=== PATIENT | female | born 1970 | race African-American/Black ===

== ENCOUNTER 2017-09-08 07:47 | Emergency (ER) | payer BC ==
[2017-09-08 08:02] VITALS: BP 156/77; PULSE 89; TEMP 98.9; BMI 25.0
--- NOTE | 2017-09-08 08:04 | PDOC ---
History of Present Illness - General Chief Complaint: Injury Stated Complaint: RIGH WRIST PAIN Time Seen by Provider: 09/08/17 07:55 - History of Present Illness Initial Comments: 09/08/17 08:28 The patient is a 47 year old right handed female with a history of DM, HTN, COPD , CAD who presents for evaluation following a mechanical fall. The patient reports that yesterday evening she tripped on a curb after smoking a cigarette and broke her fall with her right hand. She denies any head trauma and reports only right wrist pain. She states that she had continued pain prompting her presentation to the ED today. She denies fevers, chills, SOB, chest pain, abdominal pain or changes with urination or bowel movements. Past History - Past Medical History Allergies/Adverse Reactions: Allergies Allergy/AdvReac Type Severity Reaction Status Date / Time No Known Allergies Allergy Verified 09/08/17 07:52 Home Medications: Ambulatory Orders Albuterol Sulfate Inhaler - [Ventolin HFA Inhaler -] 2 inh IH Q4H PRN #1 inh Atorvastatin Calcium [Lipitor] 10 mg PO HS 04/12/13 Losartan Potassium [Cozaar] 25 mg PO DAILY 07/18/15 Salmeterol/Fluticasone [Advair 100Mcg/50Mcg -] 1 puff IH BID #1 inhaler Insulin Lispro [Humalog] 5 unit SQ AM 10/31/15 Clopidogrel Bisulfate [Plavix -] 75 mg PO DAILY 01/28/16 Guaifenesin AC [Robitussin-AC] 1 - 2 tsp PO TID PRN #100 ml MDD 6 10/25/16 Asthma: Yes (BRONCHITIS) COPD: No Diabetes: Yes HTN: Yes Hypercholesterolemia: Yes - Immunization History Immunization Up to Date: Yes - Suicide/Smoking/Psychosocial Hx Smoking Status: No Smoking History: Former smoker Have you smoked in the past 12 months: No Number of Cigarettes Smoked Daily: 5 If you are a former smoker, when did you quit?: 3 MO Information on smoking cessation initiated: No 'Breaking Loose' booklet given: 10/25/16 Hx Alcohol Use: Yes (SOCIAL) Drug/Substance Use Hx: No Substance Use Type: None Review of Systems - Review of Systems Comments:: 09/08/17 08:31 Constitutional: No fevers, chills, fatigue, malaise HEENT: No Rhinorrhea, nasal congestion, Cardiovascular: No chest pain, syncope, palpitations, lightheadedness Respiratory: No Cough, SOB, Hemoptysis, Gastrointestinal: No Abdominal pain, Nausea, Vomiting, Constipation, Diarrhea, Melena Genitourinary: No Dysuria, Frequency, Urgency, Hesitancy, Hematuria, Musculoskeletal: Right wrist pain. No Myalgia, arthralgia Skin: No rashes, bruising, pallor Neurologic: No Headache, Dizziness, Numbness, Weakness, or Tingling Psychiatric: No Hallucinations. No SI or HI *Physical Exam - Vital Signs Last Vital Signs Temp Pulse Resp BP Pulse Ox 98.9 F 89 20 156/77 99 09/08/17 07:48 09/08/17 07:48 09/08/17 07:48 09/08/17 07:48 09/08/17 07:48 - Physical Exam Comments: 09/08/17 08:32 General Appearance: Nourished. No Apparent Distress HEENT: EOMI, JERI. Neck: No Cervical Lymphadenopathy Respiratory/Chest: Lungs Clear, Normal Breath Sounds. No Crackles, Rales, Rhonchi, Wheezing Cardiovascular: Regular Rhythm, Regular Rate. No Murmur, Gallops, Rubs Gastrointestinal/Abdominal: Normal Bowel Sounds, Soft. No Guarding, Rebound, Tenderness Musculoskeletal: No CVA Tenderness Extremity: Normal range of motion of the right wrist with normal range of motion of the hand and digits. Full strength in the hand and digits. Sensation to light touch and temperature intact in the distal extremities. 2+ radial pulses bilaterally. Mild edema to the distal forearm. Pain with supination of the forearm. Normal Capillary Refill Integumentary: Normal Color, Dry, Warm Neurologic: Fully Oriented, Alert, Normal Mood/Affect, Normal Response, Motor Strength 5/5. Normal Finger to Nose and Heel to [place] Medical Decision Making - Medical Decision Making 09/08/17 08:36 The patient is a 47 year old right handed female with a history of DM, HTN, COPD , CAD who presents for evaluation following a mechanical fall. Differential includes but is not limited to: contusion, fracture, ligamentous injury. Given the patient's mechanism of injury, we will obtain plain films to evaluate for fracture. We will treat the patient with ibuprofen and continue to monitor and reassess. 09/08/17 09:54 Plain films were read as negative by our radiologist. However given the patient 's symptoms we are concerned for a possible small fracture in the distal radius. We have splinted the patient and given her instructions to follow up with orthopedics or return to the ER for repeat imaging in 1 week. The patient voiced understanding and is agreeable with the plan. *DC/Admit/Observation/Transfer Diagnosis at time of Disposition: Right wrist pain Wrist fracture Qualifiers: Encounter type: initial encounter Fracture type: closed Laterality: right Qualified Code(s): S62.101A - Fracture of unspecified carpal bone, right wrist, initial encounter for closed fracture - Discharge Dispostion Disposition: HOME Condition at time of disposition: Good Admit: No - Referrals Referrals: Jin Chavez MD [Staff Physician] - - Patient Instructions Printed Discharge Instructions: How to Use a Sling, DI for Wrist Fracture, How to Take Care of Your Splint Additional Instructions: Please return to the ER if you experience concerning or worsening symptoms including worsening pain. Your x-rays show a possible small fracture in your wrist. We have splinted your arm and you will need to call to schedule a follow up appointment with our orthopedic surgeon Dr. Chavez within 1 week. If you are unable to establish a follow up appointment please return to the ER to have repeat imaging done of your arm in 1 week. Please keep activity to a minimum given your splinted arm. - Post Discharge Activity
[2017-09-08] MEDS ORDERED: IBUPROFEN 600 MG TABLET (FP) PO ONE (08:25)
--- NOTE | 2017-09-08 09:53 | PDOC ---
Attending Attestation - Resident Resident Name: Surinder Kwong - ED Attending Attestation I have performed the following: I have examined & evaluated the patient, The case was reviewed & discussed with the resident, I agree w/resident's findings & plan, Exceptions are as noted - HPI HPI: 09/08/17 09:49 47 year old female with past medical history of DM, CAD, COPD, HTN presents with R wrist pain. 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 Yesterday, tripped and fell and landed on right wrist. Complaining about distal right radius pain. No numbness, weakness. Because of persistence of pain, came into the ED for further evaluation. - Physicial Exam PE: 09/08/17 09:51 GENERAL: NAD, AAOx3 RUE: 2+ radial pulse. Sensation intact throughout. radian/median/ulnar nerve intact TTP distal radius. No obvious deformity - Medical Decision Making 09/08/17 09:51 Vital Signs Temp Pulse Resp BP Pulse Ox 98.9 F 89 20 156/77 99 09/08/17 07:48 09/08/17 07:48 09/08/17 07:48 09/08/17 07:48 09/08/17 07:48 Right wrist xray reviewed. Radiology read is negative. However, on my read, apperas to be subtle findings on distal radius. Given the clinical findings of the wrist pain, will treat as if patient had a nondisplaced distal radius fracture. Dr. Kwong (resident) placed a sugar tong splint in right wrist. Modified activity Pain control Follow up with ortho in 1 week. If unable to obtain a follow up, return to ED for repeat wrist xray.
== END 2017-09-08 10:00 | disposition home or self-care (01) ==
LOC: JER 07:47
PROC: 2W3CX1Z Immobilization of Right Lower Arm using Splint (ICD-10-PCS; principal; 2017-09-08)
DX: S62.101A Fracture of unspecified carpal bone, right wrist, initial encounter for closed fracture (principal); W10.1XXA Fall (on)(from) sidewalk curb, initial encounter; Y93.89 Activity, other specified; Y92.480 Sidewalk as the place of occurrence of the external cause; Y99.8 Other external cause status; I10 Essential (primary) hypertension; E10.9 Type 1 diabetes mellitus without complications; Z79.4 Long term (current) use of insulin; E78.00 Pure hypercholesterolemia, unspecified; F17.210 Nicotine dependence, cigarettes, uncomplicated
CPT/HCPCS: 73070-TC-RT; 73090-TC-RT; 73110-TC-RT; 99281-25

== ENCOUNTER 2018-04-13 11:52 | Emergency (ER) | payer BC ==
[2018-04-13 12:11] VITALS: BP 121/74; PULSE 100; TEMP 99.4; BMI 25.0
--- NOTE | 2018-04-13 12:26 | PDOC ---
History of Present Illness - General Chief Complaint: Cold Symptoms Stated Complaint: Sore Throat Time Seen by Provider: 04/13/18 12:12 - History of Present Illness Initial Comments: 47 y/o F with PMH of DM, HTN, CAD presents for evalution of sore throat x 2 weeks without associated symptoms. 04/13/18 12:20 Past History - Past Medical History Allergies/Adverse Reactions: Allergies Allergy/AdvReac Type Severity Reaction Status Date / Time No Known Allergies Allergy Verified 04/13/18 12:11 Home Medications: Ambulatory Orders Atorvastatin Calcium [Lipitor] 10 mg PO HS 04/12/13 Losartan Potassium [Cozaar] 25 mg PO DAILY 07/18/15 Insulin Lispro [Humalog] 5 unit SQ AM 10/31/15 Clopidogrel Bisulfate [Plavix -] 75 mg PO DAILY 01/28/16 Cetirizine HCl [Zyrtec Rapidly Dissolving Tab -] 10 mg PO DAILY #30 tab Asthma: Yes (BRONCHITIS) COPD: No Diabetes: Yes HTN: Yes Hypercholesterolemia: Yes - Immunization History Immunization Up to Date: Yes - Suicide/Smoking/Psychosocial Hx Smoking Status: No Smoking History: Never smoked Have you smoked in the past 12 months: No Number of Cigarettes Smoked Daily: 5 If you are a former smoker, when did you quit?: 2014 Information on smoking cessation initiated: No 'Breaking Loose' booklet given: 10/25/16 Hx Alcohol Use: No Drug/Substance Use Hx: No Substance Use Type: None Review of Systems - Review of Systems Constitutional: No: Chills, Fever HEENTM: Yes: Throat Pain All Other Systems: Reviewed and Negative *Physical Exam - Vital Signs Last Vital Signs Temp Pulse Resp BP Pulse Ox 99.4 F 100 H 16 121/74 100 04/13/18 12:08 04/13/18 12:08 04/13/18 12:08 04/13/18 12:08 04/13/18 12:08 - Physical Exam Comments: GENERAL: The patient is awake, alert, and fully oriented, in no acute distress. HEAD: Normal with no signs of trauma. EYES: Pupils equal, round and reactive to light, extraocular movements intact, sclera anicteric, conjunctiva clear. ENT: Ears normal, nares patent, oropharynx clear without exudates. Moist mucous membranes. NECK: Normal range of motion, supple without lymphadenopathy, JVD, or masses. LUNGS: Breath sounds equal, clear to auscultation bilaterally. No wheezes, and no crackles. HEART: Regular rate and rhythm, normal S1 and S2 without murmur, rub or gallop. ABDOMEN: Soft, nontender, normoactive bowel sounds. No guarding, no rebound. No masses. EXTREMITIES: Normal range of motion, no edema. No clubbing or cyanosis. No cords, erythema, or tenderness. NEUROLOGICAL: Cranial nerves II through XII grossly intact. Normal speech, normal gait. PSYCH: Normal mood, normal affect. SKIN: Warm, Dry, normal turgor, no rashes or lesions noted. 04/13/18 12:23 Medical Decision Making - Medical Decision Making 47 y/o F with benign appearing examination of sore throat x 2 weeks 04/13/18 12:23 04/13/18 12:56 strep negative, cx sent, this is most likley allergies, I will prescribe and antihistamine for her and f/u with PCP *DC/Admit/Observation/Transfer Diagnosis at time of Disposition: Allergic pharyngitis - Discharge Dispostion Disposition: HOME Condition at time of disposition: Stable Decision to Admit order: No - Referrals Referrals: Carmen Chaudhari [Primary Care Provider] - - Patient Instructions Printed Discharge Instructions: Allergies (Alternative Therapy) Additional Instructions: Your sore throat is most likley due to allergies, especially due to the fact that is been going on for two weeks. Your rapid strep was negative. I have prescribed for you an antihistamine which should help your symptoms. Return to the ER should your symptoms worsen or go unresolved. Please follow up with your primary care physician in the next 1-2 days. - Post Discharge Activity
== END 2018-04-13 13:01 | disposition home or self-care (01) ==
LOC: JERFT 11:52
DX: J02.9 Acute pharyngitis, unspecified (principal); I25.10 Atherosclerotic heart disease of native coronary artery without angina pectoris; I10 Essential (primary) hypertension; E78.00 Pure hypercholesterolemia, unspecified; E11.9 Type 2 diabetes mellitus without complications; Z79.4 Long term (current) use of insulin
CPT/HCPCS: 87070; 87430; 99281-25

== ENCOUNTER 2018-04-15 23:00 | Inpatient (IN) | payer BC ==
[2018-04-15] MEDS ORDERED: KETOROLAC TROMETHAMINE 30 MG/1 ML VIAL IVPUSH ONE (23:27)
[2018-04-15] MEDS ORDERED: SODIUM CHLORIDE 1,000 ML IV ONE (23:27)
--- NOTE | 2018-04-15 23:29 | PDOC ---
History of Present Illness - General Chief Complaint: Pain, Acute Stated Complaint: FEVER/SORE THROAT Time Seen by Provider: 04/15/18 23:26 History Source: Patient Exam Limitations: No Limitations - History of Present Illness Initial Comments: 04/15/18 23:28 This is a 47-year-old female who comes in complaining of sore throat 2-1/2 weeks. Patient was at [facility] on Saturday and was told it was most likely secondary to ALLERGIES, however a rapid strep was also done and it was negative, patient was prescribed antihistamines which she has not been taking. Patient was at urgent care center yesterday and told it was likely secondary to possible viral etiology. Patient now comes to the ER for reevaluation. Patient has history significant for diabetes, and hypertension. PAST MEDICAL HISTORY: Hypertension and diabetes PAST SURGICAL HISTORY: no significant history FAMILY HISTORY: no pertinant history SOCIAL HISTORY: Pt lives with family and is employed. MEDICATIONS: reviewed ALLERGIES: As per nursing notes Review of Systems General: No fevers or chills, no weakness, no weight loss HEENT: No change in vision. No sore throat,. No ear pain CardioVascular: No chest pain or shortness of breath Respiratory:No cough, or wheezing. Gastrointestinal: no nausea, vomitting, diarrhea or constipation, No rectal bleeding Genitourinary: No dysuria, hematuria, or frequency Musculoskeletal: No joint or muscle pain or swelling Neurologic: No headache, vertigo, dizziness or loss of consciousness Psychiatric: nor depression Skin: No rashes or easy bruising Endocrine: no increased thirst or abnormal weight change Allergic: no skin or latex allergy All other systems reviewed and normal Exam: General: Well-nourished well-developed individual, no acute distress HEENT: Throat: Normal, tonsils normal, there is a moderate amount of erythema posterior oropharynx Neck: Supple, no meningeal signs, no lymphadenopathy Eyes::Pupils equal reactive and round, extraocular motion intact Chest: Nontender to palpation Cardiac: S1-S2 normal, regular rate and rhythm, no murmurs rubs or gallops Respiratory: Lungs clear to auscultation bilateral Extremities: Warm, dry, no cyanosis, clubbing, or edema Skin: No rashes Neuro: Alert and oriented x3, CN II - XII intact, nonfocal exam with normal strength, normal sensation, normal reflexes, normal gait, Psych: Normal mood and affect Assessment and plan: This is a 47-year-old female with history of asthma dependent diabetes who comes in complaining of sore throat 2-1/2 weeks. There is an associated dry cough with it. Patient denies any shortness of breath or fevers. As this is the patient's third visit will obtain a basic workup including CBC, comp and hydrate her with some IV fluids and give her some Toradol. 04/16/18 00:10 Patient glucose is markedly elevated at 729. Her sodium is 125 and her potassium is 4.7. Patient will be given 10 units of insulin IV push. Discussed admission with the thread cutter tender and patient was accepted to the ICU. Patient is hemodynamically stable. Patient will be transferred to [facility] ICU for admission. Past History - Past Medical History Allergies/Adverse Reactions: Allergies Allergy/AdvReac Type Severity Reaction Status Date / Time No Known Allergies Allergy Verified 04/15/18 23:02 Home Medications: Ambulatory Orders Atorvastatin Calcium [Lipitor] 10 mg PO HS 04/12/13 Losartan Potassium [Cozaar] 25 mg PO DAILY 07/18/15 Insulin Lispro [Humalog] 5 unit SQ AM 10/31/15 Clopidogrel Bisulfate [Plavix -] 75 mg PO DAILY 01/28/16 Cetirizine HCl [Zyrtec Rapidly Dissolving Tab -] 10 mg PO DAILY #30 tab Asthma: Yes (BRONCHITIS) COPD: No Diabetes: Yes HTN: Yes Hypercholesterolemia: Yes - Immunization History Immunization Up to Date: Yes - Suicide/Smoking/Psychosocial Hx Smoking Status: No Smoking History: Never smoked Have you smoked in the past 12 months: No Number of Cigarettes Smoked Daily: 5 If you are a former smoker, when did you quit?: 2014 Information on smoking cessation initiated: No 'Breaking Loose' booklet given: 10/25/16 Hx Alcohol Use: No Drug/Substance Use Hx: No Substance Use Type: None *Physical Exam - Vital Signs Last Vital Signs Temp Pulse Resp BP Pulse Ox 99.6 F 98 H 18 115/73 100 04/15/18 23:07 04/15/18 23:07 04/15/18 23:07 04/15/18 23:07 04/15/18 23:07 ED Treatment Course - LABORATORY CBC & Chemistry Diagram: 04/15/18 23:40 04/15/18 23:40 *DC/Admit/Observation/Transfer Diagnosis at time of Disposition: Uncontrolled type 2 DM with hyperosmolar nonketotic hyperglycemia, Hyperkalemia - Discharge Dispostion Condition at time of disposition: Stable Decision to Admit order: Yes - Referrals - Patient Instructions - Post Discharge Activity
[2018-04-15] MEDS ORDERED: KETOROLAC TROMETHAMINE 30 MG/1 ML VIAL ONE (23:45)
[2018-04-15 23:50] LABS: BASO % 2.6 % (0-2.0); EOS % 1.1 % (0-4.5); HEMATOCRIT 38.8 % (32.4-45.2); HEMOGLOBIN 12.6 GM/dl (10.7-15.3); LYMPH % 15.3 % (8-40); MCH 28.3 pg (25.7-33.7); MCHC 32.6 g/dl (32.0-36.0); MEAN PLT VOLUME 8.1 fl (7.5-11.1); MONO % 10.2 % (3.8-10.2); NEUT % 70.8 % (42.8-82.8); PLATELET COUNT 264 K/MM3 (134-434); RBC 4.45 M/mm3 (3.60-5.2); RDW 14.1 % (11.6-15.6); WHITE BLOOD COUNT 9.1 K/mm3 (4.0-10.8)
[2018-04-15 23:58] LABS: ALBUMIN 3.5 g/dl (3.5-5.0); ALK PHOS 189 U/L (32-92); ANION GAP 16 (8-16); BILIRUBIN,TOTAL 0.6 mg/dl (0.2-1.0); BLOOD UREA NITROGEN 21 mg/dl (7-18); CALCIUM 9.4 mg/dl (8.4-10.2); CHLORIDE 86 mmol/L (98-107); CO2 23 mmol/L (22-28); CREATININE 1.2 mg/dl (0.6-1.3); SGOT/AST 23 U/L (10-42); SGPT/ALT 11 U/L (10-40); SODIUM 125 mmol/L (136-145); TOT PROT 8.1 g/dl (6.4-8.3)
[2018-04-16 00:04] LABS: GLUCOSE,RANDOM 720 mg/dl (74-106); POTASSIUM 5.4 mmol/L (3.5-5.1)
[2018-04-16] MEDS ORDERED: INSULIN REGULAR HUMAN 100 UNITS/ML *VIAL IVPUSH ONE (00:48)
[2018-04-16] MEDS ORDERED: SODIUM CHLORIDE 1,000 ML IV ONE ×2 (01:14→02:37)
[2018-04-16] MEDS ORDERED: INSULIN REGULAR HUMAN 100 UNITS/ML *VIAL ONE ×2 (01:15→01:16)
[2018-04-16] MEDS ORDERED: HEMOQUE TEST 1 EACH EACH ONE (02:07)
[2018-04-16] MEDS ORDERED: HEMOQUE CONTROL SOLUTION ONE (02:25)
[2018-04-16 04:11] VITALS: BMI 23.8
[2018-04-16] MEDS ORDERED: PNEUMOC 13-VAL CONJ-DIP CRM/PF 0.5 ML DISP.SYRIN IM ONE (04:14)
[2018-04-16] MEDS ORDERED: SODIUM CHLORIDE 1,000 ML IV SCH (04:15)
[2018-04-16] MEDS: INSULIN REGULAR 100 UNITS in SODIUM CHLORIDE 99 ML IVPB SCH ×2 (04:22→05:58)
--- NOTE | 2018-04-16 04:23 | CONSULT ---
Consult Consult Specialty:: Pulm/CCM Reason for Consultation:: DKA - History of Present Illness Chief Complaint: Sore throat History of Present Illness: 47yow with PMHX IDDM, CAD s/p stent who presented to [facility] with c/o sore throat. Found to be in DKA with BG 720 and AGAP 16. Pt states that she has also had dysphagia and poor po intake and in that setting was not compliant with insulin doses. At [facility] labs notable for Na 125, K 5.4, WBC 10. CXR was clear. Blood cultures sent. She was given insulin 10U and started on IV fluid. She was transferred to [facility] ICU for further management. Of note pt visited [facility] 2 days [facility] with similar complaint and was treated for allergies. The next day she went to an urgent care center. Strep culture there was negative. In ICU pt rec'd A+O x3, HR 79, BP 129/93, o2 sat 100% on room air. Insulin drip started at 10U/h, IV fluids at 150cc/h and Azithromycin empirically - History Source History Provided By: Patient, Medical Record - Past Medical History Cardio/Vascular: Yes: CAD, Other (s/p stent) ...LMP: 04/19/15 ...: No Endocrine: Yes: Diabetes Mellitus - Alcohol/Substance Use Hx Alcohol Use: No - Smoking History Smoking history: Former smoker Have you smoked in the past 12 months: No Aproximately how many cigarettes per day: 5 If you are a former smoker, when did you quit?: 2014 Home Medications - Allergies Allergies/Adverse Reactions: Allergies Allergy/AdvReac Type Severity Reaction Status Date / Time No Known Allergies Allergy Verified 04/15/18 23:02 - Home Medications Home Medications: Ambulatory Orders Atorvastatin Calcium [Lipitor] 10 mg PO HS 04/12/13 Losartan Potassium [Cozaar] 25 mg PO DAILY 07/18/15 Insulin Lispro [Humalog] 5 unit SQ AM 10/31/15 Clopidogrel Bisulfate [Plavix -] 75 mg PO DAILY 01/28/16 Cetirizine HCl [Zyrtec Rapidly Dissolving Tab -] 10 mg PO DAILY #30 tab Family Disease History - Family Disease History Family Disease History: Diabetes: Mother, Heart Disease: Mother Review of Systems - Review of Systems Neck: reports: Swollen Glands Genitourinary: reports: Dysuria Physical Exam Vital Signs: Vital Signs Temperature 99.1 F 04/16/18 02:05 Pulse Rate 72 04/16/18 03:12 Respiratory Rate 16 04/16/18 03:12 Blood Pressure 134/84 04/16/18 03:12 O2 Sat by Pulse Oximetry (%) 100 04/15/18 23:07 Constitutional: Yes: Well Nourished, No Distress Eyes: Yes: Conjunctiva Clear, PERRL HENT: Yes: Atraumatic, Normocephalic Neck: Yes: Lymphadenopathy, Other (slight redness at back of throat) Cardiovascular: Yes: Regular Rate and Rhythm, S1, S2 Respiratory: Yes: Regular, CTA Bilaterally Gastrointestinal: Yes: Normal Bowel Sounds, Soft Renal/: Yes: Polyuria Extremities: Yes: WNL Edema: No Peripheral Pulses WNL: Yes Neurological: Yes: Alert, Oriented ...Motor Strength: WNL Psychiatric: Yes: Alert, Oriented Labs: CBC, BMP 04/15/18 02:58 04/15/18 02:58 CBC,CMP WBC 9.1 K/mm3 (4.0-10.8) 04/15/18 02:58 RBC 4.45 M/mm3 (3.60-5.2) 04/15/18 02:58 Hgb 12.6 GM/dl (10.7-15.3) 04/15/18 02:58 Hct 38.8 % (32.4-45.2) 04/15/18 02:58 MCV 87.0 fl (80-96) 04/15/18 02:58 MCH 28.3 pg (25.7-33.7) 04/15/18 02:58 MCHC 32.6 g/dl (32.0-36.0) 04/15/18 02:58 RDW 14.1 % (11.6-15.6) 04/15/18 02:58 Plt Count 264 K/MM3 (134-434) 04/15/18 02:58 MPV 8.1 fl (7.5-11.1) 04/15/18 02:58 Absolute Neuts (auto) 6.5 # 04/15/18 02:58 Neutrophils % 70.8 % (42.8-82.8) 04/15/18 02:58 Lymphocytes % 15.3 % (8-40) 04/15/18 02:58 Monocytes % 10.2 % (3.8-10.2) 04/15/18 02:58 Eosinophils % 1.1 % (0-4.5) 04/15/18 02:58 Basophils % 2.6 % (0-2.0) H 04/15/18 02:58 Sodium 125 mmol/L (136-145) L 04/15/18 02:58 Potassium 5.4 mmol/L (3.5-5.1) H 04/15/18 02:58 Chloride 86 mmol/L (98-107) L 04/15/18 02:58 Carbon Dioxide 23 mmol/L (22-28) 04/15/18 02:58 Anion Gap 16 (8-16) 04/15/18 02:58 BUN 21 mg/dl (7-18) H 04/15/18 02:58 Creatinine 1.2 mg/dl (0.6-1.3) 04/15/18 02:58 Creat Clearance w eGFR 47.75 (>60) 04/15/18 02:58 Random Glucose 720 mg/dl (74-106) H* 04/15/18 02:58 Lactic Acid 2.9 mmol/L (0.0-2.0) H* 04/16/18 02:00 Calcium 9.4 mg/dl (8.4-10.2) 04/15/18 02:58 Total Bilirubin 0.6 mg/dl (0.2-1.0) 04/15/18 02:58 AST 23 U/L (10-42) 04/15/18 02:58 ALT 11 U/L (10-40) 04/15/18 02:58 Alkaline Phosphatase 189 U/L (32-92) H 04/15/18 02:58 Total Protein 8.1 g/dl (6.4-8.3) 04/15/18 02:58 Albumin 3.5 g/dl (3.5-5.0) 04/15/18 02:58 Current Medications Insulin Human Regular 100 (units/ Sodium Chloride) 100 mls @ 10 mls/hr IVPB TITR SOPHIA; Protocol Last Admin: 04/16/18 04:22 Dose: 10 units/hr, 10 mls/hr Sodium Chloride (Normal Saline -) 1,000 mls @ 150 mls/hr IV ASDIR SOPHIA Last Admin: 04/16/18 04:21 Dose: 150 mls/hr Azithromycin 500 mg/ Dextrose 250 mls @ 250 mls/hr IVPB ONCE ONE Stop: 04/16/18 05:23 Pneumococcal 13-Valent Conj Vacc (Prevnar 13 Syringe -) 0.5 ml IM .ONCE ONE Stop: 04/16/18 04:15 Imaging - Results Chest X-ray: Image Reviewed (clear) Problem List - Problems (1) Lymphadenopathy Code(s): R59.1 - GENERALIZED ENLARGED LYMPH NODES (2) DKA (diabetic ketoacidoses) Code(s): E13.10 - OTH DIABETES MELLITUS WITH KETOACIDOSIS WITHOUT COMA (3) Hyperkalemia Code(s): E87.5 - HYPERKALEMIA (4) Uncontrolled type 2 DM with hyperosmolar nonketotic hyperglycemia Code(s): E11.00 - TYPE 2 DIAB W HYPROSM W/O NONKET HYPRGLY-HYPROS COMA ([facility]) (5) Hyperglycemia Code(s): R73.9 - HYPERGLYCEMIA, UNSPECIFIED (6) Diabetes Code(s): E11.9 - TYPE 2 DIABETES MELLITUS WITHOUT COMPLICATIONS (7) Hyperlipemia Code(s): E78.5 - HYPERLIPIDEMIA, UNSPECIFIED Assessment/Plan 47yow with PMHx of IDDM, CAD s/p stents on plavix presented with c/o sore throat , dysphagia and insulin non-compliance now in ICU with DKA. Plan: -ID consult -Insulin drip for goal BG<150 -NS at 150cc -Add dextrose to IV when BG<250 -BMP q4 to monitor AGAP and electrolytes -Add potassium to IVF to keep K~4 -NPO for now -F/u cultures -Azithromycin empirically x5days -Cont plavix -DVT and GI prophylaxis Nimco Schwarz, ACNP CC time 35mins
[2018-04-16] MEDS ORDERED: AZITHROMYCIN IVPB 500 MG in DEXTROSE 5%-WATER - 250 ML IVPB ONE (04:24)
--- NOTE | 2018-04-16 05:41 | PN ---
Teaching Attending Note Name of Resident: Ascencion Brown ATTENDING PHYSICIAN STATEMENT I saw and evaluated the patient. I reviewed the resident's note and discussed the case with the resident. I agree with the resident's findings and plan as documented. SUBJECTIVE: Patient is a 47 year old woman with insulin-treated DM since age 20 year, CAD ( one cardiac stent) and hypertension transferred to the ICU from [place] ER where she presented with complaint of sore throat 2-1/2 weeks. Patient was at [facility] on Saturday and was told it was most likely secondary to ALLERGIES, however a rapid strep was also done and it was negative , patient was prescribed antihistamines which she has not been taking. [facility] and told it was likely secondary to possible viral etiology. The sore throat was associated with odynophagia and she has not been able to eat for about 4 days and has also not taken any of her medications including insulin in that time. The ER at [place] found she had glucose of 720 gave her 10 units of insulin IV and IV NS and transferred her to [place] ICU. Urinalysis was not available at the time of transfer so ketonuria could not be confirmed. OBJECTIVE: Alert, weak but in no acute distress Vital Signs Period Temp Pulse Resp BP Sys/Hernandez Pulse Ox Last 24 Hr 99.1 F-99.6 F 72-98 16-18 115-147/73-93 100-100 HEENT: No Jaundice, eye redness or discharge, PERRLA, EOMI. No oropharyngeal exudates or injection. Normocephalic, atraumatic. External ears are normal and hearing is grossly intact. No nasal discharge. Neck: Supple, mild tenderness. No palpable adenopathy or thyromegaly. No JVD Chest: Good effort. Clear to auscultation and percussion. Heart: Regular. No S3, rub or murmur Abdomen: Not distended, soft, nontender and no HSM. No rebound or guarding. Normoactive bowel sounds. Ext: Peripheral pulses intact. No leg edema. Skin: Warm and dry. No petechiae, rash or ecchymosis. Neuro: Alert. Oriented x3. CN 2-12 grossly intact. Sensation grossly intact in all four extremities and DTR are symmetric. Current Medications Generic Name Dose Route Start Last Admin Trade Name Liz PRN Reason Stop Dose Admin Clopidogrel Bisulfate 75 mg 04/16/18 10:00 Plavix - PO DAILY SOPHIA Insulin Human Regular 100 100 mls @ 10 mls/hr 04/16/18 04:15 04/16/18 04:22 units/ Sodium Chloride IVPB 10 units/hr TITR SOPHIA 10 mls/hr Administration Protocol 10 UNITS/HR Sodium Chloride 1,000 mls @ 150 mls/hr 04/16/18 04:15 04/16/18 04:21 Normal Saline - IV 150 mls/hr ASDIR SOPHIA Administration Pneumococcal 13-Valent Conj Vacc 0.5 ml 04/16/18 04:14 Prevnar 13 Syringe - IM 04/16/18 04:15 .ONCE ONE Home Medications Medication Instructions Recorded Atorvastatin Calcium [Lipitor] 10 mg PO HS 04/12/13 Losartan Potassium [Cozaar] 25 mg PO DAILY 07/18/15 Insulin Lispro [Humalog] 5 unit SQ AM 10/31/15 Clopidogrel Bisulfate [Plavix -] 75 mg PO DAILY 01/28/16 Cetirizine HCl [Zyrtec Rapidly 10 mg PO DAILY #30 tab 04/13/18 Dissolving Tab -] Abnormal Lab Results 04/15/18 04/15/18 04/16/18 02:58 02:58 02:00 Basophils % 2.6 H Sodium 125 L Potassium 5.4 H Chloride 86 L BUN 21 H Random Glucose 720 H* Lactic Acid 2.9 H* Alkaline Phosphatase 189 H ASSESSMENT AND PLAN: 1. DKA - Findings are consistent with DKA. Urinalysis is pending. DKA likely precipitated by throat infection and failure to take insulin. She has been started on insulin drip, IV NS, IV KCL and we will monitor BMP q 2 hours. Etiology of throat infection is unclear, but we are doing sepsis workup, repeat throat swab, HIV test and starting her on Ancef 1 gm q 8 hours pending result of sepsis workup. Viscous lidocaine swish and swallow for throat pain. Lactic acidosis is partly due to starvation and DKA. Her EKG does not show any significant abnormality. No infiltrates on CXR but has what appears to be an artifact around her neck - will get neck xray. Consult ID and ENT. 2. Hyponatremia - Likely due to hyperglycemia. 3. 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 4. Cardiac stent - Continue plavix. 5. DVT prophylaxis - Heparin 5000u sq tid. 6. Advance directives - Full code
[2018-04-16 06:22] LABS: HEMATOCRIT 33.6 % (32.4-45.2); HEMOGLOBIN 11.1 GM/dL (10.7-15.3); MCH 28.2 pg (25.7-33.7); MCHC 32.9 g/dl (32.0-36.0); MEAN CELL VOLUME 85.5 fl (80-96); MEAN PLT VOLUME 7.8 fl (7.5-11.1); PLATELET COUNT 223 K/MM3 (134-434); RBC 3.93 M/mm3 (3.60-5.2); RDW 15.5 % (11.6-15.6); WHITE BLOOD COUNT 6.8 K/mm3 (4.0-10.0)
[2018-04-16] MEDS ORDERED: LIDOCAINE VISCOUS 2% ORAL/TOP 20 ML UNIT-DOSE CUP MM PRN (06:25)
--- NOTE | 2018-04-16 06:46 | HP ---
CHIEF COMPLAINT: sore throat PCP: HISTORY OF PRESENT ILLNESS: 47F w/ hx of IDDM, HTN, asthma, HLD, and CAD who presents with sore throat for past 2.5 weeks. Per pt, she developed a sore throat about 2.5 weeks ago. It was associated with a dry cough and mild headache. Pt denies nasal congestion, rhinorrhea, sick contacts, recent travel, fevers, chills, SOB, chest pain, nausea, emesis, diarrhea, constipation, and dysuria. She came to [facility] several days ago, was strep negative, and was told it was due to allergies. Her symptoms did not resolve, so she went to an urgent care center, and was told it was due to a viral illness. Since this past saturday, due to her sore throat, her po intake decreased, and she wasn't able to take any of her meds. In addition, because she wasn't eating much, she stopped taking her insulin. She endorses polydipsia and polyuria during this time. Her sore throat remained, so she presented to [facility] yesterday. At [facility], pt was found to be hyperglycemic to 720, so transferred to [facility] ICU. Of note, pt never was hospitalized for DKA. ER course was notable for: (1) anion gap of 16, glucose of 720 (2) lactic acidosis, high ALP (3) Recent Travel: PAST MEDICAL HISTORY: IDDM, HTN, asthma, HLD, and CAD PAST SURGICAL HISTORY: Left leg stent Social History: Smokin cig/day x 30 years Alcohol: social Drugs: denies Pt lives with jabier in [place], has 1 child, works as a teacher. Family History: mother- DM, HLD, HTN, [place] father- from lung cancer Allergies No Known Allergies Allergy (Verified 04/15/18 23:02) HOME MEDICATIONS: Home Medications Medication Instructions Recorded Atorvastatin Calcium [Lipitor] 10 mg PO HS 04/12/13 Losartan Potassium [Cozaar] 25 mg PO DAILY 07/18/15 Insulin Lispro [Humalog] 5 unit SQ AM 10/31/15 Clopidogrel Bisulfate [Plavix -] 75 mg PO DAILY 01/28/16 Cetirizine HCl [Zyrtec Rapidly 10 mg PO DAILY #30 tab 04/13/18 Dissolving Tab -] REVIEW OF SYSTEMS CONSTITUTIONAL: Absent: fever, chills, diaphoresis, generalized weakness, malaise, weight change present: decreased appetite HEENT: Absent: rhinorrhea, nasal congestion, throat swelling, mouth swelling, ear pain , eye pain, visual changes present: sore throat CARDIOVASCULAR: Absent: chest pain, syncope, palpitations, irregular heart rate, lightheadedness , peripheral edema RESPIRATORY: Absent: shortness of breath, dyspnea with exertion, orthopnea, wheezing, stridor , hemoptysis present: dry cough GASTROINTESTINAL: Absent: abdominal pain, abdominal distension, nausea, vomiting, diarrhea, constipation, melena, hematochezia GENITOURINARY: Absent: dysuria, frequency, urgency, hesitancy, hematuria, flank pain, genital pain MUSCULOSKELETAL: Absent: myalgia, arthralgia, joint swelling, back pain, neck pain SKIN: Absent: rash, itching, pallor HEMATOLOGIC/IMMUNOLOGIC: Absent: easy bleeding, easy bruising, lymphadenopathy, frequent infections ENDOCRINE: Absent: unexplained weight gain, unexplained weight loss, heat intolerance, cold intolerance NEUROLOGIC: Absent: headache, focal weakness or paresthesias, dizziness, unsteady gait, seizure, mental status changes, bladder or bowel incontinence PSYCHIATRIC: Absent: anxiety, depression, suicidal or homicidal ideation, hallucinations. PHYSICAL EXAMINATION Vital Signs - 24 hr 04/15/18 04/16/18 04/16/18 23:07 02:05 03:12 Temperature 99.6 F 99.1 F Pulse Rate 98 H 78 Pulse Rate [ 72 Left] Respiratory 18 16 16 Rate Blood Pressure 115/73 129/93 Blood Pressure 134/84 [Right] O2 Sat by Pulse 100 100 Oximetry (%) 04/16/18 04/16/18 04:33 05:12 Temperature Pulse Rate 80 80 Pulse Rate [ Left] Respiratory 16 16 Rate Blood Pressure 147/75 147/75 Blood Pressure [Right] O2 Sat by Pulse Oximetry (%) GENERAL: middle aged female, awake, alert, and fully oriented, in no acute distress. HEENT: no pharyngeal erythema, no visible exudates LUNGS: Breath sounds equal, clear to auscultation bilaterally. No wheezes, and no crackles. No accessory muscle use. HEART: Regular rate and rhythm, normal S1 and S2 without murmur, rub or gallop. ABDOMEN: Soft, nontender, not distended, normoactive bowel sounds, no guarding, no rebound, no masses. No hepatomegaly or splenomegaly. MUSCULOSKELETAL: No peripheral edema. NEUROLOGICAL: Cranial nerves II-XII intact. Normal speech. Laboratory Results - last 24 hr 04/15/18 04/15/18 04/16/18 02:58 02:58 02:00 WBC 9.1 RBC 4.45 Hgb 12.6 Hct 38.8 MCV 87.0 MCH 28.3 MCHC 32.6 RDW 14.1 Plt Count 264 MPV 8.1 Absolute Neuts (auto) 6.5 Neutrophils % 70.8 Lymphocytes % 15.3 Monocytes % 10.2 Eosinophils % 1.1 Basophils % 2.6 H Sodium 125 L Potassium 5.4 H Chloride 86 L Carbon Dioxide 23 Anion Gap 16 BUN 21 H Creatinine 1.2 Creat Clearance w eGFR 47.75 POC Glucometer Random Glucose 720 H* Lactic Acid 2.9 H* Calcium 9.4 Total Bilirubin 0.6 AST 23 ALT 11 Alkaline Phosphatase 189 H Total Protein 8.1 Albumin 3.5 04/16/18 05:57 WBC RBC Hgb Hct MCV MCH MCHC RDW Plt Count MPV Absolute Neuts (auto) Neutrophils % Lymphocytes % Monocytes % Eosinophils % Basophils % Sodium Potassium Chloride Carbon Dioxide Anion Gap BUN Creatinine Creat Clearance w eGFR POC Glucometer [phone] Random Glucose Lactic Acid Calcium Total Bilirubin AST ALT Alkaline Phosphatase Total Protein Albumin EKG: NSR ASSESSMENT/PLAN: 47F w/ hx of IDDM, HTN, asthma, HLD, and CAD who presents with sore throat for past 2.5 weeks, found to have hyperglycemia of 720 with AG of 16. #probable DKA -2/2 not taking insulin for several days -hyperglycemia of 720, AG of 16 -awaiting results of UA and ABG to make diagnosis. -NS @ 150 cc/hr -insulin gtt -replete K per DKA protocol -lactic acidosis of 2.9. continue to trend -f/u [id number] -serial BMPs #sore throat -possibly 2/2 viral vs. bacterial etiology -low grade temp of 99.6, tachycardia. no leukocytosis -f/u viral resp panel -f/u HIV test -lidocaine swish and swallow -ancef 1g BID -ID consulted, Dr. Finn, f/u recs -f/u Bcx #elevated ALP -f/u GGT to distinguish hepatic vs. bone etiology -trend #FEN/ppx -NS @ 150 -hyponatremia, hyperkalemia, low Cl -NPO -no GI ppx indicated -heparin SQ Case discussed with attending, Dr. Nath. -Ascencion Brown MD PGY1 Visit type - Emergency Visit Emergency Visit: Yes ED Registration Date: 04/16/18 Care time: The patient presented to the Emergency Department on the above date and was hospitalized for further evaluation of their emergent condition. - New Patient This patient is new to me today: Yes Date on this admission: 04/16/18 - Critical Care Critical Care patient: Yes Total Critical Care Time (in minutes): 40 Critical Care Statement: The care of this patient involved high complexity decision making to prevent further life threatening deterioration of the patient 's condition and/or to evaluate & treat vital organ system(s) failure or risk of failure. Hospitalist Screening - Colonoscopy Questionnaire Colonoscopy Questionnaire: Colonoscopy Questionnaire - Patient: 50 - 75 years old and never had a screening colonoscopy: Unknown History of colon or rectal polyps, or CA: Unknown History of IBD, Crohn's disease or UC: Unknown History of abdominal radiation therapy as a child: Unknown - Relative: 1 with colon or rectal CA, or polyps at age 60 or younger: Unknown Colon or rectal CA diagnosed at age 45 or younger: Unknown Multiple relatives with colon or rectal CA: Unknown - Outcome: Screening Result: Negative Screen
[2018-04-16 06:49] LABS: ALBUMIN 2.7 g/dl (3.4-5.0); ANION GAP 9 (8-16); BLOOD UREA NITROGEN 17 mg/dL (7-18); CALCIUM 8.7 mg/dL (8.5-10.1); CHLORIDE 100 mmol/L (98-107); CO2 28 mmol/L (21-32); GLUCOSE,RANDOM 324 mg/dL (74-106); SGOT/AST 14 U/L (15-37); SGPT/ALT 13 U/L (12-78); SODIUM 137 mmol/L (136-145)
[2018-04-16 06:53] LABS: ALK PHOS 180 U/L (45-117); BILIRUBIN,TOTAL 0.2 mg/dL (0.2-1.0); TOT PROT 6.5 g/dl (6.4-8.2)
[2018-04-16 06:58] LABS: ARTERIAL BLD GAS O2 SATURATION 96.4 % (90-98.9); ARTERIAL BLOOD GAS PCO2 37.7 mmHg (35-45); ARTERIAL BLOOD GAS PO2 77.9 mmHg (80-100); ARTERIAL BLOOD GAS pH 7.45 (7.35-7.45)
[2018-04-16 07:01] LABS: ALLENS TEST POSITIVE
[2018-04-16 08:03] LABS: ANION GAP 10 (8-16); BLOOD UREA NITROGEN 16 mg/dL (7-18); CALCIUM 8.5 mg/dL (8.5-10.1); CHLORIDE 102 mmol/L (98-107); CO2 26 mmol/L (21-32); CREATININE 1.1 mg/dL (0.55-1.02); GAMMA GLUTAMYL TRANSPEPTIDASE 41 U/L (5-85); MAGNESIUM 1.8 mg/dL (1.8-2.4); SODIUM 138 mmol/L (136-145)
--- NOTE | 2018-04-16 08:11 | PN ---
Progress Note (short form) - Note Progress Note: ID This poorly adherent diabetic female admitted with blood sugar over 700. She is on insulin but admits she sometimes skips doses. Asked to see her for her history of sorethroat going on for some time. Seen in ER few days ago and urg[facility]are the next days treated with Zyrtec as throat screen culture neg strep. 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 No travel rash abd pain diarrhea. Selected Entries 04/16/18 06:47 Temperature 99 F Pulse Rate 96 H Respiratory 14 Rate Blood Pressure 124/80 Alert Temp 100.3 Pharynx injected cannot see exudate but limited view Neck Tender ant cerv nodes bilaterally Lung Clear Cor S1 S2 Abd Soft no organomegaly Ext No edema Microbiology Laboratory Tests 04/15/18 04/16/18 04/16/18 02:58 02:00 05:30 WBC 6.8 Hgb 11.1 Hct 33.6 Plt Count 223 Neutrophils % 70.8 Lymphocytes % 15.3 Monocytes % 10.2 Basophils % 2.6 H Random Glucose Lactic Acid 2.9 H* AST ALT Alkaline Phosphatase HIV 1&2 Antibody Screen HIV P24 Antigen 04/16/18 04/16/18 05:30 05:30 WBC Hgb Hct Plt Count Neutrophils % Lymphocytes % Monocytes % Basophils % Random Glucose 324 H* Lactic Acid AST 14 L ALT 13 Alkaline Phosphatase 180 H HIV 1&2 Antibody Screen Pending HIV P24 Antigen Pending Assessment Severe pharyngitis in this 47 year old female with fever adenopathy in DKA Differential would include bacterial as well as viral disease including EBV 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 CMV also considered Plan Blood cultures x 2 Throat culture Unasyn 1.5 grs q 6 H ESR CRP HIV testing Hepatitis B and C screening Sonogram liver for Alk rupal Duran MD Problem List - Problems (1) Acute infective pharyngitis Code(s): J02.9 - ACUTE PHARYNGITIS, UNSPECIFIED (2) DKA (diabetic ketoacidoses) Code(s): E13.10 - OTH DIABETES MELLITUS WITH KETOACIDOSIS WITHOUT COMA (3) Lymphadenopathy Code(s): R59.1 - GENERALIZED ENLARGED LYMPH NODES
[2018-04-16] MEDS: HEPARIN NA (PORCINE) 5,000 UNITS/ML 1ML VIAL SQ SCH ×3 (08:42→21:52)
[2018-04-16 08:51] LABS: URINE APPEARANCE CLEAR; URINE BILIRUBIN NEGATIVE (<2.0 mg/dL); URINE COLOR STRAW; URINE GLUCOSE (UA) 3+ (NEGATIVE); URINE KETONE NEGATIVE (NEGATIVE); URINE LEUK ESTERASE NEGATIVE (NEGATIVE); URINE NITRITE NEGATIVE (NEGATIVE); URINE PROTEIN NEGATIVE (NEGATIVE); URINE UROBILINOGEN NEGATIVE mg/dL (0.2-1.0)
[2018-04-16 08:52] LABS: GLUCOSE,RANDOM 311 mg/dL (74-106)
[2018-04-16] MEDS ORDERED: ACETAMINOPHEN 1000 MG/100 ML VIAL (NON FORMULARY) IVPB ONE (09:05)
[2018-04-16] MEDS ORDERED: AMPICILLIN NA/SULBACTAM NA 1.5 GM VIAL ONE ×4 (09:15→21:53)
[2018-04-16] MEDS ORDERED: DEXTROSE 5%-0.45% SALINE 1,000 ML IV SCH (09:15)
[2018-04-16] MEDS ORDERED: SODIUM CHLORIDE 100 ML IVPB ONE ×4 (09:15→21:54)
--- NOTE | 2018-04-16 09:15 | HOSP ---
Subjective - Review of Symptoms Subjective: Pt seen and examined in ICU. She reports head ache and pain. She is hungry and will try some ensure. throat discomfort x2 weeks Physical Examination Vital Signs: Vital Signs Temperature 100.3 F H 04/16/18 07:56 Pulse Rate 84 04/16/18 07:56 Respiratory Rate 16 04/16/18 07:56 Blood Pressure 121/67 04/16/18 07:56 O2 Sat by Pulse Oximetry (%) 100 04/16/18 07:56 Findings/Remarks: PE Neuro: alert, awake, cn 2-12intact HEENT: dry mm, no exudate although difficult to gain full view, pt kept retracting cervical lymph node swelling Pulm: course base sounds CV: s1 s2 rrr Abd: S nt nd + bs Ext: warm no le edema Skin: R buttock lesion, fluctulant mild pus drainage Labs: CBC, BMP 04/16/18 05:30 04/16/18 07:40 Hospitalist Encounter Assessment: Assessment: 47 year old female with insulin-treated DM since age 20 year, CAD ( one cardiac stent) and hypertension transferred to the ICU from [facility] where she presented with complaint of sore throat 2-1/2 weeks9 year old admitted with dysphagia and DKA Plan: 1. DKA - AG closed - Change fluids to D5 1/2 NS @125 for bgm 125 - Trial full liquids and ensure, pt has difficulty swallowing and poor po intake - If tolerates diet, titrate insulin gtt off and start sq insulin - If tolerates PO start levemir 5 units 2. CAD s/p stent - Plavix 3. HTN - Hold Cozaar 25mg daily 4. Dysphagia, cervical swelling - Neck xray pending - EBV, HIV, viral panel pending - Cont Unasyn - Cultures pending - ID seeing 5. Metabolic acidoisis - Lacate level pending 6. Buttock lesion - Culture sent - Bacitracin 7. DVT ppx - Heparin sq
[2018-04-16] MEDS: AMPICILLIN NA/SULBACTAM NA 1.5 GM in SODIUM CHLORIDE 100 ML IVPB SCH ×3 (09:42→21:51)
[2018-04-16] MEDS: CLOPIDOGREL BISULFATE 75 MG TABLET (FP) PO SCH (09:42)
[2018-04-16] MEDS ORDERED: PNEUMOCOCCAL 23 VACCINE 0.5 ML VIAL IM ONE (10:00)
[2018-04-16] MEDS ORDERED: CEFAZOLIN 1 GM in DEXTROSE 5%-WATER - 50 ML IVPB SCH (10:00)
[2018-04-16] MEDS: BACITRACIN 15 GM TUBE TOPICAL OINTMENT TP SCH ×2 (10:20→21:51)
[2018-04-16] MEDS: MUPIROCIN 2% TOPICAL OINTMENT FOR DECOLONIZATION NS SCH ×2 (10:20→21:54)
[2018-04-16] MEDS ORDERED: SODIUM CHLORIDE 0.45% 1,000 ML IV SCH (11:45)
--- NOTE | 2018-04-16 14:11 | PN ---
Physical Exam: SUBJECTIVE: Patient seen and examined. patient says she is doing better today. Complains of mild headache and sore throat. Denies sob, chest pain, cough, dizziness, nausea, vomiting, fevers. maintaining sats on Room air On insulin gtt Anion gap 10 this am OBJECTIVE: Vital Signs Period Temp Pulse Resp BP Sys/Hernandez Pulse Ox Last 24 Hr 99 F-100.3 F 72-98 14-18 115-147/61-93 100-100 GENERAL: The patient is awake, alert, and fully oriented, in no acute distress. EYES: PERRL, extraocular movements intact, sclera anicteric ENT:oropharynx clear without exudates, moist mucous membranes. NECK: lymphadenopathy LUNGS: CTA b/l, no rales rhonchi or wheezing HEART: Regular rate and rhythm, S1, S2 without murmur, rub or gallop. ABDOMEN: Soft, nontender, nondistended, normoactive bowel sounds EXTREMITIES: 2+ pulses,no edema. NEUROLOGICAL: Cranial nerves II through XII grossly intact. Laboratory Results - last 24 hr 04/15/18 04/15/18 04/16/18 02:58 02:58 02:00 WBC 9.1 RBC 4.45 Hgb 12.6 Hct 38.8 MCV 87.0 MCH 28.3 MCHC 32.6 RDW 14.1 Plt Count 264 MPV 8.1 Absolute Neuts (auto) 6.5 Neutrophils % 70.8 Lymphocytes % 15.3 Monocytes % 10.2 Eosinophils % 1.1 Basophils % 2.6 H Anticoagulation Therapy Puncture Site ABG pH ABG pCO2 at Pt Temp ABG pO2 at Pt Temp ABG HCO3 ABG O2 Sat (Measured) ABG O2 Content ABG Base Excess Yann Test O2 Delivery Device Oxygen Flow Rate Sodium 125 L Potassium 5.4 H Chloride 86 L Carbon Dioxide 23 Anion Gap 16 BUN 21 H Creatinine 1.2 Creat Clearance w eGFR 47.75 POC Glucometer Random Glucose 720 H* Lactic Acid 2.9 H* Calcium 9.4 Magnesium Total Bilirubin 0.6 GGT AST 23 ALT 11 Alkaline Phosphatase 189 H Creatine Kinase Troponin I C-Reactive Protein Total Protein 8.1 Albumin 3.5 Urine Color Urine Appearance Urine pH Ur Specific [place] Urine Protein Urine Glucose (UA) Urine Ketones Urine Blood Urine Nitrite Urine Bilirubin Urine Urobilinogen Ur Leukocyte Esterase HIV 1&2 Antibody Screen HIV P24 Antigen 04/16/18 04/16/18 04/16/18 05:30 05:30 05:30 WBC 6.8 RBC 3.93 Hgb 11.1 Hct 33.6 MCV 85.5 MCH 28.2 MCHC 32.9 RDW 15.5 Plt Count 223 MPV 7.8 Absolute Neuts (auto) Neutrophils % Lymphocytes % Monocytes % Eosinophils % Basophils % Anticoagulation Therapy Puncture Site ABG pH ABG pCO2 at Pt Temp ABG pO2 at Pt Temp ABG HCO3 ABG O2 Sat (Measured) ABG O2 Content ABG Base Excess Yann Test O2 Delivery Device Oxygen Flow Rate Sodium 137 Potassium 4.0 Chloride 100 Carbon Dioxide 28 Anion Gap 9 BUN 17 Creatinine 1.0 Creat Clearance w eGFR 58.93 POC Glucometer Random Glucose 324 H* Lactic Acid Calcium 8.7 Magnesium Total Bilirubin 0.2 GGT AST 14 L ALT 13 Alkaline Phosphatase 180 H Creatine Kinase 104 Troponin I < 0.02 C-Reactive Protein Total Protein 6.5 Albumin 2.7 L Urine Color Urine Appearance Urine pH Ur Specific [place] Urine Protein Urine Glucose (UA) Urine Ketones Urine Blood Urine Nitrite Urine Bilirubin Urine Urobilinogen Ur Leukocyte Esterase HIV 1&2 Antibody Screen Negative HIV P24 Antigen Negative 04/16/18 04/16/18 04/16/18 05:57 06:30 06:42 WBC RBC Hgb Hct MCV MCH MCHC RDW Plt Count MPV Absolute Neuts (auto) Neutrophils % Lymphocytes % Monocytes % Eosinophils % Basophils % Anticoagulation Therapy No Puncture Site Right radial ABG pH 7.45 ABG pCO2 at Pt Temp 37.7 ABG pO2 at Pt Temp 77.9 L ABG HCO3 25.5 ABG O2 Sat (Measured) 96.4 ABG O2 Content 15.8 ABG Base Excess 2.0 Yann Test Positive O2 Delivery Device R/a Oxygen Flow Rate 21% Sodium Potassium Chloride Carbon Dioxide Anion Gap BUN Creatinine Creat Clearance w eGFR POC Glucometer 332.43189 Random Glucose Lactic Acid Calcium Magnesium Total Bilirubin GGT AST ALT Alkaline Phosphatase Creatine Kinase Troponin I C-Reactive Protein Total Protein Albumin Urine Color Straw Urine Appearance Clear Urine pH 5.0 Ur Specific [place] 1.023 Urine Protein Negative Urine Glucose (UA) 3+ H Urine Ketones Negative Urine Blood Negative Urine Nitrite Negative Urine Bilirubin Negative Urine Urobilinogen Negative Ur Leukocyte Esterase Negative HIV 1&2 Antibody Screen HIV P24 Antigen 06/04/16/18 04/16/18 07:35 07:40 08:14 WBC RBC Hgb Hct MCV MCH MCHC RDW Plt Count MPV Absolute Neuts (auto) Neutrophils % Lymphocytes % Monocytes % Eosinophils % Basophils % Anticoagulation Therapy Puncture Site ABG pH ABG pCO2 at Pt Temp ABG pO2 at Pt Temp ABG HCO3 ABG O2 Sat (Measured) ABG O2 Content ABG Base Excess Yann Test O2 Delivery Device Oxygen Flow Rate Sodium 138 Potassium 4.0 Chloride 102 Carbon Dioxide 26 Anion Gap 10 BUN 16 Creatinine 1.1 H Creat Clearance w eGFR 52.79 POC Glucometer 216.95198 176.98604 Random Glucose 311 H* Lactic Acid Calcium 8.5 Magnesium 1.8 Total Bilirubin GGT 41 AST ALT Alkaline Phosphatase Creatine Kinase Troponin I C-Reactive Protein Total Protein Albumin Urine Color Urine Appearance Urine pH Ur Specific [place] Urine Protein Urine Glucose (UA) Urine Ketones Urine Blood Urine Nitrite Urine Bilirubin Urine Urobilinogen Ur Leukocyte Esterase HIV 1&2 Antibody Screen HIV P24 Antigen 04/16/18 04/16/18 04/16/18 08:15 08:58 09:00 WBC RBC Hgb Hct MCV MCH MCHC RDW Plt Count MPV Absolute Neuts (auto) Neutrophils % Lymphocytes % Monocytes % Eosinophils % Basophils % Anticoagulation Therapy Puncture Site ABG pH ABG pCO2 at Pt Temp ABG pO2 at Pt Temp ABG HCO3 ABG O2 Sat (Measured) ABG O2 Content ABG Base Excess Yann Test O2 Delivery Device Oxygen Flow Rate Sodium Potassium Chloride Carbon Dioxide Anion Gap BUN Creatinine Creat Clearance w eGFR POC Glucometer 125.77869 Random Glucose Lactic Acid 1.4 Calcium Magnesium Total Bilirubin GGT AST ALT Alkaline Phosphatase Creatine Kinase Troponin I C-Reactive Protein 7.8 H Total Protein Albumin Urine Color Urine Appearance Urine pH Ur Specific [place] Urine Protein Urine Glucose (UA) Urine Ketones Urine Blood Urine Nitrite Urine Bilirubin Urine Urobilinogen Ur Leukocyte Esterase HIV 1&2 Antibody Screen HIV P24 Antigen 04/16/18 04/16/18 04/16/18 09:56 10:56 12:05 WBC RBC Hgb Hct MCV MCH MCHC RDW Plt Count MPV Absolute Neuts (auto) Neutrophils % Lymphocytes % Monocytes % Eosinophils % Basophils % Anticoagulation Therapy Puncture Site ABG pH ABG pCO2 at Pt Temp ABG pO2 at Pt Temp ABG HCO3 ABG O2 Sat (Measured) ABG O2 Content ABG Base Excess Yann Test O2 Delivery Device Oxygen Flow Rate Sodium Potassium Chloride Carbon Dioxide Anion Gap BUN Creatinine Creat Clearance w eGFR POC Glucometer 124.97867 245.14277 285.15708 Random Glucose Lactic Acid Calcium Magnesium Total Bilirubin GGT AST ALT Alkaline Phosphatase Creatine Kinase Troponin I C-Reactive Protein Total Protein Albumin Urine Color Urine Appearance Urine pH Ur Specific [place] Urine Protein Urine Glucose (UA) Urine Ketones Urine Blood Urine Nitrite Urine Bilirubin Urine Urobilinogen Ur Leukocyte Esterase HIV 1&2 Antibody Screen HIV P24 Antigen Active Medications Generic Name Dose Route Start Last Admin Trade Name Freq PRN Reason Stop Dose Admin Acetaminophen 650 mg 04/16/18 09:05 Tylenol Oral Solution - PO Q6H PRN PAIN LEVEL 1 - 3 Bacitracin 1 applic 04/16/18 10:00 04/16/18 10:20 Bacitracin - TP 1 applic BID [facility] Administration Benzocaine/Menthol 1 each 04/16/18 11:44 Cepacol Lozenge - MM PRN PRN SORE THROAT Clopidogrel Bisulfate 75 mg 04/16/18 10:00 04/16/18 09:42 Plavix - PO 75 mg DAILY [facility] Administration Heparin Sodium (Porcine) 5,000 unit 04/16/18 08:15 04/16/18 08:42 Heparin - SQ 5,000 unit TID [facility] Administration Ampicillin Sodium/Sulbactam 100 mls @ 200 mls/hr 04/16/18 09:00 04/16/18 09: 42 Sodium 1.5 gm/ Sodium Chloride IVPB 200 mls/hr Q6H-IV [facility] Administration Sodium Chloride 1,000 mls @ 100 mls/hr 04/16/18 11:45 04/16/18 12:26 1/2 Normal Saline IV 100 mls/hr ASDIR [facility] Administration Insulin Aspart 2 units 04/16/18 13:16 Novolog SQ 04/16/18 13:17 ONCE ONE Insulin Aspart 1 vial 04/16/18 16:30 Novolog Vial Sliding Scale - SQ ACHS [facility] Protocol Insulin Detemir 5 units 04/16/18 13:15 Levemir Vial SQ 04/16/18 13:16 ONCE ONE Insulin Detemir 5 units 04/16/18 22:00 Levemir Vial SQ 04/16/18 22:01 ONCE ONE Lidocaine HCl 20 ml 04/16/18 06:25 Xylocaine 2% Viscous Oral - MM Q6HPO PRN ORAL PAIN/MOUTH SORES Mupirocin 1 applic 04/16/18 10:00 04/16/18 10:20 Bactroban Ointment (For Decolonization) - NS 04/21/18 09:59 1 applic BID [facility] Administration ASSESSMENT/PLAN: Endocine #DKA -noncompliant with insulin -AG closed -Change fluids to 1/2 NS @100 -D/C insulin gtt -BGM -ISS -Levemir 5U now and tonight. NECK #Odynophagia -Neck x ray unremarkable -EBV, HIV, Viral panel -Bcx, Ucx -ID on board -Cont. IV abx: Unasyn #ID #Odynophagia #Sore throat #buttock lesion -wound cultures for buttock lesion -bacitracin -Id on board -Unasyn -throat culture, bcx, ucx CV #HTN #CAD -Cozaar held -cont. Plavix -cardiac monitoring FEN /2 NS @ 100 replete as needed diabetic diet Ppx Hep SQ Transfer to Med-surge Visit type - Emergency Visit Emergency Visit: Yes ED Registration Date: 04/16/18 Care time: The patient presented to the Emergency Department on the above date and was hospitalized for further evaluation of their emergent condition. - New Patient This patient is new to me today: Yes Date on this admission: 04/16/18 - Critical Care Critical Care patient: Yes Total Critical Care Time (in minutes): 40 Critical Care Statement: The care of this patient involved high complexity decision making to prevent further life threatening deterioration of the patient 's condition and/or to evaluate & treat vital organ system(s) failure or risk of failure.
[2018-04-16] MEDS: INSULIN (LEVEMIR) 100 UNITS/ML UNITS SQ ONE ×2 (14:28→14:38)
[2018-04-16] MEDS: Insulin (LOG) Aspart 100 UNITS/ML VIAL SQ ONE ×2 (14:33→14:38)
[2018-04-16] MEDS ORDERED: PT OWN MED DRAWER 7, Y5N ONE ×2 (14:45→21:48)
[2018-04-16] MEDS: BENZOCAINE/MENTH/CETYLPYRD CL 1 EACH LOZENGE MM PRN (14:49)
[2018-04-16] MEDS: ACETAMINOPHEN 650 MG/20.3 ML ORAL SOLUTION (CUPS) PO PRN ×2 (14:49→20:15)
[2018-04-16] MEDS ORDERED: INSULIN SLIDING SCALE (NOVOLOG) 1 VIAL SQ SCH (16:30)
[2018-04-16] MEDS ORDERED: Insulin (LOG) Aspart 100 UNITS/ML VIAL SQ SCH (16:30)
[2018-04-16] MEDS: INSULIN SLIDING SCALE (NOVOLOG) 1 VIAL SQ SCH ×2 (17:24→21:55)
[2018-04-16 18:54] LABS: URINE AMPHETAMINES NEGATIVE ng/ml (CUTOFF=500); URINE BARBITURATES NEGATIVE ng/ml (CUTOFF=200)
[2018-04-16 18:55] LABS: COCAINE, UR NEGATIVE ng/ml (CUTOFF=300); METHADONE, UR NEGATIVE ng/ml (CUTOFF=300); OPIATES, URI NEGATIVE ng/ml (CUTOFF=300); PHENCYCLIDINE,URINE NEGATIVE ng/ml (CUTOFF=25); URINE BENZODIAZEPINES NEGATIVE ng/ml (CUTOFF=200)
[2018-04-16] MEDS ORDERED: CHLORHEXIDINE GLUCONATE 4% CLEANSER FOR DECOLONIZATION TP SCH (22:00)
[2018-04-16] MEDS ORDERED: INSULIN (LEVEMIR) 100 UNITS/ML UNITS SQ ONE (22:00)
[2018-04-17] MEDS ORDERED: AMPICILLIN NA/SULBACTAM NA 1.5 GM VIAL ONE ×3 (00:59→15:56)
[2018-04-17] MEDS ORDERED: SODIUM CHLORIDE 100 ML IVPB ONE ×3 (00:59→15:56)
[2018-04-17] MEDS: ACETAMINOPHEN 650 MG/20.3 ML ORAL SOLUTION (CUPS) PO PRN (02:17)
[2018-04-17] MEDS: AMPICILLIN NA/SULBACTAM NA 1.5 GM in SODIUM CHLORIDE 100 ML IVPB SCH ×3 (02:17→15:59)
[2018-04-17] MEDS: HEPARIN NA (PORCINE) 5,000 UNITS/ML 1ML VIAL SQ SCH ×3 (06:11→21:50)
[2018-04-17 06:14] LABS: HEMATOCRIT 29.5 % (32.4-45.2); HEMOGLOBIN 9.7 GM/dL (10.7-15.3); MCH 28.1 pg (25.7-33.7); MEAN CELL VOLUME 85.2 fl (80-96); MEAN PLT VOLUME 7.7 fl (7.5-11.1); PLATELET COUNT 217 K/MM3 (134-434); RBC 3.46 M/mm3 (3.60-5.2); RDW 14.8 % (11.6-15.6); WHITE BLOOD COUNT 7.6 K/mm3 (4.0-10.0)
[2018-04-17] MEDS: INSULIN SLIDING SCALE (NOVOLOG) 1 VIAL SQ SCH ×4 (06:15→22:05)
[2018-04-17 06:46] LABS: CHLORIDE 105 mmol/L (98-107); POTASSIUM 3.7 mmol/L (3.5-5.1); SODIUM 138 mmol/L (136-145)
[2018-04-17 06:53] LABS: ALBUMIN 2.1 g/dl (3.4-5.0); ALK PHOS 128 U/L (45-117); ANION GAP 8 (8-16); BILIRUBIN,TOTAL 0.3 mg/dL (0.2-1.0); BLOOD UREA NITROGEN 7 mg/dL (7-18); CALCIUM 8.2 mg/dL (8.5-10.1); CO2 25 mmol/L (21-32); CREATININE 0.6 mg/dL (0.55-1.02); GLUCOSE,RANDOM 100 mg/dL (74-106); MAGNESIUM 1.6 mg/dL (1.8-2.4); PHOSPHOROUS 3.1 mg/dL (2.5-4.9); SGOT/AST 13 U/L (15-37); SGPT/ALT 12 U/L (12-78); TOT PROT 5.3 g/dl (6.4-8.2)
--- NOTE | 2018-04-17 07:30 | PN ---
Progress Note, Physician Chief Complaint: ID Patient complains of odonophagia and tender neck with headache 8/10 Febrile 102 on Unasyn - Current Medication List Current Medications: Active Medications Acetaminophen (Tylenol Oral Solution -) 650 mg PO Q6H PRN PRN Reason: PAIN LEVEL 1 - 3 Last Admin: 04/17/18 02:17 Dose: 650 mg Bacitracin (Bacitracin -) 1 applic TP BID [facility] Last Admin: 04/16/18 21:51 Dose: 1 applic Benzocaine/Menthol (Cepacol Lozenge -) 1 each MM PRN PRN PRN Reason: SORE THROAT Last Admin: 04/16/18 14:49 Dose: 1 each Clopidogrel Bisulfate (Plavix -) 75 mg PO DAILY [facility] Last Admin: 04/16/18 09:42 Dose: 75 mg Heparin Sodium (Porcine) (Heparin -) 5,000 unit SQ TID [facility] Last Admin: 04/17/18 06:11 Dose: 5,000 unit Ampicillin Sodium/Sulbactam (Sodium 1.5 gm/ Sodium Chloride) 100 mls @ 200 mls/ hr IVPB Q6H-IV [facility] Last Admin: 04/17/18 02:17 Dose: 200 mls/hr Sodium Chloride (1/2 Normal Saline) 1,000 mls @ 100 mls/hr IV ASDIR [facility] Last Admin: 04/16/18 12:26 Dose: 100 mls/hr Insulin Aspart (Novolog Vial Sliding Scale -) 1 vial SQ ACHS [facility]; Protocol Last Admin: 04/17/18 06:15 Dose: Not Given Lidocaine HCl (Xylocaine 2% Viscous Oral -) 20 ml MM Q6HPO PRN PRN Reason: ORAL PAIN/MOUTH SORES Magnesium Oxide (Mag-Ox -) 800 mg PO ONCE ONE Stop: 04/17/18 07:21 Mupirocin (Bactroban Ointment (For Decolonization) -) 1 applic NS BID [facility] Stop: 04/21/18 09:59 Last Admin: 04/16/18 21:54 Dose: 1 applic - Objective Vital Signs: Vital Signs Temperature 101.8 F H 04/17/18 02:00 Pulse Rate 78 04/17/18 06:00 Respiratory Rate 19 04/17/18 06:00 Blood Pressure 121/90 04/17/18 06:00 O2 Sat by Pulse Oximetry (%) 100 06/27/18 21:00 Constitutional: Yes: No Distress Eyes: Yes: Conjunctiva Clear HENT: Yes: Pharyngeal Erythema Neck: Yes: Lymphadenopathy, Tenderness, Other (Tender left adenopathy large nodes) Cardiovascular: Yes: Regular Rate and Rhythm, S1, S2 Respiratory: Yes: CTA Bilaterally Gastrointestinal: Yes: Soft. No: Hepatomegaly, Splenomegaly Edema: No Integumentary: Yes: Other (Blister like lesion) Wound/Incision: Yes: Other (Small non-draining lesion on buttocks) Neurological: Yes: Alert, Oriented Labs: CBC, BMP 04/17/18 05:30 04/17/18 05:30 Problem List - Problems (1) Acute infective pharyngitis Code(s): J02.9 - ACUTE PHARYNGITIS, UNSPECIFIED (2) DKA (diabetic ketoacidoses) Code(s): E13.10 - OTH DIABETES MELLITUS WITH KETOACIDOSIS WITHOUT COMA (3) Lymphadenopathy Code(s): R59.1 - GENERALIZED ENLARGED LYMPH NODES Assessment/Plan Microbiology 04/16/18 11:30 Nasopharyngeal Swab Respiratory Virus (PCR) - Preliminary 04/15/18 02:58 Blood - Peripheral Venous Blood Culture - Preliminary NO GROWTH OBTAINED AFTER 24 HOURS, INCUBATION TO CONTINUE FOR 4 DAYS. 04/15/18 02:58 Blood - Peripheral Venous Blood Culture - Preliminary NO GROWTH OBTAINED AFTER 24 HOURS, INCUBATION TO CONTINUE FOR 4 DAYS. Laboratory Tests 04/16/18 04/17/18 04/17/18 05:30 05:30 05:30 WBC 7.6 Hgb 9.7 L Hct 29.5 L Plt Count 217 BUN Creat Clearance w eGFR AST ALT Alkaline Phosphatase CMV IgG Ab Pending CMV IgM Ab Pending HIV 1&2 Antibody Screen Negative HIV P24 Antigen Negative 04/17/18 05:30 WBC Hgb Hct Plt Count BUN 7 Creat Clearance w eGFR > 60 AST 13 L ALT 12 Alkaline Phosphatase 128 H D CMV IgG Ab CMV IgM Ab HIV 1&2 Antibody Screen HIV P24 Antigen Assessment DKA with complicating fever, sore throat, and cervical adenopathy. Differential diagnosis includes viral syndrome, rule out mono, EBV; less likely retropharyngeal abscess though this should be considered. Normal white count, more consistent with viral disease. Plan Continue Unasyn Get ENT consult CT scan of the neck Monospot CMV serology Roger MAZARIEGOS
[2018-04-17] MEDS ORDERED: MAGNESIUM SULF 50% (8.12 MEQ/2 ML-1 GM VIAL) IVPB ONE (07:54)
[2018-04-17] MEDS: BENZOCAINE/MENTH/CETYLPYRD CL 1 EACH LOZENGE MM PRN (08:53)
[2018-04-17] MEDS: CLOPIDOGREL BISULFATE 75 MG TABLET (FP) PO SCH (09:12)
[2018-04-17] MEDS ORDERED: MAGNESIUM SULFATE IN WATER 2 GM/50 ML IVPB IVPB ONE (09:15)
[2018-04-17] MEDS: SODIUM CHLORIDE 0.45% 1,000 ML IV SCH (09:18)
[2018-04-17] MEDS: BACITRACIN 15 GM TUBE TOPICAL OINTMENT TP SCH ×2 (09:18→21:47)
[2018-04-17] MEDS: MUPIROCIN 2% TOPICAL OINTMENT FOR DECOLONIZATION NS SCH ×2 (09:19→21:48)
[2018-04-17] MEDS ORDERED: MAGNESIUM OXIDE 400 MG TABLET (FP) PO ONE (09:30)
[2018-04-17] MEDS: valACYclovir HCL 500 MG TABLET (FP) PO SCH ×2 (10:48→22:12)
--- NOTE | 2018-04-17 10:53 | PN ---
Physical Exam: SUBJECTIVE: Patient seen and examined in ICU. She feels about the same, continues to have throat pain. Febrile t max 101.8 OBJECTIVE: Vital Signs Period Temp Pulse Resp BP Sys/Hernandez Pulse Ox Last 24 Hr 99.0 F-101.8 F 76-92 14-23 101-159/61-90 100-100 PE Neuro: alert, awake, cn 2-12intact HEENT: tender to palpation, cervical lymph node swelling Pulm: diminished bases CV: s1 s2 rrr Abd: s nt nd + bs Ext: warm no le edema Skin: R buttock lesion Laboratory Results - last 24 hr 04/16/18 04/16/18 04/16/18 03:58 09:00 10:56 WBC RBC Hgb Hct MCV MCH MCHC RDW Plt Count MPV ESR Sodium Potassium Chloride Carbon Dioxide Anion Gap BUN Creatinine Creat Clearance w eGFR POC Glucometer > [phone] Random Glucose Calcium Phosphorus Magnesium Total Bilirubin AST ALT Alkaline Phosphatase Total Protein Albumin Opiates Screen Methadone Screen Barbiturate Screen Phencyclidine Screen Ur Amphetamines Screen MDMA (Ecstasy) Screen Benzodiazepines Screen Cocaine Screen U Marijuana (THC) Screen Hep C Ab Diagnostic 0.5 Liver Fibrosis Interp 04/16/18 04/16/18 04/17/18 17:20 21:48 05:30 WBC RBC Hgb Hct MCV MCH MCHC RDW Plt Count MPV ESR 28 H Sodium Potassium Chloride Carbon Dioxide Anion Gap BUN Creatinine Creat Clearance w eGFR POC Glucometer 246.88082 239.04984 Random Glucose Calcium Phosphorus Magnesium Total Bilirubin AST ALT Alkaline Phosphatase Total Protein Albumin Opiates Screen Methadone Screen Barbiturate Screen Phencyclidine Screen Ur Amphetamines Screen MDMA (Ecstasy) Screen Benzodiazepines Screen Cocaine Screen U Marijuana (THC) Screen Hep C Ab Diagnostic Liver Fibrosis Interp 04/17/18 04/17/18 04/17/18 05:30 05:30 06:14 WBC 7.6 RBC 3.46 L Hgb 9.7 L Hct 29.5 L MCV 85.2 MCH 28.1 MCHC 33.0 RDW 14.8 Plt Count 217 MPV 7.7 ESR Sodium 138 Potassium 3.7 Chloride 105 Carbon Dioxide 25 Anion Gap 8 BUN 7 Creatinine 0.6 Creat Clearance w eGFR > 60 POC Glucometer 101.73898 Random Glucose 100 Calcium 8.2 L Phosphorus 3.1 Magnesium 1.6 L Total Bilirubin 0.3 AST 13 L ALT 12 Alkaline Phosphatase 128 H D Total Protein 5.3 L Albumin 2.1 L Opiates Screen Methadone Screen Barbiturate Screen Phencyclidine Screen Ur Amphetamines Screen MDMA (Ecstasy) Screen Benzodiazepines Screen Cocaine Screen U Marijuana (THC) Screen Hep C Ab Diagnostic Liver Fibrosis Interp Active Medications Generic Name Dose Route Start Last Admin Trade Name Freq PRN Reason Stop Dose Admin Acetaminophen 650 mg 04/16/18 09:05 04/17/18 02:17 Tylenol Oral Solution - PO 650 mg Q6H PRN Administration PAIN LEVEL 1 - 3 Bacitracin 1 applic 04/16/18 10:00 04/17/18 09:18 Bacitracin - TP 1 applic BID [facility] Administration Benzocaine/Menthol 1 each 04/16/18 11:44 04/17/18 08:53 Cepacol Lozenge - MM 1 each PRN PRN Administration SORE THROAT Clopidogrel Bisulfate 75 mg 04/16/18 10:00 04/17/18 09:12 Plavix - PO 75 mg DAILY [facility] Administration Heparin Sodium (Porcine) 5,000 unit 04/16/18 08:15 04/17/18 06:11 Heparin - SQ 5,000 unit TID [facility] Administration Ampicillin Sodium/Sulbactam 100 mls @ 200 mls/hr 04/16/18 09:00 04/17/18 08: 43 Sodium 1.5 gm/ Sodium Chloride IVPB 200 mls/hr Q6H-IV [facility] Administration Sodium Chloride 1,000 mls @ 75 mls/hr 04/17/18 09:00 04/17/18 09:18 1/2 Normal Saline IV 75 mls/hr ASDIR [facility] Administration Insulin Aspart 1 vial 04/16/18 16:30 04/17/18 06:15 Novolog Vial Sliding Scale - SQ Not Given ACHS [facility] Protocol Lidocaine HCl 20 ml 04/16/18 06:25 Xylocaine 2% Viscous Oral - MM Q6HPO PRN ORAL PAIN/MOUTH SORES Mupirocin 1 applic 04/16/18 10:00 04/17/18 09:19 Bactroban Ointment (For Decolonization) - NS 04/21/18 09:59 1 applic BID [facility] Administration Valacyclovir HCl 500 mg 04/17/18 10:00 Valtrex - PO BID [facility] Microbiology 04/16/18 11:30 Wound Gram Stain - Final 04/16/18 11:30 Wound Wound Culture - Preliminary NO GROWTH OBTAINED AFTER 24 HOURS INCUBATION, REINCUBATED. 04/16/18 06:30 Urine - Urine Clean Catch Urine Culture - Final NO GROWTH OBTAINED 04/16/18 08:15 Blood - Peripheral Venous Blood Culture - Preliminary NO GROWTH OBTAINED AFTER 24 HOURS, INCUBATION TO CONTINUE FOR 4 DAYS. 04/16/18 08:00 Blood - Peripheral Venous Blood Culture - Preliminary NO GROWTH OBTAINED AFTER 24 HOURS, INCUBATION TO CONTINUE FOR 4 DAYS. 04/15/18 02:58 Blood - Peripheral Venous Blood Culture - Preliminary NO GROWTH OBTAINED AFTER 24 HOURS, INCUBATION TO CONTINUE FOR 4 DAYS. 04/15/18 02:58 Blood - Peripheral Venous Blood Culture - Preliminary NO GROWTH OBTAINED AFTER 24 HOURS, INCUBATION TO CONTINUE FOR 4 DAYS. 04/16/18 11:30 Nasopharyngeal Swab Respiratory Virus (PCR) - Preliminary Assessment: 47 year old female with insulin-treated DM since age 20 year, CAD ( one cardiac stent) and hypertension transferred to the ICU from [facility] where she presented with complaint of sore throat 2-1/2 weeks9 year old admitted with dysphagia and DKA Plan: 1. HHNK - Resolved 2. DM II - Continue novolog sliding scale, bgm ACHS - Levemir 5units HS, can increase to regular dose as appetite increases - Continue 1/2 ns 75cc/hr 3. CAD s/p stent - Plavix 4. HTN - Resume Cozaar 25mg daily 5. Dysphagia, cervical swelling - Likley Viral etiology - Cultures NGTD - Neck xray noted - Will obtain CT neck eval - EBV, HIV, viral panel pending - Cont Unasyn - ID seeing 6. Herpes simplex lesions, buttock - Started valtrex 500mg BID - Culture sent 7. DVT ppx - Heparin sq 8. Hypomagnesemia - Replete mg Visit type - Emergency Visit Emergency Visit: Yes ED Registration Date: 04/16/18 Care time: The patient presented to the Emergency Department on the above date and was hospitalized for further evaluation of their emergent condition. - New Patient This patient is new to me today: No - Critical Care Critical Care patient: No
[2018-04-17] MEDS ORDERED: ACETAMINOPHEN 1000 MG/100 ML VIAL (NON FORMULARY) IVPB ONE ×2 (10:56→18:46)
--- NOTE | 2018-04-17 11:03 | PN ---
Teaching Attending Note Name of Resident: Nancie Khan ATTENDING PHYSICIAN STATEMENT I saw and evaluated the patient. I reviewed the resident's note and discussed the case with the resident. I agree with the resident's findings and plan as documented. SUBJECTIVE: Pt seen and examined in the ICU. Blood glucose better. Still with throat discomfort, poor appetite. OBJECTIVE: Vital Signs Period Temp Pulse Resp BP Sys/Hernandez Pulse Ox Last 24 Hr 99.0 F-101.8 F 76-92 14-23 101-159/61-90 100-100 Intake & Output 04/14/18 04/15/18 04/16/18 04/17/18 23:59 23:59 23:59 23:59 Intake Total 3930 1000 Output Total 300 Balance 3630 1000 Weight 68.039 kg 65.062 kg 65.062 kg Gen: NAD at rest Neck: supple, no stridor Heart: RRR Lung: decreased breath sounds at the bases Abd: soft, nontender Ext: no edema CBC, BMP 04/17/18 05:30 04/17/18 05:30 Active Medications Acetaminophen (Tylenol Oral Solution -) 650 mg PO Q6H PRN PRN Reason: PAIN LEVEL 1 - 3 Last Admin: 04/17/18 02:17 Dose: 650 mg Acetaminophen (Ofirmev Injection -) 1,000 mg IVPB ONCE ONE Stop: 04/17/18 10:57 Bacitracin (Bacitracin -) 1 applic TP BID [facility] Last Admin: 04/17/18 09:18 Dose: 1 applic Benzocaine/Menthol (Cepacol Lozenge -) 1 each MM PRN PRN PRN Reason: SORE THROAT Last Admin: 04/17/18 08:53 Dose: 1 each Clopidogrel Bisulfate (Plavix -) 75 mg PO DAILY [facility] Last Admin: 04/17/18 09:12 Dose: 75 mg Heparin Sodium (Porcine) (Heparin -) 5,000 unit SQ TID [facility] Last Admin: 04/17/18 06:11 Dose: 5,000 unit Ampicillin Sodium/Sulbactam (Sodium 1.5 gm/ Sodium Chloride) 100 mls @ 200 mls/ hr IVPB Q6H-IV [facility] Last Admin: 04/17/18 08:43 Dose: 200 mls/hr Sodium Chloride (1/2 Normal Saline) 1,000 mls @ 75 mls/hr IV ASDIR [facility] Last Admin: 04/17/18 09:18 Dose: 75 mls/hr Insulin Aspart (Novolog Vial Sliding Scale -) 1 vial SQ ACHS [facility]; Protocol Last Admin: 04/17/18 10:48 Dose: Not Given Insulin Detemir (Levemir Vial) 5 units SQ HS [facility] Lidocaine HCl (Xylocaine 2% Viscous Oral -) 20 ml MM Q6HPO PRN PRN Reason: ORAL PAIN/MOUTH SORES Losartan Potassium (Cozaar -) 25 mg PO DAILY [facility] Mupirocin (Bactroban Ointment (For Decolonization) -) 1 applic NS BID [facility] Stop: 04/21/18 09:59 Last Admin: 04/17/18 09:19 Dose: 1 applic Valacyclovir HCl (Valtrex -) 500 mg PO BID [facility] Last Admin: 04/17/18 10:48 Dose: 500 mg ASSESSMENT AND PLAN: Hyperosmolar Hyperglycemic Non Ketotic State resolved Odynophagia Viral Illness CAD HTN Anemia - glucose control - on empiric antibiotics - f/u cultures - CT neck - PO as tolerated - can monitor on floor
--- NOTE | 2018-04-17 11:13 | PN ---
Physical Exam: SUBJECTIVE: Patient seen and examined. Tmax 101.8. Still complaining of sore throat. She says she feels warm, had chills last night. Says she is unable to eat due to the pain. Denies sob, chest pain, nausea, vomiting. OBJECTIVE: Vital Signs Period Temp Pulse Resp BP Sys/Hernandez Pulse Ox Last 24 Hr 99.0 F-101.8 F 76-92 15-23 101-159/61-90 100-100 GENERAL: The patient is awake, alert, and fully oriented, in no acute distress. EYES: PERRL, extraocular movements intact, sclera anicteric ENT:oropharynx clear without exudates, moist mucous membranes. NECK: lymphadenopathy LUNGS: CTA b/l, no rales rhonchi or wheezing, no stridor HEART: Regular rate and rhythm, S1, S2 without murmur, rub or gallop. ABDOMEN: Soft, nontender, nondistended, normoactive bowel sounds EXTREMITIES: 2+ pulses,no edema. NEUROLOGICAL: Cranial nerves II through XII grossly intact. Laboratory Results - last 24 hr 04/16/18 04/16/18 04/16/18 03:58 09:00 10:56 WBC RBC Hgb Hct MCV MCH MCHC RDW Plt Count MPV ESR Sodium Potassium Chloride Carbon Dioxide Anion Gap BUN Creatinine Creat Clearance w eGFR POC Glucometer > [phone] Random Glucose Calcium Phosphorus Magnesium Total Bilirubin AST ALT Alkaline Phosphatase Total Protein Albumin Opiates Screen Methadone Screen Barbiturate Screen Phencyclidine Screen Ur Amphetamines Screen MDMA (Ecstasy) Screen Benzodiazepines Screen Cocaine Screen U Marijuana (THC) Screen Hep C Ab Diagnostic 0.5 Liver Fibrosis Interp 04/16/18 04/16/18 04/16/18 12:05 14:26 15:00 WBC RBC Hgb Hct MCV MCH MCHC RDW Plt Count MPV ESR Sodium Potassium Chloride Carbon Dioxide Anion Gap BUN Creatinine Creat Clearance w eGFR POC Glucometer [phone] Random Glucose Calcium Phosphorus Magnesium Total Bilirubin AST ALT Alkaline Phosphatase Total Protein Albumin Opiates Screen Negative Methadone Screen Negative Barbiturate Screen Negative Phencyclidine Screen Negative Ur Amphetamines Screen Negative MDMA (Ecstasy) Screen Negative Benzodiazepines Screen Negative Cocaine Screen Negative U Marijuana (THC) Screen Negative Hep C Ab Diagnostic Liver Fibrosis Interp 04/16/18 04/16/18 04/17/18 17:20 21:48 05:30 WBC RBC Hgb Hct MCV MCH MCHC RDW Plt Count MPV ESR 28 H Sodium Potassium Chloride Carbon Dioxide Anion Gap BUN Creatinine Creat Clearance w eGFR POC Glucometer [phone] Random Glucose Calcium Phosphorus Magnesium Total Bilirubin AST ALT Alkaline Phosphatase Total Protein Albumin Opiates Screen Methadone Screen Barbiturate Screen Phencyclidine Screen Ur Amphetamines Screen MDMA (Ecstasy) Screen Benzodiazepines Screen Cocaine Screen U Marijuana (THC) Screen Hep C Ab Diagnostic Liver Fibrosis Interp 04/17/18 04/17/18 04/17/18 05:30 05:30 06:14 WBC 7.6 RBC 3.46 L Hgb 9.7 L Hct 29.5 L MCV 85.2 MCH 28.1 MCHC 33.0 RDW 14.8 Plt Count 217 MPV 7.7 ESR Sodium 138 Potassium 3.7 Chloride 105 Carbon Dioxide 25 Anion Gap 8 BUN 7 Creatinine 0.6 Creat Clearance w eGFR > 60 POC Glucometer [phone] Random Glucose 100 Calcium 8.2 L Phosphorus 3.1 Magnesium 1.6 L Total Bilirubin 0.3 AST 13 L ALT 12 Alkaline Phosphatase 128 H D Total Protein 5.3 L Albumin 2.1 L Opiates Screen Methadone Screen Barbiturate Screen Phencyclidine Screen Ur Amphetamines Screen MDMA (Ecstasy) Screen Benzodiazepines Screen Cocaine Screen U Marijuana (THC) Screen Hep C Ab Diagnostic Liver Fibrosis Interp Active Medications Generic Name Dose Route Start Last Admin Trade Name Freq PRN Reason Stop Dose Admin Acetaminophen 650 mg 04/16/18 09:05 04/17/18 02:17 Tylenol Oral Solution - PO 650 mg Q6H PRN Administration PAIN LEVEL 1 - 3 Acetaminophen 1,000 mg 04/17/18 10:56 Ofirmev Injection - IVPB 04/17/18 10:57 ONCE ONE Bacitracin 1 applic 04/16/18 10:00 04/17/18 09:18 Bacitracin - TP 1 applic BID [facility] Administration Benzocaine/Menthol 1 each 04/16/18 11:44 04/17/18 08:53 Cepacol Lozenge - MM 1 each PRN PRN Administration SORE THROAT Clopidogrel Bisulfate 75 mg 04/16/18 10:00 04/17/18 09:12 Plavix - PO 75 mg DAILY [facility] Administration Heparin Sodium (Porcine) 5,000 unit 04/16/18 08:15 04/17/18 06:11 Heparin - SQ 5,000 unit TID [facility] Administration Ampicillin Sodium/Sulbactam 100 mls @ 200 mls/hr 04/16/18 09:00 04/17/18 08: 43 Sodium 1.5 gm/ Sodium Chloride IVPB 200 mls/hr Q6H-IV [facility] Administration Sodium Chloride 1,000 mls @ 75 mls/hr 04/17/18 09:00 04/17/18 09:18 1/2 Normal Saline IV 75 mls/hr ASDIR [facility] Administration Insulin Aspart 1 vial 04/16/18 16:30 04/17/18 10:48 Novolog Vial Sliding Scale - SQ Not Given ACHS [facility] Protocol Insulin Detemir 5 units 04/17/18 22:00 Levemir Vial SQ HS [facility] Lidocaine HCl 20 ml 04/16/18 06:25 Xylocaine 2% Viscous Oral - MM Q6HPO PRN ORAL PAIN/MOUTH SORES Losartan Potassium 25 mg 04/17/18 11:00 Cozaar - PO DAILY [facility] Mupirocin 1 applic 04/16/18 10:00 04/17/18 09:19 Bactroban Ointment (For Decolonization) - NS 04/21/18 09:59 1 applic BID [facility] Administration Valacyclovir HCl 500 mg 04/17/18 10:00 04/17/18 10:48 Valtrex - PO 500 mg BID [facility] Administration ASSESSMENT/PLAN: Endocine #DKA -noncompliant with insulin -AG closed -Decrease fluids to 1/2 NS @75 -BGM -ISS ACHS -poor appetite, not eating -Levemir 5U tonight. NECK #Odynophagia #sore throat -Neck x ray unremarkable -CT neck w/ contrast -EBV, HIV, Viral panel -Bcx, Ucx -ID on board -Cont. IV abx: Unasyn Day 2 -ENT consulted: Dr. Flores #ID #Odynophagia #Sore throat #buttock lesion -febrile 101.8 -bacitracin -Id on board -Unasyn -throat culture, bcx, ucx so far negative -CT neck CV #HTN #CAD -Cozaar held -cont. Plavix -cardiac monitoring FEN 1/2 NS @ 75 replete as needed diabetic diet Ppx Hep SQ [facility] - Emergency Visit Emergency Visit: Yes ED Registration Date: 04/16/18 Care time: The patient presented to the Emergency Department on the above date and was hospitalized for further evaluation of their emergent condition. - New Patient This patient is new to me today: No - Critical Care Critical Care patient: Yes Total Critical Care Time (in minutes): 40 Critical Care Statement: The care of this patient involved high complexity decision making to prevent further life threatening deterioration of the patient 's condition and/or to evaluate & treat vital organ system(s) failure or risk of failure.
[2018-04-17] MEDS: LOSARTAN POTASSIUM 25 MG TABLET PO SCH (13:01)
--- NOTE | 2018-04-17 16:21 | EKG ---
Test Reason : Blood Pressure : / mmHG Vent. Rate : 084 BPM Atrial Rate : 084 BPM P-R Int : 156 ms QRS Dur : 066 ms QT Int : 374 ms P-R-T Axes : 041 026 035 degrees QTc Int : 441 ms POOR DATA QUALITY, INTERPRETATION MAY BE ADVERSELY AFFECTED NORMAL SINUS RHYTHM NORMAL ECG WHEN COMPARED WITH ECG OF 04-AUG-2015 21:10, NO SIGNIFICANT CHANGE WAS FOUND Confirmed by SUDHA MAZARIEGOS, ZA ([id number]) on 04/17/2018 4:20:42 PM Referred By: Confirmed By:ZA HALEY MD
[2018-04-17] MEDS ORDERED: VANCOMYCIN 1 GM PREMIX - 1 GM/200 ML BAG IVPB ONE (18:15)
[2018-04-17] MEDS ORDERED: DEXTROSE 5%-WATER 100 ML IVPB ONE (18:57)
[2018-04-17] MEDS: CEFTRIAXONE 2 GM in DEXTROSE 5%-WATER 100 ML IVPB SCH (20:26)
[2018-04-17] MEDS ORDERED: INSULIN (LEVEMIR) 100 UNITS/ML UNITS SQ SCH (22:00)
[2018-04-17] MEDS ORDERED: PT OWN MED DRAWER 7, Y5N ONE (22:11)
[2018-04-17] MEDS ORDERED: ACETAMINOPHEN 325 MG TABLET (FP) PO ONE (23:30)
[2018-04-17] MEDS ORDERED: oxyCODONE HCL 5 MG TABLET PO ONE (23:30)
[2018-04-18 06:04] LABS: HEMATOCRIT 32.8 % (32.4-45.2); HEMOGLOBIN 10.8 GM/dL (10.7-15.3); MCH 28.1 pg (25.7-33.7); MCHC 32.8 g/dl (32.0-36.0); MEAN CELL VOLUME 85.6 fl (80-96); PLATELET COUNT 257 K/MM3 (134-434); RBC 3.83 M/mm3 (3.60-5.2); RDW 14.9 % (11.6-15.6); WHITE BLOOD COUNT 6.2 K/mm3 (4.0-10.0)
[2018-04-18 06:06] LABS: CMV IgM < 30.0 AU/mL (0.0-29.9)
[2018-04-18] MEDS: HEPARIN NA (PORCINE) 5,000 UNITS/ML 1ML VIAL SQ SCH (06:09)
[2018-04-18] MEDS: INSULIN SLIDING SCALE (NOVOLOG) 1 VIAL SQ SCH ×2 (06:32→11:17)
[2018-04-18 06:35] LABS: CHLORIDE 100 mmol/L (98-107); POTASSIUM 4.1 mmol/L (3.5-5.1); SODIUM 136 mmol/L (136-145)
[2018-04-18 06:43] LABS: ALBUMIN 2.4 g/dl (3.4-5.0); ALK PHOS 149 U/L (45-117); ANION GAP 9 (8-16); BILIRUBIN,TOTAL 0.4 mg/dL (0.2-1.0); BLOOD UREA NITROGEN 6 mg/dL (7-18); CALCIUM 8.2 mg/dL (8.5-10.1); CO2 27 mmol/L (21-32); CREATININE 0.7 mg/dL (0.55-1.02); GLUCOSE,RANDOM 160 mg/dL (74-106); MAGNESIUM 1.7 mg/dL (1.8-2.4); SGOT/AST 15 U/L (15-37); SGPT/ALT 13 U/L (12-78); TOT PROT 6.1 g/dl (6.4-8.2)
[2018-04-18] MEDS ORDERED: ACETAMINOPHEN 650 MG/20.3 ML ORAL SOLUTION (CUPS) PO PRN (08:09)
[2018-04-18] MEDS ORDERED: LIDOCAINE VISCOUS 2% ORAL/TOP 20 ML UNIT-DOSE CUP MM PRN (08:09)
--- NOTE | 2018-04-18 08:35 | PN ---
Progress Note, Physician Chief Complaint: ID Images reviewed in radiology gas in soft tissues with retropharangeal abscess tracking into chest Antibiotics changed Vancomycin Ceftriaxone and metronidazole Patient complains of neck pain fever chills - Current Medication List Current Medications: Active Medications Acetaminophen (Tylenol Oral Solution -) 650 mg PO Q6H PRN PRN Reason: PAIN LEVEL 1 - 3 Bacitracin (Bacitracin -) 1 applic TP BID [facility] Benzocaine/Menthol (Cepacol Lozenge -) 1 each MM PRN PRN PRN Reason: SORE THROAT Last Admin: 04/17/18 08:53 Dose: 1 each Clopidogrel Bisulfate (Plavix -) 75 mg PO DAILY [facility] Heparin Sodium (Porcine) (Heparin -) 5,000 unit SQ TID [facility] Sodium Chloride (1/2 Normal Saline) 1,000 mls @ 75 mls/hr IV ASDIR [facility] Last Admin: 04/17/18 09:18 Dose: 75 mls/hr Ceftriaxone Sodium 2 gm/ (Dextrose) 100 mls @ 200 mls/hr IVPB DAILY [facility] Last Admin: 04/17/18 20:26 Dose: 200 mls/hr Metronidazole (Flagyl 500mg Premixed Ivpb -) 500 mg in 100 mls @ 100 mls/hr IVPB Q6H-IV [facility] Last Admin: 04/18/18 03:37 Dose: 100 mls/hr Insulin Aspart (Novolog Vial Sliding Scale -) 1 vial SQ ACHS [facility]; Protocol Last Admin: 04/18/18 06:32 Dose: Not Given Insulin Detemir (Levemir Vial) 5 units SQ HS [facility] Last Admin: 04/17/18 22:06 Dose: 5 units Lidocaine HCl (Xylocaine 2% Viscous Oral -) 20 ml MM Q6HPO PRN PRN Reason: ORAL PAIN/MOUTH SORES Losartan Potassium (Cozaar -) 25 mg PO DAILY [facility] Last Admin: 04/17/18 13:01 Dose: 25 mg Magnesium Sulfate (Magnesium Sulfate) 2 gm IVPB ONCE ONE Stop: 04/18/18 07:18 Mupirocin (Bactroban Ointment (For Decolonization) -) 1 applic NS BID [facility] Stop: 04/21/18 09:59 Valacyclovir HCl (Valtrex -) 500 mg PO BID [facility] Last Admin: 04/17/18 22:12 Dose: 500 mg - Objective Vital Signs: Vital Signs Temperature 99.7 F H 04/18/18 05:53 Pulse Rate 84 04/18/18 05:53 Respiratory Rate 23 04/18/18 05:53 Blood Pressure 135/96 04/18/18 05:53 O2 Sat by Pulse Oximetry (%) 100 04/17/18 21:00 Constitutional: Yes: No Distress Eyes: Yes: WNL, Conjunctiva Clear HENT: Yes: WNL, Atraumatic Neck: Yes: WNL, Other (Tenderness above manubrium to palpation) Cardiovascular: Yes: Regular Rate and Rhythm, S1, S2. No: Murmur Respiratory: Yes: WNL, Regular, CTA Bilaterally Gastrointestinal: Yes: WNL, Normal Bowel Sounds, Soft. No: Tenderness, Tenderness, Rebound Edema: No Labs: CBC, BMP 04/18/18 05:30 04/18/18 05:30 Problem List - Problems (1) Acute infective pharyngitis Code(s): J02.9 - ACUTE PHARYNGITIS, UNSPECIFIED (2) DKA (diabetic ketoacidoses) Code(s): E13.10 - OTH DIABETES MELLITUS WITH KETOACIDOSIS WITHOUT COMA (3) Lymphadenopathy Code(s): R59.1 - GENERALIZED ENLARGED LYMPH NODES Assessment/Plan Microbiology 04/16/18 11:30 Wound Gram Stain - Final 04/16/18 11:30 Wound Wound Culture - Preliminary NO GROWTH OBTAINED AFTER 24 HOURS INCUBATION, REINCUBATED. 04/16/18 11:30 Nasopharyngeal Swab Respiratory Virus (PCR) - Preliminary 04/16/18 08:15 Blood - Peripheral Venous Blood Culture - Preliminary NO GROWTH OBTAINED AFTER 24 HOURS, INCUBATION TO CONTINUE FOR 4 DAYS. 04/16/18 08:00 Blood - Peripheral Venous Blood Culture - Preliminary NO GROWTH OBTAINED AFTER 24 HOURS, INCUBATION TO CONTINUE FOR 4 DAYS. 04/15/18 02:58 Blood - Peripheral Venous Blood Culture - Preliminary NO GROWTH OBTAINED AFTER 48 HOURS, INCUBATION TO CONTINUE FOR 3 DAYS. 04/15/18 02:58 Blood - Peripheral Venous Blood Culture - Preliminary NO GROWTH OBTAINED AFTER 48 HOURS, INCUBATION TO CONTINUE FOR 3 DAYS. Laboratory Tests 04/16/18 04/18/18 04/18/18 05:30 05:30 05:30 WBC 6.2 Hgb 10.8 Plt Count 257 BUN 6 L Creatinine 0.7 HIV 1&2 Antibody Screen Negative HIV P24 Antigen Negative Assessment Lower neck mass with gas in soft tissues retropharyngeal abscess ? extension into mediastinum Febrile chill Poorly adherent diabetic present with throat pain and DKA Plan Vancomycin Clindamycin Ceftriaxone Discussed with housestaff regarding need for urgent neck consultation as may need surgical drainage Critical care time spent 40 minutes Roger MAZARIEGOS
[2018-04-18] MEDS ORDERED: MAGNESIUM SULF 50% (8.12 MEQ/2 ML-1 GM VIAL) IVPB ONE (09:45)
[2018-04-18] MEDS ORDERED: CLINDAMYCIN 900 MG PREMIX IVPB 900 MG/50 ML BAG IVPB SCH (10:00)
[2018-04-18] MEDS ORDERED: MUPIROCIN 2% TOPICAL OINTMENT FOR DECOLONIZATION NS SCH (10:00)
[2018-04-18] MEDS ORDERED: CLOPIDOGREL BISULFATE 75 MG TABLET (FP) PO SCH (10:00)
[2018-04-18] MEDS ORDERED: BACITRACIN 15 GM TUBE TOPICAL OINTMENT TP SCH (10:00)
[2018-04-18] MEDS ORDERED: VANCOMYCIN 1 GM PREMIX - 1 GM/200 ML BAG IVPB SCH (10:00)
[2018-04-18] MEDS ORDERED: morphine CARPU-JECT 2 MG/1 ML DISP.SYRIN IVPUSH PRN (10:08)
[2018-04-18] MEDS ORDERED: PT OWN MED DRAWER 7, Y5N ONE ×2 (10:23→10:32)
[2018-04-18] MEDS ORDERED: DEXTROSE 5%-WATER 100 ML IVPB ONE (10:24)
[2018-04-18] MEDS: LOSARTAN POTASSIUM 25 MG TABLET PO SCH (10:33)
[2018-04-18] MEDS: CEFTRIAXONE 2 GM in DEXTROSE 5%-WATER 100 ML IVPB SCH (10:35)
--- NOTE | 2018-04-18 10:40 | CON.ENT ---
Consult Consult Specialty:: ENT Referred by:: ID Reason for Consultation:: Sore throat - History of Present Illness Chief Complaint: throat pain History of Present Illness: Pt with almost 3 weeks of upper sore throat, without fever for 2 weeks. She was evaluated by MDs and determined to have neg strept and allergies. She was admitted with inc sore throat and high glucose 04/15/18. Over the past few days she has noted less upper neck discomfort and lower neck discomfort. She has no voice change, no respiratory complaints. She has no trismus, nor restrictions in neck movement. No swelling of the neck is seen externally. She denies trauma , or recent neck injuries. - History Source History Provided By: Patient, Medical Record Limitations to Obtaining History: No Limitations - Past Medical History Cardio/Vascular: Yes: CAD, Other (s/p stent) ...LMP: 04/19/15 ...: No Endocrine: Yes: Diabetes Mellitus - Alcohol/Substance Use Hx Alcohol Use: No - Smoking History Smoking history: Former smoker Have you smoked in the past 12 months: No Aproximately how many cigarettes per day: 5 If you are a former smoker, when did you quit?: 2015 Home Medications - Allergies Allergies/Adverse Reactions: Allergies Allergy/AdvReac Type Severity Reaction Status Date / Time No Known Allergies Allergy Verified 04/15/18 23:02 - Home Medications Home Medications: Ambulatory Orders Atorvastatin Calcium [Lipitor] 10 mg PO HS 04/12/13 Losartan Potassium [Cozaar] 25 mg PO DAILY 07/18/15 Insulin Lispro [Humalog] 5 unit SQ AM 10/31/15 Clopidogrel Bisulfate [Plavix -] 75 mg PO DAILY 01/28/16 Cetirizine HCl [Zyrtec Rapidly Dissolving Tab -] 10 mg PO DAILY #30 tab Family Disease History - Family Disease History Family Disease History: Diabetes: Mother, Heart Disease: Mother Physical Exam-ENT Vital Signs: Vital Signs Temperature 99.7 F H 04/18/18 05:53 Pulse Rate 86 04/18/18 08:00 Respiratory Rate 22 04/18/18 08:00 Blood Pressure 135/66 04/18/18 08:00 O2 Sat by Pulse Oximetry (%) 100 04/17/18 21:00 Constitutional: Yes: Well Nourished, No Distress Head: Yes: WNL, Atraumatic Face: Yes: WNL, Symmetrical Eyes: Yes: WNL, Conjunctiva Clear Nose: Yes: WNL Nasal Passage: Yes: WNL Oral/Pharynx: Yes: WNL Outer Ear: Yes: WNL Ear Canal: Yes: WNL Neck: Yes: Other (No palpable masses, some lower right neck tenderness) Imaging - Results Cat Scan: Image Reviewed (collection lateral and inferior to the right thyroid gland at the level of clavicle and lower. No other masses or lesions of note in the neck.) Problem List - Problems (1) Mediastinal mass Assessment/Plan: Throat pain may have been an infection that caused a reactive lymph node and that became an abscess. Also possible is underlying neoplasm in ex smoker that became infected. Or underlying cyst (congenital) becoming infected. Suggest transfer to tertiary care and Thoracic surgery consult perhaps with interventional radiologic drainage and biopsy. Code(s): J98.59 - OTHER DISEASES OF MEDIASTINUM, NOT ELSEWHERE CLASSIFIED Procedure - Procedure and Findings -: Fiberoptic laryngoscopy: No lesions, redness, masses, paralysis, nor pooling of piriforms. Base of tongue wnl. essentially normal laryngeal/hypopharyngeal exam.
[2018-04-18] MEDS ORDERED: morphine SULFATE 4 MG/ML VIAL ONE (10:44)
--- NOTE | 2018-04-18 11:16 | PN ---
Teaching Attending Note Name of Resident: Nancie Khan ATTENDING PHYSICIAN STATEMENT I saw and evaluated the patient. I reviewed the resident's note and discussed the case with the resident. I agree with the resident's findings and plan as documented. SUBJECTIVE: Pt seen and examined in the ICU. CT neck showing left paratracheal fluid collection. Evaluated by ENT. OBJECTIVE: Vital Signs Period Temp Pulse Resp BP Sys/Hernandez Pulse Ox Last 24 Hr 98.7 F-101.6 F 72-100 16-24 109-147/65-96 98-100 Intake & Output 04/15/18 04/16/18 04/17/18 04/18/18 23:59 23:59 23:59 23:59 Intake Total 3930 2725 1400 Output Total 300 Balance 3630 2725 1400 Weight 68.039 kg 65.062 kg 65.062 kg 65.062 kg Gen: NAD, dysphonia Neck: supple Heart: RRR Lung: decreased breath sounds at the bases Abd: soft, nontender Ext: no edema CBC, BMP 04/18/18 05:30 04/18/18 05:30 Active Medications Acetaminophen (Tylenol Oral Solution -) 650 mg PO Q6H PRN PRN Reason: PAIN LEVEL 1 - 3 Bacitracin (Bacitracin -) 1 applic TP BID [facility] Last Admin: 04/18/18 10:39 Dose: 1 applic Benzocaine/Menthol (Cepacol Lozenge -) 1 each MM PRN PRN PRN Reason: SORE THROAT Last Admin: 04/17/18 08:53 Dose: 1 each Clopidogrel Bisulfate (Plavix -) 75 mg PO DAILY [facility] Last Admin: 04/18/18 10:40 Dose: Not Given Heparin Sodium (Porcine) (Heparin -) 5,000 unit SQ TID [facility] Sodium Chloride (1/2 Normal Saline) 1,000 mls @ 75 mls/hr IV ASDIR [facility] Last Admin: 04/17/18 09:18 Dose: 75 mls/hr Ceftriaxone Sodium 2 gm/ (Dextrose) 100 mls @ 200 mls/hr IVPB DAILY [facility] Last Admin: 04/18/18 10:35 Dose: 200 mls/hr Clindamycin Phosphate (Cleocin 900 Mg Premix Ivpb -) 900 mg in 50 mls @ 100 mls /hr IVPB Q8H-IV [facility]; Protocol Last Admin: 04/18/18 10:27 Dose: 100 mls/hr Vancomycin HCl (Vancomycin 1 Gm Premix -) 1 gm in 200 mls @ 166.667 mls/hr IVPB BID [facility]; Protocol Last Admin: 04/18/18 10:29 Dose: 166.667 mls/hr Insulin Aspart (Novolog Vial Sliding Scale -) 1 vial SQ ACHS [facility]; Protocol Last Admin: 04/18/18 06:32 Dose: Not Given Insulin Detemir (Levemir Vial) 5 units SQ HS [facility] Last Admin: 04/17/18 22:06 Dose: 5 units Lidocaine HCl (Xylocaine 2% Viscous Oral -) 20 ml MM Q6H PRN PRN Reason: ORAL PAIN/MOUTH SORES Losartan Potassium (Cozaar -) 25 mg PO DAILY [facility] Last Admin: 04/18/18 10:33 Dose: 25 mg Morphine Sulfate (Morphine Injection -) 2 mg IVPUSH Q6H PRN PRN Reason: PAIN LEVEL 7 - 10 Last Admin: 04/18/18 10:44 Dose: 2 mg Mupirocin (Bactroban Ointment (For Decolonization) -) 1 applic NS BID [facility] Stop: 04/21/18 09:59 Last Admin: 04/18/18 10:39 Dose: 1 applic Valacyclovir HCl (Valtrex -) 500 mg PO BID [facility] Last Admin: 04/17/18 22:12 Dose: 500 mg ASSESSMENT AND PLAN: Hyperosmolar Hyperglycemic Non Ketotic State resolved Paratracheal Abscess vs Mass r/o Mediastinitis CAD HTN Anemia - will need tissue biopsy - hold plavix - glucose control - continue antibiotics - f/u cultures - head and neck surgery eval - PO as tolerated - transfer to [facility]
[2018-04-18] MEDS ORDERED: MORPHINE SULFATE 2 MG/ML VIAL IVPUSH PRN (11:23)
[2018-04-18] MEDS: SODIUM CHLORIDE 0.45% 1,000 ML IV SCH (11:58)
[2018-04-18] MEDS: valACYclovir HCL 500 MG TABLET (FP) PO SCH (12:43)
--- NOTE | 2018-04-18 13:47 | PN ---
Physical Exam: SUBJECTIVE: Patient seen and examined. Says she still has a sore throat. Also complains of headache. She says the IV tylenolol given for her headache helped. Patient not eating because of throat pain. T max 100.5 CT neck with left paratracheal fluid collection. Evaluated by ENT. Laryngoscopy with no findings/unremarkable. OBJECTIVE: Vital Signs Period Temp Pulse Resp BP Sys/Hernandez Pulse Ox Last 24 Hr 98.7 F-101.6 F 72-100 16-24 95-146/54-96 98-100 GENERAL: The patient is awake, alert, and fully oriented, in no acute distress. EYES: PERRL, extraocular movements intact, sclera anicteric ENT:oropharynx clear without exudates, moist mucous membranes. NECK: some lower right neck tenderness, no palpable masses LUNGS: CTA b/l, no rales rhonchi or wheezing, no stridor HEART: Regular rate and rhythm, S1, S2 without murmur, rub or gallop. ABDOMEN: Soft, nontender, nondistended, normoactive bowel sounds EXTREMITIES: 2+ pulses,no edema. NEUROLOGICAL: Cranial nerves II through XII grossly intact. No focal defects. Laboratory Results - last 24 hr 04/17/18 04/17/18 04/17/18 05:30 05:30 09:24 WBC RBC Hgb Hct MCV MCH MCHC RDW Plt Count MPV Sodium Potassium Chloride Carbon Dioxide Anion Gap BUN Creatinine Creat Clearance w eGFR POC Glucometer 123.02635 Random Glucose Calcium Phosphorus Magnesium Total Bilirubin AST ALT Alkaline Phosphatase Total Protein Albumin CMV IgG Ab 2.80 H CMV IgM Ab < 30.0 Hep Bs Antibody, Quant <3.1 L 04/17/1818 04/18/18 16:18 22:02 05:30 WBC RBC Hgb Hct MCV MCH MCHC RDW Plt Count MPV Sodium 136 Potassium 4.1 Chloride 100 Carbon Dioxide 27 Anion Gap 9 BUN 6 L Creatinine 0.7 Creat Clearance w eGFR > 60 POC Glucometer 276.99245 270.49848 Random Glucose 160 H Calcium 8.2 L Phosphorus 3.0 Magnesium 1.7 L Total Bilirubin 0.4 AST 15 ALT 13 Alkaline Phosphatase 149 H D Total Protein 6.1 L Albumin 2.4 L CMV IgG Ab CMV IgM Ab Hep Bs Antibody, Quant 04/18/18 04/18/18 04/18/18 05:30 06:14 11:14 WBC 6.2 RBC 3.83 Hgb 10.8 Hct 32.8 MCV 85.6 MCH 28.1 MCHC 32.8 RDW 14.9 Plt Count 257 MPV 8.0 Sodium Potassium Chloride Carbon Dioxide Anion Gap BUN Creatinine Creat Clearance w eGFR POC Glucometer 184.92752 315.92764 Random Glucose Calcium Phosphorus Magnesium Total Bilirubin AST ALT Alkaline Phosphatase Total Protein Albumin CMV IgG Ab CMV IgM Ab Hep Bs Antibody, Quant Active Medications Generic Name Dose Route Start Last Admin Trade Name Freq PRN Reason Stop Dose Admin Acetaminophen 650 mg 04/18/18 08:09 Tylenol Oral Solution - PO Q6H PRN PAIN LEVEL 1 - 3 Benzocaine/Menthol 1 each 04/16/18 11:44 04/17/18 08:53 Cepacol Lozenge - MM 1 each PRN PRN Administration SORE THROAT Sodium Chloride 1,000 mls @ 75 mls/hr 04/17/18 09:00 04/18/18 11:58 1/2 Normal Saline IV 75 mls/hr ASDIR [facility] Administration Ceftriaxone Sodium 2 gm/ 100 mls @ 200 mls/hr 04/17/18 18:15 04/18/18 10:35 Dextrose IVPB 200 mls/hr DAILY [facility] Administration Clindamycin Phosphate 900 mg in 50 mls @ 100 mls/hr 04/18/18 10:00 04/18/18 10:27 Cleocin 900 Mg Premix Ivpb - IVPB 100 mls/hr Q8H-IV [facility] Administration Protocol Vancomycin HCl 1 gm in 200 mls @ 166.667 mls/hr 04/18/18 10:00 04/18/18 10:29 Vancomycin 1 Gm Premix - IVPB 166.667 mls/hr BID [facility] Administration Protocol Insulin Aspart 1 vial 04/16/18 16:30 04/18/18 11:17 Novolog Vial Sliding Scale - SQ 6 units ACHS [facility] Administration Protocol Insulin Detemir 5 units 04/17/18 22:00 04/17/18 22:06 Levemir Vial SQ 5 units HS [facility] Administration Lidocaine HCl 20 ml 04/18/18 08:09 Xylocaine 2% Viscous Oral - MM Q6H PRN ORAL PAIN/MOUTH SORES Losartan Potassium 25 mg 04/17/18 12:15 04/18/18 10:33 Cozaar - PO 25 mg DAILY [facility] Administration Morphine Sulfate 2 mg 04/18/18 11:23 Morphine Sulfate IVPUSH Q6H PRN PAIN LEVEL 7 - 10 Mupirocin 1 applic 04/18/18 10:00 04/18/18 10:39 Bactroban Ointment (For Decolonization) - NS 04/21/18 09:59 1 applic BID [facility] Administration Valacyclovir HCl 500 mg 04/17/18 10:00 04/18/18 12:43 Valtrex - PO 500 mg BID [facility] Administration ASSESSMENT/PLAN: Endocine #Hyperosmolar Hyperglycemic Non Ketotic State -resolved -noncompliant with insulin -IV fluids, 1/2 NS @75 -BGM -ISS ACHS -poor appetite, not eating -Levemir 5U HS NECK #Neck abscess vs. Mass, r/o mediastinitis #Odynophagia/Dyshpagia #sore throat -CT neck with left paratracheal fluid collection. -s/p laryngoscopy: no abnormal findings. -ENT on board: recommend transfer to tertiary center -discussed biopsy with IR, unable to perform at this time due to patient being on Plavix. -ID on board. IV abx. #ID #Neck abscess vs. Mass -febrile -bacitracin -EBV, HIV, Viral panel -Follow ID reccs -throat culture, bcx, ucx negative -IV abx changed: Ceftriaxone, Clindamycin, Vancomycin, Valacyrovir CV #HTN #CAD -Cozaar held -hold plavix for possible biopsy -cardiac monitoring FEN / NS @ 75 monitor lytes diabetic diet Ppx AG held due to possible biopsy. cont. ICU monitoring, Transfer to [facility] Visit type - Emergency Visit Emergency Visit: Yes ED Registration Date: 04/16/18 Care time: The patient presented to the Emergency Department on the above date and was hospitalized for further evaluation of their emergent condition. - New Patient This patient is new to me today: No - Critical Care Critical Care patient: Yes Total Critical Care Time (in minutes): 40 Critical Care Statement: The care of this patient involved high complexity decision making to prevent further life threatening deterioration of the patient 's condition and/or to evaluate & treat vital organ system(s) failure or risk of failure.
[2018-04-18] MEDS ORDERED: HEPARIN NA (PORCINE) 5,000 UNITS/ML 1ML VIAL SQ SCH (14:00)
--- NOTE | 2018-04-18 14:52 | DS ---
Physical Exam: SUBJECTIVE: Patient seen and examined. She has a headache and continues to c/o throat pain. low grade temps this am OBJECTIVE: Vital Signs Period Temp Pulse Resp BP Sys/Hernandez Pulse Ox Last 24 Hr 98.7 F-101.6 F 72-100 16-24 95-146/54-96 98-100 PE Neuro: alert, awake, cn 2-12intact HEENT: cervical lymph tender, swelling Pulm: diminished bases CV: s1s s2 rrr Abd: s nt nd + bs Ext: warm, no le edema Laboratory Results - last 24 hr 04/17/18 04/17/18 04/17/18 05:30 05:30 09:24 WBC RBC Hgb Hct MCV MCH MCHC RDW Plt Count MPV Sodium Potassium Chloride Carbon Dioxide Anion Gap BUN Creatinine Creat Clearance w eGFR POC Glucometer [phone] Random Glucose Calcium Phosphorus Magnesium Total Bilirubin AST ALT Alkaline Phosphatase Total Protein Albumin CMV IgG Ab 2.80 H CMV IgM Ab < 30.0 Hep Bs Antibody, Quant <3.1 L 04/17/18 04/17/18 04/18/18 16:18 22:02 05:30 WBC RBC Hgb Hct MCV MCH MCHC RDW Plt Count MPV Sodium 136 Potassium 4.1 Chloride 100 Carbon Dioxide 27 Anion Gap 9 BUN 6 L Creatinine 0.7 Creat Clearance w eGFR > 60 POC Glucometer [phone] Random Glucose 160 H Calcium 8.2 L Phosphorus 3.0 Magnesium 1.7 L Total Bilirubin 0.4 AST 15 ALT 13 Alkaline Phosphatase 149 H D Total Protein 6.1 L Albumin 2.4 L CMV IgG Ab CMV IgM Ab Hep Bs Antibody, Quant 04/18/18 04/18/18 04/18/18 05:30 06:14 11:14 WBC 6.2 RBC 3.83 Hgb 10.8 Hct 32.8 MCV 85.6 MCH 28.1 MCHC 32.8 RDW 14.9 Plt Count 257 MPV 8.0 Sodium Potassium Chloride Carbon Dioxide Anion Gap BUN Creatinine Creat Clearance w eGFR POC Glucometer [phone] Random Glucose Calcium Phosphorus Magnesium Total Bilirubin AST ALT Alkaline Phosphatase Total Protein Albumin CMV IgG Ab CMV IgM Ab Hep Bs Antibody, Quant HOSPITAL COURSE: Date of Admission:04/16/18 Date of Discharge: 04/18/18 Minutes to complete discharge: 37 Discharge Summary Reason For Visit: FEVER/SORE THROAT Current Active Problems Acute infective pharyngitis (Acute) DKA (diabetic ketoacidoses) (Acute) Hyperkalemia (Acute) Lymphadenopathy (Acute) Mediastinal mass (Acute) Uncontrolled type 2 DM with hyperosmolar nonketotic hyperglycemia (Acute) Hospital Course: Transfer Summary: Briefly, this 47 year old female with pmhx of IDDM, HTN, asthma, HLD, and CAD presented with sore throat for past 2.5 weeks. It was associated with a dry cough and mild headache. She came to [facility] several days ago, was strep negative, and was told it was due to allergies. Her symptoms did not resolve, she went to an urgent care center, and was told it was due to a viral illness. Since 04/12, due to her sore throat, her po intake decreased, and she wasn't able to take any of her meds. In addition, because she wasn't eating much, she stopped taking her insulin. She endorses polydipsia and polyuria during this time. Subsequent Hospital Course/Progress Note/DC summary: Assessment: 47 year old female with insulin-treated DM since age 20 year, CAD ( one cardiac stent 2 years ago) and hypertension transferred to the ICU from [facility] where she presented with complaint of sore throat 2-1/2 weeks9 year old admitted with dysphagia and DKA Plan: 1. Retropharangeal abscess tracking into chest - CT chest/soft tissue neck shows left paratracheal fluid collection - Clindamycin, vanco, ceftriaxone - Transfer to [facility] Dr. Odonnell thoracic surgery - EBV, HIV, viral panel pending 2. HHNK - Resolved 3. DM II - Continue novolog sliding scale, bgm ACHS - Levemir 5units HS, can increase to regular dose as appetite increases - Continue / ns 75cc/hr 4. CAD s/p stent - 2 years ago - Last took ASA Saturday 04/14 - Hold Plavix, did not take today 5. HTN - Cozaar 25mg daily 6. Herpes simplex lesions, buttock - Started valtrex 500mg BID - Culture sent Dispo: - Transfer [facility] Condition: Stable - Instructions Disposition: TRANSFER ACUTE CARE/OTHER HOSP - Home Medications Comprehensive Discharge Medication List: Ambulatory Orders Atorvastatin Calcium [Lipitor] 10 mg PO HS 04/12/13 Losartan Potassium [Cozaar] 25 mg PO DAILY 07/18/15 Insulin Lispro [Humalog] 5 unit SQ AM 10/31/15 Clopidogrel Bisulfate [Plavix -] 75 mg PO DAILY 01/28/16 Cetirizine HCl [Zyrtec Rapidly Dissolving Tab -] 10 mg PO DAILY #30 tab This patient is new to me today: No Emergency Visit: Yes ED Registration Date: 04/16/18 Care time: The patient presented to the Emergency Department on the above date and was hospitalized for further evaluation of their emergent condition. Critical Care patient: Yes Total Critical Care Time (in minutes): 35 Critical Care Statement: The care of this patient involved high complexity decision making to prevent further life threatening deterioration of the patient 's condition and/or to evaluate & treat vital organ system(s) failure or risk of failure. - Discharge Referral Referred to [facility] No
[2018-04-18 15:16] VITALS: BP 100/56; PULSE 84; TEMP 98.8
[2018-04-19 16:13] LABS: EPSTEIN BARR ANTIBODY IgM <36.0 U/mL (0.0-35.9)
[2018-05-23 10:23] LABS: HEP B CORE AB, TOT <3.1
== END 2018-04-18 16:20 | disposition short-term general hospital (02) | DRG 152 ==
LOC: FER 23:00 → JICU 04-16 01:57 → UNDOADMIN 04-16 02:05
PROVIDERS: ADMIT Internal Medicine; ATTEND Nurse Practitioner Acute Care
PROC: 0CJS8ZZ Inspection of Larynx, Via Natural or Artificial Opening Endoscopic (ICD-10-PCS; principal; 2018-04-18)
DX: J02.9 Acute pharyngitis, unspecified (principal); E11.10 Type 2 diabetes mellitus with ketoacidosis without coma; J98.59 Other diseases of mediastinum, not elsewhere classified; E87.2 Acidosis; E87.1 Hypo-osmolality and hyponatremia; I25.10 Atherosclerotic heart disease of native coronary artery without angina pectoris; Z98.61 Coronary angioplasty status; I10 Essential (primary) hypertension; B00.9 Herpesviral infection, unspecified; R13.10 Dysphagia, unspecified; D64.9 Anemia, unspecified; Z87.891 Personal history of nicotine dependence; R59.1 Generalized enlarged lymph nodes; E87.5 Hyperkalemia
CPT/HCPCS: 36415; 36600; 70360-TC-FY; 70491-TC; 71046-TC-FY; 71250-TC; 76705-TC; 80048; 80053; 80307; 81003; 82010; 82550; 82803; 82962; 82977; 83036; 83605; 83735; 84100; 84484; 85025; 85027; 85651; 86140; 86308; 86644; 86645; 86664; 86665; 87040; 87070; 87086; 87205; 87389; 87633; 90732; 93005; 99282-25; G0009; J0131; J1644; J7030

== ENCOUNTER 2018-07-10 00:49 | Emergency (ER) | payer BC ==
[2018-07-10 01:39] VITALS: BMI 25.0
[2018-07-10] MEDS ORDERED: IBUPROFEN 600 MG TABLET (FP) PO ONE ×2 (05:28→05:34)
--- NOTE | 2018-07-10 07:01 | PDOC ---
Attending Attestation - Resident Resident Name: Pino Pack - ED Attending Attestation I have performed the following: I have examined & evaluated the patient, The case was reviewed & discussed with the resident, I agree w/resident's findings & plan, Exceptions are as noted - HPI HPI: 07/10/18 07:00 The patient is a 48 year old female, with a significant past medical history HL , HTN , DM, and LLE stent who presents to the emergency department s/p syncope with right shoulder pain. As per patient, she was drank 2 beers with family last night, went outside and began to feel lightheaded. She notes that she syncopized for an unknown period of time, fell and is unaware if she hit her head. Denies confusion after the event. She does not recall the entire event but the fall was witnessed by her niece who is not present. Denies preceding CP , SOB, palpitations, N/V, diaphoresis, headache. She states she had the 2 beers over a few hours and was not intoxicated at the time of the syncope. At this time, she complains only of R shoulder pain. She denies any urinary or bowel incontinence. She denies any drug usage. She denies recent fevers, chills, headache or dizziness. She denies recent nausea, vomit, diarrhea or constipation. She denies recent dysuria, frequency, urgency or hematuria. Allergies: NKA Past surgical history: Left lower extremity stent. Social history: Social alcohol usage. Nonsmoker. Denies recreational drug use. Primary Care Physician: Dr. Chaudhari Gamemaster: Dr. Quintero - Physicial Exam PE: 07/10/18 07:08 GENERAL: Awake, alert, and fully oriented, in no acute distress HEAD: No signs of trauma EYES: PERRLA, EOMI, sclera anicteric, conjunctiva clear ENT: Moist mucosa NECK: Normal ROM, supple, no lymphadenopathy, JVD, or masses LUNGS: Breath sounds equal, clear to auscultation bilaterally. No wheezes, and no crackles HEART: Regular rate and rhythm, normal S1 and S2, no murmurs, rubs or gallops ABDOMEN: Soft, nontender, normoactive bowel sounds. No guarding, no rebound. No masses EXTREMITIES: R shoulder with anterior ttp. FROM passively. Able to reach hand to contralateral shoulder. No deformities. Normal sensation. No scaphoid ttp. 2 + radial pulse. Remaining extremities: normal range of motion, no edema. No clubbing or cyanosis. No cords, erythema, or tenderness NEUROLOGICAL: Normal speech, cranial nerves intact, 5/5 strength in all 4 extremities, normal sensation to light touch in all 4 extremities, normal cerebellar exam, normal gait, normal reflexes and tone BACK: No midline cervical, thoracic, lumbar ttp. SKIN: +superfical abrasion to R lateral shoulder. Otherwise, warm, Dry, normal turgor, no rashes or lesions noted. - Medical Decision Making 07/10/18 07:48 48yo F hx HTN, HL, DM, LLE stent presents to the ED with syncope and R shoulder pain. Vitals wnl. EKG wnl. Will check labs, XR, and consider tele obs admission. PT signed out to day attending for further mgmt/dispo. Heart Score/ECG Review #1 07/10/18 07:19 Twelve-lead EKG was performed and reviewed by me. Normal sinus rhythm, rate 64. Normal axis and intervals. No ST elevations or T-wave inversions.
--- NOTE | 2018-07-10 07:04 | PDOC ---
*Physical Exam - Vital Signs Last Vital Signs Temp Pulse Resp BP Pulse Ox 98.7 F 66 18 147/82 97 07/10/18 00:55 07/10/18 06:31 07/10/18 06:31 07/10/18 06:31 07/10/18 06:31 - Physical Exam Comments: 07/10/18 07:42 GENERAL: Awake, alert, and fully oriented, in no acute distress HEAD: No signs of trauma, normocephalic, atraumatic EYES: EOMI, sclera anicteric, conjunctiva clear ENT: oropharynx clear without exudates. Moist mucosa NECK: Normal ROM, supple, no lymphadenopathy, JVD, or masses LUNGS: No distress, speaks full sentences, clear to auscultation bilaterally HEART: Regular rate and rhythm, normal S1 and S2, no murmurs, rubs or gallops, peripheral pulses normal and equal bilaterally. ABDOMEN: Soft, nontender, normoactive bowel sounds. No guarding, no rebound. No masses EXTREMITIES : Normal inspection, Normal range of motion, no edema. No clubbing or cyanosis. No clavicular tenderness to palpation, + mild tenderness to R acromion palpation, palpable pulses, NV intact NEUROLOGICAL: Normal speech, normal gait, no focal sensorimotor deficits SKIN: Warm, Dry, normal turgor, no rashes or lesions noted 07/10/18 12:45 ED Treatment Course - LABORATORY CBC & Chemistry Diagram: 07/10/18 06:45 07/10/18 07:26 - Medications Given in the ED: ED Medications Discontinued Medications Generic Name Dose Route Start Last Admin Trade Name Freq PRN Reason Stop Dose Admin Ibuprofen 600 mg 07/10/18 05:28 07/10/18 05:35 Motrin - PO 07/10/18 05:29 600 mg ONCE ONE Administration Medical Decision Making - Medical Decision Making 07/10/18 07:03 Pt signed out by Dr. Pack 07/10/18 07:43 Pt assessed. stable. resting comfortably. 07/10/18 09:50 XR: R shoulder distal displaced clavicular fracture with AC joint separation. Spoke with orthopedics Dr. Chavez who will see patient in clinic. 07/10/18 10:55 Pt updated on plan and agrees. Will observe patient for MTF. 07/10/18 11:23 UA: negative Patient stable for discharge. Given follow up instructions and strict return precautions. Patient expressed understanding and agreed to plan. *DC/Admit/Observation/Transfer Diagnosis at time of Disposition: Fracture - Discharge Dispostion Disposition: HOME Condition at time of disposition: Stable Decision to Admit order: No Decision to Admit order Date/Time: 07/10/18 12:07 You were seen in the ED for complaints of L shoulder pain. In the ED you were evaluated with labwork and imaging. Your results were significant for L clavicular fracture. It is important to immobilize your L arm by wearing a sling. Rest and ice your shoulder, do not weight bare. Please follow up with orthopedics in 2-3 days and take over the counter pain medications as needed. You are advised to follow up with your primary care physician within 1 week. You were given a referral to orthopedic surgery and are advised to follow within 2-3 days. Return to the ED immediately if you experience worsening L shoulder pain, numbness or tingling in your hands, inability to use the L arm, persistent shoulder pain, chest pain, shortness of breath. - Referrals Referrals: Carmen Chaudhari [Primary Care Provider] - Jin Chavez MD [Staff Physician] - - Patient Instructions Additional Instructions: You were seen in the ED for complaints of R clavicular fracture In the ED you were evaluated with labwork and imaging. Your results were significant for R clavicular fracture. It is important that you rest, ice and not weight bare with the R arm and shoulder. Follow up with orthopedic surgery in 2-3 days. Take over the counter pain medications as needed. You are advised to follow up with your primary care physician within 1 week. You were given a referral to orthopedics and advised to follow up in the next 2- 3 days. Return to the ED immediately if you experience worsening R shoulder pain, numbness or tingling in the R arm, loss of arm movements, neck pain, chest pain or shortness of breath. - Post Discharge Activity Forms/Work/School Notes: Back to Work
--- NOTE | 2018-07-10 07:23 | PDOC ---
History of Present Illness - General Chief Complaint: Injury Stated Complaint: FALL/RIGHT SHOULDER PAIN Time Seen by Provider: 07/10/18 04:52 History Source: Patient, Spouse ( present for interview.) - History of Present Illness Initial Comments: 48 y/o female presenting to [facility] ER via private auto complaining of right shoulder pain s/p fall last evening. Pt reports she was drinking with family members but only 1-2 drinks. She suddenly felt lightheaded and fell on her right side onto a concrete sidewalk. Unable to recall events after the fall, which occurred several hours prior to arrival. Currently complaining only of shoulder pain. Denies headache, change in vision, nausea/vomiting, neck pain, chest pain, or SOB. Pt does not take blood thinning medication. Medical Hx: - DM - HTN - HCL - Anemia - GERD Surgical Hx: - Stent placed in Left Leg Past History - Past Medical History Allergies/Adverse Reactions: Allergies Allergy/AdvReac Type Severity Reaction Status Date / Time No Known Allergies Allergy Verified 07/10/18 01:27 Home Medications: Ambulatory Orders Atorvastatin Calcium [Lipitor] 10 mg PO HS 04/12/13 Losartan Potassium [Cozaar] 25 mg PO DAILY 07/18/15 Insulin Lispro [Humalog] 5 unit SQ AM 10/31/15 Clopidogrel Bisulfate [Plavix -] 75 mg PO DAILY 01/28/16 Asthma: Yes (BRONCHITIS) COPD: No Diabetes: Yes HTN: Yes Hypercholesterolemia: Yes - Immunization History Immunization Up to Date: Yes - Suicide/Smoking/Psychosocial Hx Smoking Status: No Smoking History: Never smoked Have you smoked in the past 12 months: No Number of Cigarettes Smoked Daily: 5 If you are a former smoker, when did you quit?: 2014 Information on smoking cessation initiated: No 'Breaking Loose' booklet given: 10/25/16 Hx Alcohol Use: No Drug/Substance Use Hx: No Substance Use Type: None Hx Substance Use Treatment: No Review of Systems - Review of Systems Able to Perform ROS?: Yes Comments:: In addition to that documented in the HPI above, the additional ROS was obtained : Constitutional: Denies fevers or chills Eyes: Denies vision changes ENMT: Denies sore throat CV: Denies chest pain Resp: Denies SOB GI: Denies vomiting or diarrhea : Denies painful urination MSK: Endorses recent trauma Skin: Denies new rashes Neuro: Denies new numbness or tingling or weakness Endocrine: Denies polyuria Heme: Denies bleeding disorders Is the patient limited Spanish proficient: No *Physical Exam - Vital Signs Last Vital Signs Temp Pulse Resp BP Pulse Ox 98.7 F 66 18 147/82 97 07/10/18 00:55 07/10/18 06:31 07/10/18 06:31 07/10/18 06:31 07/10/18 06:31 - Physical Exam Comments: Constitutional: Well-developed, well-nourished female in no acute distress. Found sleeping in left lateral recumbent position on hospital bed. Once awake, pt was alert and oriented x4. Answered all questions appropriately and completely. Speech was non-labored, non-pressured. Head: Normocephalic. No obvious external signs of trauma. No periorbital ecchymosis or Battles sign. Eyes: PERRL. EOMI. Sclerae white. Conjunctiva moist and not injected. Ears: External auditory canals and tympanic membranes clear. Hearing grossly intact. No hemotympanum. Nose: No nasal discharge. Throat: Oral cavity and pharynx normal. No inflammation, swelling, exudate, or lesions. Teeth and gingiva in good general condition. Neck: Supple, trachea is midline. Pt able to laterally rotate neck to left and right >45 degrees. No subjective C-spine tenderness or bony deformities. No step off. Cardiovascular: Regular rate and regular rhythm. No murmur, rubs, clicks, or gallops. Peripheral pulses: Radial pulses full. Respiratory: Breathing unlabored. Equal chest rise and fall. Clear to auscultation bilaterally. No stridor, no wheezing, no rhonchi. Gastrointestinal: abdomen is soft, non-tender, non-distended. Neuro: Alert and oriented. Moving all four extremities spontaneously. No focal deficits, Cranial nerves intact, intact sensation to all four extremities. Proximal and distal strength 5/5, lace finisher strength 5/5 - equal and symmetric. Plantar flexion and dorsiflexion 5/5. MSK / Skin: Decreased active and passive ROM of right shoulder secondary to pain , pt unable to tolerate rotator cuff testing, no obvious deformities of joint or clavicle. Warm, dry, and intact. No bruising, rashes, or other lesions. Psych: Affect: appropriate. Mood: normal. ED Treatment Course - LABORATORY CBC & Chemistry Diagram: 07/10/18 06:45 07/10/18 07:26 - ADDITIONAL ORDERS Additional order review: Laboratory Results 07/10/18 07/10/18 06:45 06:45 Sodium Cancelled Potassium Cancelled Chloride Cancelled Carbon Dioxide Cancelled Anion Gap Cancelled BUN Cancelled Creatinine Cancelled Creat Clearance w eGFR Cancelled Random Glucose Cancelled Calcium Cancelled Total Bilirubin Cancelled AST Cancelled ALT Cancelled Alkaline Phosphatase Cancelled Troponin I Cancelled Total Protein Cancelled Albumin Cancelled Alcohol, Quantitative Cancelled - RADIOLOGY Radiology Studies Ordered: Category Date Time Status SHOULDER W/TRANS-RIGHT [RAD] Stat Radiology 07/10/18 05:27 Ordered - Medications Given in the ED: ED Medications Discontinued Medications Generic Name Dose Route Start Last Admin Trade Name Freq PRN Reason Stop Dose Admin Ibuprofen 600 mg 07/10/18 05:28 07/10/18 05:35 Motrin - PO 07/10/18 05:29 600 mg ONCE ONE Administration Medical Decision Making - Medical Decision Making *Reviewed vital signs, nursing notes, and prior visit documentation (if available). 48 y/o female complaining of right shoulder pain in setting of syncopal episode. Afebrile. Vitals unremarkable on arrival. Ordered ibuprofen for pain relief. Ordered Plain films of right shoulder. D/D: dislocation, humerus fracture, clavicle fracture, rotator cuff injury Ordered EKG, troponin, CBC, CMP, alcohol, UA, urine culture, UDS, and UPreg. Pt signed out to resident Dr. Pappas after she was verbally appraised of the pt s HPI and current condition. All imaging and laboratory ordered pending. *DC/Admit/Observation/Transfer Diagnosis at time of Disposition: Fracture - Discharge Dispostion Disposition: HOME Condition at time of disposition: Stable Decision to Admit order: No - Referrals Referrals: Jin Chavez MD [Staff Physician] - Carmen Chaudhari [Primary Care Provider] - - Patient Instructions Additional Instructions: You were seen in the ED for complaints of R clavicular fracture In the ED you were evaluated with labwork and imaging. Your results were significant for R clavicular fracture. It is important that you rest, ice and not weight bare with the R arm and shoulder. Follow up with orthopedic surgery in 2-3 days. Take over the counter pain medications as needed. You are advised to follow up with your primary care physician within 1 week. You were given a referral to orthopedics and advised to follow up in the next 2- 3 days. Return to the ED immediately if you experience worsening R shoulder pain, numbness or tingling in the R arm, loss of arm movements, neck pain, chest pain or shortness of breath. - Post Discharge Activity Forms/Work/School Notes: Back to Work
[2018-07-10] MEDS ORDERED: ACETAMINOPHEN 325 MG TABLET (FP) PO ONE (07:32)
[2018-07-10 07:38] LABS: EOS % 1.8 % (0-4.5); HEMATOCRIT 30.1 % (32.4-45.2); HEMOGLOBIN 9.8 GM/dL (10.7-15.3); LYMPH % 43.6 % (8-40); MCH 27.6 pg (25.7-33.7); MCHC 32.6 g/dl (32.0-36.0); MEAN CELL VOLUME 84.6 fl (80-96); MEAN PLT VOLUME 7.8 fl (7.5-11.1); MONO % 4.7 % (3.8-10.2); NEUT % 48.9 % (42.8-82.8); PLATELET COUNT 175 K/MM3 (134-434); RBC 3.56 M/mm3 (3.60-5.2); RDW 15.4 % (11.6-15.6); WHITE BLOOD COUNT 4.9 K/mm3 (4.0-10.0)
[2018-07-10] MEDS ORDERED: ACETAMINOPHEN 325 MG TABLET (FP) ONE (07:40)
[2018-07-10 08:05] LABS: ALBUMIN 3.3 g/dl (3.4-5.0); ANION GAP 10 MMOL/L (8-16); BILIRUBIN,TOTAL 0.2 mg/dL (0.2-1); BLOOD UREA NITROGEN 22 mg/dL (7-18); CALCIUM 9.1 mg/dL (8.5-10.1); CHLORIDE 107 mmol/L (98-107); CO2 24 mmol/L (21-32); CREATININE 0.8 mg/dL (0.55-1.3); GLUCOSE,RANDOM 99 mg/dL (74-106); POTASSIUM 4.4 mmol/L (3.5-5.1); SGOT/AST 25 U/L (15-37); SGPT/ALT 23 U/L (13-61); SODIUM 141 mmol/L (136-145); TOT PROT 6.5 g/dl (6.4-8.2)
[2018-07-10 08:08] LABS: ALK PHOS 128 U/L (45-117)
--- NOTE | 2018-07-10 09:56 | EKG ---
Test Reason : Blood Pressure : / mmHG Vent. Rate : 064 BPM Atrial Rate : 064 BPM P-R Int : 156 ms QRS Dur : 070 ms QT Int : 432 ms P-R-T Axes : 049 039 028 degrees QTc Int : 445 ms NORMAL SINUS RHYTHM ANTERIOR INFARCT , AGE UNDETERMINED ABNORMAL ECG WHEN COMPARED WITH ECG OF 16-APR-2018 02:22, ANTERIOR INFARCT IS NOW PRESENT Confirmed by ZA HALEY MD ([id number]) on 07/10/2018 9:55:51 AM Referred By: Confirmed By:ZA HALEY MD
[2018-07-10 11:15] VITALS: BP 150/87; PULSE 65; TEMP 97.9
[2018-07-10 11:20] LABS: URINE APPEARANCE CLEAR; URINE BILIRUBIN NEGATIVE (<2.0 mg/dL); URINE COLOR STRAW; URINE GLUCOSE (UA) NEGATIVE (NEGATIVE); URINE KETONE NEGATIVE (NEGATIVE); URINE LEUK ESTERASE NEGATIVE (NEGATIVE); URINE NITRITE NEGATIVE (NEGATIVE); URINE PROTEIN NEGATIVE (NEGATIVE); URINE UROBILINOGEN NEGATIVE mg/dL (0.2-1.0)
[2018-07-10] MEDS ORDERED: INSULIN REGULAR HUMAN 100 UNITS/ML *VIAL SQ ONE (11:52)
[2018-07-10 12:20] LABS: COCAINE, UR NEGATIVE ng/ml (CUTOFF=300); METHADONE, UR NEGATIVE ng/ml (CUTOFF=300); OPIATES, URI NEGATIVE ng/ml (CUTOFF=300); PHENCYCLIDINE,URINE NEGATIVE ng/ml (CUTOFF=25); URINE AMPHETAMINES NEGATIVE ng/ml (CUTOFF=500); URINE BARBITURATES NEGATIVE ng/ml (CUTOFF=200); URINE BENZODIAZEPINES NEGATIVE ng/ml (CUTOFF=200)
== END 2018-07-10 12:39 | disposition home or self-care (01) ==
LOC: JER 00:49
DX: S42.031A Displaced fracture of lateral end of right clavicle, initial encounter for closed fracture (principal); W18.39XA Other fall on same level, initial encounter; Y93.89 Activity, other specified; Y92.89 Other specified places as the place of occurrence of the external cause; Y99.8 Other external cause status; I10 Essential (primary) hypertension; E11.9 Type 2 diabetes mellitus without complications; E78.00 Pure hypercholesterolemia, unspecified; J45.909 Unspecified asthma, uncomplicated; Z95.828 Presence of other vascular implants and grafts; Z79.4 Long term (current) use of insulin
CPT/HCPCS: 36415; 70450-TC; 72125-TC; 73030-TC-RT-FY; 80053; 80307; 81003; 82550; 82553; 82962; 84484; 84702; 84703; 85025; 87086; 93005; 93010; 99283-25

== ENCOUNTER 2018-10-29 22:12 | Inpatient (IN) | payer BC ==
[2018-10-30] MEDS ORDERED: VANCOMYCIN 1 GRAM (PRE-DOCKED) 1,000 MG/250 ML BAG IVPB ONE ×2 (00:12→00:41)
[2018-10-30] MEDS ORDERED: PIPERACILLIN/TAZOB 3.375 GM 3.375 GM in DEXTROSE 5%-WATER - 50 ML IVPB ONE (00:12)
[2018-10-30] MEDS ORDERED: ACETAMINOPHEN 1000 MG/100 ML VIAL (NON FORMULARY) IVPB ONE (00:13)
[2018-10-30] MEDS ORDERED: SODIUM CHLORIDE 1,000 ML IV STA (00:13)
[2018-10-30] MEDS ORDERED: PIPERACILLIN/TAZOB 3.375 GM 3.375 GM/50 ML BAG IVPB ONE (00:41)
[2018-10-30] MEDS ORDERED: ACETAMINOPHEN INJECTION 100 ML IVPB ONE (00:41)
--- NOTE | 2018-10-30 00:51 | PDOC ---
Attending Attestation - Resident Resident Name: Joaquin Farias - ED Attending Attestation I have performed the following: I have examined & evaluated the patient, The case was reviewed & discussed with the resident, I agree w/resident's findings & plan, Exceptions are as noted - HPI HPI: 10/30/18 05:31 48F PMH DM, HTN, CAD with 2 days of progressive px to L great toe a/w fever to 100.5F at home starting today. - Physicial Exam PE: 10/30/18 05:31 Agree with exam as documented by resident - Medical Decision Making 10/30/18 05:31 Cellulitis vs abscess with concern for systemic infection f/u labs, cx, imaging abx admit
[2018-10-30 01:23] LABS: BASO % 0.5 % (0-2.0); EOS % 1.2 % (0-4.5); HEMATOCRIT 30.8 % (32.4-45.2); HEMOGLOBIN 10.5 GM/dL (10.7-15.3); MCH 28.4 pg (25.7-33.7); MEAN CELL VOLUME 83.7 fl (80-96); MEAN PLT VOLUME 7.6 fl (7.5-11.1); MONO % 7.5 % (3.8-10.2); NEUT % 67.8 % (42.8-82.8); PLATELET COUNT 179 K/MM3 (134-434); RBC 3.68 M/mm3 (3.60-5.2); RDW 14.1 % (11.6-15.6); WHITE BLOOD COUNT 6.7 K/mm3 (4.0-10.0)
--- NOTE | 2018-10-30 01:34 | PDOC ---
History of Present Illness - General Chief Complaint: SIRS, Suspected/Possible Stated Complaint: FEVER/FOOT PAIN Time Seen by Provider: 10/29/18 23:57 History Source: Patient Exam Limitations: No Limitations - History of Present Illness Initial Comments: 10/30/18 01:28 Patient is a 48F with history of IDDM, HTN, CAD here today complaining of two days of pain to her left great toe. Patient endorses associated fever. Patient denies trauma to the toe. Denies chest pain, shortness of breath, nausea, vomiting. Endorses pain in her leg radiating to mid oneil. Endorses compliance with insulin. Patient states that she was being worked up for vascular issues in this leg. Past History - Past Medical History Allergies/Adverse Reactions: Allergies Allergy/AdvReac Type Severity Reaction Status Date / Time No Known Allergies Allergy Verified 10/29/18 22:24 Home Medications: Ambulatory Orders Atorvastatin Calcium [Lipitor] 10 mg PO HS 04/12/13 Losartan Potassium [Cozaar] 25 mg PO DAILY 07/18/15 Insulin Lispro [Humalog] 5 unit SQ AM 10/31/15 Clopidogrel Bisulfate [Plavix -] 75 mg PO DAILY 01/28/16 Asthma: Yes (BRONCHITIS) COPD: No Diabetes: Yes HTN: Yes Hypercholesterolemia: Yes - Immunization History Immunization Up to Date: Yes - Suicide/Smoking/Psychosocial Hx Smoking Status: No Smoking History: Never smoked Have you smoked in the past 12 months: No Number of Cigarettes Smoked Daily: 5 If you are a former smoker, when did you quit?: 2014 Information on smoking cessation initiated: No 'Breaking Loose' booklet given: 10/25/16 Hx Alcohol Use: No Drug/Substance Use Hx: No Substance Use Type: None Hx Substance Use Treatment: No Review of Systems - Review of Systems Comments:: 10/30/18 01:30 GENERAL/CONSTITUTIONAL: No fever or chills. No weakness. HEAD, EYES, EARS, NOSE AND THROAT: No change in vision. No ear pain or discharge. No sore throat. CARDIOVASCULAR: No chest pain or shortness of breath RESPIRATORY: No cough, wheezing, or hemoptysis. GASTROINTESTINAL: No nausea, vomiting, diarrhea or constipation. GENITOURINARY: No dysuria, frequency, or change in urination. MUSCULOSKELETAL: +l great toe pain. No neck or back pain. SKIN: No rash NEUROLOGIC: No headache, vertigo, loss of consciousness, or change in strength/ sensation. ENDOCRINE: No increased thirst. No abnormal weight change *Physical Exam - Vital Signs Last Vital Signs Temp Pulse Resp BP Pulse Ox 101.0 F H 96 H 16 164/92 100 10/29/18 22:22 10/29/18 22:22 10/29/18 22:22 10/29/18 22:22 10/29/18 22:22 - Physical Exam Comments: 10/30/18 01:34 GENERAL: Awake, alert, and fully oriented, in no acute distress L LEG: Swollen erythematous L great toe with streaking redness proximally. No crepitus. HEAD: No signs of trauma, normocephalic, atraumatic EYES: PERRLA, EOMI, sclera anicteric, conjunctiva clear ENT: Auricles normal inspection, hearing grossly normal, nares patent, oropharynx clear without exudates. Moist mucosa NECK: Normal ROM, supple, no lymphadenopathy, JVD, or masses LUNGS: No distress, speaks full sentences, clear to auscultation bilaterally HEART: Regular rate and rhythm, normal S1 and S2, no murmurs, rubs or gallops, peripheral pulses normal and equal bilaterally. ABDOMEN: Soft, nontender, normoactive bowel sounds. No guarding, no rebound. No masses NEUROLOGICAL: Cranial nerves II through XII grossly intact. Normal speech, no focal sensorimotor deficits SKIN: Warm, Dry, normal turgor, no rashes or lesions noted. Moderate Sedation - Procedure Monitoring Vital Signs: Procedure Monitoring Vital Signs Temperature 101.0 F H 10/29/18 22:22 Pulse Rate 96 H 10/29/18 22:22 Respiratory Rate 16 10/29/18 22:22 Blood Pressure 164/92 10/29/18 22:22 O2 Sat by Pulse Oximetry (%) 100 10/29/18 22:22 ED Treatment Course - LABORATORY CBC & Chemistry Diagram: 10/30/18 01:11 10/30/18 01:11 - ADDITIONAL ORDERS Additional order review: 10/30/18 01:11 RBC 3.68 MCV 83.7 MCHC 34.0 RDW 14.1 MPV 7.6 Neutrophils % 67.8 D Lymphocytes % 23.0 D Monocytes % 7.5 Eosinophils % 1.2 Basophils % 0.5 - RADIOLOGY Radiology Studies Ordered: Category Date Time Status CHEST X-RAY PORTABLE* [RAD] Stat Radiology 10/30/18 00:11 Ordered FOOT-LEFT [RAD] Stat Radiology 10/30/18 00:14 Ordered - Medications Given in the ED: ED Medications Discontinued Medications Generic Name Dose Route Start Last Admin Trade Name Liz PRN Reason Stop Dose Admin Acetaminophen 1,000 mg 10/30/18 00:13 10/30/18 01:10 Ofirmev Injection - IVPB 10/30/18 00:14 1,000 mg ONCE ONE Administration Sodium Chloride 1,000 mls @ 1,000 mls/hr 10/30/18 00:13 10/30/18 01:05 Normal Saline - IV 10/30/18 01:12 1,000 mls/hr ASDIR STA Administration Medical Decision Making - Medical Decision Making 10/30/18 01:35 Patient is 48F with history of IDDM, HTN, CAD here today with diabetic foot wound. Febrile, tachycardic. Septic workup initiated, will treat with fluids, vanc, zosyn, tylenol. Will do foot x-ray. Will admit. 10/30/18 01:57 CBC normal. CMP reassuring, no gap. Lactic acid negative. EKG shows normal sinus rhythm with rate of 89. No st elevations/depressions. Normal axis. Normal intervals. Nonspecific t wave abnormality. *DC/Admit/Observation/Transfer Diagnosis at time of Disposition: Cellulitis in diabetic foot - Discharge Dispostion Condition at time of disposition: Stable Decision to Admit order: Yes - Referrals Referrals: Carmen Chaudhari [Primary Care Provider] - - Patient Instructions - Post Discharge Activity
[2018-10-30 01:36] LABS: INR 0.97 (0.83-1.09); PROTHROMBIN TIME (PATIENT) 11.5 SEC (9.7-13.0)
[2018-10-30 01:45] LABS: ALBUMIN 3.2 g/dl (3.4-5.0); ALK PHOS 172 U/L (45-117); ANION GAP 6 MMOL/L (8-16); BILIRUBIN,TOTAL 0.4 mg/dL (0.2-1); BLOOD UREA NITROGEN 22 mg/dL (7-18); CALCIUM 8.7 mg/dL (8.5-10.1); CHLORIDE 107 mmol/L (98-107); CO2 25 mmol/L (21-32); GLUCOSE,RANDOM 142 mg/dL (74-106); POTASSIUM 4.1 mmol/L (3.5-5.1); SGOT/AST 22 U/L (15-37); SGPT/ALT 29 U/L (13-61); SODIUM 138 mmol/L (136-145); TOT PROT 6.7 g/dl (6.4-8.2)
--- NOTE | 2018-10-30 03:37 | HP ---
<Tyree Marr - Last Filed: 10/30/18 06:06> CHIEF COMPLAINT: PCP: HISTORY OF PRESENT ILLNESS: 48 yo F PMH IDDM, HTN, CAD, LLE stent 2016, HSV buttock s/p valtrex, here today complaining of two days of pain to her left great toe. Patient endorses associated fever. Patient denies trauma to the toe but is unsure. Denies chest pain, shortness of breath, nausea, vomiting. Endorses pain in her leg radiating to mid oneil. Endorses compliance with insulin. Patient states that she was being worked up for vascular issues in this leg. per pt, she is scheduled for angioplasty in the coming month due to narrowing of vasculature in LE b/l as noted by her hard rock drill operator this past saturday when she had angiogram ER course was notable for: (1)CBC normal. CMP reassuring, no gap. Lactic acid negative. EKG shows normal sinus rhythm with rate of 89. No st elevations/depressions. Normal axis. Normal intervals. Nonspecific t wave abnormality. (2) vanc, zosyn, 1L NS (3) Recent Travel: denies PAST MEDICAL HISTORY: Retropharangeal abscess tracking into chest w/ left paratracheal fluid collection, was transfered from [facility] to [facility] and tx there 03/2018 [employer] [employer] - Rolo mckeon PAST SURGICAL HISTORY: Left leg stent Social History: Smokin cig/day x 30 years, recently quit Alcohol: social Drugs: denies Pt lives with jabier in [place], has 1 child, works as a teacher. Family History: mother- DM, HLD, HTN, [place] father- from lung cancer No Known Allergies Allergy (Verified 10/29/18 22:24) HOME MEDICATIONS: ASA, Lantus 20 HS, iron pills Home Medications Medication Instructions Recorded Atorvastatin Calcium [Lipitor] 10 mg PO HS 04/12/13 Losartan Potassium [Cozaar] 25 mg PO DAILY 07/18/15 Clopidogrel Bisulfate [Plavix -] 75 mg PO DAILY 01/28/16 Insulin (Novolog) [Novolog] 0 units SQ AC 10/30/18 Insulin Glargine,Hum.rec.anlog 100 unit SQ AC PRN 10/30/18 [Lantus] REVIEW OF SYSTEMS as per hpi PHYSICAL EXAMINATION Vital Signs - 24 hr 10/29/18 22:22 Temperature 101.0 F H Pulse Rate 96 H Respiratory 16 Rate Blood Pressure 164/92 O2 Sat by Pulse 100 Oximetry (%) GENERAL: AOX3 NAD HEAD: NCAT EYES: extraocular movements intact, sclera anicteric, conjunctiva clear. No lid lag. EARS, NOSE, THROAT: nares patent, oropharynx clear without exudates. MMM NECK: Normal range of motion, supple without lymphadenopathy, JVD, or masses. LUNGS: CTAB HEART: RRR, normal S1 and S2 without murmur, rub or gallop. ABDOMEN: Soft, NTND, normoactive bowel sounds, no guarding, no rebound, no masses. MUSCULOSKELETAL: Normal range of motion at all joints. No bony deformities or tenderness. UPPER EXTREMITIES: 2+ pulses, warm, well-perfused. No cyanosis. No clubbing. No peripheral edema. LOWER EXTREMITIES: soft pulses, difficult to appreciate, warm. No calf tenderness. mild L foot swelling. L big toe ulcer;dry non erythematous, ttp. L foot ttp. NEUROLOGICAL: Cranial nerves II-XII intact. Normal speech. sensation decreased b/l LE (chronic) PSYCHIATRIC: Cooperative. Good eye contact. Appropriate mood and affect. SKIN: Warm, dry, normal turgor, no rashes or lesions noted, normal capillary refill. Laboratory Results - last 24 hr 10/30/18 10/30/18 10/30/18 01:11 01:11 01:11 WBC 6.7 RBC 3.68 Hgb 10.5 L Hct 30.8 L MCV 83.7 MCH 28.4 MCHC 34.0 RDW 14.1 Plt Count 179 MPV 7.6 Absolute Neuts (auto) 4.5 Neutrophils % 67.8 D Lymphocytes % 23.0 D Monocytes % 7.5 Eosinophils % 1.2 Basophils % 0.5 Nucleated RBC % 0 PT with INR 11.50 INR 0.97 Sodium 138 Potassium 4.1 Chloride 107 Carbon Dioxide 25 Anion Gap 6 L BUN 22 H Creatinine 1.0 Creat Clearance w eGFR 58.69 Random Glucose 142 H Lactic Acid Calcium 8.7 Total Bilirubin 0.4 AST 22 ALT 29 Alkaline Phosphatase 172 H Total Protein 6.7 Albumin 3.2 L 10/30/18 01:11 WBC RBC Hgb Hct MCV MCH MCHC RDW Plt Count MPV Absolute Neuts (auto) Neutrophils % Lymphocytes % Monocytes % Eosinophils % Basophils % Nucleated RBC % PT with INR INR Sodium Potassium Chloride Carbon Dioxide Anion Gap BUN Creatinine Creat Clearance w eGFR Random Glucose Lactic Acid 0.6 Calcium Total Bilirubin AST ALT Alkaline Phosphatase Total Protein Albumin ASSESSMENT/PLAN: 48 yo F PMH IDDM, HTN, CAD, LLE stent 2016, HSV buttock s/p valtrex, here today complaining of two days of pain to her left great toe w/ fevers. sepsis 2/2 DM foot wound on L toe - dry nonerythematous. febrile 101, tachycardia 96 but no leukocytosis s/p vanc, zosyn, 1L NS in ED ID consult podiatry consult c/w vanc/cefepime fall precautions BGM AC HS ISS Lantus 20 HS pain ctl - tylenol A1c lipid panel ESR/CRP LE XR and MRI to r/o osteo should consult vasc surgery, need to find out who she f/w outpt, if they do not come here will have Dr. Garcia see the patient. per pt, she is scheduled for angioplasty in the coming month due to narrowing of vasculature in LE b/l as noted by her hard rock drill operator this past saturday when she had angiogram HTN c/w home cozaar chronic anemia - on iron at home c/w iron checkiron studies CAD, HLD, LE stent lipid panel c/w home lipitor c/w home ASA/plavix apparently not on BB, should med rec w/ pharmacy or cardio to find out why SELWYN - likely prerenal. BUN/Cr 22/1 (baseline ~.7) PO fluids monitor Cr FEN PO fluids replete prn Diabetic low Na ow cholesterol diet ppx SQH Full Code Dispo Med surg Visit type - Emergency Visit Emergency Visit: Yes ED Registration Date: 10/30/18 Care time: The patient presented to the Emergency Department on the above date and was hospitalized for further evaluation of their emergent condition. - New Patient This patient is new to me today: Yes Date on this admission: 10/30/18 - Critical Care Critical Care patient: No <Odin Chavez - Last Filed: 11/10/18 19:53> Seen and examined;agree with all the above aside form as edited by me in my own note. Thank you. Was present for all vital parts of encounter; plan discussed with me. Agree with above as documented by the resident.
--- NOTE | 2018-10-30 03:38 | PN ---
Teaching Attending Note Name of Resident: Melvin Yee ATTENDING PHYSICIAN STATEMENT I saw and evaluated the patient. I reviewed the resident's note and discussed the case with the resident. I agree with the resident's findings and plan as documented. SUBJECTIVE: Seen and examined; please refer to resident note for further documentation. She has 2 days of worsening L-great toe pain. She notes ulcerated toe with subjective fevers and minimal swelling in the affected foot. She hasn't had any prior instrumentation. She sees podiatry but hasn't followed up in over 6 months. No new shoes for >1 year. Recent angiogram of legs with noted arterial disease; they restarted her plavix and are planning to place a stent next month, she tells us. She has had prior stenting for her PAD. She informs us that she sees Dr. Quintero's partner for her vascular issues. We do not have the data for the angiogram, etc. She was here in 03/2018 for RP abscess; resolved 10 sys ROS done and negative aside from HPI PMH (IDDM with neuropathy, HTN, CAD s/p PCI unknown date, PVD s/p peripheral stenting, HLD, iron deficiency anemia) and PSH reviewed FH asked and noncontributory Socially denies tobacco or EtOH abuse Lantus 20, Humalog 10 BID, Plavix 75, ASA 81, Lipitor 10, Losartan 25 QD Iron Supplement OBJECTIVE: VS, labs, imaging reviewed NAD, AAO, resting comfortably in bed. RRR s1/2 no mgr Toe with unstagable ulcer at distal end that appears to be ~dry gangrene that is painful to palpation. No fluctuance or surrounding erythema. CN2-12 wnl, no fnd L-great toe with ulcer and minimal edema in surrounding tissues, no active drainage. Diminished sensorium b/l in stocking-glove distribution. DP noted b/ l marking with marker. Labs reviewed; no white count, normal coags, chemistry unremarkable. Alk phos slightly elevated. Old angiograms pending; we are working to obtain the recent studies. ASSESSMENT AND PLAN: Patient presents with LE ulcer and fever with history of PAD; potential for dry gangrene. Will start abx and consult vascular 1) Ulcer of Great toe -Fever brings rise to concern for infection; XR and MRI pending. ESR/CRP pending. No white count. -Placing on vanc/zosyn given risk of resistent organisms -Consulting vascular sgy (will discern who the patient's surgeon is and have them called out by overnight team and if they do not come here will have Dr. Garcia see the patient). Holding off on further studies as she tells us she had a recent angiogram with plans to stent. Will need to obtain those and review; given the presence of construction safety consultant will defer planning to their services for further imaging, etc. -Consulting ID given the risk of resistence. 2) Diabetes -Continue home insulin; additional coverage with SSI. Very important to facilitate healing 3) Peripheral vascular disease -Continuing home ASA, Plavix, Statin. Checking lipid pannel and will check ASCVD to adjust dose statin -Per issue 1 4) CAD s/p remote PCI -Continue her on ASA, Statin, Plavix. No documented BB, etc. Would be helpful to obtain home records if available. 5) HTN -Continuing her on losartan; monitor and keep <160 SBP 6) Chronic Anemia -Continue to trend CBC; continue home iron supplement and followup with PCP FENA -PO fluids -PRN replace -Diabetic -As tolerated Full Code
[2018-10-30] MEDS ORDERED: CEFEPIME 2 GM in DEXTROSE 5%-WATER 100 ML IVPB SCH ×2 (06:15→18:00)
[2018-10-30] MEDS ORDERED: HEPARIN NA (PORCINE) 5,000 UNITS/ML 1ML VIAL ONE (06:23)
[2018-10-30] MEDS ORDERED: CEFEPIME 2 GM/100 ML BAG IVPB ONE (06:24)
[2018-10-30] MEDS: HEPARIN NA (PORCINE) 5,000 UNITS/ML 1ML VIAL SQ SCH ×3 (06:30→22:08)
[2018-10-30] MEDS ORDERED: INSULIN (NOVOLOG) ASPART 100 UNITS/ML 10ML VIAL ONE (07:13)
[2018-10-30] MEDS: INSULIN SLIDING SCALE (NOVOLOG) 1 VIAL SQ SCH ×4 (07:15→22:06)
[2018-10-30 07:20] LABS: ALK PHOS 160 U/L (45-117); ANION GAP 8 MMOL/L (8-16); BILIRUBIN,TOTAL 0.4 mg/dL (0.2-1); BLOOD UREA NITROGEN 19 mg/dL (7-18); CALCIUM 8.5 mg/dL (8.5-10.1); CHLORIDE 110 mmol/L (98-107); CHOLESTEROL 147 mg/dL (50-200); CO2 24 mmol/L (21-32); GLUCOSE,RANDOM 145 mg/dL (74-106); HDL CHOLESTEROL 82 mg/dL (40-60); PHOSPHOROUS 3.6 mg/dL (2.5-4.9); SGOT/AST 17 U/L (15-37); SGPT/ALT 26 U/L (13-61); SODIUM 143 mmol/L (136-145); TOT PROT 6.2 g/dl (6.4-8.2); TRIGLYCERIDES 83 mg/dL (0-150)
[2018-10-30 08:18] LABS: BASO % 0.5 % (0-2.0); EOS % 1.9 % (0-4.5); HEMATOCRIT 34.8 % (32.4-45.2); HEMOGLOBIN 10.8 GM/dL (10.7-15.3); LYMPH % 27.6 % (8-40); MCH 26.8 pg (25.7-33.7); MCHC 31.1 g/dl (32.0-36.0); MEAN CELL VOLUME 86.3 fl (80-96); MEAN PLT VOLUME 7.3 fl (7.5-11.1); PLATELET COUNT 156 K/MM3 (134-434); RBC 4.03 M/mm3 (3.60-5.2); RDW 14.6 % (11.6-15.6); WHITE BLOOD COUNT 5.3 K/mm3 (4.0-10.0)
--- NOTE | 2018-10-30 09:24 | PN ---
Physical Exam: SUBJECTIVE: States that she had severe pain in the left great toe, had a temp of 100.2 F and came to the ED for evaluation. Sees podiatry every 6 weeks, last seen by podiatry 10/08/2018, was scheduled for an appointment next week. Hx of hardware placement in the left great toe > 10 yrs ago. Patient seen and examined at bed side this morning. Feels better but still has pain in the great toe. OBJECTIVE: Vital Signs Period Temp Pulse Resp BP Sys/Hernandez Pulse Ox Last 24 Hr 97.7 F-101.0 F 67-96 16 150-164/78-92 100-100 GENERAL: Middle aged female, eating breakfast, is awake, alert, and fully oriented, in no acute distress EYES: EOM intact, no pallor or icterus. ENT: Ears normal, moist mucous membranes. NECK: Supple. LUNGS: B/L breath sounds, no crackles or wheeze. HEART: Regular rate and rhythm, S1, S2 without murmur. ABDOMEN: Soft, nontender, no organomegaly. UPPER EXTREMITIES: 2+ pulses, warm, well-perfused, no edema. LOWER EXTREMITIES: RIGHT 2+ pulses, warm, well-perfused, no edema. LEFT: Swollen great toe +, erythema +, swelling of great toe extends till the mid foot. DP, PT pulses intact. NEUROLOGICAL: No facial droop, power 5/5 in all extremities. Normal speech, gait not observed. PSYCH: Normal mood, normal affect. SKIN: Warm, dry, normal turgor, no rashes or lesions noted Laboratory Results - last 24 hr 10/30/18 10/30/18 10/30/18 01:11 01:11 01:11 WBC 6.7 RBC 3.68 Hgb 10.5 L Hct 30.8 L MCV 83.7 MCH 28.4 MCHC 34.0 RDW 14.1 Plt Count 179 MPV 7.6 Absolute Neuts (auto) 4.5 Neutrophils % 67.8 D Lymphocytes % 23.0 D Monocytes % 7.5 Eosinophils % 1.2 Basophils % 0.5 Nucleated RBC % 0 ESR PT with INR 11.50 INR 0.97 Sodium 138 Potassium 4.1 Chloride 107 Carbon Dioxide 25 Anion Gap 6 L BUN 22 H Creatinine 1.0 Creat Clearance w eGFR 58.69 POC Glucometer Random Glucose 142 H Hemoglobin A1c % Lactic Acid Calcium 8.7 Phosphorus Magnesium Total Bilirubin 0.4 AST 22 ALT 29 Alkaline Phosphatase 172 H C-Reactive Protein Total Protein 6.7 Albumin 3.2 L Triglycerides Cholesterol Total LDL Cholesterol HDL Cholesterol 10/30/18 10/30/18 10/30/18 01:11 05:30 05:30 WBC RBC Hgb Hct MCV MCH MCHC RDW Plt Count MPV Absolute Neuts (auto) Neutrophils % Lymphocytes % Monocytes % Eosinophils % Basophils % Nucleated RBC % ESR 44 H PT with INR INR Sodium 143 Potassium 4.0 Chloride 110 H Carbon Dioxide 24 Anion Gap 8 BUN 19 H Creatinine 1.0 Creat Clearance w eGFR 58.69 POC Glucometer Random Glucose 145 H Hemoglobin A1c % Lactic Acid 0.6 Calcium 8.5 Phosphorus 3.6 Magnesium 2.0 Total Bilirubin 0.4 AST 17 ALT 26 Alkaline Phosphatase 160 H C-Reactive Protein 3.8 H Total Protein 6.2 L Albumin 3.0 L Triglycerides 83 Cholesterol 147 Total LDL Cholesterol 55 HDL Cholesterol 82 H 10/30/18 10/30/18 10/30/18 06:57 07:29 08:08 WBC 5.3 RBC 4.03 Hgb 10.8 Hct 34.8 MCV 86.3 MCH 26.8 MCHC 31.1 L RDW 14.6 Plt Count 156 MPV 7.3 L Absolute Neuts (auto) 3.3 Neutrophils % 63.0 Lymphocytes % 27.6 Monocytes % 7.0 Eosinophils % 1.9 Basophils % 0.5 Nucleated RBC % 0 ESR PT with INR INR Sodium Potassium Chloride Carbon Dioxide Anion Gap BUN Creatinine Creat Clearance w eGFR POC Glucometer [id number] Random Glucose Hemoglobin A1c % Lactic Acid 1.2 Calcium Phosphorus Magnesium Total Bilirubin AST ALT Alkaline Phosphatase C-Reactive Protein Total Protein Albumin Triglycerides Cholesterol Total LDL Cholesterol HDL Cholesterol 10/30/18 08:08 WBC RBC Hgb Hct MCV MCH MCHC RDW Plt Count MPV Absolute Neuts (auto) Neutrophils % Lymphocytes % Monocytes % Eosinophils % Basophils % Nucleated RBC % ESR PT with INR INR Sodium Potassium Chloride Carbon Dioxide Anion Gap BUN Creatinine Creat Clearance w eGFR POC Glucometer Random Glucose Hemoglobin A1c % 10.1 H Lactic Acid Calcium Phosphorus Magnesium Total Bilirubin AST ALT Alkaline Phosphatase C-Reactive Protein Total Protein Albumin Triglycerides Cholesterol Total LDL Cholesterol HDL Cholesterol Active Medications Generic Name Dose Route Start Last Admin Trade Name Freq PRN Reason Stop Dose Admin Acetaminophen 650 mg 10/30/18 05:41 Tylenol - PO Q4H PRN PAIN OR FEVER Aspirin 81 mg 10/30/18 10:00 Asa - PO DAILY [facility] Atorvastatin Calcium 10 mg 10/30/18 22:00 Lipitor - PO HS [facility] Clopidogrel Bisulfate 75 mg 10/30/18 10:00 Plavix - PO DAILY [facility] Ferrous Sulfate 325 mg 10/30/18 10:00 Feosol - PO DAILY [facility] Heparin Sodium (Porcine) 5,000 unit 10/30/18 06:15 10/30/18 06:30 Heparin - SQ 5,000 unit TID [facility] Administration Vancomycin HCl 1,500 mg/ 500 mls @ 250 mls/hr 10/31/18 02:30 Dextrose IVPB Q24H [facility] Protocol Cefepime HCl 2 gm/ Dextrose 100 mls @ 200 mls/hr 10/30/18 06:15 10/30/18 06: 25 IVPB 10/31/18 06:14 200 mls/hr Q8H [facility] Administration Protocol Cefepime HCl 2 gm/ Dextrose 100 mls @ 200 mls/hr 10/30/18 18:00 IVPB Q8H-IV [facility] Insulin Aspart 1 vial 10/30/18 07:00 10/30/18 07:15 Novolog Vial Sliding Scale - SQ 2 unit ACHS [facility] Administration Protocol Insulin Detemir 20 units 10/30/18 22:00 Levemir Vial SQ HS [facility] Losartan Potassium 25 mg 10/30/18 10:00 Cozaar - PO DAILY [facility] ASSESSMENT/PLAN: Patient is a 48 year old female past medical history of DM, HTN, CAD, LLE stent 2015, HSV buttock s/p valtrex, retroperitoneal abscess s/p drainage in April, presented with the complaints of the left great toe # Sepsis secondary to cellulitis of the left toe Rule out infection of the hard das/ R/o Osteomyelitis. Pending MRI of left foot. Hx of uncontrolled DM Presented with fever, tachycardia and infection in the left great toe Admitted in Med-Surg ID consulted, switched Cefepime to IV Vancomycin and IV Zosyn for broader coverage Blood culture pending Foot xray noted Podiatry consult requested # Peripheral vascular disease LLE pt to go for angioplasty next month as per the patient Consult vascular surgeon # Uncontrolled DM A1c 10.1 Continue Levemir 20 U daily ISS, Finger stick BGMs, watch for hypoglycemic episodes # HTN controlled Continue home cozaar # Normocytic anemia Continue home Iron # HLD Continue home Lipitor # LLE stent 2016 Continue home ASA/plavix # Medications: Confirmed # FEN Not on IV fluids Electrolytes wnl Diabetic diet # Prophylaxis FOr DVT: On Heparin 5000 IU sq TID For GI: Not indicated # Code Status: Full Code # Dispo: Admitted in Med-Surg. Duration of stay unknown. Illness, Investigation and Plan of care explained to the patient. She verbalized understanding. Case discussed with Dr. Carey. Problem List - Problems (1) Anemia Code(s): D64.9 - ANEMIA, UNSPECIFIED (2) CAD (coronary artery disease) Code(s): I25.10 - ATHSCL HEART DISEASE OF [place] CORONARY ARTERY W/O ANG PCTRS (3) Cellulitis in diabetic foot Code(s): E11.628 - TYPE 2 DIABETES MELLITUS WITH OTHER SKIN COMPLICATIONS; L03.119 - CELLULITIS OF UNSPECIFIED PART OF LIMB (4) Abscess of buttock, right Code(s): L02.31 - CUTANEOUS ABSCESS OF BUTTOCK (5) Bronchitis Code(s): J40 - BRONCHITIS, NOT SPECIFIED ACUTE OR CHRONIC Visit type - Emergency Visit Emergency Visit: Yes ED Registration Date: 10/30/18 Care time: The patient presented to the Emergency Department on the above date and was hospitalized for further evaluation of their emergent condition. - New Patient This patient is new to me today: Yes Date on this admission: 10/30/18 - Critical Care Critical Care patient: No - Discharge Referral Referred to [facility] Med P.C.: No
--- NOTE | 2018-10-30 11:18 | PN ---
Teaching Attending Note Name of Resident: Anni Resendez ATTENDING PHYSICIAN STATEMENT I saw and evaluated the patient. I reviewed the resident's note and discussed the case with the resident. I agree with the resident's findings and plan as documented. SUBJECTIVE: Ms Duvall complains of L sided foot pain. Denies cp, sob, n/v OBJECTIVE: Last Vital Signs Temp Pulse Resp BP Pulse Ox 36.7 C 70 18 131/66 100 10/30/18 08:00 10/30/18 08:00 10/30/18 08:00 10/30/18 08:00 10/30/18 06:37 Gen: nad Pulm: ctab w/o w/r/r CV: rrr w/o m/r/g Abd: +bs, s/nt/nd Ext: no c/c/e, blister on L big toe CBC, BMP 10/30/18 08:08 10/30/18 05:30 ASSESSMENT AND PLAN: Problem List - Problems (1) Cellulitis in diabetic foot Assessment/Plan: -appreciate ID assistance -MRI foot pending -continue vancomycin and zosyn -podiatry consulted Code(s): E11.628 - TYPE 2 DIABETES MELLITUS WITH OTHER SKIN COMPLICATIONS; L03.119 - CELLULITIS OF UNSPECIFIED PART OF LIMB (2) Diabetes Assessment/Plan: -very poorly controlled -Hgb A1c 10.1 -diabetic diet -levemir 20 units qhs -monitor SSI, increase as needed -patient may benefit from basal/bolus regimen Code(s): E11.9 - TYPE 2 DIABETES MELLITUS WITHOUT COMPLICATIONS (3) Hyperlipemia Assessment/Plan: -continue lipitor Code(s): E78.5 - HYPERLIPIDEMIA, UNSPECIFIED (4) Hypertension Assessment/Plan: -continue cozaar -adjust as needed Code(s): I10 - ESSENTIAL (PRIMARY) HYPERTENSION (5) CAD (coronary artery disease) Assessment/Plan: -quiescent -continue home regimen Code(s): I25.10 - ATHSCL HEART DISEASE OF [place] CORONARY ARTERY W/O ANG PCTRS (6) Anemia Assessment/Plan: -continue iron supplementation Code(s): D64.9 - ANEMIA, UNSPECIFIED
[2018-10-30] MEDS: ACETAMINOPHEN 325 MG TABLET (FP) PO PRN (11:44)
[2018-10-30] MEDS: ASPIRIN 81 MG CHEWABLE TABLETS PO SCH (11:50)
[2018-10-30] MEDS: LOSARTAN POTASSIUM 25 MG TABLET PO SCH (11:50)
[2018-10-30] MEDS: FERROUS SO4 325 MG TABLET (FP) PO SCH (11:51)
[2018-10-30] MEDS: CLOPIDOGREL BISULFATE 75 MG TABLET (FP) PO SCH (11:52)
--- NOTE | 2018-10-30 12:46 | EKG ---
Test Reason : Blood Pressure : / mmHG Vent. Rate : 089 BPM Atrial Rate : 089 BPM P-R Int : 142 ms QRS Dur : 066 ms QT Int : 338 ms P-R-T Axes : 055 015 017 degrees QTc Int : 411 ms POOR DATA QUALITY, INTERPRETATION MAY BE ADVERSELY AFFECTED NORMAL SINUS RHYTHM NONSPECIFIC T WAVE ABNORMALITY ABNORMAL ECG WHEN COMPARED WITH ECG OF 10-JUL-2018 06:21, CRITERIA FOR ANTERIOR INFARCT ARE NO LONGER PRESENT Confirmed by ZA HALEY MD ([id number]) on 10/30/2018 12:46:13 PM Referred By: Confirmed By:ZA HALEY MD
--- NOTE | 2018-10-30 13:38 | PN ---
Progress Note (short form) - Note Progress Note: ID CONSULT DICTATED CELLULITIS L FOOT R/O OSTEOMYELITIS L GREAT TOE ? INFECTED HARDWARE R/O SOFT TISSUE ABSCESS L GREAT TOE IDDM AWAIT C/S MRI L GREAT TOE PODIATRY EVALUATION EMPIRIC ZOSYN/VANCOMYCIN
--- NOTE | 2018-10-30 14:04 | CONS ---
DATE OF CONSULTATION: DATE OF DICTATION: 10/30/2018 HISTORY: The patient is a 48-year-old diabetic female who is evaluated for cellulitis of the left foot. She reports a 2-day history of worsening pain, erythema, warmth, and swelling of the left great toe. She developed fever 1 day prior to admission prompting her emergency room visit. In the emergency room, the patient was noted to have a temperature of 101. She was also noted to have swelling of the right great toe extending to the foot. There was some erythema and warmth as well as a necrotic-appearing ulcer at the distal tip of the great toe. Cultures were obtained. She was empirically treated with vancomycin and Zosyn. She does not give a reliable history. She has a screw present in the proximal phalanx of the 1st toe, which she reports was placed years ago to correct a deformity. X-ray of the foot now shows the screw in place with deformity of the distal 1st metatarsal. She denies any purulent drainage from the foot. No documented prior of diabetic foot infection. Of note, the patient was hospitalized at [facility] in March of last year at which time she was found to have a large left lower paratracheal region abscess. She was transferred to [facility] where that was subsequently drained, and she reports being in the hospital for 2 weeks. She is unaware of any culture results from [place]. PAST MEDICAL HISTORY: Positive for diabetes mellitus, hypertension, coronary artery disease, history of herpes simplex, history of paratracheal abscess. PAST SURGICAL HISTORY: Status post left lower extremity vascular stent and placement of orthopaedic screw in the right great toe. ALLERGIES: No known allergies. MEDICATIONS: Lipitor, Cozaar, Humalog, Plavix. SOCIAL HISTORY: Positive history of tobacco use. No history of alcohol or illicit drug use. SYSTEMS REVIEW: Neurologic: No loss of consciousness, seizure activity, focal weakness. Positive history of diabetic peripheral neuropathy. Cardiac: Negative chest pain or palpitations. Respiratory: Negative cough or sputum production. Gastrointestinal: Negative vomiting or diarrhea. Genitourinary: Negative for urinary tract infection. LABORATORY DATA: White count 5.3, hematocrit 34.8, platelet count 156, ESR 44, C-reactive protein 3.8, BUN 19, creatinine 1. Blood cultures are pending. PHYSICAL EXAMINATION: General: On exam, the patient is awake and alert in no acute distress. Vital Signs: Temperature 98.1, T-max 101, blood pressure 131/66, pulse 70 and regular, respirations 18 per minute. HEENT: Sclerae anicteric. Heart: Sounds S1, S2. Lungs: Clear. Abdomen: Obese, soft, nontender. Extremities: Left foot, there is diffuse swelling of the left foot extending from the great toe to the dorsum of the foot. It is warm to touch and slightly erythematous. There is swelling of the left great toe with a necrotic ulcer at the distal aspect. There is a slightly fluctuant area dorsally over the distal phalanx. IMPRESSION: 1. Cellulitis, left foot. 2. Rule out osteomyelitis of the left great toe. 3. Rule out soft tissue abscess of the left great toe. 4. Diabetes mellitus. PLAN: Await cultures. Podiatry evaluation. Empiric antibiotic coverage with vancomycin and Zosyn. Concerned about the possibility of infected orthopaedic hardware, specifically the screw in the proximal phalanx. Imaging studies as per Podiatry. We will follow. Thank you for the kind referral. BLANCA ABREU M.D. [id number]
[2018-10-30 14:20] VITALS: BMI 30.1
[2018-10-30] MEDS ORDERED: PIPERACILLIN/TAZOBACTAM 3.375 GM VIAL IVPB ONE ×2 (14:50→19:49)
[2018-10-30] MEDS ORDERED: DEXTROSE 5%-WATER - 50 ML IVPB ONE ×2 (14:50→19:49)
[2018-10-30] MEDS: PIPERACILLIN/TAZOB 3.375 GM 3.375 GM in DEXTROSE 5%-WATER - 50 ML IVPB SCH ×2 (14:58→19:51)
[2018-10-30] MEDS: VANCOMYCIN 1,250 MG in DEXTROSE 5%-WATER - 250 ML IVPB SCH (15:46)
[2018-10-30] MEDS: INSULIN (LEVEMIR) 100 UNITS/ML UNITS SQ SCH (22:04)
[2018-10-30] MEDS: ATORVASTATIN CA 10 MG TABLET (FP) PO SCH (22:08)
[2018-10-30 22:42] LABS: URINE APPEARANCE CLOUDY; URINE BILIRUBIN NEGATIVE (<2.0 mg/dL); URINE COLOR LTYELLOW; URINE GLUCOSE (UA) NEGATIVE (NEGATIVE); URINE KETONE NEGATIVE (NEGATIVE); URINE LEUK ESTERASE 1+ (NEGATIVE); URINE NITRITE NEGATIVE (NEGATIVE); URINE PROTEIN 1+ (NEGATIVE); URINE UROBILINOGEN NEGATIVE mg/dL (0.2-1.0)
[2018-10-30 22:47] LABS: EPI CELLS MANY /HPF (FEW); URINE HYALINE CAST 3 /lpf; URINE MUCUS RARE
[2018-10-31] MEDS ORDERED: DEXTROSE 5%-WATER - 50 ML IVPB ONE ×3 (01:43→17:29)
[2018-10-31] MEDS ORDERED: PIPERACILLIN/TAZOBACTAM 3.375 GM VIAL IVPB ONE ×3 (01:43→17:29)
[2018-10-31] MEDS: PIPERACILLIN/TAZOB 3.375 GM 3.375 GM in DEXTROSE 5%-WATER - 50 ML IVPB SCH ×3 (01:51→18:04)
[2018-10-31] MEDS: VANCOMYCIN 1,250 MG in DEXTROSE 5%-WATER - 250 ML IVPB SCH ×2 (02:27→15:10)
[2018-10-31] MEDS ORDERED: VANCOMYCIN 1,500 MG in DEXTROSE 5%-WATER - 500 ML IVPB SCH (02:30)
[2018-10-31] MEDS: INSULIN SLIDING SCALE (NOVOLOG) 1 VIAL SQ SCH ×4 (06:34→21:55)
[2018-10-31] MEDS: HEPARIN NA (PORCINE) 5,000 UNITS/ML 1ML VIAL SQ SCH ×3 (06:35→21:55)
[2018-10-31] MEDS: ACETAMINOPHEN 325 MG TABLET (FP) PO PRN (07:13)
[2018-10-31 07:48] LABS: HEMATOCRIT 33.6 % (32.4-45.2); HEMOGLOBIN 10.6 GM/dL (10.7-15.3); MCHC 31.6 g/dl (32.0-36.0); MEAN CELL VOLUME 85.6 fl (80-96); MEAN PLT VOLUME 7.8 fl (7.5-11.1); PLATELET COUNT 176 K/MM3 (134-434); RBC 3.92 M/mm3 (3.60-5.2); RDW 14.1 % (11.6-15.6); WHITE BLOOD COUNT 4.5 K/mm3 (4.0-10.0)
[2018-10-31 08:02] LABS: ANION GAP 6 MMOL/L (8-16); BLOOD UREA NITROGEN 16 mg/dL (7-18); CHLORIDE 106 mmol/L (98-107); CO2 28 mmol/L (21-32); GLUCOSE,RANDOM 68 mg/dL (74-106); SODIUM 140 mmol/L (136-145)
[2018-10-31 08:06] LABS: SERUM IRON SATURATION 6 % (15-55); TOTAL IRON BINDING CAPACITY 298 ug/dL (250-450); UIBC 281 ug/dL (131-425)
[2018-10-31] MEDS: ASPIRIN 81 MG CHEWABLE TABLETS PO SCH (10:39)
[2018-10-31] MEDS: CLOPIDOGREL BISULFATE 75 MG TABLET (FP) PO SCH (10:39)
[2018-10-31] MEDS: FERROUS SO4 325 MG TABLET (FP) PO SCH (10:39)
[2018-10-31] MEDS: LOSARTAN POTASSIUM 25 MG TABLET PO SCH (10:39)
--- NOTE | 2018-10-31 13:38 | PN ---
Physical Exam: SUBJECTIVE: Patient seen and examined at bed side this morning. Feels better but still has pain in the great toe. Denies fever, chills, rigors, sweating, chest pain, sob, cough, palpitation, abdominal pain, nausea or vomiting. Bowel/ Bladder habit normal. Sleep/appetite normal. No acute overnight events. OBJECTIVE: Vital Signs Period Temp Pulse Resp BP Sys/Hernandez Pulse Ox Last 24 Hr 98.3 F-99 F 67-85 19-20 121-152/-84 100-100 GENERAL: Middle aged female, eating breakfast, is awake, alert, and fully oriented, in no acute distress EYES: EOM intact, no pallor or icterus. ENT: Ears normal, moist mucous membranes. NECK: Supple. LUNGS: B/L breath sounds, no crackles or wheeze. HEART: Regular rate and rhythm, S1, S2 without murmur. ABDOMEN: Soft, nontender, no organomegaly. UPPER EXTREMITIES: 2+ pulses, warm, well-perfused, no edema. LOWER EXTREMITIES: RIGHT 2+ pulses, warm, well-perfused, no edema. LEFT: Swollen great toe +, erythema +, swelling of great toe extends till the mid foot. DP, PT pulses intact. NEUROLOGICAL: No facial droop, power 5/5 in all extremities. Normal speech, gait not observed. PSYCH: Normal mood, normal affect. SKIN: Warm, dry, normal turgor, no rashes or lesions noted Laboratory Results - last 24 hr 10/30/18 10/30/18 10/30/18 06:00 16:04 21:04 WBC RBC Hgb Hct MCV MCH MCHC RDW Plt Count MPV Sodium Potassium Chloride Carbon Dioxide Anion Gap BUN Creatinine Creat Clearance w eGFR POC Glucometer 188 170 Random Glucose Calcium Iron 17 L TIBC 298 Iron Saturation 6 L Urine Color Urine Appearance Urine pH Ur Specific [place] Urine Protein Urine Glucose (UA) Urine Ketones Urine Blood Urine Nitrite Urine Bilirubin Urine Urobilinogen Ur Leukocyte Esterase Urine WBC (Auto) Urine RBC (Auto) Ur Epithelial Cells Hyaline Casts Urine Mucus 10/30/18 10/31/18 10/31/18 22:13 06:08 06:40 WBC 4.5 RBC 3.92 Hgb 10.6 L Hct 33.6 MCV 85.6 MCH 27.0 MCHC 31.6 L RDW 14.1 Plt Count 176 MPV 7.8 Sodium Potassium Chloride Carbon Dioxide Anion Gap BUN Creatinine Creat Clearance w eGFR POC Glucometer 82 Random Glucose Calcium Iron TIBC Iron Saturation Urine Color Ltyellow Urine Appearance Cloudy Urine pH 5.0 Ur Specific [place] 1.018 Urine Protein 1+ H Urine Glucose (UA) Negative Urine Ketones Negative Urine Blood Negative Urine Nitrite Negative Urine Bilirubin Negative Urine Urobilinogen Negative Ur Leukocyte Esterase 1+ H Urine WBC (Auto) 27 Urine RBC (Auto) 2 Ur Epithelial Cells Many Hyaline Casts 3 Urine Mucus Rare 10/31/18 10/31/18 06:40 12:09 WBC RBC Hgb Hct MCV MCH MCHC RDW Plt Count MPV Sodium 140 Potassium 4.0 Chloride 106 Carbon Dioxide 28 Anion Gap 6 L BUN 16 Creatinine 1.0 Creat Clearance w eGFR 58.69 POC Glucometer 147 Random Glucose 68 L Calcium 9.0 Iron TIBC Iron Saturation Urine Color Urine Appearance Urine pH Ur Specific [place] Urine Protein Urine Glucose (UA) Urine Ketones Urine Blood Urine Nitrite Urine Bilirubin Urine Urobilinogen Ur Leukocyte Esterase Urine WBC (Auto) Urine RBC (Auto) Ur Epithelial Cells Hyaline Casts Urine Mucus Active Medications Generic Name Dose Route Start Last Admin Trade Name Freq PRN Reason Stop Dose Admin Acetaminophen 650 mg 10/30/18 05:41 10/31/18 07:13 Tylenol - PO 650 mg Q4H PRN Administration PAIN OR FEVER Aspirin 81 mg 10/30/18 10:00 10/31/18 10:39 Asa - PO 81 mg DAILY [facility] Administration Atorvastatin Calcium 10 mg 10/30/18 22:00 10/30/18 22:08 Lipitor - PO 10 mg HS [facility] Administration Clopidogrel Bisulfate 75 mg 10/30/18 10:00 10/31/18 10:39 Plavix - PO 75 mg DAILY [facility] Administration Ferrous Sulfate 325 mg 10/30/18 10:00 10/31/18 10:39 Feosol - PO 325 mg DAILY [facility] Administration Heparin Sodium (Porcine) 5,000 unit 10/30/18 06:15 10/31/18 06:35 Heparin - SQ 5,000 unit TID [facility] Administration Piperacillin Sod/Tazobactam 50 mls @ 100 mls/hr 10/30/18 14:45 10/31/18 10:39 Sod 3.375 gm/ Dextrose IVPB 100 mls/hr Q8H-IV [facility] Administration Protocol Vancomycin HCl 1,250 mg/ 250 mls @ 166.667 mls/hr 10/30/18 15:00 10/31/18 02: 27 Dextrose IVPB 166.667 mls/hr BID@0300,1500 [facility] Administration Protocol Insulin Aspart 1 vial 10/30/18 07:00 10/31/18 12:32 Novolog Vial Sliding Scale - SQ Not Given ACHS [facility] Protocol Insulin Detemir 20 units 10/30/18 22:00 10/30/18 22:04 Levemir Vial SQ 20 units HS [facility] Administration Losartan Potassium 25 mg 10/30/18 10:00 10/31/18 10:39 Cozaar - PO 25 mg DAILY [facility] Administration MRI of left lower extremity: 1. Soft tissue edema of the foot. 2. Soft tissue edema and fluid of the distal phalanx of the first toe with focal fluid deep to the toenail and extending distally along the distal tuft and along the plantar aspect of the distal tuft. 3. Bone marrow edema of the distal phalanx of the first toe with question of some erosion of the distal tuft consistent with osteomyelitis ASSESSMENT/PLAN Patient is a 48 year old female past medical history of DM, HTN, CAD, LLE stent 2015, HSV buttock s/p valtrex, retroperitoneal abscess s/p drainage in April, presented with the complaints of the left great toe # Sepsis secondary to cellulitis and osteomyelitis of the left great toe MRI done 10/30/18 shows distal phalynx of the first toe-osteomyelitis Pending podiatry consult-confirmed he will evaluate the patient this evening. ID consulted, switched Cefepime to IV Vancomycin and IV Zosyn for broader coverage Blood culture pending Foot xray noted # Peripheral vascular disease LLE pt to go for angioplasty next month as per the patient. Consult vascular surgeon # Uncontrolled DM A1c 10.1 Continue Levemir 20 U daily ISS, Finger stick BGMs, watch for hypoglycemic episodes # HTN controlled Continue home cozaar # Normocytic anemia Continue home Iron # HLD Continue home Lipitor # LLE stent 2015 Continue home ASA/plavix # Medications: Confirmed # FEN Not on IV fluids Electrolytes wnl Diabetic diet # Prophylaxis FOr DVT: On Heparin 5000 IU sq TID For GI: Not indicated # Code Status: Full Code # Dispo: Admitted in Med-Surg. Duration of stay unknown. Illness, Investigation and Plan of care explained to the patient. She verbalized understanding. Case discussed with Dr. Carey. Problem List - Problems (1) Anemia Code(s): D64.9 - ANEMIA, UNSPECIFIED (2) CAD (coronary artery disease) Code(s): I25.10 - ATHSCL HEART DISEASE OF [place] CORONARY ARTERY W/O ANG PCTRS (3) Cellulitis in diabetic foot Code(s): E11.628 - TYPE 2 DIABETES MELLITUS WITH OTHER SKIN COMPLICATIONS; L03.119 - CELLULITIS OF UNSPECIFIED PART OF LIMB (4) Abscess of buttock, right Code(s): L02.31 - CUTANEOUS ABSCESS OF BUTTOCK (5) Bronchitis Code(s): J40 - BRONCHITIS, NOT SPECIFIED ACUTE OR CHRONIC Visit type - Emergency Visit Emergency Visit: Yes ED Registration Date: 10/30/18 Care time: The patient presented to the Emergency Department on the above date and was hospitalized for further evaluation of their emergent condition. - New Patient This patient is new to me today: No - Critical Care Critical Care patient: No - Discharge Referral Referred to [facility] Med P.C.: No
--- NOTE | 2018-10-31 16:32 | PN ---
Teaching Attending Note Name of Resident: Anni Resendez ATTENDING PHYSICIAN STATEMENT I saw and evaluated the patient. I reviewed the resident's note and discussed the case with the resident. I agree with the resident's findings and plan as documented. SUBJECTIVE: Ms Duvall says she is still having foot pain but it is improved. No cp, sob, n/v OBJECTIVE: Last Vital Signs Temp Pulse Resp BP Pulse Ox 36.8 C 79 20 113/71 100 10/31/18 14:31 10/31/18 14:31 10/31/18 14:31 10/31/18 14:10/31/18 09:00 Gen: nad Pulm: ctab w/o w/r/r CV: rrr w/o m/r/g Abd:+bs, s/nt/nd Ext: L foot blister with erythema ASSESSMENT AND PLAN: (1) Cellulitis in diabetic foot with osteomyelitis Assessment/Plan: -appreciate ID assistance -MRI foot showing osteo -continue vancomycin and zosyn -podiatry consulted and awaiting recommendations Code(s): E11.628 - TYPE 2 DIABETES MELLITUS WITH OTHER SKIN COMPLICATIONS; L03.119 - CELLULITIS OF UNSPECIFIED PART OF LIMB (2) Diabetes Assessment/Plan: -very poorly controlled -Hgb A1c 10.1 -diabetic diet -levemir 20 units qhs -currently well controlled Code(s): E11.9 - TYPE 2 DIABETES MELLITUS WITHOUT COMPLICATIONS (3) Hyperlipemia Assessment/Plan: -continue lipitor Code(s): E78.5 - HYPERLIPIDEMIA, UNSPECIFIED (4) Hypertension Assessment/Plan: -continue cozaar -adjust as needed Code(s): I10 - ESSENTIAL (PRIMARY) HYPERTENSION (5) CAD (coronary artery disease) Assessment/Plan: -quiescent -continue home regimen Code(s): I25.10 - ATHSCL HEART DISEASE OF [place] CORONARY ARTERY W/O ANG PCTRS (6) Anemia Assessment/Plan: -continue iron supplementation Code(s): D64.9 - ANEMIA, UNSPECIFIED Problem List - Problems (1) Cellulitis in diabetic foot Code(s): E11.628 - TYPE 2 DIABETES MELLITUS WITH OTHER SKIN COMPLICATIONS; L03.119 - CELLULITIS OF UNSPECIFIED PART OF LIMB (2) Diabetes Code(s): E11.9 - TYPE 2 DIABETES MELLITUS WITHOUT COMPLICATIONS (3) Hyperlipemia Code(s): E78.5 - HYPERLIPIDEMIA, UNSPECIFIED (4) Hypertension Code(s): I10 - ESSENTIAL (PRIMARY) HYPERTENSION (5) CAD (coronary artery disease) Code(s): I25.10 - ATHSCL HEART DISEASE OF [place] CORONARY ARTERY W/O ANG PCTRS (6) Anemia Code(s): D64.9 - ANEMIA, UNSPECIFIED
--- NOTE | 2018-10-31 18:00 | CONSULT ---
Consult Consult Specialty:: Podiatry Pino Don DPM Reason for Consultation:: Infection, left hallux - History of Present Illness Chief Complaint: Pain and swelling in the left hallux History of Present Illness: Lesion of the left hallux is a chronic hyperkeratosis at the tip caused by hammering of the toe. On 10/29/2018 patient reported to the emergency room with a red hot swollen foot that was painful. Patiient admitted with cellulitis of the left foot and placed on antibiotics. She reports significant reduction of symptoms today. - Past Medical History Cardio/Vascular: Yes: CAD, Other (s/p stent) ...LMP: 04/19/15 Endocrine: Yes: Diabetes Mellitus - Alcohol/Substance Use Hx Alcohol Use: No - Smoking History Smoking history: Former smoker Have you smoked in the past 12 months: Yes Aproximately how many cigarettes per day: 5 If you are a former smoker, when did you quit?: 2018 Home Medications - Allergies Allergies/Adverse Reactions: Allergies Allergy/AdvReac Type Severity Reaction Status Date / Time No Known Allergies Allergy Verified 10/29/18 22:24 - Home Medications Home Medications: Ambulatory Orders Atorvastatin Calcium [Lipitor] 10 mg PO HS 04/12/13 Losartan Potassium [Cozaar] 25 mg PO DAILY 07/18/15 Clopidogrel Bisulfate [Plavix -] 75 mg PO DAILY 01/28/16 Aspirin [ASA -] 81 mg PO DAILY 10/30/18 Ferrous Sulfate [Iron] 325 mg PO DAILY 10/30/18 Insulin (Novolog) [Novolog] 0 units SQ AC 10/30/18 Insulin Glargine,Hum.rec.anlog [Lantus] 20 unit SQ HS 10/30/18 Insulin Glargine,Hum.rec.anlog [Lantus] 100 unit SQ AC PRN 10/30/18 Family Disease History - Family Disease History Family Disease History: Diabetes: Mother, Heart Disease: Mother Physical Exam Vital Signs: Vital Signs Temperature 98.3 F 10/31/18 14:31 Pulse Rate 79 10/31/18 14:31 Respiratory Rate 20 10/31/18 14:31 Blood Pressure 113/71 10/31/18 14:31 O2 Sat by Pulse Oximetry (%) 100 10/31/18 09:00 Extremities: Yes: Other (Left hallux is hammered with distal hyperkeratosis and bruising of surrounding tissue. Skin temp is elevated.) Labs: CBC, BMP 10/31/18 06:40 10/31/18 06:40 Imaging - Results MRI: Other (Image reviewed by me shoscotty edema on sagital image of the entire distal phalanx suggesting osteomyelitis.) Assessment/Plan Assessment Hammertoe left hallux causes distal repetative stress to the soft tissue and blistering of the distal aspect of the toe with cellulitis and possible osteomyelitis of the distal phalanx. Treatment Using #15 surgical blade distal hyperkeratosis was debrided yielding yellow purulence coming from the distal aspect and from below the nail plate. Pus was cultured with swab. Nail was left in place at this time. Sterile dressing was applied. Plan Continue antibiosis. I will debride the nail tomorrow. Bone biopsy is not indicated at this time until we evaluate the soft tissue culture. Thank you for the consultation request. Pino Don DPM [phone]
--- NOTE | 2018-10-31 18:08 | PN ---
Progress Note, Physician History of Present Illness: Debridment being done at bedside by Dr Don + pan pus encountered, c/s sent No c/o foot pain Tolerating antibiotics - Current Medication List Current Medications: Active Medications Acetaminophen (Tylenol -) 650 mg PO Q4H PRN PRN Reason: PAIN OR FEVER Last Admin: 10/31/18 07:13 Dose: 650 mg Aspirin (Asa -) 81 mg PO DAILY [facility] Last Admin: 10/31/18 10:39 Dose: 81 mg Atorvastatin Calcium (Lipitor -) 10 mg PO HS [facility] Last Admin: 10/30/18 22:08 Dose: 10 mg Clopidogrel Bisulfate (Plavix -) 75 mg PO DAILY [facility] Last Admin: 10/31/18 10:39 Dose: 75 mg Ferrous Sulfate (Feosol -) 325 mg PO DAILY [facility] Last Admin: 10/31/18 10:39 Dose: 325 mg Heparin Sodium (Porcine) (Heparin -) 5,000 unit SQ TID [facility] Last Admin: 10/31/18 14:55 Dose: 5,000 unit Piperacillin Sod/Tazobactam (Sod 3.375 gm/ Dextrose) 50 mls @ 100 mls/hr IVPB Q8H-IV [facility]; Protocol Last Admin: 10/31/18 18:04 Dose: 100 mls/hr Vancomycin HCl 1,250 mg/ (Dextrose) 250 mls @ 166.667 mls/hr IVPB BID@0300, 1500 [facility]; Protocol Last Admin: 10/31/18 15:10 Dose: 166.667 mls/hr Insulin Aspart (Novolog Vial Sliding Scale -) 1 vial SQ [facility]; Protocol Last Admin: 10/31/18 18:03 Dose: 2 unit Insulin Detemir (Levemir Vial) 20 units SQ [facility] Last Admin: 10/30/18 22:04 Dose: 20 units Losartan Potassium (Cozaar -) 25 mg PO DAILY [facility] Last Admin: 10/31/18 10:39 Dose: 25 mg - Objective Vital Signs: Vital Signs Temperature 98.3 F 10/31/18 14:31 Pulse Rate 79 10/31/18 14:31 Respiratory Rate 20 10/31/18 14:31 Blood Pressure 113/71 10/31/18 14:31 O2 Sat by Pulse Oximetry (%) 100 10/31/18 09:00 Constitutional: Yes: No Distress Cardiovascular: Yes: Regular Rate and Rhythm, S1, S2 Respiratory: Yes: CTA Bilaterally Extremities: Yes: Other (decreased foot/ great toe erythema/ swelling) Labs: CBC, BMP 10/31/18 06:40 10/31/18 06:40 INR, PTT INR 0.97 (0.83-1.09) 10/30/18 01:11 Assessment/Plan Cellulitis/ osteomyelitis great toe Soft tissue abscess ? infected orthopedic screw Await c/s Continue vancomycin / zosyn
[2018-10-31] MEDS ORDERED: INSULIN (NOVOLOG) ASPART 100 UNITS/ML 10ML VIAL ONE (21:22)
[2018-10-31] MEDS: INSULIN (LEVEMIR) 100 UNITS/ML UNITS SQ SCH (21:55)
[2018-10-31] MEDS: ATORVASTATIN CA 10 MG TABLET (FP) PO SCH (21:55)
[2018-11-01] MEDS ORDERED: PIPERACILLIN/TAZOBACTAM 3.375 GM VIAL IVPB ONE ×3 (01:05→18:03)
[2018-11-01] MEDS ORDERED: DEXTROSE 5%-WATER - 50 ML IVPB ONE ×3 (01:05→18:03)
[2018-11-01] MEDS: PIPERACILLIN/TAZOB 3.375 GM 3.375 GM in DEXTROSE 5%-WATER - 50 ML IVPB SCH ×3 (02:00→19:12)
[2018-11-01] MEDS: VANCOMYCIN 1,250 MG in DEXTROSE 5%-WATER - 250 ML IVPB SCH ×3 (02:40→16:20)
[2018-11-01] MEDS: HEPARIN NA (PORCINE) 5,000 UNITS/ML 1ML VIAL SQ SCH ×3 (07:13→21:54)
[2018-11-01] MEDS: INSULIN SLIDING SCALE (NOVOLOG) 1 VIAL SQ SCH ×4 (07:13→21:53)
[2018-11-01 08:13] LABS: BASO % 0.7 % (0-2.0); HEMATOCRIT 32.9 % (32.4-45.2); HEMOGLOBIN 10.3 GM/dL (10.7-15.3); LYMPH % 24.4 % (8-40); MCH 26.7 pg (25.7-33.7); MCHC 31.2 g/dl (32.0-36.0); MEAN CELL VOLUME 85.6 fl (80-96); MEAN PLT VOLUME 7.7 fl (7.5-11.1); MONO % 9.3 % (3.8-10.2); NEUT % 62.6 % (42.8-82.8); PLATELET COUNT 170 K/MM3 (134-434); RBC 3.84 M/mm3 (3.60-5.2); RDW 14.2 % (11.6-15.6)
[2018-11-01 09:18] LABS: ANION GAP 10 MMOL/L (8-16); BLOOD UREA NITROGEN 18 mg/dL (7-18); CALCIUM 9.1 mg/dL (8.5-10.1); CHLORIDE 106 mmol/L (98-107); CO2 24 mmol/L (21-32); GLUCOSE,RANDOM 71 mg/dL (74-106); PHOSPHOROUS 4.3 mg/dL (2.5-4.9); POTASSIUM 3.8 mmol/L (3.5-5.1); SODIUM 140 mmol/L (136-145)
[2018-11-01] MEDS: CLOPIDOGREL BISULFATE 75 MG TABLET (FP) PO SCH (09:32)
[2018-11-01] MEDS: FERROUS SO4 325 MG TABLET (FP) PO SCH (09:32)
[2018-11-01] MEDS: LOSARTAN POTASSIUM 25 MG TABLET PO SCH (09:32)
[2018-11-01] MEDS: ASPIRIN 81 MG CHEWABLE TABLETS PO SCH (09:32)
--- NOTE | 2018-11-01 14:22 | PN ---
Progress Note (short form) - Note Progress Note: complains of foot pain Vital Signs Period Temp Pulse Resp BP Sys/Hernandez Pulse Ox Last 24 Hr 98 F-98.3 F 65-103 20-20 111-141/65-76 98-100 dressing removed and foot examined still with purulent drainage from the big toe toe is swollen and red painful to touch CBC, BMP 11/01/18 07:00 11/01/18 07:00 Microbiology 10/30/18 01:11 Blood - Peripheral Venous Blood Culture - Preliminary NO GROWTH OBTAINED AFTER 48 HOURS, INCUBATION TO CONTINUE FOR 3 DAYS. 10/30/18 01:11 Blood - Peripheral Venous Blood Culture - Preliminary NO GROWTH OBTAINED AFTER 48 HOURS, INCUBATION TO CONTINUE FOR 3 DAYS. Current Medications Acetaminophen (Tylenol -) 650 mg PO Q4H PRN PRN Reason: PAIN OR FEVER Last Admin: 10/31/18 07:13 Dose: 650 mg Aspirin (Asa -) 81 mg PO DAILY [facility] Last Admin: 11/01/18 09:32 Dose: 81 mg Atorvastatin Calcium (Lipitor -) 10 mg PO HS [facility] Last Admin: 10/31/18 21:55 Dose: 10 mg Clopidogrel Bisulfate (Plavix -) 75 mg PO DAILY [facility] Last Admin: 11/01/18 09:32 Dose: 75 mg Ferrous Sulfate (Feosol -) 325 mg PO DAILY [facility] Last Admin: 11/01/18 09:32 Dose: 325 mg Heparin Sodium (Porcine) (Heparin -) 5,000 unit SQ TID [facility] Last Admin: 11/01/18 07:13 Dose: 5,000 unit Piperacillin Sod/Tazobactam (Sod 3.375 gm/ Dextrose) 50 mls @ 100 mls/hr IVPB Q8H-IV [facility]; Protocol Last Admin: 11/01/18 09:32 Dose: 100 mls/hr Vancomycin HCl 1,250 mg/ (Dextrose) 250 mls @ 166.667 mls/hr IVPB BID@0300, 1500 [facility]; Protocol Last Admin: 11/01/18 02:40 Dose: 166.667 mls/hr Insulin Aspart (Novolog Vial Sliding Scale -) 1 vial SQ [facility]; Protocol Last Admin: 11/01/18 11:03 Dose: 6 unit Insulin Detemir (Levemir Vial) 20 units SQ [facility] Last Admin: 10/31/18 21:55 Dose: 20 units Losartan Potassium (Cozaar -) 25 mg PO DAILY [facility] Last Admin: 11/01/18 09:32 Dose: 25 mg a/p osteomyelitis of the big toe with abscess podiatry f/u for further drainage continue vanco/zosyn f/u cultures diabetes
--- NOTE | 2018-11-01 15:21 | PN ---
Progress Note, Physician Chief Complaint: Ms Duvall says she is doing well today. Some discomfort in her foot but overall she says she is fine. No cp, sob, n/v. - Current Medication List Current Medications: Active Medications Acetaminophen (Tylenol -) 650 mg PO Q4H PRN PRN Reason: PAIN OR FEVER Last Admin: 10/31/18 07:13 Dose: 650 mg Aspirin (Asa -) 81 mg PO DAILY [facility] Last Admin: 11/01/18 09:32 Dose: 81 mg Atorvastatin Calcium (Lipitor -) 10 mg PO HS [facility] Last Admin: 10/31/18 21:55 Dose: 10 mg Clopidogrel Bisulfate (Plavix -) 75 mg PO DAILY [facility] Last Admin: 11/01/18 09:32 Dose: 75 mg Ferrous Sulfate (Feosol -) 325 mg PO DAILY [facility] Last Admin: 11/01/18 09:32 Dose: 325 mg Heparin Sodium (Porcine) (Heparin -) 5,000 unit SQ TID [facility] Last Admin: 11/01/18 14:45 Dose: 5,000 unit Piperacillin Sod/Tazobactam (Sod 3.375 gm/ Dextrose) 50 mls @ 100 mls/hr IVPB Q8H-IV [facility]; Protocol Last Admin: 11/01/18 09:32 Dose: 100 mls/hr Vancomycin HCl 1,250 mg/ (Dextrose) 250 mls @ 166.667 mls/hr IVPB BID@0300, 1500 [facility]; Protocol Last Admin: 11/01/18 02:40 Dose: 166.667 mls/hr Insulin Aspart (Novolog Vial Sliding Scale -) 1 vial SQ ACHS [facility]; Protocol Last Admin: 11/01/18 11:03 Dose: 6 unit Insulin Detemir (Levemir Vial) 10 units SQ HS [facility] Insulin Detemir (Levemir Vial) 20 units SQ AM [facility] Losartan Potassium (Cozaar -) 25 mg PO DAILY [facility] Last Admin: 11/01/18 09:32 Dose: 25 mg - Objective Vital Signs: Vital Signs Temperature 36.8 C 11/01/18 15:14 Pulse Rate 87 11/01/18 15:14 Respiratory Rate 20 11/01/18 15:14 Blood Pressure 119/65 11/01/18 15:14 O2 Sat by Pulse Oximetry (%) 98 11/01/18 09:20 Constitutional: Yes: Well Nourished, No Distress, Calm Cardiovascular: Yes: Regular Rate and Rhythm. No: Gallop, Murmur, Rub Respiratory: Yes: Regular, CTA Bilaterally. No: Rales, Rhonchi, Wheezes Gastrointestinal: Yes: Normal Bowel Sounds, Soft. No: Distention, Tenderness Extremities: Yes: Other (L foot wrapped) Edema: No Labs: CBC, BMP 11/01/18 07:00 11/01/18 07:00 INR, PTT INR 0.97 (0.83-1.09) 10/30/18 01:11 Problem List - Problems (1) Cellulitis in diabetic foot Code(s): E11.628 - TYPE 2 DIABETES MELLITUS WITH OTHER SKIN COMPLICATIONS; L03.119 - CELLULITIS OF UNSPECIFIED PART OF LIMB (2) Diabetes Code(s): E11.9 - TYPE 2 DIABETES MELLITUS WITHOUT COMPLICATIONS (3) Hyperlipemia Code(s): E78.5 - HYPERLIPIDEMIA, UNSPECIFIED (4) Hypertension Code(s): I10 - ESSENTIAL (PRIMARY) HYPERTENSION (5) CAD (coronary artery disease) Code(s): I25.10 - ATHSCL HEART DISEASE OF [place] CORONARY ARTERY W/O ANG PCTRS (6) Anemia Code(s): D64.9 - ANEMIA, UNSPECIFIED Assessment/Plan (1) Cellulitis in diabetic foot with osteomyelitis Assessment/Plan: -case d/w ID -still with purulent drainage -appreciate podiatry assistance -debrided yesterday, planning for further debridement today -will need oysterman antibiotics on discharge Code(s): E11.628 - TYPE 2 DIABETES MELLITUS WITH OTHER SKIN COMPLICATIONS; L03.119 - CELLULITIS OF UNSPECIFIED PART OF LIMB (2) Diabetes Assessment/Plan: -very poorly controlled -Hgb A1c 10.1 -diabetic diet -noted that patient has elevated glucose in pm and low glucose in am -also requires around 10 units extra SSI -will change levemir dose -will place on levemir 20 units qam to help control daytime glucose -levemir 10 units qpm to minimize am hypoglycemia Code(s): E11.9 - TYPE 2 DIABETES MELLITUS WITHOUT COMPLICATIONS (3) Hyperlipemia Assessment/Plan: -continue lipitor Code(s): E78.5 - HYPERLIPIDEMIA, UNSPECIFIED (4) Hypertension Assessment/Plan: -continue cozaar -adjust as needed Code(s): I10 - ESSENTIAL (PRIMARY) HYPERTENSION (5) CAD (coronary artery disease) Assessment/Plan: -quiescent -continue home regimen Code(s): I25.10 - ATHSCL HEART DISEASE OF [place] CORONARY ARTERY W/O ANG PCTRS (6) Anemia Assessment/Plan: -continue iron supplementation Code(s): D64.9 - ANEMIA, UNSPECIFIED
[2018-11-01] MEDS: ACETAMINOPHEN 325 MG TABLET (FP) PO PRN (16:29)
--- NOTE | 2018-11-01 16:58 | PROC ---
Procedure Note Procedure: I returned today to complete the I&D of the left hallux distal abscess. The nail needed to be removed. Patient reports a reduction of pain since last night and no additional adverse symptoms Exam Left hallux shows no additional purulence. the thick nail is lytic. surrounding edema has resolved. Periwound hyperkeratosis is present. the main wound is located on the distal aspect of the left hallux and shows yellow dry fibrosis. the depth of the fibrosis is unknown but the distal aspect of the distal phalanx of the hallux lies directly below the escar. skin temp is normal. Assessment The combination of antibiosis and last night's I&D has allowed significant improvement in the appearance of the left hallux. The bone marrow edema of the distal phalanx found on the MRI is an item of concern, but this may or may not represent osteomyelitis. Bone is not exposed in the wound so I hesitate to recommend bone resection at this time. Treatment using sterile nail clipper all surrounding hyperkeratosis and the nail plate was atraumaticly removed for the distal aspect of the left hallux. No bleeding occurred. No purulence was found. Bone was not exposed. A betadine dressing was applied to the left hallux. Recommendations 1. Treat with antibiosis for 4-6 weeks based on the purulence culture from last night. 2. Topical wound dressing with neosporin ointment daily. 3. On discharge from the hospital I will care for the problem at my office. Will provide appropriate off loading when patient returns to my office. Thanks, Pino Don [facility] [phone]
[2018-11-01] MEDS: INSULIN (LEVEMIR) 100 UNITS/ML UNITS SQ SCH (21:53)
[2018-11-01] MEDS: ATORVASTATIN CA 10 MG TABLET (FP) PO SCH (21:54)
[2018-11-02] MEDS ORDERED: DEXTROSE 5%-WATER - 50 ML IVPB ONE ×3 (00:50→18:49)
[2018-11-02] MEDS ORDERED: PIPERACILLIN/TAZOBACTAM 3.375 GM VIAL IVPB ONE ×3 (00:50→18:49)
[2018-11-02] MEDS: PIPERACILLIN/TAZOB 3.375 GM 3.375 GM in DEXTROSE 5%-WATER - 50 ML IVPB SCH ×3 (02:06→18:55)
[2018-11-02] MEDS: VANCOMYCIN 1,250 MG in DEXTROSE 5%-WATER - 250 ML IVPB SCH (02:44)
[2018-11-02] MEDS: INSULIN SLIDING SCALE (NOVOLOG) 1 VIAL SQ SCH ×4 (06:41→22:29)
[2018-11-02] MEDS: INSULIN (LEVEMIR) 100 UNITS/ML UNITS SQ SCH ×2 (06:41→22:28)
[2018-11-02] MEDS: HEPARIN NA (PORCINE) 5,000 UNITS/ML 1ML VIAL SQ SCH ×3 (06:41→22:26)
[2018-11-02] MEDS ORDERED: INSULIN (NOVOLOG) ASPART 100 UNITS/ML 10ML VIAL ONE (06:47)
[2018-11-02] MEDS ORDERED: PT OWN MED DRAWER 7, Y5N ONE (06:47)
[2018-11-02 08:27] LABS: BASO % 1.3 % (0-2.0); EOS % 4.9 % (0-4.5); HEMATOCRIT 32.6 % (32.4-45.2); HEMOGLOBIN 10.1 GM/dL (10.7-15.3); LYMPH % 41.2 % (8-40); MCH 26.9 pg (25.7-33.7); MEAN CELL VOLUME 86.6 fl (80-96); MEAN PLT VOLUME 7.4 fl (7.5-11.1); MONO % 10.9 % (3.8-10.2); NEUT % 41.7 % (42.8-82.8); PLATELET COUNT 176 K/MM3 (134-434); RBC 3.76 M/mm3 (3.60-5.2); RDW 14.5 % (11.6-15.6); WHITE BLOOD COUNT 3.2 K/mm3 (4.0-10.0)
[2018-11-02 09:11] LABS: ANION GAP 7 MMOL/L (8-16); BLOOD UREA NITROGEN 26 mg/dL (7-18); CALCIUM 8.7 mg/dL (8.5-10.1); CHLORIDE 109 mmol/L (98-107); CO2 24 mmol/L (21-32); CREATININE 1.3 mg/dL (0.55-1.3); GLUCOSE,RANDOM 133 mg/dL (74-106); PHOSPHOROUS 3.6 mg/dL (2.5-4.9); POTASSIUM 4.4 mmol/L (3.5-5.1); SODIUM 140 mmol/L (136-145)
--- NOTE | 2018-11-02 09:26 | EKG ---
Test Reason : Blood Pressure : / mmHG Vent. Rate : 062 BPM Atrial Rate : 062 BPM P-R Int : 150 ms QRS Dur : 080 ms QT Int : 428 ms P-R-T Axes : 027 020 012 degrees QTc Int : 434 ms NORMAL SINUS RHYTHM NORMAL ECG WHEN COMPARED WITH ECG OF 30-OCT-2018 00:42, NO SIGNIFICANT CHANGE WAS FOUND Confirmed by MARIXA ELY MD ([id number]) on 11/02/2018 9:25:27 AM Referred By: Confirmed By:MARIXA ELY MD
[2018-11-02] MEDS: LOSARTAN POTASSIUM 25 MG TABLET PO SCH (10:12)
[2018-11-02] MEDS: ASPIRIN 81 MG CHEWABLE TABLETS PO SCH (10:12)
[2018-11-02] MEDS: FERROUS SO4 325 MG TABLET (FP) PO SCH (10:12)
[2018-11-02] MEDS: CLOPIDOGREL BISULFATE 75 MG TABLET (FP) PO SCH (10:12)
--- NOTE | 2018-11-02 12:29 | PN ---
Progress Note, Physician Chief Complaint: Ms Duvall complains of chest burning this morning, lasting for a few seconds. Says she often has this in the morning. Resolved when I saw her. No sob or n/v. - Current Medication List Current Medications: Active Medications Acetaminophen (Tylenol -) 650 mg PO Q4H PRN PRN Reason: PAIN OR FEVER Last Admin: 11/01/18 16:29 Dose: 650 mg Aspirin (Asa -) 81 mg PO DAILY [facility] Last Admin: 11/02/18 10:12 Dose: 81 mg Atorvastatin Calcium (Lipitor -) 10 mg PO HS [facility] Last Admin: 11/01/18 21:54 Dose: 10 mg Clopidogrel Bisulfate (Plavix -) 75 mg PO DAILY [facility] Last Admin: 11/02/18 10:12 Dose: 75 mg Ferrous Sulfate (Feosol -) 325 mg PO DAILY [facility] Last Admin: 11/02/18 10:12 Dose: 325 mg Heparin Sodium (Porcine) (Heparin -) 5,000 unit SQ TID [facility] Last Admin: 11/02/18 06:41 Dose: 5,000 unit Piperacillin Sod/Tazobactam (Sod 3.375 gm/ Dextrose) 50 mls @ 100 mls/hr IVPB Q8H-IV [facility]; Protocol Last Admin: 11/02/18 10:12 Dose: 100 mls/hr Vancomycin HCl 1,250 mg/ (Dextrose) 250 mls @ 166.667 mls/hr IVPB BID@0300, 1500 [facility]; Protocol Last Admin: 11/02/18 02:44 Dose: 166.667 mls/hr Insulin Aspart (Novolog Vial Sliding Scale -) 1 vial SQ ACHS [facility]; Protocol Last Admin: 11/02/18 11:42 Dose: 6 unit Insulin Detemir (Levemir Vial) 10 units SQ HS [facility] Last Admin: 11/01/18 21:53 Dose: 10 unit Insulin Detemir (Levemir Vial) 20 units SQ AM [facility] Last Admin: 11/02/18 06:41 Dose: 20 unit Losartan Potassium (Cozaar -) 25 mg PO DAILY [facility] Last Admin: 11/02/18 10:12 Dose: 25 mg - Objective Vital Signs: Vital Signs Temperature 36.6 C 11/02/18 10:02 Pulse Rate 64 11/02/18 10:02 Respiratory Rate 20 11/02/18 10:02 Blood Pressure 128/66 11/02/18 10:02 O2 Sat by Pulse Oximetry (%) 98 11/02/18 10:15 Constitutional: Yes: Well Nourished, No Distress, Calm Cardiovascular: Yes: Regular Rate and Rhythm. No: Gallop, Murmur, Rub Respiratory: Yes: Regular, CTA Bilaterally. No: Rales, Rhonchi, Wheezes Gastrointestinal: Yes: Normal Bowel Sounds, Soft. No: Distention, Tenderness Extremities: Yes: Other (LLE wrapped) Edema: No Labs: CBC, BMP 11/02/18 07:30 11/02/18 07:30 INR, PTT INR 0.97 (0.83-1.09) 10/30/18 01:11 Problem List - Problems (1) Cellulitis in diabetic foot Code(s): E11.628 - TYPE 2 DIABETES MELLITUS WITH OTHER SKIN COMPLICATIONS; L03.119 - CELLULITIS OF UNSPECIFIED PART OF LIMB (2) Diabetes Code(s): E11.9 - TYPE 2 DIABETES MELLITUS WITHOUT COMPLICATIONS (3) Hyperlipemia Code(s): E78.5 - HYPERLIPIDEMIA, UNSPECIFIED (4) Hypertension Code(s): I10 - ESSENTIAL (PRIMARY) HYPERTENSION (5) CAD (coronary artery disease) Code(s): I25.10 - ATHSCL HEART DISEASE OF [place] CORONARY ARTERY W/O ANG PCTRS (6) Anemia Code(s): D64.9 - ANEMIA, UNSPECIFIED Assessment/Plan (1) Cellulitis in diabetic foot with osteomyelitis Assessment/Plan: -s/p drainage -will need PICC line and 4-6 weeks antibiotics -d/w ID, holding vancomycin today secondary to elevated level -recheck in am Code(s): E11.628 - TYPE 2 DIABETES MELLITUS WITH OTHER SKIN COMPLICATIONS; L03.119 - CELLULITIS OF UNSPECIFIED PART OF LIMB (2) Diabetes Assessment/Plan: -very poorly controlled -Hgb A1c 10.1 -diabetic diet -levemir 20 units qam and 10 units qpm -monitor today, adjust as necessary for glucose control Code(s): E11.9 - TYPE 2 DIABETES MELLITUS WITHOUT COMPLICATIONS (3) Hyperlipemia Assessment/Plan: -continue lipitor Code(s): E78.5 - HYPERLIPIDEMIA, UNSPECIFIED (4) Hypertension Assessment/Plan: -continue cozaar -adjust as needed Code(s): I10 - ESSENTIAL (PRIMARY) HYPERTENSION (5) CAD (coronary artery disease) Assessment/Plan: -quiescent -continue home regimen Code(s): I25.10 - ATHSCL HEART DISEASE OF [place] CORONARY ARTERY W/O ANG PCTRS (6) Anemia Assessment/Plan: -continue iron supplementation Code(s): D64.9 - ANEMIA, UNSPECIFIED (7) Chest pain -atypical -EKG NSR -troponins negative Dispo -discharge planning when antibiotic dose set, will need PICC line
--- NOTE | 2018-11-02 12:58 | PN ---
Progress Note (short form) - Note Progress Note: complains of foot pain seen by podiatry, toenail removed Vital Signs Period Temp Pulse Resp BP Sys/Hernandez Pulse Ox Last 24 Hr 97.4 F-98.5 F 59-87 17-20 117-135/64-76 97-98 cor-rrr lungs clear foot is wrapped CBC, BMP 11/02/18 07:30 11/02/18 07:30 Laboratory Tests 11/01/18 15:30 Vancomycin Pre-Dose 22.5 Microbiology 10/31/18 17:40 Abscess Gram Stain - Final 10/31/18 17:40 Abscess Wound Culture - Preliminary Staphylococcus Coagulase Neg 10/30/18 01:11 Blood - Peripheral Venous Blood Culture - Preliminary NO GROWTH OBTAINED AFTER 72 HOURS, INCUBATION TO CONTINUE FOR 2 DAYS. 10/30/18 01:11 Blood - Peripheral Venous Blood Culture - Preliminary NO GROWTH OBTAINED AFTER 72 HOURS, INCUBATION TO CONTINUE FOR 2 DAYS. a/p osteomyelitis of the big toe with abscess podiatry f/u for further drainage hold vancomycin, check level in am before resuming repeat esr/crp will need picc line for snf iv antiibiotics diabetes
[2018-11-02] MEDS: ATORVASTATIN CA 10 MG TABLET (FP) PO SCH (22:27)
[2018-11-03] MEDS ORDERED: PIPERACILLIN/TAZOBACTAM 3.375 GM VIAL IVPB ONE ×4 (01:51→18:51)
[2018-11-03] MEDS ORDERED: DEXTROSE 5%-WATER - 50 ML IVPB ONE ×3 (01:51→18:51)
[2018-11-03] MEDS: PIPERACILLIN/TAZOB 3.375 GM 3.375 GM in DEXTROSE 5%-WATER - 50 ML IVPB SCH ×3 (02:16→18:59)
[2018-11-03] MEDS: HEPARIN NA (PORCINE) 5,000 UNITS/ML 1ML VIAL SQ SCH ×3 (05:37→22:23)
[2018-11-03] MEDS: INSULIN SLIDING SCALE (NOVOLOG) 1 VIAL SQ SCH ×4 (07:04→22:24)
[2018-11-03] MEDS: INSULIN (LEVEMIR) 100 UNITS/ML UNITS SQ SCH ×2 (07:06→22:24)
[2018-11-03 07:37] LABS: BASO % 0.7 % (0-2.0); EOS % 2.9 % (0-4.5); HEMATOCRIT 33.3 % (32.4-45.2); HEMOGLOBIN 10.3 GM/dL (10.7-15.3); LYMPH % 21.5 % (8-40); MCH 26.6 pg (25.7-33.7); MCHC 30.8 g/dl (32.0-36.0); MEAN CELL VOLUME 86.4 fl (80-96); MEAN PLT VOLUME 7.8 fl (7.5-11.1); MONO % 8.2 % (3.8-10.2); NEUT % 66.7 % (42.8-82.8); PLATELET COUNT 184 K/MM3 (134-434); RBC 3.86 M/mm3 (3.60-5.2); RDW 14.1 % (11.6-15.6); WHITE BLOOD COUNT 5.2 K/mm3 (4.0-10.0)
[2018-11-03 08:04] LABS: ANION GAP 6 MMOL/L (8-16); BLOOD UREA NITROGEN 26 mg/dL (7-18); CALCIUM 9.3 mg/dL (8.5-10.1); CHLORIDE 107 mmol/L (98-107); CO2 28 mmol/L (21-32); CREATININE 1.4 mg/dL (0.55-1.3); GLUCOSE,RANDOM 157 mg/dL (74-106); MAGNESIUM 2.1 mg/dL (1.8-2.4); POTASSIUM 4.7 mmol/L (3.5-5.1); SODIUM 140 mmol/L (136-145)
[2018-11-03] MEDS ORDERED: PT OWN MED DRAWER 7, Y5N ONE ×2 (09:48→15:17)
[2018-11-03] MEDS: ASPIRIN 81 MG CHEWABLE TABLETS PO SCH (10:00)
[2018-11-03] MEDS: FERROUS SO4 325 MG TABLET (FP) PO SCH (10:00)
[2018-11-03] MEDS: LOSARTAN POTASSIUM 25 MG TABLET PO SCH (10:00)
[2018-11-03] MEDS: CLOPIDOGREL BISULFATE 75 MG TABLET (FP) PO SCH (10:00)
--- NOTE | 2018-11-03 12:56 | PN ---
Progress Note, Physician Chief Complaint: Ms Duvall is without complaint. No cp, sob, n/v. Says her glucose is elevated secondary to not being on her insulin regimen - Current Medication List Current Medications: Active Medications Acetaminophen (Tylenol -) 650 mg PO Q4H PRN PRN Reason: PAIN OR FEVER Last Admin: 11/01/18 16:29 Dose: 650 mg Aspirin (Asa -) 81 mg PO DAILY [facility] Last Admin: 11/03/18 10:00 Dose: 81 mg Atorvastatin Calcium (Lipitor -) 10 mg PO HS [facility] Last Admin: 11/02/18 22:27 Dose: 10 mg Clopidogrel Bisulfate (Plavix -) 75 mg PO DAILY [facility] Last Admin: 11/03/18 10:00 Dose: 75 mg Ferrous Sulfate (Feosol -) 325 mg PO DAILY [facility] Last Admin: 11/03/18 10:00 Dose: 325 mg Heparin Sodium (Porcine) (Heparin -) 5,000 unit SQ TID [facility] Last Admin: 11/03/18 05:37 Dose: Not Given Piperacillin Sod/Tazobactam (Sod 3.375 gm/ Dextrose) 50 mls @ 100 mls/hr IVPB Q8H-IV [facility]; Protocol Last Admin: 11/03/18 10:00 Dose: 100 mls/hr Insulin Aspart (Novolog Vial Sliding Scale -) 1 vial SQ ACHS [facility]; Protocol Last Admin: 11/03/18 12:16 Dose: 4 unit Insulin Aspart (Novolog) 10 units SQ BID@0700,1630 [facility] Insulin Detemir (Levemir Vial) 20 units SQ HS [facility] Losartan Potassium (Cozaar -) 25 mg PO DAILY [facility] Last Admin: 11/03/18 10:00 Dose: 25 mg - Objective Vital Signs: Vital Signs Temperature 36.6 C 11/03/18 09:59 Pulse Rate 100 H 11/03/18 09:59 Respiratory Rate 19 11/03/18 09:59 Blood Pressure 132/75 11/03/18 09:59 O2 Sat by Pulse Oximetry (%) 98 11/02/18 21:00 Constitutional: Yes: Well Nourished, No Distress, Calm Cardiovascular: Yes: Regular Rate and Rhythm. No: Gallop, Murmur, Rub Respiratory: Yes: Regular, CTA Bilaterally. No: Rales, Rhonchi, Wheezes Gastrointestinal: Yes: Normal Bowel Sounds, Soft. No: Distention, Tenderness Extremities: Yes: WNL Edema: No Labs: CBC, BMP 11/03/18 06:30 11/03/18 06:30 INR, PTT INR 0.97 (0.83-1.09) 10/30/18 01:11 Problem List - Problems (1) Cellulitis in diabetic foot Code(s): E11.628 - TYPE 2 DIABETES MELLITUS WITH OTHER SKIN COMPLICATIONS; L03.119 - CELLULITIS OF UNSPECIFIED PART OF LIMB (2) Diabetes Code(s): E11.9 - TYPE 2 DIABETES MELLITUS WITHOUT COMPLICATIONS (3) Hyperlipemia Code(s): E78.5 - HYPERLIPIDEMIA, UNSPECIFIED (4) Hypertension Code(s): I10 - ESSENTIAL (PRIMARY) HYPERTENSION (5) CAD (coronary artery disease) Code(s): I25.10 - ATHSCL HEART DISEASE OF [place] CORONARY ARTERY W/O ANG PCTRS (6) Anemia Code(s): D64.9 - ANEMIA, UNSPECIFIED Assessment/Plan (1) Cellulitis in diabetic foot with osteomyelitis Assessment/Plan: -s/p drainage -will need PICC line and 4-6 weeks antibiotics -ID following, begin discharge planning when ID specifies antibiotic regimen Code(s): E11.628 - TYPE 2 DIABETES MELLITUS WITH OTHER SKIN COMPLICATIONS; L03.119 - CELLULITIS OF UNSPECIFIED PART OF LIMB (2) Diabetes Assessment/Plan: -will trial home regimen -patient says takes novolog 10 units bid and lantus 20 units at night -will see if this help controls Code(s): E11.9 - TYPE 2 DIABETES MELLITUS WITHOUT COMPLICATIONS (3) Hyperlipemia Assessment/Plan: -continue lipitor Code(s): E78.5 - HYPERLIPIDEMIA, UNSPECIFIED (4) Hypertension Assessment/Plan: -continue cozaar -adjust as needed Code(s): I10 - ESSENTIAL (PRIMARY) HYPERTENSION (5) CAD (coronary artery disease) Assessment/Plan: -quiescent -continue home regimen Code(s): I25.10 - ATHSCL HEART DISEASE OF [place] CORONARY ARTERY W/O ANG PCTRS (6) Anemia Assessment/Plan: -continue iron supplementation Code(s): D64.9 - ANEMIA, UNSPECIFIED (7) Chest pain -atypical -EKG NSR -troponins negative Dispo -discharge planning when antibiotic dose set, will need PICC line
--- NOTE | 2018-11-03 13:34 | PN ---
Progress Note (short form) - Note Progress Note: no complaints Vital Signs Period Temp Pulse Resp BP Sys/Hernandez Pulse Ox Last 24 Hr 97.8 F-99.5 F 65-100 18-20 118-150/69-85 98 toe examined pus can be expressed from the nail bed and the callus at the back of the toe CBC, BMP 11/03/18 06:30 11/03/18 06:30 Microbiology 10/31/18 17:40 Abscess Gram Stain - Final 10/31/18 17:40 Abscess Wound Culture - Final Staphylococcus [place]ensis 10/30/18 01:11 Blood - Peripheral Venous Blood Culture - Preliminary NO GROWTH OBTAINED AFTER 96 HOURS, INCUBATION TO CONTINUE FOR 1 DAYS. 10/30/18 01:11 Blood - Peripheral Venous Blood Culture - Preliminary NO GROWTH OBTAINED AFTER 96 HOURS, INCUBATION TO CONTINUE FOR 1 DAYS. vannco trough 13.8 a/p osteomyelitis of the big toe with abscess podiatry f/u for further drainage repeat culture sent resume vancomycin at qday dosing continue zosyn for now ?infected screw diabetes rising creatinine-repeat in am
[2018-11-03] MEDS: VANCOMYCIN 1,250 MG in DEXTROSE 5%-WATER - 250 ML IVPB SCH (16:03)
[2018-11-03] MEDS: INSULIN (NOVOLOG) ASPART 100 UNITS/ML 10ML VIAL SQ SCH (17:45)
[2018-11-03] MEDS: ATORVASTATIN CA 10 MG TABLET (FP) PO SCH (22:24)
--- NOTE | 2018-11-03 22:24 | CON.CARD ---
Consult Consult Specialty:: Cardiology - History of Present Illness History of Present Illness: Patient is a 48F with history of IDDM, HTN, CAD here today complaining of two days of pain to her left great toe. Patient endorses associated fever. Patient denies trauma to the toe. Denies chest pain, shortness of breath, nausea, vomiting. Endorses pain in her leg radiating to mid oneil. Endorses compliance with insulin. Patient states that she was being worked up for vascular issues in this leg. [facility] Cardiac cath 02/02/2016 Left Main 30% LAD proximal 40&, mid 40%, distal 30% LCx mid 40% RCA mid 50% CUSTOM BOOKBINDER right SHYLA 02/02/16 CUSTOM BOOKBINDER Zilver stents left SFA 04/01/16 LE angiography 05/01/17 Chronic bronchitis Diabetes mellitus, type II 1995 Hyperlipidemia 1995 Hypertension 1995 PAD CUSTOM BOOKBINDER of right SHYLA February 02, 2016 Dr. Schmidt Balloon angioplasty of right SHYLA and stent of left SFA. March 22, 2016 Dr. Schmidt. - Past Medical History Cardio/Vascular: Yes: CAD, Other (s/p stent) ...LMP: 04/19/15 Endocrine: Yes: Diabetes Mellitus - Alcohol/Substance Use Hx Alcohol Use: No - Smoking History Smoking history: Former smoker Have you smoked in the past 12 months: Yes Aproximately how many cigarettes per day: 5 If you are a former smoker, when did you quit?: 2018 Home Medications - Allergies Allergies/Adverse Reactions: Allergies Allergy/AdvReac Type Severity Reaction Status Date / Time No Known Allergies Allergy Verified 10/29/18 22:24 - Home Medications Home Medications: Ambulatory Orders Atorvastatin Calcium [Lipitor] 10 mg PO HS 04/12/13 Losartan Potassium [Cozaar] 25 mg PO DAILY 07/18/15 Clopidogrel Bisulfate [Plavix -] 75 mg PO DAILY 01/28/16 Aspirin [ASA -] 81 mg PO DAILY 10/30/18 Ferrous Sulfate [Iron] 325 mg PO DAILY 10/30/18 Insulin (Novolog) [Novolog -] 10 units SQ BID@0700,1630 #2 units 11/05/18 Insulin Glargine,Hum.rec.anlog [Lantus] 20 unit SQ HS #3 vial 11/05/18 Neomy Sulf/Bacitrac Zn/Poly [Neosporin Top Ointment -] 1 applic TP DAILY #1 applic 11/05/18 Family Disease History - Family Disease History Family Disease History: Diabetes: Mother, Heart Disease: Mother Review of Systems - Review of Systems Constitutional: reports: No Symptoms Eyes: reports: No Symptoms HENT: reports: No Symptoms Neck: reports: No Symptoms Cardiovascular: reports: No Symptoms Gastrointestinal: reports: No Symptoms Genitourinary: reports: No Symptoms Breasts: reports: No Symptoms Reported Musculoskeletal: reports: No Symptoms Integumentary: reports: No Symptoms Neurological: reports: No Symptoms Endocrine: reports: No Symptoms Hematology/Lymphatic: reports: No Symptoms Psychiatric: reports: No Symptoms Vital Signs: Vital Signs Temperature 98.1 F 11/03/18 22:00 Pulse Rate 74 11/03/18 22:00 Respiratory Rate 18 11/03/18 22:00 Blood Pressure 134/61 11/03/18 22:00 O2 Sat by Pulse Oximetry (%) 98 11/03/18 09:00 - Other Data Labs, Other Data: CBC, BMP 11/03/18 06:30 11/03/18 06:30 INR, PTT INR 0.97 (0.83-1.09) 10/30/18 01:11 Imaging - Results Chest X-ray: Image Reviewed (clavicular fx) EKG: Image Reviewed (sr wnl) Problem List - Problems (1) Anemia Code(s): D64.9 - ANEMIA, UNSPECIFIED (2) CAD (coronary artery disease) Code(s): I25.10 - ATHSCL HEART DISEASE OF [place] CORONARY ARTERY W/O ANG PCTRS (3) Cellulitis in diabetic foot Code(s): E11.628 - TYPE 2 DIABETES MELLITUS WITH OTHER SKIN COMPLICATIONS; L03.119 - CELLULITIS OF UNSPECIFIED PART OF LIMB (4) Abscess of buttock, right Code(s): L02.31 - CUTANEOUS ABSCESS OF BUTTOCK (5) Acute infective pharyngitis Code(s): J02.9 - ACUTE PHARYNGITIS, UNSPECIFIED (6) Allergic pharyngitis Code(s): J02.9 - ACUTE PHARYNGITIS, UNSPECIFIED (7) Bronchitis Code(s): J40 - BRONCHITIS, NOT SPECIFIED ACUTE OR CHRONIC (8) COPD exacerbation Code(s): J44.1 - CHRONIC OBSTRUCTIVE PULMONARY DISEASE W (ACUTE) EXACERBATION (9) DKA (diabetic ketoacidoses) Code(s): E13.10 - OTH DIABETES MELLITUS WITH KETOACIDOSIS WITHOUT COMA (10) Fracture Code(s): T14.8XXA - OTHER INJURY OF UNSPECIFIED BODY REGION, INITIAL ENCOUNTER (11) Hip pain, left Code(s): M25.552 - PAIN IN LEFT HIP (12) Hyperglycemia Code(s): R73.9 - HYPERGLYCEMIA, UNSPECIFIED (13) Hyperkalemia Code(s): E87.5 - HYPERKALEMIA (14) Leiomyoma of uterus Code(s): D25.9 - LEIOMYOMA OF UTERUS, UNSPECIFIED Qualifiers: Uterine leiomyoma location: unspecified location Qualified Code(s): D25.9 - Leiomyoma of uterus, unspecified (15) Lymphadenopathy Code(s): R59.1 - GENERALIZED ENLARGED LYMPH NODES (16) Mediastinal mass Code(s): J98.59 - OTHER DISEASES OF MEDIASTINUM, NOT ELSEWHERE CLASSIFIED (17) Ovarian cyst, left Code(s): N83.20 - UNSPECIFIED OVARIAN CYSTS * DO NOT USE * (18) Right wrist pain Code(s): M25.531 - PAIN IN RIGHT WRIST (19) Uncontrolled type 2 DM with hyperosmolar nonketotic hyperglycemia Code(s): E11.00 - TYPE 2 DIAB W HYPROSM W/O NONKET HYPRGLY-HYPROS COMA ([facility]) (20) Viral upper respiratory tract infection with cough Code(s): J06.9 - ACUTE UPPER RESPIRATORY INFECTION, UNSPECIFIED; B97.89 - OTH VIRAL AGENTS THE CAUSE OF DISEASES CLASSD ELSWHR (21) Wound check, abscess Code(s): Z51.89 - ENCOUNTER FOR OTHER SPECIFIED AFTERCARE (22) Wrist fracture Code(s): S62.109A - FRACTURE OF UNSP CARPAL BONE, UNSP WRIST, INIT FOR CLOS FX Qualifiers: Encounter type: initial encounter Fracture type: closed Laterality: right Qualified Code(s): S62.101A - Fracture of unspecified carpal bone, right wrist, initial encounter for closed fracture (23) Diabetes Code(s): E11.9 - TYPE 2 DIABETES MELLITUS WITHOUT COMPLICATIONS (24) Hyperlipemia Code(s): E78.5 - HYPERLIPIDEMIA, UNSPECIFIED (25) Hypertension Code(s): I10 - ESSENTIAL (PRIMARY) HYPERTENSION Assessment/Plan Cardiac cath 02/02/2016 Left Main 30% LAD proximal 40&, mid 40%, distal 30% LCx mid 40% RCA mid 50% CUSTOM BOOKBINDER right SHYLA 02/02/16 CUSTOM BOOKBINDER Zilver stents left SFA 04/01/16 LE angiography 05/01/17 Chronic bronchitis Diabetes mellitus, type II 1995 Hyperlipidemia 1995 Hypertension 1995 PAD CUSTOM BOOKBINDER of right SHYLA February 02, 2016 Dr. Schmidt Balloon angioplasty of right SHYLA and stent of left SFA. March 22, 2016 Dr. Schmidt. osteomyelitis of the big toe with abscess podiatry f/u for further drainage repeat culture sent resume vancomycin at qday dosing continue zosyn for now - Problems (1) CAD (coronary artery disease) Assessment/Plan: On ASA and clopidogrel. Continue atorvastatin; lipid panel noted. Code(s): I25.10 - ATHSCL HEART DISEASE OF [place] CORONARY ARTERY W/O ANG PCTRS (2) Cellulitis in diabetic foot Assessment/Plan: Continue antibiotic. Wound care. Pt for f/u, as outpatient, with vascular interventionalist (Dr. Orr) for planned LLE angioplasty. Discussed plan with Dr. Morales and pt. She will see him as outpatient next week. Code(s): E11.628 - TYPE 2 DIABETES MELLITUS WITH OTHER SKIN COMPLICATIONS; L03.119 - CELLULITIS OF UNSPECIFIED PART OF LIMB (3) Hip pain, left Code(s): M25.552 - PAIN IN LEFT HIP (4) Diabetes Assessment/Plan: Given LE vascular issues, pt is likely not a good candidate for SGLPT2 inhibitor. On losartan (HTN; DM--renal protection). Discussion was had on the importance of medications, diet modification/weight loss, and increase in exercise in controlling DM/HTN/CAD and lowering risk of future cardiac events. Code(s): E11.9 - TYPE 2 DIABETES MELLITUS WITHOUT COMPLICATIONS
[2018-11-04] MEDS ORDERED: PT OWN MED DRAWER 7, Y5N ONE (00:51)
[2018-11-04] MEDS ORDERED: PIPERACILLIN/TAZOBACTAM 3.375 GM VIAL IVPB ONE ×3 (00:52→17:29)
[2018-11-04] MEDS ORDERED: DEXTROSE 5%-WATER - 50 ML IVPB ONE ×3 (00:52→17:29)
[2018-11-04] MEDS: PIPERACILLIN/TAZOB 3.375 GM 3.375 GM in DEXTROSE 5%-WATER - 50 ML IVPB SCH ×3 (02:45→17:42)
[2018-11-04] MEDS: INSULIN SLIDING SCALE (NOVOLOG) 1 VIAL SQ SCH ×4 (06:40→22:12)
[2018-11-04] MEDS: HEPARIN NA (PORCINE) 5,000 UNITS/ML 1ML VIAL SQ SCH ×3 (06:41→22:12)
[2018-11-04] MEDS ORDERED: INSULIN (NOVOLOG) ASPART 100 UNITS/ML 10ML VIAL ONE ×2 (06:45→07:45)
[2018-11-04 08:02] LABS: BASO % 1.2 % (0-2.0); EOS % 4.2 % (0-4.5); HEMATOCRIT 31.8 % (32.4-45.2); HEMOGLOBIN 10.7 GM/dL (10.7-15.3); LYMPH % 34.9 % (8-40); MCH 28.6 pg (25.7-33.7); MCHC 33.7 g/dl (32.0-36.0); MEAN CELL VOLUME 84.9 fl (80-96); MEAN PLT VOLUME 7.5 fl (7.5-11.1); NEUT % 48.7 % (42.8-82.8); PLATELET COUNT 210 K/MM3 (134-434); RBC 3.75 M/mm3 (3.60-5.2); RDW 14.5 % (11.6-15.6); WHITE BLOOD COUNT 3.7 K/mm3 (4.0-10.0)
[2018-11-04 08:20] LABS: ANION GAP 8 MMOL/L (8-16); BLOOD UREA NITROGEN 27 mg/dL (7-18); CALCIUM 9.1 mg/dL (8.5-10.1); CHLORIDE 108 mmol/L (98-107); CO2 25 mmol/L (21-32); GLUCOSE,RANDOM 95 mg/dL (74-106); MAGNESIUM 2.4 mg/dL (1.8-2.4); PHOSPHOROUS 4.5 mg/dL (2.5-4.9); POTASSIUM 4.5 mmol/L (3.5-5.1); SODIUM 141 mmol/L (136-145)
[2018-11-04] MEDS: INSULIN (NOVOLOG) ASPART 100 UNITS/ML 10ML VIAL SQ SCH ×2 (08:26→17:44)
[2018-11-04] MEDS: ACETAMINOPHEN 325 MG TABLET (FP) PO PRN ×2 (09:13→22:24)
[2018-11-04] MEDS: LOSARTAN POTASSIUM 25 MG TABLET PO SCH (09:13)
[2018-11-04] MEDS: ASPIRIN 81 MG CHEWABLE TABLETS PO SCH (09:13)
[2018-11-04] MEDS: CLOPIDOGREL BISULFATE 75 MG TABLET (FP) PO SCH (09:13)
[2018-11-04] MEDS: FERROUS SO4 325 MG TABLET (FP) PO SCH (09:13)
[2018-11-04] MEDS: VANCOMYCIN 1,250 MG in DEXTROSE 5%-WATER - 250 ML IVPB SCH (14:16)
--- NOTE | 2018-11-04 15:25 | PN ---
Physical Exam: SUBJECTIVE: Patient seen and examined by me at bedside. No acute overnight events noted Patient offers no complaints Patient denies any fever, chills, nausea, vomiting, abdominal pain, chest pain, shortness of breath, dysuria, hematuria. OBJECTIVE: Vital Signs Period Temp Pulse Resp BP Sys/Hernandez Pulse Ox Last 24 Hr 97.9 F-98.1 F 66-74 18-18 118-143/56-77 98-98 GENERAL: The patient is awake, alert, and fully oriented, in no acute distress. EYES: Sclera anicteric, conjunctiva clear. No ptosis. ENT: Moist mucous membranes. LUNGS: Breath sounds equal, clear to auscultation bilaterally, no wheezes, no crackles, no accessory muscle use. HEART: Regular rate and rhythm, S1, S2 without murmur, rub or gallop. ABDOMEN: Soft, nontender, nondistended, normoactive bowel sounds. EXTREMITIES: Left Toe: (+) Erythema and swelling with no drainage today extending to the mid foot. DP and PT pulses intact Laboratory Results - last 24 hr 11/03/18 11/03/18 11/04/18 17:44 22:23 06:35 WBC 3.7 L RBC 3.75 Hgb 10.7 Hct 31.8 L MCV 84.9 MCH 28.6 MCHC 33.7 RDW 14.5 Plt Count 210 MPV 7.5 Absolute Neuts (auto) 1.8 Neutrophils % 48.7 D Lymphocytes % 34.9 D Monocytes % 11.0 H Eosinophils % 4.2 Basophils % 1.2 Nucleated RBC % 0 Sodium Potassium Chloride Carbon Dioxide Anion Gap BUN Creatinine Creat Clearance w eGFR POC Glucometer 395 206 Random Glucose Calcium Phosphorus Magnesium 11/04/18 11/04/18 11/04/18 06:35 06:39 11:07 WBC RBC Hgb Hct MCV MCH MCHC RDW Plt Count MPV Absolute Neuts (auto) Neutrophils % Lymphocytes % Monocytes % Eosinophils % Basophils % Nucleated RBC % Sodium 141 Potassium 4.5 Chloride 108 H Carbon Dioxide 25 Anion Gap 8 BUN 27 H Creatinine 1.0 Creat Clearance w eGFR 58.69 POC Glucometer 106 130 Random Glucose 95 Calcium 9.1 Phosphorus 4.5 Magnesium 2.4 Active Medications Generic Name Dose Route Start Last Admin Trade Name Freq PRN Reason Stop Dose Admin Acetaminophen 650 mg 10/30/18 05:41 11/04/18 09:13 Tylenol - PO 650 mg Q4H PRN Administration PAIN OR FEVER Aspirin 81 mg 10/30/18 10:00 11/04/18 09:13 Asa - PO 81 mg DAILY [facility] Administration Atorvastatin Calcium 10 mg 10/30/18 22:00 11/03/18 22:24 Lipitor - PO 10 mg HS [facility] Administration Clopidogrel Bisulfate 75 mg 10/30/18 10:00 11/04/18 09:13 Plavix - PO 75 mg DAILY [facility] Administration Ferrous Sulfate 325 mg 10/30/18 10:00 11/04/18 09:13 Feosol - PO 325 mg DAILY [facility] Administration Heparin Sodium (Porcine) 5,000 unit 10/30/18 06:15 11/04/18 14:16 Heparin - SQ 5,000 unit TID [facility] Administration Piperacillin Sod/Tazobactam 50 mls @ 100 mls/hr 10/30/18 14:45 11/04/18 09:13 Sod 3.375 gm/ Dextrose IVPB 100 mls/hr Q8H-IV [facility] Administration Protocol Vancomycin HCl 1,250 mg/ 250 mls @ 250 mls/2 hr 11/03/18 13:45 11/04/18 14:16 Dextrose IVPB 250 mls/2 hr Q24H [facility] Administration Protocol Insulin Aspart 1 vial 10/30/18 07:00 11/04/18 12:00 Novolog Vial Sliding Scale - SQ Not Given ACHS [facility] Protocol Insulin Aspart 10 units 11/03/18 16:30 11/04/18 08:26 Novolog Vial SQ 10 units BID@0700,1630 [facility] Administration Insulin Detemir 20 units 11/03/18 12:51 11/03/18 22:24 Levemir Vial SQ 20 units HS [facility] Administration Losartan Potassium 25 mg 10/30/18 10:00 11/04/18 09:13 Cozaar - PO 25 mg DAILY [facility] Administration ASSESSMENT/PLAN: Patient is a 48 year old female who presented for left toe pain and was found to have sepsis secondary to diabetic foot ulcer. Patient admitted for further monitoring and management. #Sepsis Secondary to Cellulitis/Ulcer in Diabetic Foot with Osteomyelitis -Patient is s/p drainage. -Continue IV antibiotics with Vancomycin and Zosyn (Day #5) for total of 4-6 weeks. -Will need PICC line once discharged to continue IV abx -Repeat wound cultures pending -Awaiting ID recommendations #Uncontrolled IDDMII -Patient noncompliant with home medications -Continue Levemir 20 units at night -Continue Novolog -BGM/ISS -Will need outpatient follow up with [employer] #HLD -Continue Lipitor 10mg HS #HTN -Controlled -Continue Cozaar 25mg daily -Continue to monitor BP #CAD -Continue Plavix and ASA #Iron Def. Anemia -Continue Ferrous Sulfate 325mg daily #F/E/N -No IV fluids -Electrolytes wnl -Sodium/Diabetic controlled diet #Prophylaxis -Heparin SQ TID for DVT -No GI required #Disposition -Full code -Will need PICC line once final recommendations by ID given for duration of IV Abx Betty Khan [id number] Visit type - Emergency Visit Emergency Visit: Yes ED Registration Date: 10/30/18 Care time: The patient presented to the Emergency Department on the above date and was hospitalized for further evaluation of their emergent condition. - New Patient This patient is new to me today: Yes Date on this admission: 11/04/18 - Critical Care Critical Care patient: No
--- NOTE | 2018-11-04 16:20 | PN ---
Teaching Attending Note Name of Resident: Betty Khan ATTENDING PHYSICIAN STATEMENT I saw and evaluated the patient. I reviewed the resident's note and discussed the case with the resident. I agree with the resident's findings and plan as documented. SUBJECTIVE: Ms Duvall says her foot hurts a little today but otherwise is without complaint. No cp, sob, n/v. OBJECTIVE: Last Vital Signs Temp Pulse Resp BP Pulse Ox 36.7 C 68 18 118/56 L 98 11/04/18 14:59 11/04/18 14:59 11/04/18 14:59 11/04/18 14:59 11/04/18 09:00 Gen: nad Pulm: ctab w/o w/r/r CV: rrr w/o m/r/g Abd: +bs, s/nt/nd Ext: LLE wrapped CBC, BMP 11/04/18 06:35 11/04/18 06:35 ASSESSMENT AND PLAN: (1) Cellulitis in diabetic foot with osteomyelitis Assessment/Plan: -s/p drainage -case d/w ID -final cultures resulted -recheck bmp tomorrow, if creatinine stable place PICC line for home antibiotics -will need 4-6 weeks Code(s): E11.628 - TYPE 2 DIABETES MELLITUS WITH OTHER SKIN COMPLICATIONS; L03.119 - CELLULITIS OF UNSPECIFIED PART OF LIMB (2) Diabetes Assessment/Plan: -improved on home regimen -novolog 10 units bid and lantus 20 units at night Code(s): E11.9 - TYPE 2 DIABETES MELLITUS WITHOUT COMPLICATIONS (3) Hyperlipemia Assessment/Plan: -continue lipitor Code(s): E78.5 - HYPERLIPIDEMIA, UNSPECIFIED (4) Hypertension Assessment/Plan: -continue cozaar -adjust as needed Code(s): I10 - ESSENTIAL (PRIMARY) HYPERTENSION (5) CAD (coronary artery disease) Assessment/Plan: -quiescent -continue home regimen Code(s): I25.10 - ATHSCL HEART DISEASE OF [place] CORONARY ARTERY W/O ANG PCTRS (6) Anemia Assessment/Plan: -continue iron supplementation Code(s): D64.9 - ANEMIA, UNSPECIFIED (7) Chest pain -atypical -EKG NSR -troponins negative Dispo -plan for d/c tomorrow Problem List - Problems (1) Cellulitis in diabetic foot Code(s): E11.628 - TYPE 2 DIABETES MELLITUS WITH OTHER SKIN COMPLICATIONS; L03.119 - CELLULITIS OF UNSPECIFIED PART OF LIMB (2) Diabetes Code(s): E11.9 - TYPE 2 DIABETES MELLITUS WITHOUT COMPLICATIONS (3) Hyperlipemia Code(s): E78.5 - HYPERLIPIDEMIA, UNSPECIFIED (4) Hypertension Code(s): I10 - ESSENTIAL (PRIMARY) HYPERTENSION (5) CAD (coronary artery disease) Code(s): I25.10 - ATHSCL HEART DISEASE OF [place] CORONARY ARTERY W/O ANG PCTRS (6) Anemia Code(s): D64.9 - ANEMIA, UNSPECIFIED
--- NOTE | 2018-11-04 18:42 | PN ---
Progress Note, Physician Chief Complaint: cardiology History of Present Illness: Patient is a 48 black woman with history of IDDM, HTN, CAD, here today complaining of two days of pain to her left great toe. Patient endorses associated fever. Patient denies trauma to the toe. Denies chest pain, shortness of breath, nausea, vomiting. Endorses pain in her leg radiating to mid oneil. Endorses compliance with insulin. Patient states that she was being worked up for vascular issues in this leg. - Current Medication List Current Medications: Active Medications Acetaminophen (Tylenol -) 650 mg PO Q4H PRN PRN Reason: PAIN OR FEVER Last Admin: 11/04/18 09:13 Dose: 650 mg Aspirin (Asa -) 81 mg PO DAILY [facility] Last Admin: 11/04/18 09:13 Dose: 81 mg Atorvastatin Calcium (Lipitor -) 10 mg PO HS [facility] Last Admin: 11/03/18 22:24 Dose: 10 mg Clopidogrel Bisulfate (Plavix -) 75 mg PO DAILY [facility] Last Admin: 11/04/18 09:13 Dose: 75 mg Ferrous Sulfate (Feosol -) 325 mg PO DAILY [facility] Last Admin: 11/04/18 09:13 Dose: 325 mg Heparin Sodium (Porcine) (Heparin -) 5,000 unit SQ TID [facility] Last Admin: 11/04/18 14:16 Dose: 5,000 unit Vancomycin HCl 1,250 mg/ (Dextrose) 250 mls @ 250 mls/2 hr IVPB Q24H [facility]; Protocol Last Admin: 11/04/18 14:16 Dose: 250 mls/2 hr Insulin Aspart (Novolog Vial Sliding Scale -) 1 vial SQ ACHS [facility]; Protocol Last Admin: 11/04/18 17:43 Dose: 10 unit Insulin Aspart (Novolog Vial) 10 units SQ BID@0700,1630 [facility] Last Admin: 11/04/18 17:44 Dose: 10 units Insulin Detemir (Levemir Vial) 20 units SQ HS [facility] Last Admin: 11/03/18 22:24 Dose: 20 units Losartan Potassium (Cozaar -) 25 mg PO DAILY [facility] Last Admin: 11/04/18 09:13 Dose: 25 mg - Objective Vital Signs: Vital Signs Temperature 98.0 F 11/04/18 14:59 Pulse Rate 68 11/04/18 14:59 Respiratory Rate 18 11/04/18 14:59 Blood Pressure 118/56 L 11/04/18 14:59 O2 Sat by Pulse Oximetry (%) 98 11/04/18 09:00 Constitutional: Yes: Calm, Obese Eyes: Yes: WNL HENT: Yes: WNL Neck: Yes: WNL Cardiovascular: Yes: WNL, S1, S2 Respiratory: Yes: WNL Gastrointestinal: Yes: Soft ...Rectal Exam: Yes: Deferred Genitourinary: No: Anuria Breast(s): Yes: WNL Musculoskeletal: Yes: Joint Stiffness Extremities: Yes: Other (left LE toe pain) Edema: No Peripheral Pulses WNL: No Peripheral Pulses: Left Doralis Pedis: 1+, Right Dorsalis Pedis: 1+ Integumentary: Yes: Erythema Neurological: Yes: WNL Psychiatric: Yes: WNL Labs: CBC, BMP 11/04/18 06:35 11/04/18 06:35 INR, PTT INR 0.97 (0.83-1.09) 10/30/18 01:11 Abnormal Lab Results 11/04/18 11/04/18 06:35 06:35 WBC 3.7 L Hct 31.8 L Monocytes % 11.0 H Chloride 108 H BUN 27 H - ....Imaging EKG: Image Reviewed Problem List - Problems (1) CAD (coronary artery disease) Assessment/Plan: On ASA and clopidogrel. Continue atorvastatin; lipid panel noted. Code(s): I25.10 - ATHSCL HEART DISEASE OF [place] CORONARY ARTERY W/O ANG PCTRS (2) Cellulitis in diabetic foot Assessment/Plan: Continue antibiotic. Wound care. Pt for f/u, as outpatient, with vascular interventionalist (Dr. Orr) for planned LLE angioplasty. Discussed plan with Dr. Morales and pt. She will see him as outpatient next week. Code(s): E11.628 - TYPE 2 DIABETES MELLITUS WITH OTHER SKIN COMPLICATIONS; L03.119 - CELLULITIS OF UNSPECIFIED PART OF LIMB (3) Hip pain, left Code(s): M25.552 - PAIN IN LEFT HIP (4) Diabetes Assessment/Plan: Given LE vascular issues, pt is likely not a good candidate for SGLPT2 inhibitor. On losartan (HTN; DM--renal protection). Discussion was had on the importance of medications, diet modification/weight loss, and increase in exercise in controlling DM/HTN/CAD and lowering risk of future cardiac events. Code(s): E11.9 - TYPE 2 DIABETES MELLITUS WITHOUT COMPLICATIONS
--- NOTE | 2018-11-04 21:07 | PN ---
Progress Note, Physician History of Present Illness: No c/o foot pain Tolerating antibiotics - Current Medication List Current Medications: Active Medications Acetaminophen (Tylenol -) 650 mg PO Q4H PRN PRN Reason: PAIN OR FEVER Last Admin: 11/04/18 09:13 Dose: 650 mg Aspirin (Asa -) 81 mg PO DAILY [facility] Last Admin: 11/04/18 09:13 Dose: 81 mg Atorvastatin Calcium (Lipitor -) 10 mg PO HS [facility] Last Admin: 11/03/18 22:24 Dose: 10 mg Clopidogrel Bisulfate (Plavix -) 75 mg PO DAILY [facility] Last Admin: 11/04/18 09:13 Dose: 75 mg Ferrous Sulfate (Feosol -) 325 mg PO DAILY [facility] Last Admin: 11/04/18 09:13 Dose: 325 mg Heparin Sodium (Porcine) (Heparin -) 5,000 unit SQ TID [facility] Last Admin: 11/04/18 14:16 Dose: 5,000 unit Vancomycin HCl 1,250 mg/ (Dextrose) 250 mls @ 250 mls/2 hr IVPB Q24H [facility]; Protocol Last Admin: 11/04/18 14:16 Dose: 250 mls/2 hr Insulin Aspart (Novolog Vial Sliding Scale -) 1 vial SQ ACHS [facility]; Protocol Last Admin: 11/04/18 17:43 Dose: 10 unit Insulin Aspart (Novolog Vial) 10 units SQ BID@0700,1630 [facility] Last Admin: 11/04/18 17:44 Dose: 10 units Insulin Detemir (Levemir Vial) 20 units SQ HS [facility] Last Admin: 11/03/18 22:24 Dose: 20 units Losartan Potassium (Cozaar -) 25 mg PO DAILY [facility] Last Admin: 11/04/18 09:13 Dose: 25 mg - Objective Vital Signs: Vital Signs Temperature 98.0 F 11/04/18 14:59 Pulse Rate 68 11/04/18 14:59 Respiratory Rate 18 11/04/18 14:59 Blood Pressure 118/56 L 11/04/18 14:59 O2 Sat by Pulse Oximetry (%) 98 11/04/18 09:00 Constitutional: Yes: No Distress Eyes: Yes: Conjunctiva Clear Cardiovascular: Yes: Regular Rate and Rhythm, S1, S2 Respiratory: Yes: CTA Bilaterally Gastrointestinal: Yes: Normal Bowel Sounds Extremities: Yes: Other (decreased great toe swelling. Erythema resolved) Labs: CBC, BMP 11/04/18 06:35 11/04/18 06:35 INR, PTT INR 0.97 (0.83-1.09) 10/30/18 01:11 Assessment/Plan Cellulitis/ osteomyelitis great toe Soft tissue abscess s/p drainage ? infected orthopedic scre Continue vancomycin. D/C zosyn
[2018-11-04] MEDS: ATORVASTATIN CA 10 MG TABLET (FP) PO SCH (22:11)
[2018-11-04] MEDS: INSULIN (LEVEMIR) 100 UNITS/ML UNITS SQ SCH (22:11)
[2018-11-05] MEDS: INSULIN (NOVOLOG) ASPART 100 UNITS/ML 10ML VIAL SQ SCH ×2 (07:08→16:18)
[2018-11-05] MEDS: INSULIN SLIDING SCALE (NOVOLOG) 1 VIAL SQ SCH ×3 (07:09→16:02)
[2018-11-05] MEDS: HEPARIN NA (PORCINE) 5,000 UNITS/ML 1ML VIAL SQ SCH ×2 (07:09→14:47)
[2018-11-05] MEDS ORDERED: INSULIN (NOVOLOG) ASPART 100 UNITS/ML 10ML VIAL ONE (07:15)
[2018-11-05 07:28] LABS: BASO % 1.4 % (0-2.0); EOS % 3.9 % (0-4.5); HEMATOCRIT 31.8 % (32.4-45.2); HEMOGLOBIN 10.4 GM/dL (10.7-15.3); LYMPH % 37.6 % (8-40); MCH 28.3 pg (25.7-33.7); MCHC 32.7 g/dl (32.0-36.0); MEAN CELL VOLUME 86.5 fl (80-96); MEAN PLT VOLUME 7.4 fl (7.5-11.1); MONO % 9.9 % (3.8-10.2); NEUT % 47.2 % (42.8-82.8); PLATELET COUNT 195 K/MM3 (134-434); RBC 3.68 M/mm3 (3.60-5.2); RDW 14.3 % (11.6-15.6); WHITE BLOOD COUNT 4.2 K/mm3 (4.0-10.0)
[2018-11-05 08:01] LABS: ANION GAP 6 MMOL/L (8-16); BLOOD UREA NITROGEN 27 mg/dL (7-18); CALCIUM 9.4 mg/dL (8.5-10.1); CHLORIDE 108 mmol/L (98-107); CO2 26 mmol/L (21-32); CREATININE 1.1 mg/dL (0.55-1.3); GLUCOSE,RANDOM 178 mg/dL (74-106); MAGNESIUM 2.4 mg/dL (1.8-2.4); PHOSPHOROUS 4.1 mg/dL (2.5-4.9); POTASSIUM 4.6 mmol/L (3.5-5.1); SODIUM 140 mmol/L (136-145)
[2018-11-05] MEDS: FERROUS SO4 325 MG TABLET (FP) PO SCH (09:13)
[2018-11-05] MEDS: LOSARTAN POTASSIUM 25 MG TABLET PO SCH (09:13)
[2018-11-05] MEDS: ACETAMINOPHEN 325 MG TABLET (FP) PO PRN (09:13)
[2018-11-05] MEDS ORDERED: NEOMYCIN/POLYMYXIN/BACITRACIN (TRIPLE ANTIBIOTIC) 28 GM OINTMENT TP SCH (10:45)
--- NOTE | 2018-11-05 11:31 | PN ---
Progress Note, Physician History of Present Illness: Patient is a 48F with history of IDDM, HTN, CAD here today complaining of two days of pain to her left great toe. Patient endorses associated fever. Patient denies trauma to the toe. Denies chest pain, shortness of breath, nausea, vomiting. Endorses pain in her leg radiating to mid oneil. Endorses compliance with insulin. Patient states that she was being worked up for vascular issues in this leg. [facility] [place] Cardiac cath 02/02/2016 Left Main 30% LAD proximal 40&, mid 40%, distal 30% LCx mid 40% RCA mid 50% JIG INSPECTOR right SHYLA 02/02/16 JIG INSPECTOR Zilver stents left SFA 04/01/16 LE angiography 05/01/17 Chronic bronchitis Diabetes mellitus, type II 1995 Hyperlipidemia 1995 Hypertension 1995 PAD JIG INSPECTOR of right SHYLA February 02, 2016 Dr. Schmidt Balloon angioplasty of right SHYLA and stent of left SFA. March 22, 2016 Dr. Schmidt. - Current Medication List Current Medications: Active Medications Acetaminophen (Tylenol -) 650 mg PO Q4H PRN PRN Reason: PAIN OR FEVER Last Admin: 11/05/18 09:13 Dose: 650 mg Aspirin (Asa -) 81 mg PO DAILY [facility] Last Admin: 11/04/18 09:13 Dose: 81 mg Atorvastatin Calcium (Lipitor -) 10 mg PO HS [facility] Last Admin: 11/04/18 22:11 Dose: 10 mg Clopidogrel Bisulfate (Plavix -) 75 mg PO DAILY [facility] Last Admin: 11/04/18 09:13 Dose: 75 mg Ferrous Sulfate (Feosol -) 325 mg PO DAILY [facility] Last Admin: 11/05/18 09:13 Dose: 325 mg Heparin Sodium (Porcine) (Heparin -) 5,000 unit SQ TID [facility] Last Admin: 11/05/18 07:09 Dose: 5,000 unit Vancomycin HCl 1,250 mg/ (Dextrose) 250 mls @ 250 mls/2 hr IVPB Q24H [facility]; Protocol Last Admin: 11/04/18 14:16 Dose: 250 mls/2 hr Insulin Aspart (Novolog Vial Sliding Scale -) 1 vial SQ ACHS [facility]; Protocol Last Admin: 11/05/18 07:09 Dose: 2 unit Insulin Aspart (Novolog Vial) 10 units SQ BID@0700,1630 [facility] Last Admin: 11/05/18 07:08 Dose: 10 units Insulin Detemir (Levemir Vial) 20 units SQ HS [facility] Last Admin: 11/04/18 22:11 Dose: 20 units Losartan Potassium (Cozaar -) 25 mg PO DAILY [facility] Last Admin: 11/05/18 09:13 Dose: 25 mg Neomycin/Polymyxin/Bacitracin (Neosporin Topical Ointment -) 1 applic TP DAILY [facility] - Objective Vital Signs: Vital Signs Temperature 98.2 F 11/05/18 09:19 Pulse Rate 84 11/05/18 09:19 Respiratory Rate 18 11/05/18 09:19 Blood Pressure 134/73 11/05/18 09:19 O2 Sat by Pulse Oximetry (%) 100 11/05/18 09:24 Eyes: Yes: WNL, Conjunctiva Clear, EOM Intact HENT: Yes: WNL, Atraumatic, Normocephalic Neck: Yes: WNL, Supple, Trachea Midline Cardiovascular: Yes: WNL, Regular Rate and Rhythm Respiratory: Yes: WNL, Regular, CTA Bilaterally Gastrointestinal: Yes: WNL, Normal Bowel Sounds Genitourinary: Yes: WNL Musculoskeletal: Yes: WNL Extremities: Yes: Other (surgical dressin llext) Edema: No Integumentary: Yes: WNL Neurological: Yes: WNL, Alert, Oriented ...Motor Strength: WNL Psychiatric: Yes: WNL Labs: CBC, BMP 11/05/18 06:00 11/05/18 06:00 INR, PTT INR 0.97 (0.83-1.09) 10/30/18 01:11 Problem List - Problems (1) Anemia Code(s): D64.9 - ANEMIA, UNSPECIFIED (2) CAD (coronary artery disease) Code(s): I25.10 - ATHSCL HEART DISEASE OF [place] CORONARY ARTERY W/O ANG PCTRS (3) Cellulitis in diabetic foot Code(s): E11.628 - TYPE 2 DIABETES MELLITUS WITH OTHER SKIN COMPLICATIONS; L03.119 - CELLULITIS OF UNSPECIFIED PART OF LIMB (4) Abscess of buttock, right Code(s): L02.31 - CUTANEOUS ABSCESS OF BUTTOCK (5) Acute infective pharyngitis Code(s): J02.9 - ACUTE PHARYNGITIS, UNSPECIFIED (6) Allergic pharyngitis Code(s): J02.9 - ACUTE PHARYNGITIS, UNSPECIFIED (7) Bronchitis Code(s): J40 - BRONCHITIS, NOT SPECIFIED ACUTE OR CHRONIC (8) COPD exacerbation Code(s): J44.1 - CHRONIC OBSTRUCTIVE PULMONARY DISEASE W (ACUTE) EXACERBATION (9) DKA (diabetic ketoacidoses) Code(s): E13.10 - OTH DIABETES MELLITUS WITH KETOACIDOSIS WITHOUT COMA (10) Fracture Code(s): T14.8XXA - OTHER INJURY OF UNSPECIFIED BODY REGION, INITIAL ENCOUNTER (11) Hip pain, left Code(s): M25.552 - PAIN IN LEFT HIP (12) Hyperglycemia Code(s): R73.9 - HYPERGLYCEMIA, UNSPECIFIED (13) Hyperkalemia Code(s): E87.5 - HYPERKALEMIA (14) Leiomyoma of uterus Code(s): D25.9 - LEIOMYOMA OF UTERUS, UNSPECIFIED Qualifiers: Uterine leiomyoma location: unspecified location Qualified Code(s): D25.9 - Leiomyoma of uterus, unspecified (15) Lymphadenopathy Code(s): R59.1 - GENERALIZED ENLARGED LYMPH NODES (16) Mediastinal mass Code(s): J98.59 - OTHER DISEASES OF [place]ST[place]UM, NOT ELSEWHERE CLASSIFIED (17) Ovarian cyst, left Code(s): N83.20 - UNSPECIFIED OVARIAN CYSTS * DO NOT USE * (18) Right wrist pain Code(s): M25.531 - PAIN IN RIGHT WRIST (19) Uncontrolled type 2 DM with hyperosmolar nonketotic hyperglycemia Code(s): E11.00 - TYPE 2 DIAB W HYPROSM W/O NONKET HYPRGLY-HYPROS COMA ([facility]) (20) Viral upper respiratory tract infection with cough Code(s): J06.9 - ACUTE UPPER RESPIRATORY INFECTION, UNSPECIFIED; B97.89 - OTH VIRAL AGENTS THE CAUSE OF DISEASES CLASSD ELSWHR (21) Wound check, abscess Code(s): Z51.89 - ENCOUNTER FOR OTHER SPECIFIED AFTERCARE (22) Wrist fracture Code(s): S62.109A - FRACTURE OF UNSP CARPAL BONE, UNSP WRIST, INIT FOR CLOS FX Qualifiers: Encounter type: initial encounter Fracture type: closed Laterality: right Qualified Code(s): S62.101A - Fracture of unspecified carpal bone, right wrist, initial encounter for closed fracture (23) Diabetes Code(s): E11.9 - TYPE 2 DIABETES MELLITUS WITHOUT COMPLICATIONS (24) Hyperlipemia Code(s): E78.5 - HYPERLIPIDEMIA, UNSPECIFIED (25) Hypertension Code(s): I10 - ESSENTIAL (PRIMARY) HYPERTENSION Assessment/Plan Cardiac cath 02/02/2016 Left Main 30% LAD proximal 40&, mid 40%, distal 30% LCx mid 40% RCA mid 50% JIG INSPECTOR right SHYLA 02/02/16 JIG INSPECTOR Zilver stents left SFA 04/01/16 LE angiography 05/01/17 Chronic bronchitis Diabetes mellitus, type II 1995 Hyperlipidemia 1995 Hypertension 1995 PAD JIG INSPECTOR of right SHYLA February 02, 2016 Dr. Schmidt Balloon angioplasty of right SHYLA and stent of left SFA. March 22, 2016 Dr. Schmidt. osteomyelitis of the big toe with abscess podiatry f/u for further drainage repeat culture sent resume vancomycin at qday dosing continue zosyn for now - Problems (1) CAD (coronary artery disease) Assessment/Plan: On ASA and clopidogrel. Continue atorvastatin; lipid panel noted. Code(s): I25.10 - ATHSCL HEART DISEASE OF [place] CORONARY ARTERY W/O ANG PCTRS (2) Cellulitis in diabetic foot Assessment/Plan: Continue antibiotic. Wound care. Pt for f/u, as outpatient, with vascular interventionalist (Dr. Orr) for planned LLE angioplasty. Discussed plan with Dr. Morales and pt. She will see him as outpatient next week. Code(s): E11.628 - TYPE 2 DIABETES MELLITUS WITH OTHER SKIN COMPLICATIONS; L03.119 - CELLULITIS OF UNSPECIFIED PART OF LIMB (3) Hip pain, left Code(s): M25.552 - PAIN IN LEFT HIP (4) Diabetes Assessment/Plan: Given LE vascular issues, pt is likely not a good candidate for SGLPT2 inhibitor. On losartan (HTN; DM--renal protection). Discussion was had on the importance of medications, diet modification/weight loss, and increase in exercise in controlling DM/HTN/CAD and lowering risk of future cardiac events. Code(s): E11.9 - TYPE 2 DIABETES MELLITUS WITHOUT COMPLICATIONS
--- NOTE | 2018-11-05 11:59 | PN ---
Progress Note, Physician History of Present Illness: No c/o foot pain Tolerating antibiotics WBC WNL - Current Medication List Current Medications: Active Medications Acetaminophen (Tylenol -) 650 mg PO Q4H PRN PRN Reason: PAIN OR FEVER Last Admin: 11/05/18 09:13 Dose: 650 mg Aspirin (Asa -) 81 mg PO DAILY [facility] Last Admin: 11/04/18 09:13 Dose: 81 mg Atorvastatin Calcium (Lipitor -) 10 mg PO HS [facility] Last Admin: 11/04/18 22:11 Dose: 10 mg Clopidogrel Bisulfate (Plavix -) 75 mg PO DAILY [facility] Last Admin: 11/04/18 09:13 Dose: 75 mg Ferrous Sulfate (Feosol -) 325 mg PO DAILY [facility] Last Admin: 11/05/18 09:13 Dose: 325 mg Heparin Sodium (Porcine) (Heparin -) 5,000 unit SQ TID [facility] Last Admin: 11/05/18 07:09 Dose: 5,000 unit Vancomycin HCl 1,250 mg/ (Dextrose) 250 mls @ 250 mls/2 hr IVPB Q24H [facility]; Protocol Last Admin: 11/04/18 14:16 Dose: 250 mls/2 hr Insulin Aspart (Novolog Vial Sliding Scale -) 1 vial SQ ACHS [facility]; Protocol Last Admin: 11/05/18 07:09 Dose: 2 unit Insulin Aspart (Novolog Vial) 10 units SQ BID@0700,1630 [facility] Last Admin: 11/05/18 07:08 Dose: 10 units Insulin Detemir (Levemir Vial) 20 units SQ HS [facility] Last Admin: 11/04/18 22:11 Dose: 20 units Losartan Potassium (Cozaar -) 25 mg PO DAILY [facility] Last Admin: 11/05/18 09:13 Dose: 25 mg Neomycin/Polymyxin/Bacitracin (Neosporin Topical Ointment -) 1 applic TP DAILY [facility] - Objective Vital Signs: Vital Signs Temperature 98.2 F 11/05/18 09:19 Pulse Rate 84 11/05/18 09:19 Respiratory Rate 18 11/05/18 09:19 Blood Pressure 134/73 11/05/18 09:19 O2 Sat by Pulse Oximetry (%) 100 11/05/18 09:24 Constitutional: Yes: No Distress Eyes: Yes: Conjunctiva Clear Cardiovascular: Yes: Regular Rate and Rhythm Respiratory: Yes: CTA Bilaterally Gastrointestinal: Yes: Normal Bowel Sounds. No: Tenderness Extremities: Yes: Other (dressing in place R foot) Labs: CBC, BMP 11/05/18 06:00 11/05/18 06:00 INR, PTT INR 0.97 (0.83-1.09) 10/30/18 01:11 Assessment/Plan Cellulitis/ osteomyelitis great toe Soft tissue abscess s/p drainage ? infected orthopedic scre Continue vancomycin 1250mg q24h PICC for outpatient antibiotics vancomycin 1250mg IVPB q24h x 5 w Will follow up in office
[2018-11-05] MEDS: ASPIRIN 81 MG CHEWABLE TABLETS PO SCH (12:10)
[2018-11-05] MEDS: CLOPIDOGREL BISULFATE 75 MG TABLET (FP) PO SCH (12:10)
--- NOTE | 2018-11-05 13:23 | PN ---
Teaching Attending Note Name of Resident: Betty Khan ATTENDING PHYSICIAN STATEMENT I saw and evaluated the patient. I reviewed the resident's note and discussed the case with the resident. I agree with the resident's findings and plan as documented with exceptions below. SUBJECTIVE: Patient seen and examined. Denies any toe pain, fevers or chills. OBJECTIVE: Vital Signs Period Temp Pulse Resp BP Sys/Hernandez Pulse Ox Last 24 Hr 97.5 F-98.2 F 63-84 18-18 118-160/56-87 100 Intake & Output 11/02/18 11/03/18 11/04/18 11/05/18 23:59 23:59 23:59 23:59 Intake Total 1510 2190 1650 Balance 1510 2190 1650 General: sitting in bed in no acute distress Chest: CTAB, no rales or wheezing Abdomen:Soft, NT, nD Extremities: left toe swelling/soft, non tender, no erythema or discharge noted Home Medications Medication Instructions Recorded Atorvastatin Calcium [Lipitor] 10 mg PO HS 04/12/13 Losartan Potassium [Cozaar] 25 mg PO DAILY 07/18/15 Clopidogrel Bisulfate [Plavix -] 75 mg PO DAILY 01/28/16 Aspirin [ASA -] 81 mg PO DAILY 10/30/18 Ferrous Sulfate [Iron] 325 mg PO DAILY 10/30/18 Insulin (Novolog) [Novolog -] 10 units SQ BID@0700,1630 #2 units 11/05/18 Insulin Glargine,Hum.rec.anlog 20 unit SQ HS #3 vial 11/05/18 [Lantus] Neomy Sulf/Bacitrac Zn/Poly 1 applic TP DAILY #1 applic 11/05/18 [Neosporin Top Ointment -] Vancomycin HCl in Dextrose 5 % 1.25 gm IV Q24H 35 Days #35 11/05/18 [Vancomycin 1.25 Gram/250Ml-D5w] plast..bag Active Medications Acetaminophen (Tylenol -) 650 mg PO Q4H PRN PRN Reason: PAIN OR FEVER Last Admin: 11/05/18 09:13 Dose: 650 mg Aspirin (Asa -) 81 mg PO DAILY [facility] Last Admin: 11/05/18 12:10 Dose: 81 mg Atorvastatin Calcium (Lipitor -) 10 mg PO HS [facility] Last Admin: 11/04/18 22:11 Dose: 10 mg Clopidogrel Bisulfate (Plavix -) 75 mg PO DAILY [facility] Last Admin: 11/05/18 12:10 Dose: 75 mg Ferrous Sulfate (Feosol -) 325 mg PO DAILY [facility] Last Admin: 11/05/18 09:13 Dose: 325 mg Heparin Sodium (Porcine) (Heparin -) 5,000 unit SQ TID [facility] Last Admin: 11/05/18 07:09 Dose: 5,000 unit Vancomycin HCl 1,250 mg/ (Dextrose) 250 mls @ 250 mls/2 hr IVPB Q24H [facility]; Protocol Last Admin: 11/04/18 14:16 Dose: 250 mls/2 hr Insulin Aspart (Novolog Vial Sliding Scale -) 1 vial SQ ACHS [facility]; Protocol Last Admin: 11/05/18 12:09 Dose: 8 unit Insulin Aspart (Novolog Vial) 10 units SQ BID@0700,1630 [facility] Last Admin: 11/05/18 07:08 Dose: 10 units Insulin Detemir (Levemir Vial) 20 units SQ HS [facility] Last Admin: 11/04/18 22:11 Dose: 20 units Losartan Potassium (Cozaar -) 25 mg PO DAILY [facility] Last Admin: 11/05/18 09:13 Dose: 25 mg Neomycin/Polymyxin/Bacitracin (Neosporin Topical Ointment -) 1 applic TP DAILY [facility] Laboratory Results - last 24 hr 11/04/18 11/05/18 11/05/18 06:35 06:00 06:00 WBC 4.2 RBC 3.68 Hgb 10.4 L Hct 31.8 L MCV 86.5 MCH 28.3 MCHC 32.7 RDW 14.3 Plt Count 195 MPV 7.4 L Absolute Neuts (auto) 2.0 Neutrophils % 47.2 Lymphocytes % 37.6 Monocytes % 9.9 Eosinophils % 3.9 Basophils % 1.4 Nucleated RBC % 0 Sodium 141 140 Potassium 4.5 4.6 Chloride 108 H 108 H Carbon Dioxide 25 26 Anion Gap 8 6 L BUN 27 H 27 H Creatinine 1.0 1.1 Creat Clearance w eGFR 58.69 52.58 Random Glucose 95 178 H Calcium 9.1 9.4 Phosphorus 4.5 4.1 Magnesium 2.4 2.4 TSH 1.70 Microbiology 11/03/18 13:36 Toe - Right Hallux Gram Stain - Final 11/03/18 13:36 Toe - Right Hallux Wound Culture - Preliminary NO GROWTH OBTAINED AFTER 24 HOURS INCUBATION, REINCUBATED. 10/30/18 01:11 Blood - Peripheral Venous Blood Culture - Final NO GROWTH AFTER 5 DAYS INCUBATION 10/30/18 01:11 Blood - Peripheral Venous Blood Culture - Final NO GROWTH AFTER 5 DAYS INCUBATION 10/31/18 17:40 Abscess Gram Stain - Final 10/31/18 17:40 Abscess Wound Culture - Final Staphylococcus Lugdunensis ASSESSMENT AND PLAN: 48 yo F PMH IDDM, HTN, CAD, LLE stent 2016, HSV buttock s/p valtrex admitted with left toe abscess/cellulitis/Osteomyelitis and poorly controlled DM -Left great toe cellulitis/Osteomyelitis/Abscess s/p I&D -Poorly controlled DM, A1c 10.1 -HTN -CAD -LLE stent 2015 Plan: Discussed with Dr. Don, no further plans for surgical intervention. Discussed with Dr. Gonzales, plan for 5 weeks IV vancomycin with weekly labs per ID , communicated to the patient. Diabetic education and counseling for strict compliance and close follow up provided to patient. Patient relays understanding and agrees to follow up with her hardware manager. Cardiology input noted, outpatient follow up with Dr. Mar for LLE vascular studies +/- stenting For PICC today. Discussed with Social work, home IV abx arranged. D/c home with IV abx today after PICC. Plan discussed with patient in detail, all questions answered.
[2018-11-05] MEDS: VANCOMYCIN 1,250 MG in DEXTROSE 5%-WATER - 250 ML IVPB SCH (14:47)
[2018-11-05 15:40] VITALS: BP 137/74; PULSE 70; TEMP 98.3
--- NOTE | 2018-11-05 16:38 | DS ---
Physical Exam: SUBJECTIVE: Patient seen and examined by me at bedside No acute events overnight Patient offers no complaints Patient denies any fever, chills, nausea, vomiting, abdominal pain, chest pain, shortness of breath, dysuria, hematuria. OBJECTIVE: Vital Signs Period Temp Pulse Resp BP Sys/Hernandez Pulse Ox Last 24 Hr 97.5 F-98.3 F 63-84 18-18 126-160/71-87 100 PHYSICAL EXAM GENERAL: The patient is awake, alert, and fully oriented, in no acute distress. EYES: Sclera anicteric, conjunctiva clear. No ptosis. ENT: Moist mucous membranes. LUNGS: Breath sounds equal, clear to auscultation bilaterally, no wheezes, no crackles, no accessory muscle use. HEART: Regular rate and rhythm, S1, S2 without murmur, rub or gallop. ABDOMEN: Soft, nontender, nondistended, normoactive bowel sounds. EXTREMITIES: Left Toe: (+) Erythema and swelling with no drainage today extending to the mid foot. DP and PT pulses intact LABS Laboratory Results - last 24 hr 11/04/18 11/05/18 11/05/18 06:35 06:00 06:00 WBC 4.2 RBC 3.68 Hgb 10.4 L Hct 31.8 L MCV 86.5 MCH 28.3 MCHC 32.7 RDW 14.3 Plt Count 195 MPV 7.4 L Absolute Neuts (auto) 2.0 Neutrophils % 47.2 Lymphocytes % 37.6 Monocytes % 9.9 Eosinophils % 3.9 Basophils % 1.4 Nucleated RBC % 0 Sodium 141 140 Potassium 4.5 4.6 Chloride 108 H 108 H Carbon Dioxide 25 26 Anion Gap 8 6 L BUN 27 H 27 H Creatinine 1.0 1.1 Creat Clearance w eGFR 58.69 52.58 Random Glucose 95 178 H Calcium 9.1 9.4 Phosphorus 4.5 4.1 Magnesium 2.4 2.4 TSH 1.70 PRE-HOSPITAL COURSE: Patient is a 48 year old female with a PMHx of IDDMII (Non-compliant), HTN, CAD who presented to the ED complaining of extreme pain of her left great toe for two days associated with fevers. Patient reported having vascular issues in the left leg with an angioplasty and angiogram done. In the ED patient was found to have Sepsis secondary to left toe cellulitis and admitted for IV abx and further management. HOSPITAL COURSE: Throughout hospital course patient had I&D by podiatry and started on IV abx. MRI of the left toe was done and revealed osteomyelitis. Wound cultures were sent, which was positive for staph Lugdenesis. Patient admitted to not being compliant with Insulin and was found to have A1C of 10.1. Discussed case with music professor, Dr. Don and recommended no further plans for surgical intervention. Discussed case with ID and prescribed patient 5 weeks of IV Vancomycn with weekly labs at their office. Patient had PICC placement done in house in preparation for home IV antibiotics infusions. Recommended she follows up with her forge shop machine repairer within a week so patient can remain compliant with medications and frequent A1C checks. Plan discussed with patient in detail and all questions answered. Date of Admission:10/30/18 Date of Discharge: 11/05/18 Minutes to complete discharge: 45 Discharge Summary Reason For Visit: CELLULITIS IN DIABETIC FOOT Current Active Problems Anemia (Acute) CAD (coronary artery disease) (Acute) Cellulitis in diabetic foot (Acute) Condition: Stable - Instructions Diet, Activity, Other Instructions: RECOMMENDATIONS: -You were seen here for a two infection that reached to the bone, requiring IV antibiotics. You will be taking the antibiotics for several weeks through a PICC line. -You were also found to have very high sugar levels, requiring you to be on Insulin. You will need to continue taking your Insulin. FOLLOW UP: -Soon after you are discharged, please go straight to Dr. Guillen's office for further instructions. -Please follow up with your Infectious Disease Physician, Dr. Gonzales, as he will be dealing with your IV antibiotics and you will need blood work to be done every week while on vancomycin. -Please follow up with your primary care physician Dr. Chaudhari within a week -Please follow up with your Grid Operator within a week to help better control your glucose levels. -Please follow up with Dr. Mar in 1-2 weeks to discuss left leg testing and stenting as indicated. MEDICATIONS: -Please continue your Levemir as directed at home. I will send a refill to your pharmacy -Please continue your Novolog as directed. I will send a refill to your pharmacy -You will be taking IV antibiotic called Vancomycin for at least 5 weeks. This will be ordered by Dr. Gonzales. Please follow up in his office for weekly lab work. Please note that you will need weekly labs with Dr. Gonzales while on antibiotic vancomycin. -A walker has also been sent to your pharmacy for olive picker. LEFT FIRST TOE DRESSING INSTRUCTIONS: -We will give you a surgical shoe boot that you will need to walk. Before applying the Boot you will need to apply Neosporin around the toe and wrap it up with the gauze we will provide for you. Keep wound area clean, change dressing daily. -You will need to follow up with Dr. Don immediately after you are discharged for further dressing instructions. It is very important that you monitor your blood glucose levels while on insulin. Advise to check blood glucose before all meals and at bedtime and maintain a diary. Notify your doctor if < 75 or persistently > 200 or any reading > 400 noted. If you notice any new fevers, chills, foot swelling, redness, pain, or any new concerns, please call 911 or come to ED. Referrals: Gomez Gonzales MD [Staff Physician] - Jesus Day MD [Staff Physician] - Pino Don MD [Staff Physician] - Lloyd Schmidt MD [Staff Physician] - Carmen Chaudhari [Primary Care Provider] - Disposition: HOME - Home Medications Comprehensive Discharge Medication List: Ambulatory Orders Atorvastatin Calcium [Lipitor] 10 mg PO HS 04/12/13 Losartan Potassium [Cozaar] 25 mg PO DAILY 07/18/15 Clopidogrel Bisulfate [Plavix -] 75 mg PO DAILY 01/28/16 Aspirin [ASA -] 81 mg PO DAILY 10/30/18 Ferrous Sulfate [Iron] 325 mg PO DAILY 10/30/18 Insulin (Novolog) [Novolog -] 10 units SQ BID@0700,1630 #2 units 11/05/18 Insulin Glargine,Hum.rec.anlog [Lantus] 20 unit SQ HS #3 vial 11/05/18 Neomy Sulf/Bacitrac Zn/Poly [Neosporin Top Ointment -] 1 applic TP DAILY #1 applic 11/05/18 Vancomycin HCl in Dextrose 5 % [Vancomycin 1.25 Gram/250Ml-D5w] 1.25 gm IV Q24H 35 Days #35 plast..bag 11/05/18 This patient is new to me today: Yes Date on this admission: 11/05/18 Emergency Visit: No Critical Care patient: No - Discharge Referral Referred to [facility] No
== END 2018-11-05 17:27 | disposition home or self-care (01) | DRG 872 ==
LOC: JER 22:12 → JERBED 10-30 01:59 → J5S 10-30 08:09
PROVIDERS: ADMIT Internal Medicine; ATTEND Hospitalist
PROC: 0J9R0ZX Drainage of Left Foot Subcutaneous Tissue and Fascia, Open Approach, Diagnostic (ICD-10-PCS; principal; 2018-11-01)
PROC: 02HV33Z Insertion of Infusion Device into Superior Vena Cava, Percutaneous Approach (ICD-10-PCS; 2018-11-05)
DX: A41.9 Sepsis, unspecified organism (principal); N17.9 Acute kidney failure, unspecified; M86.172 Other acute osteomyelitis, left ankle and foot; L03.116 Cellulitis of left lower limb; I10 Essential (primary) hypertension; I25.10 Atherosclerotic heart disease of native coronary artery without angina pectoris; L03.032 Cellulitis of left toe; E11.69 Type 2 diabetes mellitus with other specified complication; Z79.4 Long term (current) use of insulin; E11.628 Type 2 diabetes mellitus with other skin complications; E78.5 Hyperlipidemia, unspecified; E11.65 Type 2 diabetes mellitus with hyperglycemia; D50.9 Iron deficiency anemia, unspecified; E66.9 Obesity, unspecified; Z68.30 Body mass index [BMI] 30.0-30.9, adult; R07.89 Other chest pain; E11.621 Type 2 diabetes mellitus with foot ulcer; L97.529 Non-pressure chronic ulcer of other part of left foot with unspecified severity; Z98.61 Coronary angioplasty status
CPT/HCPCS: 36415; 36569; 71045-TC-FY; 73630-TC-LT; 73720-LT; 77001-TC-FY; 80048; 80053; 80061; 81003; 81015; 82550; 82553; 82962; 83036; 83540; 83550; 83605; 83721; 83735; 84100; 84443; 84484; 85025; 85027; 85610; 85651; 86140; 87040; 87070; 87077; 87186; 87205; 93005; 93010; 97116-GP; 97161-GP; 99283-25; C1751; G0480; J0131; J1644; J7030

== ENCOUNTER 2018-11-07 18:30 | Observation (INO) | payer BC ==
--- NOTE | 2018-11-07 18:44 | PDOC ---
Rapid Medical Evaluation Time Seen by Provider: 11/07/18 18:43 Medical Evaluation: Allergies Allergy/AdvReac Type Severity Reaction Status Date / Time No Known Allergies Allergy Verified 10/29/18 22:24 11/07/18 18:44 I have performed a brief in-person evaluation of this patient. The patient presents with a chief complaint of: EPSTEIN in setting of elevated BP at home today, highest was 198/103. H/o HTN, DM, CAD, s/p recent admission for LE cellulitis currently receiving IV vanc at home Pertinent physical exam findings:BP 175/75, in NAD, non-focal I have ordered the following:labs The patient will proceed to the ED for further evaluation. Discharge Disposition - Diagnosis Elevated blood pressure reading - Referrals - Patient Instructions - Post Discharge Activity
--- NOTE | 2018-11-07 19:25 | PDOC ---
History of Present Illness - General History Source: Patient Exam Limitations: No Limitations - History of Present Illness Initial Comments: 11/07/18 20:25 The patient is a 48 year old female, with a significant PMH of IDDM, hypertension, peripheral artery disease, coronary artery disease, and hyperlipidemia, who presents to the emergency department with 2 days of frontal headache. The patient states the headache is rated 8/10 in intensity, non radiating, described as a pressure like sensation, with no exacerbating or remitting factors. The patient also reports she has noted her blood pressure has been elevated at home with a systolic reading of 198. The patient states she was recently seen at [facility] for cellulitis of the left great toe and discharged on Saturday (11/05/17) with IV antibiotics via PICC line. The patient states she has weekly follow ups with ID Dr Gonzales for her left great toe cellulitis. The patient also states she saw a mechanic and welder 3 weeks ago and had a echocardiogram and stress test which were normal. The patient states she also follows with her stretch box tender and PMD regularly. The patient denies any recent surgeries. The patient denies chest pain, shortness of breath and dizziness. Denies fever, chills, nausea, vomit, diarrhea and constipation. Denies dysuria, frequency, urgency and hematuria. Allergies: NKA Social History: PPD smoker for 20 years, quit this past summer 2017. Social EtOH use. Denies recreational drug use. <Raymundo Toro - Last Filed: 11/07/18 21:12> <Claire Soriano - Last Filed: 11/08/18 00:42> - General Chief Complaint: Blood Pressure Problem Stated Complaint: BLOOD PRESSURE PROBLEM Time Seen by Provider: 11/07/18 18:43 Past History <Raymundo Toro - Last Filed: 11/07/18 21:12> - Past Medical History Asthma: Yes (BRONCHITIS) COPD: No Diabetes: Yes HTN: Yes Hypercholesterolemia: Yes - Immunization History Immunization Up to Date: Yes - Suicide/Smoking/Psychosocial Hx Smoking Status: No Smoking History: Unknown if ever smoked Have you smoked in the past 12 months: Yes Number of Cigarettes Smoked Daily: 5 If you are a former smoker, when did you quit?: 2018 'Breaking Loose' booklet given: 10/25/16 Hx Alcohol Use: No Drug/Substance Use Hx: No Substance Use Type: None Hx Substance Use Treatment: No <Claire Soriano - Last Filed: 11/08/18 00:42> - Past Medical History Allergies/Adverse Reactions: Allergies Allergy/AdvReac Type Severity Reaction Status Date / Time No Known Allergies Allergy Verified 10/29/18 22:24 Home Medications: Ambulatory Orders Atorvastatin Calcium [Lipitor] 10 mg PO HS 04/12/13 Losartan Potassium [Cozaar] 25 mg PO DAILY 07/18/15 Clopidogrel Bisulfate [Plavix -] 75 mg PO DAILY 01/28/16 Aspirin [ASA -] 81 mg PO DAILY 10/30/18 Ferrous Sulfate [Iron] 325 mg PO DAILY 10/30/18 Insulin (Novolog) [Novolog -] 10 units SQ BID@0700,1630 #2 units 11/05/18 Insulin Glargine,Hum.rec.anlog [Lantus] 20 unit SQ HS #3 vial 11/05/18 Neomy Sulf/Bacitrac Zn/Poly [Neosporin Top Ointment -] 1 applic TP DAILY #1 applic 11/05/18 Vancomycin HCl in Dextrose 5 % [Vancomycin 1.25 Gram/250Ml-D5w] 1.25 gm IV Q24H 35 Days #35 plast..bag 11/05/18 Metoprolol Tartrate [Lopressor -] 50 mg PO DAILY 11/07/18 Review of Systems - Review of Systems Comments:: 11/07/18 20:39 GENERAL/CONSTITUTIONAL: No fever or chills. No weakness. HEAD, EYES, EARS, NOSE AND THROAT: No change in vision. No ear pain or discharge. No sore throat. CARDIOVASCULAR: No chest pain or shortness of breath. RESPIRATORY: No cough, wheezing, or hemoptysis. GASTROINTESTINAL: No nausea, vomiting, diarrhea or constipation. GENITOURINARY: No dysuria, frequency, or change in urination. MUSCULOSKELETAL: No joint or muscle swelling or pain. No neck or back pain. SKIN: No rash NEUROLOGIC: (+) Headache. No vertigo, loss of consciousness, or change in strength/sensation. ENDOCRINE: No increased thirst. No abnormal weight change. HEMATOLOGIC/LYMPHATIC: No anemia, easy bleeding, or history of blood clots. ALLERGIC/IMMUNOLOGIC: No hives or skin allergy. <Raymundo Toro - Last Filed: 11/07/18 21:12> *Physical Exam - Vital Signs Last Vital Signs Temp Pulse Resp BP Pulse Ox 98.3 F 93 H 18 175/75 H 99 11/07/18 18:49 11/07/18 18:49 11/07/18 18:49 11/07/18 18:49 11/07/18 18:49 - Physical Exam Comments: 11/07/18 21:12 GENERAL: Awake, alert, and fully oriented, in no acute distress HEAD: No signs of trauma EYES: PERRLA, EOMI, sclera anicteric, conjunctiva clear ENT: Auricles normal inspection, hearing grossly normal, nares patent, oropharynx clear without exudates. Moist mucosa NECK: Normal ROM, supple, no lymphadenopathy, JVD, or masses LUNGS: Breath sounds equal, clear to auscultation bilaterally. No wheezes, and no crackles HEART: Regular rate and rhythm, normal S1 and S2, no murmurs, rubs or gallops ABDOMEN: Soft, nontender, normoactive bowel sounds. No guarding, no rebound. No masses EXTREMITIES: Normal range of motion, no edema. No clubbing or cyanosis. No cords, erythema, or tenderness NEUROLOGICAL: Cranial nerves II through XII grossly intact. Normal speech. SKIN: Warm, Dry, normal turgor, no rashes or lesions noted. <Raymundo Toro - Last Filed: 11/07/18 21:12> - Vital Signs Last Vital Signs Temp Pulse Resp BP Pulse Ox 98.3 F 93 H 18 175/75 H 99 11/07/18 18:49 11/07/18 18:49 11/07/18 18:49 11/07/18 18:49 11/07/18 18:49 <Claire Soriano - Last Filed: 11/08/18 00:42> Moderate Sedation - Procedure Monitoring Vital Signs: Procedure Monitoring Vital Signs Temperature 98.3 F 11/07/18 18:49 Pulse Rate 93 H 11/07/18 18:49 Respiratory Rate 18 11/07/18 18:49 Blood Pressure 175/75 H 11/07/18 18:49 O2 Sat by Pulse Oximetry (%) 99 11/07/18 18:49 <Raymundo Toro - Last Filed: 11/07/18 21:12> - Procedure Monitoring Vital Signs: Procedure Monitoring Vital Signs Temperature 98.3 F 11/07/18 18:49 Pulse Rate 93 H 11/07/18 18:49 Respiratory Rate 18 11/07/18 18:49 Blood Pressure 175/75 H 11/07/18 18:49 O2 Sat by Pulse Oximetry (%) 99 11/07/18 18:49 <Claire Soriano - Last Filed: 11/08/18 00:42> Heart Score/ECG Review - ECG Intrepretation Rhythm: Regular Rhythm - [place]: Normal - P and [place] Prominent R with upright T in V1 (true posterior TN): No Delta Wave(s) Present: No WPW: No - QRS Poor R Wave Progression: No Q Wave Present: No - ST and T Early Repolarization: No Non Specific ST-T Wave changes: No Flattened T Waves: Yes Prolonged Q-T Interval: No - ECG Impressions Normal ECG: Yes Non-specific ST Elevation: No Ischemic Changes: Yes Bradycardia: No Tors[place] vil[place] Pointes: No WPW: No <Claire Soriano - Last Filed: 11/08/18 00:42> ED Treatment Course - LABORATORY CBC & Chemistry Diagram: 11/07/18 20:30 11/07/18 20:30 <Raymundo Toro - Last Filed: 11/07/18 21:12> - LABORATORY CBC & Chemistry Diagram: 11/07/18 20:30 11/07/18 20:30 <Claire Soriano - Last Filed: 11/08/18 00:42> Medical Decision Making - Medical Decision Making 11/08/18 00:40 Pt will be admitted for her left 1st toe, which has osteomyelitis. She has worsening appearance of the toe, as well as progressively increasing Sed rate over the past 10 days: 40>>49>>60 today. Pt has a PICC line and she has been gettiong vanco at home. Despite this, the sed rate is going up. She is also nervous because starting tomorrow she will be administering the vanco to herself, as the VNS services are complete. <Claire Soriano - Last Filed: 11/08/18 00:42> *DC/Admit/Observation/Transfer - Attestations Scribe Attestion: 11/07/18 20:40 Documentation prepared by Raymundo Toro, acting as mobile paramedical examiner for Claire Soriano MD. <Raymundo Toro - Last Filed: 11/07/18 21:12> - Discharge Dispostion Decision to Admit order: Yes <Claire Soriano - Last Filed: 11/08/18 00:42> Diagnosis at time of Disposition: Elevated blood pressure reading, Acute worsening of chronic osteomyelitis - Discharge Dispostion Condition at time of disposition: Guarded - Referrals Referrals: Carmen Chaudhari [Primary Care Provider] - - Patient Instructions - Post Discharge Activity
[2018-11-07] MEDS ORDERED: LOSARTAN POTASSIUM 25 MG TABLET PO ONE (19:26)
[2018-11-07 20:41] LABS: BASO % 1.4 % (0-2.0); EOS % 2.7 % (0-4.5); HEMATOCRIT 30.9 % (32.4-45.2); HEMOGLOBIN 10.1 GM/dL (10.7-15.3); LYMPH % 30.5 % (8-40); MCH 28.4 pg (25.7-33.7); MCHC 32.7 g/dl (32.0-36.0); MEAN CELL VOLUME 86.7 fl (80-96); MEAN PLT VOLUME 7.6 fl (7.5-11.1); MONO % 5.7 % (3.8-10.2); NEUT % 59.7 % (42.8-82.8); PLATELET COUNT 219 K/MM3 (134-434); RBC 3.56 M/mm3 (3.60-5.2); RDW 14.8 % (11.6-15.6); WHITE BLOOD COUNT 4.7 K/mm3 (4.0-10.0)
[2018-11-07 21:10] LABS: ALBUMIN 3.6 g/dl (3.4-5.0); ALK PHOS 184 U/L (45-117); ANION GAP 9 MMOL/L (8-16); BILIRUBIN,TOTAL 0.1 mg/dL (0.2-1); BLOOD UREA NITROGEN 32 mg/dL (7-18); CALCIUM 9.5 mg/dL (8.5-10.1); CHLORIDE 102 mmol/L (98-107); CO2 26 mmol/L (21-32); CREATININE 1.3 mg/dL (0.55-1.3); POTASSIUM 4.4 mmol/L (3.5-5.1); SGOT/AST 19 U/L (15-37); SGPT/ALT 33 U/L (13-61); SODIUM 137 mmol/L (136-145); TOT PROT 7.4 g/dl (6.4-8.2)
[2018-11-07 21:13] LABS: GLUCOSE,RANDOM 379 mg/dL (74-106)
--- NOTE | 2018-11-07 23:29 | HP ---
CHIEF COMPLAINT:headache, worsening left great toe wound PCP:Dr. 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 She denies chest pain ,SOB, palpitations, weakness, numbness. Her BP was noted to be elevated at 175/75. She was given her home dose of Losartan 25mg was given. Repeat BP was 139/83 and patient reports improvement of headache. Patient was recently admitted for cellulitis/osteomyelitis of the left great toe. She was discharged on 11/05/18 with PICC line to continue IV Vancomycin for 6 weeks. Patient was seen by Dr. Seth after her discharge where she was taught how to clean the wound. Patient reported the wound worsened today, reporting more discharge, but denies any pain or swelling in the area. Of note, a VNS nurse would help the patient set her up with the Vancomycin for the past 2 days. Tomorrow would be the first time patient would set it up by herself and feels very anxious and uncomfortable about it. She denies any fever, chills, nausea, vomiting, chest pain, SOB, palpitations, abdominal pain, diarrhea, urinary symptoms. ER course was notable for: (1)Initial BP 175/75. Losartan 25mg given. Repeat 139/83. (2)Glu 379. (3) Recent Travel:denies any recent travel PAST MEDICAL HISTORY: IDDM HTN PAD CAD HLD Retropharyngeal abscess tracking into chest w/ left paratracheal fluid collection, was transferred from [facility] to [facility] and tx there 03/2018 PAST SURGICAL HISTORY: Left leg stent Social History: Smokin cig/day x 30 years, recently quit Alcohol: social Drugs: denies Pt lives with jabier in [place], has 1 child, works as a teacher. Family History: mother- DM, HLD, HTN, MA father- from lung cancer Allergies No Known Allergies Allergy (Verified 10/29/18 22:24) HOME MEDICATIONS: Home Medications Medication Instructions Recorded Atorvastatin Calcium [Lipitor] 10 mg PO HS 04/12/13 Losartan Potassium [Cozaar] 25 mg PO DAILY 07/18/15 Clopidogrel Bisulfate [Plavix -] 75 mg PO DAILY 01/28/16 Aspirin [ASA -] 81 mg PO DAILY 10/30/18 Ferrous Sulfate [Iron] 325 mg PO DAILY 10/30/18 Insulin (Novolog) [Novolog -] 10 units SQ BID@0700,1630 #2 units 11/05/18 Insulin Glargine,Hum.rec.anlog 20 unit SQ HS #3 vial 11/05/18 [Lantus] Neomy Sulf/Bacitrac Zn/Poly 1 applic TP DAILY #1 applic 11/05/18 [Neosporin Top Ointment -] Vancomycin HCl in Dextrose 5 % 1.25 gm IV Q24H 35 Days #35 11/05/18 [Vancomycin 1.25 Gram/250Ml-D5w] plast..bag Metoprolol Tartrate [Lopressor -] 50 mg PO DAILY 11/07/18 REVIEW OF SYSTEMS CONSTITUTIONAL: Absent: fever, chills, diaphoresis, generalized weakness, malaise, loss of appetite, weight change HEENT: Absent: rhinorrhea, nasal congestion, throat pain, throat swelling, difficulty swallowing, mouth swelling, ear pain, eye pain, visual changes CARDIOVASCULAR: Absent: chest pain, syncope, palpitations, irregular heart rate, lightheadedness , peripheral edema RESPIRATORY: Absent: cough, shortness of breath, dyspnea with exertion, orthopnea, wheezing, stridor, hemoptysis GASTROINTESTINAL: Absent: abdominal pain, abdominal distension, nausea, vomiting, diarrhea, constipation, melena, hematochezia GENITOURINARY: Absent: dysuria, frequency, urgency, hesitancy, hematuria, flank pain, genital pain MUSCULOSKELETAL: Absent: myalgia, arthralgia, joint swelling, back pain, neck pain SKIN: Absent: rash, itching, pallor HEMATOLOGIC/IMMUNOLOGIC: Absent: easy bleeding, easy bruising, lymphadenopathy, frequent infections ENDOCRINE: Absent: unexplained weight gain, unexplained weight loss, heat intolerance, cold intolerance NEUROLOGIC: Absent: headache, focal weakness or paresthesias, dizziness, unsteady gait, seizure, mental status changes, bladder or bowel incontinence PSYCHIATRIC: Absent: anxiety, depression, suicidal or homicidal ideation, hallucinations. PHYSICAL EXAMINATION Vital Signs - 24 hr 11/07/18 11/07/18 18:49 21:05 Temperature 98.3 F Pulse Rate 93 H Respiratory 18 Rate Blood Pressure 175/75 H Blood Pressure 152/81 [Right Arm] O2 Sat by Pulse 99 Oximetry (%) GENERAL: Awake, alert, and fully oriented, in no acute distress. HEAD: Normal with no signs of trauma. EYES: PERRLA, EOMI, sclera anicteric, conjunctiva clear. EARS, NOSE, THROAT: Ears normal, nares patent, oropharynx clear without exudates. Moist mucous membranes. LUNGS: Breath sounds equal, clear to auscultation bilaterally. HEART: Regular rate and rhythm, normal S1 and S2 without murmur, rub or gallop. ABDOMEN: Soft, nontender, not distended, normoactive bowel sounds. UPPER EXTREMITIES: 2+ pulses, warm, well-perfused. No peripheral edema. LOWER EXTREMITIES: 2+ pulses, warm, well-perfused. No peripheral edema. LLE: + purulent drainage on left great toe; no erythema, warmth, swelling or tenderness. NEUROLOGICAL: Cranial nerves II-XII intact. Normal speech. Normal gait. PSYCHIATRIC: Cooperative. Good eye contact. Appropriate mood and affect. SKIN: Warm, dry, normal turgor, no rashes or lesions noted, normal capillary refill. Laboratory Results - last 24 hr 11/07/18 11/07/18 11/07/18 20:30 20:30 20:30 WBC 4.7 RBC 3.56 L Hgb 10.1 L Hct 30.9 L MCV 86.7 MCH 28.4 MCHC 32.7 RDW 14.8 Plt Count 219 MPV 7.6 Absolute Neuts (auto) 2.8 Neutrophils % 59.7 D Lymphocytes % 30.5 Monocytes % 5.7 Eosinophils % 2.7 Basophils % 1.4 Nucleated RBC % 0 ESR 60 H Sodium 137 Potassium 4.4 Chloride 102 Carbon Dioxide 26 Anion Gap 9 BUN 32 H Creatinine 1.3 Creat Clearance w eGFR 43.36 Random Glucose 379 H* Calcium 9.5 Total Bilirubin 0.1 L AST 19 ALT 33 Alkaline Phosphatase 184 H Creatine Kinase 225 H Creatine Kinase Index 1.5 CK-MB (CK-2) 3.5 Troponin I < 0.02 Total Protein 7.4 Albumin 3.6 ASSESSMENT/PLAN: Patient is a 48 year old female with past medical history of IDDM, HTN, PAD, CAD and HLD, presented with worsening #Cellulitis/Osteomyelitis of left great toe -Continue Vancomycin 1250mg daily -ID (Dr. Gonzales) consulted. #Hypertension: chronic -Continue Losartan 25mg daily -Lopressor 50mg daily #IDDM -Continue home Lantus 20units sq hs -Insulin novolog 10units sq @ 7am, 430pm -Insulin sliding scale implemented -BGM ACHS #Peripheral arterial disease s/p left leg stent -Continue home Aspirin, Plavix and Lipitor #Hyperlipidemia -Continue Lipitor 10mg PO HS #FEN -Not on any standing fluids -Encourage increased oral fluid intake -Electrolytes wnl, routine bmp monitroing -Diabetic/Sodium controlled diet #Prophylaxis -Heparin 5000units sq tid #DVT -full code -obs Visit type - Emergency Visit Emergency Visit: Yes ED Registration Date: 11/07/18 Care time: The patient presented to the Emergency Department on the above date and was hospitalized for further evaluation of their emergent condition. - New Patient This patient is new to me today: Yes Date on this admission: 11/08/18 - Critical Care Critical Care patient: No
[2018-11-08] MEDS ORDERED: SODIUM CHLORIDE 1,000 ML IV STA (01:37)
[2018-11-08] MEDS ORDERED: VANCOMYCIN 1 GRAM (PRE-DOCKED) 1,000 MG/250 ML BAG IVPB ONE (01:42)
[2018-11-08] MEDS ORDERED: VANCOMYCIN 500 MG VIAL (RESTRICTED TO ID ONLY) ONE (01:42)
[2018-11-08] MEDS ORDERED: ACETAMINOPHEN 325 MG TABLET (FP) PO PRN (03:30)
[2018-11-08 03:34] VITALS: BMI 30.4
--- NOTE | 2018-11-08 05:12 | PN ---
Teaching Attending Note Name of Resident: Katie Wheeler ATTENDING PHYSICIAN STATEMENT I saw and evaluated the patient. I reviewed the resident's note and discussed the case with the resident. I agree with the resident's findings and plan as documented. SUBJECTIVE: OBJECTIVE: s1 and s2 rrr no edema lungs CTA good air entry Left Toe OM tenderness ASSESSMENT AND PLAN: Patient is a 48 year old female with past medical history of IDDM, HTN, PAD, CAD and HLD, presented for headache the patient had elevated blood pressure, she was recently d./c with PICC for Osteomyelitis for a 6 week course. she is being admitted since the patient requires help with the infusion of her medicine #Cellulitis/Osteomyelitis of left great toe -Continue Vancomycin 1250mg daily -ID (Dr. Gonzales) consulted. - social work evaluation for the infusion of vancomycin #Hypertension: chronic -Continue Losartan 25mg daily -Lopressor 50mg daily #IDDM -Continue home levimir 20units sq hs -Insulin novolog 10units sq @ 7am, 430pm -Insulin sliding scale implemented -BGM ACHS #PAD -Continue home Aspirin, - clopidogrel - atrovastatin - vascular evaluation #Hyperlipidemia -Continue atorvastatin 10mg PO HS
[2018-11-08] MEDS: INSULIN (NOVOLOG) ASPART 100 UNITS/ML 10ML VIAL SQ SCH ×2 (06:14→17:32)
[2018-11-08] MEDS: HEPARIN NA (PORCINE) 5,000 UNITS/ML 1ML VIAL SQ SCH ×3 (06:15→21:30)
[2018-11-08] MEDS: INSULIN SLIDING SCALE (NOVOLOG) 1 VIAL SQ SCH ×4 (06:15→21:30)
[2018-11-08 07:37] LABS: BASO % 0.9 % (0-2.0); LYMPH % 36.8 % (8-40); MCH 28.7 pg (25.7-33.7); MCHC 33.2 g/dl (32.0-36.0); MEAN CELL VOLUME 86.4 fl (80-96); MEAN PLT VOLUME 7.6 fl (7.5-11.1); MONO % 8.2 % (3.8-10.2); NEUT % 51.1 % (42.8-82.8); PLATELET COUNT 191 K/MM3 (134-434); RBC 3.48 M/mm3 (3.60-5.2); RDW 14.3 % (11.6-15.6); WHITE BLOOD COUNT 4.9 K/mm3 (4.0-10.0)
[2018-11-08 08:27] LABS: ALBUMIN 3.1 g/dl (3.4-5.0); ALK PHOS 184 U/L (45-117); ANION GAP 8 MMOL/L (8-16); BILIRUBIN,TOTAL 0.2 mg/dL (0.2-1); BLOOD UREA NITROGEN 29 mg/dL (7-18); CALCIUM 9.2 mg/dL (8.5-10.1); CHLORIDE 105 mmol/L (98-107); CO2 26 mmol/L (21-32); GLUCOSE,RANDOM 220 mg/dL (74-106); POTASSIUM 4.6 mmol/L (3.5-5.1); SGOT/AST 22 U/L (15-37); SGPT/ALT 30 U/L (13-61); SODIUM 139 mmol/L (136-145); TOT PROT 6.5 g/dl (6.4-8.2)
[2018-11-08] MEDS: CLOPIDOGREL BISULFATE 75 MG TABLET (FP) PO SCH (09:21)
[2018-11-08] MEDS: ASPIRIN 81 MG CHEWABLE TABLETS PO SCH (09:21)
[2018-11-08] MEDS: FERROUS SO4 325 MG TABLET (FP) PO SCH (09:22)
[2018-11-08] MEDS: METOPROLOL TARTRATE 50 MG TABLET (FP) PO SCH (09:22)
[2018-11-08] MEDS ORDERED: VANCOMYCIN 1,250 MG in DEXTROSE 5%-WATER - 250 ML IVPB SCH ×2 (10:00→13:00)
[2018-11-08] MEDS ORDERED: LOSARTAN POTASSIUM 25 MG TABLET PO SCH (10:00)
[2018-11-08] MEDS ORDERED: PT OWN MED DRAWER 7, Y5N ONE (10:35)
[2018-11-08] MEDS: NEOMYCIN/POLYMYXIN/BACITRACIN (TRIPLE ANTIBIOTIC) 28 GM OINTMENT TP SCH (10:42)
--- NOTE | 2018-11-08 12:21 | PN ---
Progress Note (short form) - Note Progress Note: ID CONSULT DICTATED OSTEOMYELITIS L GREAT TOE ?INFECTED ORTUOPEDIC HARDWARE CONTINUE VANCOMYCIN VANCOMYCIN TROUGH AM
[2018-11-08] MEDS: VANCOMYCIN 1,250 MG in DEXTROSE 5%-WATER - 250 ML IVPB SCH (12:36)
--- NOTE | 2018-11-08 13:09 | CONS ---
DATE OF CONSULTATION: 11/08/2018 The patient is a 48-year-old female, recently diagnosed cellulitis and osteomyelitis of the left great toe, now readmitted with headache. The patient was hospitalized from October 30 through November 05 for cellulitis of the left great toe. She underwent an incision and drainage by Podiatry. Cultures were positive for Staphylococcus lugdunensis. She was treated with vancomycin and Zosyn and was discharged home with a PICC line to complete a 6-week course of IV antibiotic therapy with vancomycin. She now returns with complaints of headache. She has no complaints of foot pain as the patient suffers from peripheral neuropathy. No reported fever or chills. PICC line has been working well. She has had no adverse reaction to the antibiotic therapy. PAST MEDICAL HISTORY: Positive for hypertension, diabetes, coronary artery disease, peripheral vascular disease, hyperlipidemia, history of paratracheal abscess. ALLERGIES: No known allergies. LABORATORY DATA: White count 4.9, hematocrit 30.0, platelet count 191. ESR 60. BUN 29, creatinine 1.0. PHYSICAL EXAMINATION: General: On exam, she is awake and alert. She is not acutely toxic appearing. Vital Signs: Temperature 98.2, blood pressure 138/73, pulse 83 and regular. Respirations 20 per minute. HEENT: Sclerae are anicteric. Cardiovascular: Heart sounds S1, S2. Lungs: Clear. Abdomen: Soft. Extremities: PICC line site right upper extremity no erythema or tenderness. Examination of the left great toe, there is swelling of the left great toe diffusely. There is no erythema. There is dry ulceration present at the distal aspect of the toe. There is a small facilitate area on the dorsal aspect of the toe. No expressible pus. IMPRESSION: 1. Acute osteomyelitis/cellulitis, left great toe. 2. Possibly infected orthopedic hardware, left great toe. 3. Diabetes mellitus. 4. Peripheral neuropathy. Continue vancomycin 1250 mg IV piggyback daily. Obtain vancomycin trough level. Podiatry followup. Needs to complete a 6-week course of therapy for osteomyelitis. Will follow up as an outpatient. Thank you for the kind referral. BLANCA ABREU M.D. [id number]
--- NOTE | 2018-11-08 14:17 | PN ---
Physical Exam: SUBJECTIVE: Patient seen and examined, no new fevers, chills, new foot pain or left great toe discharge OBJECTIVE: Vital Signs Period Temp Pulse Resp BP Sys/Hernandez Pulse Ox Last 24 Hr 98.1 F-98.7 F 81-93 18-20 130-175/66-82 97-99 Intake & Output 11/05/18 11/06/18 11/07/18 11/08/18 23:59 23:59 23:59 23:59 Intake Total 1150 Balance 1150 Weight 182 lb 9.6 oz GENERAL: The patient is awake, alert, and fully oriented, in no acute distress. HEAD: Normal with no signs of trauma. EYES: PERRL, extraocular movements intact, sclera anicteric, conjunctiva clear. No ptosis. ENT: Ears normal, nares patent, oropharynx clear without exudates, moist mucous membranes. NECK: Trachea midline, full range of motion, supple. LUNGS: Breath sounds equal, clear to auscultation bilaterally, no wheezes, no crackles, no accessory muscle use. HEART: Regular rate and rhythm, S1, S2 ABDOMEN: Soft, nontender, nondistended, normoactive bowel sounds, no guarding, no rebound EXTREMITIES: left great toe swelling unchanged, no active fluctuation, discharge , foul smell erythema noted, superficial ulceration at tip healing with granulation tissue PSYCH: Normal mood, normal affect. SKIN: Warm, dry, normal turgor, no rashes or lesions noted Laboratory Results - last 24 hr 11/07/18 11/07/18 11/07/18 20:30 20:30 20:30 WBC 4.7 RBC 3.56 L Hgb 10.1 L Hct 30.9 L MCV 86.7 MCH 28.4 MCHC 32.7 RDW 14.8 Plt Count 219 MPV 7.6 Absolute Neuts (auto) 2.8 Neutrophils % 59.7 D Lymphocytes % 30.5 Monocytes % 5.7 Eosinophils % 2.7 Basophils % 1.4 Nucleated RBC % 0 ESR 60 H Sodium 137 Potassium 4.4 Chloride 102 Carbon Dioxide 26 Anion Gap 9 BUN 32 H Creatinine 1.3 Creat Clearance w eGFR 43.36 POC Glucometer Random Glucose 379 H* Calcium 9.5 Magnesium Total Bilirubin 0.1 L AST 19 ALT 33 Alkaline Phosphatase 184 H Creatine Kinase 225 H Creatine Kinase Index 1.5 CK-MB (CK-2) 3.5 Troponin I < 0.02 Total Protein 7.4 Albumin 3.6 11/08/18 11/08/18 11/08/18 01:37 05:54 07:00 WBC 4.9 RBC 3.48 L Hgb 10.0 L Hct 30.0 L MCV 86.4 MCH 28.7 MCHC 33.2 RDW 14.3 Plt Count 191 MPV 7.6 Absolute Neuts (auto) 2.5 Neutrophils % 51.1 Lymphocytes % 36.8 D Monocytes % 8.2 Eosinophils % 3.0 Basophils % 0.9 Nucleated RBC % 0 ESR Sodium Potassium Chloride Carbon Dioxide Anion Gap BUN Creatinine Creat Clearance w eGFR POC Glucometer 224 Random Glucose Calcium Magnesium 2.0 Total Bilirubin AST ALT Alkaline Phosphatase Creatine Kinase Creatine Kinase Index CK-MB (CK-2) Troponin I Total Protein Albumin 11/08/18 11/08/18 07:00 11:45 WBC RBC Hgb Hct MCV MCH MCHC RDW Plt Count MPV Absolute Neuts (auto) Neutrophils % Lymphocytes % Monocytes % Eosinophils % Basophils % Nucleated RBC % ESR Sodium 139 Potassium 4.6 Chloride 105 Carbon Dioxide 26 Anion Gap 8 BUN 29 H Creatinine 1.0 Creat Clearance w eGFR 58.69 POC Glucometer 361 Random Glucose 220 H Calcium 9.2 Magnesium Total Bilirubin 0.2 AST 22 ALT 30 Alkaline Phosphatase 184 H Creatine Kinase Creatine Kinase Index CK-MB (CK-2) Troponin I Total Protein 6.5 Albumin 3.1 L Active Medications Generic Name Dose Route Start Last Admin Trade Name Freq PRN Reason Stop Dose Admin Acetaminophen 650 mg 11/08/18 03:30 11/08/18 03:39 Tylenol - PO 650 mg Q6H PRN Administration PAIN LEVEL 1-5 OR FEVER Aspirin 81 mg 11/08/18 10:00 11/08/18 09:21 Asa - PO 81 mg DAILY [facility] Administration Atorvastatin Calcium 10 mg 11/08/18 22:00 Lipitor - PO HS [facility] Clopidogrel Bisulfate 75 mg 11/08/18 10:00 11/08/18 09:21 Plavix - PO 75 mg DAILY [facility] Administration Ferrous Sulfate 325 mg 11/08/18 10:00 11/08/18 09:22 Feosol - PO 325 mg DAILY [facility] Administration Heparin Sodium (Porcine) 5,000 unit 11/08/18 06:00 11/08/18 06:15 Heparin - SQ 5,000 unit TID [facility] Administration Vancomycin HCl 1,250 mg/ 250 mls @ 166.667 mls/hr 11/08/18 10:15 11/08/18 12: 36 Dextrose IVPB 166.667 mls/hr Q24H [facility] Administration Protocol Insulin Aspart 10 units 11/08/18 07:00 11/08/18 06:14 Novolog Vial SQ 10 units BID@0700,1630 [facility] Administration Protocol Insulin Aspart 1 vial 11/08/18 07:00 11/08/18 11:50 Novolog Vial Sliding Scale - SQ 10 units ACHS [facility] Administration Protocol Insulin Detemir 20 units 11/08/18 22:00 Levemir Vial SQ HS [facility] Losartan Potassium 25 mg 11/08/18 10:00 11/08/18 09:22 Cozaar - PO 25 mg DAILY [facility] Administration Metoprolol Tartrate 50 mg 11/08/18 10:00 11/08/18 09:22 Lopressor - PO 50 mg DAILY [facility] Administration Neomycin/Polymyxin/Bacitracin 1 applic 11/08/18 10:00 11/08/18 10:42 Neosporin Topical Ointment - TP 1 applic DAILY [facility] Administration ASSESSMENT/PLAN: 48 yo F PMH IDDM, HTN, CAD, LLE stent 2015, HSV buttock s/p valtrex admitted with left toe abscess/cellulitis/Osteomyelitis and poorly controlled DM, recently discharged on IV vancomycin, admitted with headache and not being comfortable with home antibiotic injection. -Left great toe cellulitis/Osteomyelitis/Abscess s/p I&D, on IV vancomycin -Headache, resolved -HTN -Poorly controlled DM, A1c 10.1 -CAD -LLE stent 2015 Plan: Overall wound healing, no active infection concerns from recent dc. ID input noted, vancomycin, check levels in AM. Wound care, podiatry input. Increase losartan to 50 mg daily. ISS/levemir. Continue ASA/plavix DVTPPX heparin Discussed with CM, plan for home with abx vs follow up at infusion center for abx administration discussed with patient and nursing. Visit type - Emergency Visit Emergency Visit: Yes ED Registration Date: 11/07/18 Care time: The patient presented to the Emergency Department on the above date and was hospitalized for further evaluation of their emergent condition. - New Patient This patient is new to me today: Yes Date on this admission: 11/08/18 - Critical Care Critical Care patient: No - Discharge Referral [facility]erred to [facility] No
[2018-11-08] MEDS ORDERED: LOSARTAN POTASSIUM 25 MG TABLET PO ONE (14:20)
[2018-11-08] MEDS: ATORVASTATIN CA 10 MG TABLET (FP) PO SCH (21:29)
[2018-11-08] MEDS ORDERED: INSULIN (LEVEMIR) 100 UNITS/ML UNITS SQ SCH (22:00)
[2018-11-09] MEDS: HEPARIN NA (PORCINE) 5,000 UNITS/ML 1ML VIAL SQ SCH ×3 (05:45→21:24)
[2018-11-09] MEDS: INSULIN (NOVOLOG) ASPART 100 UNITS/ML 10ML VIAL SQ SCH ×2 (06:25→17:47)
[2018-11-09] MEDS: INSULIN SLIDING SCALE (NOVOLOG) 1 VIAL SQ SCH ×4 (06:25→21:26)
[2018-11-09 08:18] LABS: BASO % 1.1 % (0-2.0); EOS % 3.3 % (0-4.5); HEMATOCRIT 31.5 % (32.4-45.2); HEMOGLOBIN 10.3 GM/dL (10.7-15.3); LYMPH % 37.2 % (8-40); MCH 28.2 pg (25.7-33.7); MCHC 32.9 g/dl (32.0-36.0); MEAN CELL VOLUME 85.8 fl (80-96); MEAN PLT VOLUME 7.6 fl (7.5-11.1); MONO % 6.3 % (3.8-10.2); NEUT % 52.1 % (42.8-82.8); PLATELET COUNT 193 K/MM3 (134-434); RBC 3.67 M/mm3 (3.60-5.2); RDW 14.4 % (11.6-15.6); WHITE BLOOD COUNT 4.9 K/mm3 (4.0-10.0)
[2018-11-09 08:39] LABS: ANION GAP 8 MMOL/L (8-16); BLOOD UREA NITROGEN 25 mg/dL (7-18); CALCIUM 9.5 mg/dL (8.5-10.1); CHLORIDE 108 mmol/L (98-107); CO2 26 mmol/L (21-32); GLUCOSE,RANDOM 87 mg/dL (74-106); POTASSIUM 4.6 mmol/L (3.5-5.1); SODIUM 142 mmol/L (136-145)
[2018-11-09] MEDS ORDERED: PT OWN MED DRAWER 7, Y5N ONE ×2 (09:30→13:52)
[2018-11-09] MEDS: NEOMYCIN/POLYMYXIN/BACITRACIN (TRIPLE ANTIBIOTIC) 28 GM OINTMENT TP SCH (09:31)
[2018-11-09] MEDS: ASPIRIN 81 MG CHEWABLE TABLETS PO SCH (09:31)
[2018-11-09] MEDS: LOSARTAN POTASSIUM 50 MG TABLET (FP) PO SCH (09:31)
[2018-11-09] MEDS: VANCOMYCIN 1,250 MG in DEXTROSE 5%-WATER - 250 ML IVPB SCH (09:31)
[2018-11-09] MEDS: FERROUS SO4 325 MG TABLET (FP) PO SCH (09:31)
[2018-11-09] MEDS: METOPROLOL TARTRATE 50 MG TABLET (FP) PO SCH (09:31)
[2018-11-09] MEDS: CLOPIDOGREL BISULFATE 75 MG TABLET (FP) PO SCH (09:31)
[2018-11-09 09:40] LABS: URINE APPEARANCE CLEAR; URINE BILIRUBIN NEGATIVE (<2.0 mg/dL); URINE COLOR STRAW; URINE GLUCOSE (UA) NEGATIVE (NEGATIVE); URINE KETONE NEGATIVE (NEGATIVE); URINE LEUK ESTERASE NEGATIVE (NEGATIVE); URINE NITRITE NEGATIVE (NEGATIVE); URINE PROTEIN NEGATIVE (NEGATIVE); URINE UROBILINOGEN NEGATIVE mg/dL (0.2-1.0)
--- NOTE | 2018-11-09 11:40 | PN ---
Physical Exam: SUBJECTIVE: Patient seen and examined, no new complaints. OBJECTIVE: Vital Signs Period Temp Pulse Resp BP Sys/Hernandez Pulse Ox Last 24 Hr 98.2 F-98.5 F 65-73 20-20 114-149/68-79 99-100 GENERAL: The patient is awake, alert, and fully oriented, in no acute distress. HEAD: Normal with no signs of trauma. EYES: PERRL, extraocular movements intact, sclera anicteric, conjunctiva clear. No ptosis. ENT: Ears normal, nares patent, oropharynx clear without exudates, moist mucous membranes. NECK: Trachea midline, full range of motion, supple. LUNGS: Breath sounds equal, clear to auscultation bilaterally, no wheezes, no crackles, no accessory muscle use. HEART: Regular rate and rhythm, S1, S2 ABDOMEN: Soft, nontender, nondistended, normoactive bowel sounds, no guarding, no rebound EXTREMITIES: left great toe swelling unchanged, no active fluctuation, discharge , foul smell erythema noted, superficial ulceration at tip healing with granulation tissue PSYCH: Normal mood, normal affect. SKIN: Warm, dry, normal turgor, no rashes or lesions noted Laboratory Results - last 24 hr 11/08/18 11/08/18 11/08/18 11:45 17:10 21:25 WBC RBC Hgb Hct MCV MCH MCHC RDW Plt Count MPV Absolute Neuts (auto) Neutrophils % Lymphocytes % Monocytes % Eosinophils % Basophils % Nucleated RBC % Sodium Potassium Chloride Carbon Dioxide Anion Gap BUN Creatinine Creat Clearance w eGFR POC Glucometer 361 246 168 Random Glucose Calcium Urine Color Urine Appearance Urine pH Ur Specific [place] Urine Protein Urine Glucose (UA) Urine Ketones Urine Blood Urine Nitrite Urine Bilirubin Urine Urobilinogen Ur Leukocyte Esterase Vancomycin Pre-Dose 11/09/18 11/09/18 11/09/18 02:20 03:08 05:15 WBC RBC Hgb Hct MCV MCH MCHC RDW Plt Count MPV Absolute Neuts (auto) Neutrophils % Lymphocytes % Monocytes % Eosinophils % Basophils % Nucleated RBC % Sodium Potassium Chloride Carbon Dioxide Anion Gap BUN Creatinine Creat Clearance w eGFR POC Glucometer 54 120 Random Glucose Calcium Urine Color Straw Urine Appearance Clear Urine pH 5.0 Ur Specific [place] 1.009 L Urine Protein Negative Urine Glucose (UA) Negative Urine Ketones Negative Urine Blood Negative Urine Nitrite Negative Urine Bilirubin Negative Urine Urobilinogen Negative Ur Leukocyte Esterase Negative Vancomycin Pre-Dose 11/09/18 11/09/18 11/09/18 05:44 07:00 07:00 WBC 4.9 RBC 3.67 Hgb 10.3 L Hct 31.5 L MCV 85.8 MCH 28.2 MCHC 32.9 RDW 14.4 Plt Count 193 MPV 7.6 Absolute Neuts (auto) 2.5 Neutrophils % 52.1 Lymphocytes % 37.2 Monocytes % 6.3 Eosinophils % 3.3 Basophils % 1.1 Nucleated RBC % 0 Sodium 142 Potassium 4.6 Chloride 108 H Carbon Dioxide 26 Anion Gap 8 BUN 25 H Creatinine 1.0 Creat Clearance w eGFR 58.69 POC Glucometer 120 Random Glucose 87 Calcium 9.5 Urine Color Urine Appearance Urine pH Ur Specific [place] Urine Protein Urine Glucose (UA) Urine Ketones Urine Blood Urine Nitrite Urine Bilirubin Urine Urobilinogen Ur Leukocyte Esterase Vancomycin Pre-Dose 11/09/18 09:15 WBC RBC Hgb Hct MCV MCH MCHC RDW Plt Count MPV Absolute Neuts (auto) Neutrophils % Lymphocytes % Monocytes % Eosinophils % Basophils % Nucleated RBC % Sodium Potassium Chloride Carbon Dioxide Anion Gap BUN Creatinine Creat Clearance w eGFR POC Glucometer Random Glucose Calcium Urine Color Urine Appearance Urine pH Ur Specific [place] Urine Protein Urine Glucose (UA) Urine Ketones Urine Blood Urine Nitrite Urine Bilirubin Urine Urobilinogen Ur Leukocyte Esterase Vancomycin Pre-Dose 12.8 L Active Medications Generic Name Dose Route Start Last Admin Trade Name Freq PRN Reason Stop Dose Admin Acetaminophen 650 mg 11/08/18 03:30 11/08/18 03:39 Tylenol - PO 650 mg Q6H PRN Administration PAIN LEVEL 1-5 OR FEVER Aspirin 81 mg 11/08/18 10:00 11/09/18 09:31 Asa - PO 81 mg DAILY [facility] Administration Atorvastatin Calcium 10 mg 11/08/18 22:00 11/08/18 21:29 Lipitor - PO 10 mg HS [facility] Administration Clopidogrel Bisulfate 75 mg 11/08/18 10:00 11/09/18 09:31 Plavix - PO 75 mg DAILY [facility] Administration Ferrous Sulfate 325 mg 11/08/18 10:00 11/09/18 09:31 Feosol - PO 325 mg DAILY [facility] Administration Heparin Sodium (Porcine) 5,000 unit 11/08/18 06:00 11/09/18 05:45 Heparin - SQ 5,000 unit TID [facility] Administration Vancomycin HCl 1,250 mg/ 250 mls @ 166.667 mls/hr 11/08/18 10:15 11/09/18 09: 31 Dextrose IVPB 166.667 mls/hr Q24H [facility] Administration Protocol Insulin Aspart 10 units 11/08/18 07:00 11/09/18 06:25 Novolog Vial SQ Not Given BID@0700,1630 [facility] Protocol Insulin Aspart 1 vial 11/08/18 07:00 11/09/18 06:25 Novolog Vial Sliding Scale - SQ Not Given ACHS [facility] Protocol Losartan Potassium 50 mg 11/09/18 10:00 11/09/18 09:31 Cozaar - PO 50 mg DAILY [facility] Administration Metoprolol Tartrate 50 mg 11/08/18 10:00 11/09/18 09:31 Lopressor - PO 50 mg DAILY [facility] Administration Neomycin/Polymyxin/Bacitracin 1 applic 11/08/18 10:00 11/09/18 09:31 Neosporin Topical Ointment - TP 1 applic DAILY [facility] Administration ASSESSMENT/PLAN: 48 yo F PMH IDDM, HTN, CAD, LLE stent 2015, HSV buttock s/p valtrex admitted with left toe abscess/cellulitis/Osteomyelitis and poorly controlled DM, recently discharged on IV vancomycin, admitted with headache and not being comfortable with home antibiotic injection. -Left great toe cellulitis/Osteomyelitis/Abscess s/p I&D, on IV vancomycin -Headache, resolved -HTN -Poorly controlled DM, A1c 10.1 -CAD -LLE stent 2015 Plan: Overall wound healing, no active infection concerns from recent dc. ID input noted, vancomycin levels noted, continue current dose. Wound care, podiatry input. Losartan increased, BP improved. Overnight hypoglycemia. Reduce night levemir to 14 units. ISS, diabetic diet. Continue ASA/plavix DVTPPX heparin Discussed with CM, plan for follow up at infusion center for abx administration. Dc when arrangements made. discussed with patient and nursing. Visit type - Emergency Visit Emergency Visit: Yes ED Registration Date: 11/07/18 Care time: The patient presented to the Emergency Department on the above date and was hospitalized for further evaluation of their emergent condition. - New Patient This patient is new to me today: No - Critical Care Critical Care patient: No - Discharge Referral Referred to [facility] Med [facility].C.: No
--- NOTE | 2018-11-09 17:56 | CONSULT ---
Consult Consult Specialty:: Podiatry Pino Don DPM Reason for Consultation:: chronic osteomyelitis of the left hallux and distal ulcer. - History of Present Illness Chief Complaint: symptoms associated with hypertension History of Present Illness: Patient was admitted with symptoms related to hypertension. She was recently discharged from [facility] after treatment for cellulitis and abscess of the left hallux. I&D was performed by sc and Picc Line was placed to treat presumed osteomyelitis based on bone marrow edema found in the distal phalanx of the hallux. A screw was noted by x-ray in the proximal phalanx of the same digit, but MRI shows no evidence the pathology has spread to the proximal phalanx. - History Source History Provided By: Medical Record - Past Medical History Cardio/Vascular: Yes: CAD, Other (s/p stent) ...LMP: 04/19/15 Endocrine: Yes: Diabetes Mellitus - Alcohol/Substance Use Hx Alcohol Use: No - Smoking History Smoking history: Unknown if ever smoked Have you smoked in the past 12 months: Yes Aproximately how many cigarettes per day: 5 If you are a former smoker, when did you quit?: 2018 Home Medications - Allergies Allergies/Adverse Reactions: Allergies Allergy/AdvReac Type Severity Reaction Status Date / Time No Known Allergies Allergy Verified 10/29/18 22:24 - Home Medications Home Medications: Ambulatory Orders Atorvastatin Calcium [Lipitor] 10 mg PO HS 04/12/13 Losartan Potassium [Cozaar] 25 mg PO DAILY 07/18/15 Clopidogrel Bisulfate [Plavix -] 75 mg PO DAILY 01/28/16 Aspirin [ASA -] 81 mg PO DAILY 10/30/18 Ferrous Sulfate [Iron] 325 mg PO DAILY 10/30/18 Insulin (Novolog) [Novolog -] 10 units SQ BID@0700,1630 #2 units 11/05/18 Insulin Glargine,Hum.rec.anlog [Lantus] 20 unit SQ HS #3 vial 11/05/18 Neomy Sulf/Bacitrac Zn/Poly [Neosporin Top Ointment -] 1 applic TP DAILY #1 applic 11/05/18 Vancomycin HCl in Dextrose 5 % [Vancomycin 1.25 Gram/250Ml-D5w] 1.25 gm IV Q24H 35 Days #35 plast..bag 11/05/18 Metoprolol Tartrate [Lopressor -] 50 mg PO DAILY 11/07/18 Family Disease History - Family Disease History Family Disease History: Diabetes: Mother, Heart Disease: Mother Review of Systems Findings/Remarks: Patient reports no adverse symptoms related to the foot. No pain, no drainage, no edema. Patient also reports no adverse constitutional symptoms this evening. Physical Exam Vital Signs: Vital Signs Temperature 98.3 F 11/09/18 15:54 Pulse Rate 65 11/09/18 15:54 Respiratory Rate 20 11/09/18 15:54 Blood Pressure 122/70 11/09/18 15:54 O2 Sat by Pulse Oximetry (%) 100 11/09/18 00:00 Wound/Incision: Yes: Other (Left distal hallux shows approximately 1cm diameter wound with mix of granulation tissue and adipose tissue in the base. No purulence is noted on compression of the toe. No edema, erythema, or pain is noted. Foot temp and temp gradient are normal. Toe is hammered rigidly at the IPJ.) Labs: CBC, BMP 11/09/18 07:00 11/09/18 07:00 Imaging - Results MRI: Image Reviewed (MRI image from most recent past admission was reviewed to confirm distal phalanx is involved with bone marrow edema, proximal is not. No pathologic fracture or erosion is noted in the distal phalanx.) Assessment/Plan Assessment Left hallux seems to have responded well to I&D and IV antibiosis. No clinical sign of active disease today. Wound seems to be healing. Plan Patient must continue IV antibiosis for the planned 6 weeks. On discharge I will continue wound care with appropriate wound bed debridement, control of surface bacteria, and offloading. There is no need for bone biospy at this time unless antibiosis fails to alleviate the distal phalanx infection. There is no need for screw removal as this is not involved in the infected site. Thank you for the consultation. Pino Don DPM [phone]
--- NOTE | 2018-11-09 19:13 | EKG ---
Test Reason : Blood Pressure : / mmHG Vent. Rate : 075 BPM Atrial Rate : 075 BPM P-R Int : 144 ms QRS Dur : 076 ms QT Int : 304 ms P-R-T Axes : 035 038 002 degrees QTc Int : 339 ms NORMAL SINUS RHYTHM NONSPECIFIC T WAVE ABNORMALITY ABNORMAL ECG WHEN COMPARED WITH ECG OF 02-NOV-2018 07:25, T WAVE VARIATION Confirmed by SHEREEN HALL MD ([id number]) on 11/09/2018 7:12:53 PM Referred By: Confirmed By:SHEREEN HALL MD
[2018-11-09] MEDS: ATORVASTATIN CA 10 MG TABLET (FP) PO SCH (21:24)
[2018-11-09] MEDS: INSULIN (LEVEMIR) 100 UNITS/ML UNITS SQ SCH (21:25)
[2018-11-10] MEDS: HEPARIN NA (PORCINE) 5,000 UNITS/ML 1ML VIAL SQ SCH ×3 (05:41→21:22)
[2018-11-10] MEDS: INSULIN SLIDING SCALE (NOVOLOG) 1 VIAL SQ SCH ×4 (06:22→21:22)
[2018-11-10] MEDS: INSULIN (NOVOLOG) ASPART 100 UNITS/ML 10ML VIAL SQ SCH ×2 (06:23→16:54)
[2018-11-10] MEDS ORDERED: PT OWN MED DRAWER 7, Y5N ONE (09:54)
[2018-11-10] MEDS: METOPROLOL TARTRATE 50 MG TABLET (FP) PO SCH (09:59)
[2018-11-10] MEDS: LOSARTAN POTASSIUM 50 MG TABLET (FP) PO SCH (09:59)
[2018-11-10] MEDS: VANCOMYCIN 1,250 MG in DEXTROSE 5%-WATER - 250 ML IVPB SCH (09:59)
[2018-11-10] MEDS: ASPIRIN 81 MG CHEWABLE TABLETS PO SCH (09:59)
[2018-11-10] MEDS: CLOPIDOGREL BISULFATE 75 MG TABLET (FP) PO SCH (09:59)
[2018-11-10] MEDS: FERROUS SO4 325 MG TABLET (FP) PO SCH (09:59)
[2018-11-10] MEDS: NEOMYCIN/POLYMYXIN/BACITRACIN (TRIPLE ANTIBIOTIC) 28 GM OINTMENT TP SCH (10:02)
[2018-11-10] MEDS ORDERED: INSULIN (NOVOLOG) ASPART 100 UNITS/ML 10ML VIAL ONE (11:32)
--- NOTE | 2018-11-10 12:09 | PN ---
Teaching Attending Note Name of Resident: Betty Khan ATTENDING PHYSICIAN STATEMENT I saw and evaluated the patient. I reviewed the resident's note and discussed the case with the resident. I agree with the resident's findings and plan as documented with exceptions below. SUBJECTIVE: Patient seen and examined. no new complaints. OBJECTIVE: GENERAL: The patient is awake, alert, and fully oriented, in no acute distress. HEAD: Normal with no signs of trauma. EYES: PERRL, extraocular movements intact, sclera anicteric, conjunctiva clear. No ptosis. ENT: Ears normal, nares patent, oropharynx clear without exudates, moist mucous membranes. NECK: Trachea midline, full range of motion, supple. LUNGS: Breath sounds equal, clear to auscultation bilaterally, no wheezes, no crackles, no accessory muscle use. HEART: Regular rate and rhythm, S1, S2 ABDOMEN: Soft, nontender, nondistended, normoactive bowel sounds, no guarding, no rebound EXTREMITIES: left great toe swelling unchanged, no active fluctuation, discharge , foul smell erythema noted, superficial ulceration at tip healing with granulation tissue PSYCH: Normal mood, normal affect. SKIN: Warm, dry, normal turgor, no rashes or lesions noted ASSESSMENT AND PLAN: 48 yo F PMH IDDM, HTN, CAD, LLE stent 2016, HSV buttock s/p valtrex admitted with left toe abscess/cellulitis/Osteomyelitis and poorly controlled DM, recently discharged on IV vancomycin, admitted with headache and not being comfortable with home antibiotic injection. -Left great toe cellulitis/Osteomyelitis/Abscess s/p I&D, on IV vancomycin -Headache, resolved -HTN -Poorly controlled DM, A1c 10.1 -CAD -LLE stent 2015 Plan: Overall wound healing, no active infection concerns from recent dc. ID input noted, vancomycin levels noted, continue current dose. Wound care, podiatry input. Losartan increased, BP improved. Overnight hypoglycemia. Reduced night levemir to 14 units. ISS, diabetic diet. Continue ASA/plavix DVTPPX heparin Discussed with CM, plan for follow up at infusion center for abx administration. Dc when arrangements made. discussed with patient and nursing.
--- NOTE | 2018-11-10 18:57 | PN ---
Physical Exam: SUBJECTIVE: Patient seen and examined by me at bedside. No acute events overnight Patient offers no complaints Reports she was unable to give herself the antibiotics and felt uncomfortable Otherwise, denies any fever, chills, nausea, vomiting, abdominal pain, chest pain, palpitations, shortness of breath, headaches, urinary or bowel symptoms. OBJECTIVE: Vital Signs Period Temp Pulse Resp BP Sys/Hernandez Pulse Ox Last 24 Hr 97.9 F-98.3 F 66-88 18-20 119-140/65-73 100 GENERAL: The patient is awake, alert, and fully oriented, in no acute distress. EYES: Sclera anicteric, conjunctiva clear. No ptosis. ENT: Oropharynx clear without exudates, moist mucous membranes. LUNGS: Breath sounds equal, clear to auscultation bilaterally, no wheezes, no crackles, no accessory muscle use. HEART: RRR, normal s1 and s2 without murmur, rub or gallop. ABDOMEN: Soft, nontender, nondistended, normoactive bowel sounds, no guarding EXTREMITIES: Left hallux shows 1cm ulceration with granulation with no discharge or edema. No pain elicited. NEUROLOGICAL: Cranial nerves II through XII grossly intact. Normal speech, normal gait. Laboratory Results 11/09/18 11/10/18 11/10/18 21:23 05:32 11:14 POC Glucometer 173 226 361 11/10/18 16:47 POC Glucometer 197 Active Medications Generic Name Dose Route Start Last Admin Trade Name Freq PRN Reason Stop Dose Admin Acetaminophen 650 mg 11/08/18 03:30 11/08/18 03:39 Tylenol - PO 650 mg Q6H PRN Administration PAIN LEVEL 1-5 OR FEVER Aspirin 81 mg 11/08/18 10:00 11/10/18 09:59 Asa - PO 81 mg DAILY SOPHIA Administration Atorvastatin Calcium 10 mg 11/08/18 22:00 11/09/18 21:24 Lipitor - PO 10 mg HS SOPHIA Administration Clopidogrel Bisulfate 75 mg 11/08/18 10:00 11/10/18 09:59 Plavix - PO 75 mg DAILY SOPHIA Administration Ferrous Sulfate 325 mg 11/08/18 10:00 11/10/18 09:59 Feosol - PO 325 mg DAILY SOPHIA Administration Heparin Sodium (Porcine) 5,000 unit 11/08/18 06:00 11/10/18 14:19 Heparin - SQ 5,000 unit TID SOPHIA Administration Vancomycin HCl 1,250 mg/ 250 mls @ 166.667 mls/hr 11/08/18 10:15 11/10/18 09: 59 Dextrose IVPB 166.667 mls/hr Q24H SOPHIA Administration Protocol Insulin Aspart 10 units 11/08/18 07:00 11/10/18 16:54 Novolog Vial SQ 10 units BID@0700,1630 SOPHIA Administration Protocol Insulin Aspart 1 vial 11/08/18 07:00 11/10/18 16:54 Novolog Vial Sliding Scale - SQ 2 units ACHS SOPHIA Administration Protocol Insulin Detemir 14 units 11/09/18 11:39 11/09/18 21:25 Levemir Vial SQ 14 units HS SOPHIA Administration Losartan Potassium 50 mg 11/09/18 10:00 11/10/18 09:59 Cozaar - PO 50 mg DAILY SOPHIA Administration Metoprolol Tartrate 50 mg 11/08/18 10:00 11/10/18 09:59 Lopressor - PO 50 mg DAILY SOPHIA Administration Neomycin/Polymyxin/Bacitracin 1 applic 11/08/18 10:00 11/10/18 10:02 Neosporin Topical Ointment - TP 1 applic DAILY SOPHIA Administration ASSESSMENT/PLAN: Patient is a 48 year old female who was recently admitted for left toe osteomyelitis and discharged on IV vancomycin who returned with complaints of headache and not comfortable with home IV antibiotic injection. Patient admitted for further monitoring and management. #Left Hallux Osteomyelitis -Continue IV antibiotics with Vancomycin for total of 5 weeks. -ID following #Headache -Resolved -Tylenol PRN #Uncontrolled IDDMII -Continue Levemir 14 units at night -Continue Novolog -BGM/ISS -Will need outpatient follow up with [employer] #HLD -Continue Lipitor 10mg HS #HTN -Controlled -Continue Cozaar 50mg daily -Continue to monitor BP #CAD -Continue Plavix and ASA #Iron Def. Anemia -Continue Ferrous Sulfate 325mg daily #F/E/N -No IV fluids -Electrolytes wnl -Sodium/Diabetic controlled diet #Prophylaxis -Heparin SQ TID for DVT -No GI required #Disposition -Full code -Plan for follow up at infusion center for Abx administration Betty Khan [id number] Visit type - Emergency Visit Emergency Visit: Yes ED Registration Date: 11/07/18 Care time: The patient presented to the Emergency Department on the above date and was hospitalized for further evaluation of their emergent condition. - New Patient This patient is new to me today: Yes Date on this admission: 11/10/18 - Critical Care Critical Care patient: No
[2018-11-10] MEDS: INSULIN (LEVEMIR) 100 UNITS/ML UNITS SQ SCH (21:21)
[2018-11-10] MEDS: ATORVASTATIN CA 10 MG TABLET (FP) PO SCH (21:21)
[2018-11-11] MEDS: INSULIN (NOVOLOG) ASPART 100 UNITS/ML 10ML VIAL SQ SCH (06:31)
[2018-11-11] MEDS: HEPARIN NA (PORCINE) 5,000 UNITS/ML 1ML VIAL SQ SCH ×2 (06:31→14:57)
[2018-11-11] MEDS: INSULIN SLIDING SCALE (NOVOLOG) 1 VIAL SQ SCH ×2 (06:31→11:50)
[2018-11-11 08:05] LABS: BASO % 1.4 % (0-2.0); EOS % 3.5 % (0-4.5); HEMATOCRIT 32.8 % (32.4-45.2); HEMOGLOBIN 10.7 GM/dL (10.7-15.3); LYMPH % 41.2 % (8-40); MCH 28.2 pg (25.7-33.7); MCHC 32.7 g/dl (32.0-36.0); MEAN CELL VOLUME 86.1 fl (80-96); MEAN PLT VOLUME 7.2 fl (7.5-11.1); MONO % 5.9 % (3.8-10.2); PLATELET COUNT 194 K/MM3 (134-434); RBC 3.81 M/mm3 (3.60-5.2); RDW 14.4 % (11.6-15.6)
[2018-11-11 08:23] LABS: ALBUMIN 3.3 g/dl (3.4-5.0); ALK PHOS 168 U/L (45-117); ANION GAP 11 MMOL/L (8-16); BILIRUBIN,TOTAL 0.2 mg/dL (0.2-1); BLOOD UREA NITROGEN 41 mg/dL (7-18); CALCIUM 9.4 mg/dL (8.5-10.1); CHLORIDE 111 mmol/L (98-107); CO2 21 mmol/L (21-32); CREATININE 1.1 mg/dL (0.55-1.3); GLUCOSE,RANDOM 152 mg/dL (74-106); POTASSIUM 4.4 mmol/L (3.5-5.1); SGOT/AST 20 U/L (15-37); SGPT/ALT 26 U/L (13-61); SODIUM 143 mmol/L (136-145)
[2018-11-11] MEDS: ASPIRIN 81 MG CHEWABLE TABLETS PO SCH (09:23)
[2018-11-11] MEDS: LOSARTAN POTASSIUM 50 MG TABLET (FP) PO SCH (09:23)
[2018-11-11] MEDS: METOPROLOL TARTRATE 50 MG TABLET (FP) PO SCH (09:23)
[2018-11-11] MEDS: FERROUS SO4 325 MG TABLET (FP) PO SCH (09:23)
[2018-11-11] MEDS: CLOPIDOGREL BISULFATE 75 MG TABLET (FP) PO SCH (09:23)
[2018-11-11] MEDS: NEOMYCIN/POLYMYXIN/BACITRACIN (TRIPLE ANTIBIOTIC) 28 GM OINTMENT TP SCH (10:42)
[2018-11-11] MEDS: VANCOMYCIN 1,250 MG in DEXTROSE 5%-WATER - 250 ML IVPB SCH (10:42)
[2018-11-11 12:09] VITALS: BP 133/72; PULSE 81; TEMP 97.9
--- NOTE | 2018-11-11 12:59 | PN ---
Teaching Attending Note Name of Resident: Betty Khan ATTENDING PHYSICIAN STATEMENT I saw and evaluated the patient. I reviewed the resident's note and discussed the case with the resident. I agree with the resident's findings and plan as documented with exceptions below. SUBJECTIVE: Patient seen and examined. Overall unchanged, no new complaints. OBJECTIVE: Vital Signs Period Temp Pulse Resp BP Sys/Hernandez Pulse Ox Last 24 Hr 97.9 F-98.0 F 66-81 18-20 119-133/64-72 100 Intake & Output 11/08/18 11/09/18 11/10/18 11/11/18 23:59 23:59 23:59 23:59 Intake Total 1800 1450 750 Balance 1800 1450 750 General: sitting in bed in no acute distress Extremities: left great findings unchanged, no active swelling or discharge noted Home Medications Medication Instructions Recorded Atorvastatin Calcium [Lipitor] 10 mg PO HS 04/12/13 Losartan Potassium [Cozaar] 25 mg PO DAILY 07/18/15 Clopidogrel Bisulfate [Plavix -] 75 mg PO DAILY 01/28/16 Aspirin [ASA -] 81 mg PO DAILY 10/30/18 Ferrous Sulfate [Iron] 325 mg PO DAILY 10/30/18 Insulin (Novolog) [Novolog -] 10 units SQ BID@0700,1630 #2 units 11/05/18 Insulin Glargine,Hum.rec.anlog 20 unit SQ HS #3 vial 11/05/18 [Lantus] Neomy Sulf/Bacitrac Zn/Poly 1 applic TP DAILY #1 applic 11/05/18 [Neosporin Top Ointment -] Vancomycin HCl in Dextrose 5 % 1.25 gm IV Q24H 35 Days #35 11/05/18 [Vancomycin 1.25 Gram/250Ml-D5w] plast..bag Metoprolol Tartrate [Lopressor -] 50 mg PO DAILY 11/07/18 Active Medications Acetaminophen (Tylenol -) 650 mg PO Q6H PRN PRN Reason: PAIN LEVEL 1-5 OR FEVER Last Admin: 11/08/18 03:39 Dose: 650 mg Aspirin (Asa -) 81 mg PO DAILY [facility] Last Admin: 11/11/18 09:23 Dose: 81 mg Atorvastatin Calcium (Lipitor -) 10 mg PO HS [facility] Last Admin: 11/10/18 21:21 Dose: 10 mg Clopidogrel Bisulfate (Plavix -) 75 mg PO DAILY [facility] Last Admin: 11/11/18 09:23 Dose: 75 mg Ferrous Sulfate (Feosol -) 325 mg PO DAILY [facility] Last Admin: 11/11/18 09:23 Dose: 325 mg Heparin Sodium (Porcine) (Heparin -) 5,000 unit SQ TID [facility] Last Admin: 11/11/18 06:31 Dose: 5,000 unit Vancomycin HCl 1,250 mg/ (Dextrose) 250 mls @ 166.667 mls/hr IVPB Q24H [facility]; Protocol Last Admin: 11/11/18 10:42 Dose: 166.667 mls/hr Insulin Aspart (Novolog Vial) 10 units SQ BID@0700,1630 [facility]; Protocol Last Admin: 11/11/18 06:31 Dose: 10 units Insulin Aspart (Novolog Vial Sliding Scale -) 1 vial SQ ACHS [facility]; Protocol Last Admin: 11/11/18 11:50 Dose: 10 units Insulin Detemir (Levemir Vial) 14 units SQ HS [facility] Last Admin: 11/10/18 21:21 Dose: 14 units Losartan Potassium (Cozaar -) 50 mg PO DAILY [facility] Last Admin: 11/11/18 09:23 Dose: 50 mg Metoprolol Tartrate (Lopressor -) 50 mg PO DAILY [facility] Last Admin: 11/11/18 09:23 Dose: 50 mg Neomycin/Polymyxin/Bacitracin (Neosporin Topical Ointment -) 1 applic TP DAILY [facility] Last Admin: 11/11/18 10:42 Dose: 1 applic Laboratory Results - last 24 hr 11/10/18 11/10/18 11/11/18 16:47 20:50 05:47 WBC RBC Hgb Hct MCV MCH MCHC RDW Plt Count MPV Absolute Neuts (auto) Neutrophils % Lymphocytes % Monocytes % Eosinophils % Basophils % Nucleated RBC % Sodium Potassium Chloride Carbon Dioxide Anion Gap BUN Creatinine Creat Clearance w eGFR POC Glucometer 197 164 206 Random Glucose Calcium Total Bilirubin AST ALT Alkaline Phosphatase Total Protein Albumin 11/11/18 11/11/18 11/11/18 07:00 07:00 11:21 WBC 4.0 RBC 3.81 Hgb 10.7 Hct 32.8 MCV 86.1 MCH 28.2 MCHC 32.7 RDW 14.4 Plt Count 194 MPV 7.2 L Absolute Neuts (auto) 1.9 Neutrophils % 48.0 Lymphocytes % 41.2 H Monocytes % 5.9 Eosinophils % 3.5 Basophils % 1.4 Nucleated RBC % 0 Sodium 143 Potassium 4.4 Chloride 111 H Carbon Dioxide 21 Anion Gap 11 BUN 41 H Creatinine 1.1 Creat Clearance w eGFR 52.58 POC Glucometer 352 Random Glucose 152 H Calcium 9.4 Total Bilirubin 0.2 AST 20 ALT 26 Alkaline Phosphatase 168 H Total Protein 7.0 Albumin 3.3 L ASSESSMENT AND PLAN: 48 yo F PMH IDDM, HTN, CAD, LLE stent 2016, HSV buttock s/p valtrex admitted with left toe abscess/cellulitis/Osteomyelitis and poorly controlled DM, recently discharged on IV vancomycin, admitted with headache and not being comfortable with home antibiotic injection. -Left great toe cellulitis/Osteomyelitis/Abscess s/p I&D, on IV vancomycin -Headache, resolved -HTN -Poorly controlled DM, A1c 10.1 -CAD -LLE stent 2015 Plan: Overall wound healing, no active infection concerns from recent dc. ID input noted, vancomycin levels noted, continue current dose. Wound care, podiatry input. Losartan increased, BP improved. Levemir 18 units. ISS, diabetic diet. Continue ASA/plavix DVTPPX heparin Discussed with CM, plan for follow up at infusion center for abx administration. Dc when arrangements made. discussed with patient, nursing and Dr. Gonzales.
[2018-11-11] MEDS ORDERED: INSULIN (LEVEMIR) 100 UNITS/ML UNITS SQ SCH (13:01)
--- NOTE | 2018-11-11 13:21 | PN ---
Progress Note, Physician History of Present Illness: NO C/O GREAT TOE PAIN NO F/C TOLERATING ANTIBIOTICS - Current Medication List Current Medications: Active Medications Acetaminophen (Tylenol -) 650 mg PO Q6H PRN PRN Reason: PAIN LEVEL 1-5 OR FEVER Last Admin: 11/08/18 03:39 Dose: 650 mg Aspirin (Asa -) 81 mg PO DAILY REPLACED BY [facility] Last Admin: 11/11/18 09:23 Dose: 81 mg Atorvastatin Calcium (Lipitor -) 10 mg PO HS REPLACED BY [facility] Last Admin: 11/10/18 21:21 Dose: 10 mg Clopidogrel Bisulfate (Plavix -) 75 mg PO DAILY REPLACED BY [facility] Last Admin: 11/11/18 09:23 Dose: 75 mg Ferrous Sulfate (Feosol -) 325 mg PO DAILY REPLACED BY [facility] Last Admin: 11/11/18 09:23 Dose: 325 mg Heparin Sodium (Porcine) (Heparin -) 5,000 unit SQ TID REPLACED BY [facility] Last Admin: 11/11/18 06:31 Dose: 5,000 unit Vancomycin HCl 1,250 mg/ (Dextrose) 250 mls @ 166.667 mls/hr IVPB Q24H REPLACED BY [facility]; Protocol Last Admin: 11/11/18 10:42 Dose: 166.667 mls/hr Insulin Aspart (Novolog Vial) 10 units SQ BID@0700,1630 REPLACED BY [facility]; Protocol Last Admin: 11/11/18 06:31 Dose: 10 units Insulin Aspart (Novolog Vial Sliding Scale -) 1 vial SQ ACHS REPLACED BY [facility]; Protocol Last Admin: 11/11/18 11:50 Dose: 10 units Insulin Detemir (Levemir Vial) 18 units SQ [facility] Losartan Potassium (Cozaar -) 50 mg PO DAILY REPLACED BY [facility] Last Admin: 11/11/18 09:23 Dose: 50 mg Metoprolol Tartrate (Lopressor -) 50 mg PO DAILY REPLACED BY [facility] Last Admin: 11/11/18 09:23 Dose: 50 mg Neomycin/Polymyxin/Bacitracin (Neosporin Topical Ointment -) 1 applic TP DAILY REPLACED BY [facility] Last Admin: 11/11/18 10:42 Dose: 1 applic - Objective Vital Signs: Vital Signs Temperature 97.9 F 11/11/18 09:00 Pulse Rate 81 11/11/18 09:00 Respiratory Rate 20 11/11/18 09:00 Blood Pressure 133/72 11/11/18 09:00 O2 Sat by Pulse Oximetry (%) 100 01/22/19 00:00 Constitutional: Yes: No Distress Cardiovascular: Yes: Regular Rate and Rhythm, S1, S2 Respiratory: Yes: CTA Bilaterally Gastrointestinal: Yes: Normal Bowel Sounds, Soft Extremities: Yes: Other (GREAT TOE WITH LESS SWELLING NO DRAINAGE) Labs: CBC, BMP 11/11/18 07:00 11/11/18 07:00 Assessment/Plan CELLULITIS/ OSTEOMYELITIS GREAT TOE DM DIABETIC PERIPHERAL NEUROPATHY DAY#13 VANCOMYCIN OK FOR DISCHARGE HOME ON VANCOMYCIN 1GM Q24H X 28 DAYS
--- NOTE | 2018-11-11 16:55 | DS ---
Physical Exam: SUBJECTIVE: Patient seen and examined by me at bedside. No acute events overnight Patient offers no complaints Otherwise, denies any fever, chills, nausea, vomiting, abdominal pain, chest pain, palpitations, shortness of breath, headaches, urinary or bowel symptoms. OBJECTIVE: Vital Signs Period Temp Pulse Resp BP Sys/Hernandez Pulse Ox Last 24 Hr 97.9 F-98.0 F 66-81 18-20 119-133/64-72 100 PHYSICAL EXAM GENERAL: The patient is awake, alert, and fully oriented, in no acute distress. EYES: Sclera anicteric, conjunctiva clear. No ptosis. ENT: Oropharynx clear without exudates, moist mucous membranes. LUNGS: Breath sounds equal, clear to auscultation bilaterally, no wheezes, no crackles, no accessory muscle use. HEART: RRR, normal s1 and s2 without murmur, rub or gallop. ABDOMEN: Soft, nontender, nondistended, normoactive bowel sounds, no guarding EXTREMITIES: Left hallux shows 1cm ulceration with granulation with no discharge or edema. No pain elicited. NEUROLOGICAL: Cranial nerves II through XII grossly intact. Normal speech, normal gait. LABS Laboratory Results - last 24 hr 11/10/18 11/10/18 11/11/18 16:47 20:50 05:47 WBC RBC Hgb Hct MCV MCH MCHC RDW Plt Count MPV Absolute Neuts (auto) Neutrophils % Lymphocytes % Monocytes % Eosinophils % Basophils % Nucleated RBC % Sodium Potassium Chloride Carbon Dioxide Anion Gap BUN Creatinine Creat Clearance w eGFR POC Glucometer 197 164 206 Random Glucose Calcium Total Bilirubin AST ALT Alkaline Phosphatase Total Protein Albumin 11/11/18 11/11/18 11/11/18 07:00 07:00 11:21 WBC 4.0 RBC 3.81 Hgb 10.7 Hct 32.8 MCV 86.1 MCH 28.2 MCHC 32.7 RDW 14.4 Plt Count 194 MPV 7.2 L Absolute Neuts (auto) 1.9 Neutrophils % 48.0 Lymphocytes % 41.2 H Monocytes % 5.9 Eosinophils % 3.5 Basophils % 1.4 Nucleated RBC % 0 Sodium 143 Potassium 4.4 Chloride 111 H Carbon Dioxide 21 Anion Gap 11 BUN 41 H Creatinine 1.1 Creat Clearance w eGFR 52.58 POC Glucometer 352 Random Glucose 152 H Calcium 9.4 Total Bilirubin 0.2 AST 20 ALT 26 Alkaline Phosphatase 168 H Total Protein 7.0 Albumin 3.3 L PRE HOSPITAL COURSE: Patient is a 48 year old female who was recently admitted for left toe osteomyelitis and discharged on IV vancomycin who returned with complaints of headache and not comfortable with home IV antibiotic injection. Patient admitted for further monitoring and management. HOSPITAL COURSE: Throughout hospitalization, patients headache was controlled when Losartan was increased with better BP control. Patient reported she was unable to transfuse the antibiotics herself. Patient seen by ID and recommended daily follow up at infusion center for abx administration for 28 [address] weekly [address] Dr. Gonzales while on antibiotic vancomycin. Patient verbalized understanding and discharged with follow up appointment with Dr. Guillen, Cardboard Cutter, for Saturday () Date of Admission:11/07/18 Date of Discharge: 11/11/18 Minutes to complete discharge: 45 Discharge Summary Reason For Visit: ELEVATED BLOOD PRESSURE READING Condition: Stable - Instructions Diet, Activity, Other Instructions: RECOMMENDATIONS: -You were seen here previously for an infection of the toe that reached to the bone, requiring IV antibiotics with a PICC LINE placed. However, you were unable to use the PICC line at home and returned for further assistance. You were set up to come to the infusion center and have daily infusions of the antibiotics. -You will also have weekly labs done that will be ordered by the Infectious Disease doctor, Dr. Gonzales. -Duration of your antibiotics will be determined by Dr. Gonzales. FOLLOW UP: -Please follow up with Dr. Guillen for your Saturday morning appointment. -Please follow up with your Infectious Disease Physician, Dr. Gonzales, as he will be dealing with your IV antibiotics and you will need blood work to be done every week while on vancomycin. -Please follow up with your primary care physician Dr. Chaudhari within a week -Please follow up with your Irrigation Foreman within a week to help better control your glucose levels. -Please follow up with Dr. Mar in 1-2 weeks to discuss left leg testing and stenting as indicated. MEDICATIONS: -Please continue your Levemir as directed at home. -Please continue your Novolog as directed. -You will be taking IV antibiotic called Vancomycin for at least 5 weeks. This will be ordered by Dr. Gonzales. Please follow up in his office for weekly lab work. Please note that you will need weekly labs with Dr. Gonzales while on antibiotic vancomycin. -Your medication Losartan for your Blood pressure has been increased from 25mg to 50mg. A prescription has been sent to your pharmacy. Please pick it up. LEFT FIRST TOE DRESSING INSTRUCTIONS: -Use the surgical shoe boot that you will need to walk on. Before applying the Boot you will need to apply Neosporin around the toe and wrap it up with the gauze we will provide for you. Keep wound area clean, change dressing daily. It is very important that you monitor your blood glucose levels while on insulin. Advise to check blood glucose before all meals and at bedtime and maintain a diary. Notify your doctor if < 75 or persistently > 200 or any reading > 400 noted. If you notice any new fevers, chills, foot swelling, redness, pain, or any new concerns, please call 911 or come to ED. Referrals: Gomez Gonzales MD [Staff Physician] - Jesus Day MD [Staff Physician] - Pino Don MD [Staff Physician] - Lloyd Schmidt MD [Staff Physician] - Carmen Chaudhari [Primary Care Provider] - Disposition: HOME - Home Medications Comprehensive Discharge Medication List: Ambulatory Orders Atorvastatin Calcium [Lipitor] 10 mg PO HS 04/12/13 Clopidogrel Bisulfate [Plavix -] 75 mg PO DAILY 01/28/16 Aspirin [ASA -] 81 mg PO DAILY 10/30/18 Ferrous Sulfate [Iron] 325 mg PO DAILY 10/30/18 Insulin (Novolog) [Novolog -] 10 units SQ BID@0700,1630 #2 units 11/05/18 Insulin Glargine,Hum.rec.anlog [Lantus] 20 unit SQ HS #3 vial 11/05/18 Neomy Sulf/Bacitrac Zn/Poly [Neosporin Top Ointment -] 1 applic TP DAILY #1 applic 11/05/18 Vancomycin HCl in Dextrose 5 % [Vancomycin 1.25 Gram/250Ml-D5w] 1.25 gm IV Q24H 35 Days #35 plast..bag 11/05/18 Metoprolol Tartrate [Lopressor -] 50 mg PO DAILY 11/07/18 Losartan Potassium [Cozaar -] 50 mg PO DAILY #30 tablet 11/11/18 This patient is new to me today: Yes Date on this admission: 11/11/18 Emergency Visit: Yes ED Registration Date: 11/07/18 Care time: The patient presented to the Emergency Department on the above date and was hospitalized for further evaluation of their emergent condition. Critical Care patient: No - Discharge Referral Referred to [facility] No
== END 2018-11-11 15:15 | disposition home or self-care (01) ==
LOC: JER 18:30 → J6S 22:44 → UNDOADMIN 22:44 → JERBED 22:44
PROVIDERS: ADMIT Internal Medicine; ATTEND Hospitalist
PROC: 3E03329 Introduction of Other Anti-infective into Peripheral Vein, Percutaneous Approach (ICD-10-PCS; principal; 2018-11-07)
PROC: 3E0337Z Introduction of Electrolytic and Water Balance Substance into Peripheral Vein, Percutaneous Approach (ICD-10-PCS; 2018-11-07)
PROC: 3E013VG Introduction of Insulin into Subcutaneous Tissue, Percutaneous Approach (ICD-10-PCS; 2018-11-07)
DX: M86.172 Other acute osteomyelitis, left ankle and foot (principal); L03.032 Cellulitis of left toe; I10 Essential (primary) hypertension; E78.5 Hyperlipidemia, unspecified; I73.9 Peripheral vascular disease, unspecified; E11.42 Type 2 diabetes mellitus with diabetic polyneuropathy; E11.65 Type 2 diabetes mellitus with hyperglycemia; I25.10 Atherosclerotic heart disease of native coronary artery without angina pectoris; B95.7 Other staphylococcus as the cause of diseases classified elsewhere; Z95.820 Peripheral vascular angioplasty status with implants and grafts; D50.9 Iron deficiency anemia, unspecified; Z79.4 Long term (current) use of insulin
CPT/HCPCS: 36415; 80048; 80053; 81003; 82550; 82553; 82962; 83735; 84484; 85025; 85651; 93005; 93010; 99281-25; G0378; G0480; J1644; J7030

== ENCOUNTER 2018-11-12 10:55 | Day surgery (SDC) | payer BC ==
[2018-11-12] MEDS ORDERED: VANCOMYCIN 1,000 MG in SODIUM CHLORIDE 250 ML IVPB ONE (11:30)
[2018-11-12 11:47] VITALS: TEMP 98.9
[2018-11-12 13:30] VITALS: BP 148/76; PULSE 86
== END 2018-11-12 13:31 | disposition home or self-care (01) ==
LOC: JINFUSION 10:55
PROVIDERS: ATTEND Internal Medicine
DX: M86.172 Other acute osteomyelitis, left ankle and foot (principal); L03.032 Cellulitis of left toe; B95.7 Other staphylococcus as the cause of diseases classified elsewhere; E11.42 Type 2 diabetes mellitus with diabetic polyneuropathy; I10 Essential (primary) hypertension; Z79.4 Long term (current) use of insulin
CPT/HCPCS: 96365; 96366

== ENCOUNTER 2018-11-13 08:14 | Day surgery (SDC) | payer BC ==
[2018-11-13] MEDS ORDERED: VANCOMYCIN 1 GRAM (PRE-DOCKED) 1,000 MG/250 ML BAG IVPB ONE (08:29)
[2018-11-13] MEDS ORDERED: VANCOMYCIN 1,000 MG in SODIUM CHLORIDE 250 ML IVPB ONE (09:00)
[2018-11-13 10:07] VITALS: PULSE 77; TEMP 98.2
[2018-11-13 12:41] VITALS: BP 142/75
== END 2018-11-13 11:15 | disposition home or self-care (01) ==
LOC: JINFUSION 08:14
PROVIDERS: ATTEND Internal Medicine
DX: M86.172 Other acute osteomyelitis, left ankle and foot (principal); L03.032 Cellulitis of left toe; B95.7 Other staphylococcus as the cause of diseases classified elsewhere; E11.42 Type 2 diabetes mellitus with diabetic polyneuropathy; I10 Essential (primary) hypertension; Z79.4 Long term (current) use of insulin
CPT/HCPCS: 96365; 96366; G0480

== ENCOUNTER 2018-11-14 10:59 | Day surgery (SDC) | payer BC ==
[~2018-11-14 10:59] MED LIST: VANCOMYCIN 1,000 MG in SODIUM CHLORIDE 250 ML IVPB ONE
[2018-11-14 11:20] VITALS: TEMP 99
[2018-11-14 13:27] VITALS: BP 133/67; PULSE 82
== END 2018-11-14 13:35 | disposition home or self-care (01) ==
LOC: JASU-ENDO 10:59
PROVIDERS: ATTEND Internal Medicine
DX: M86.172 Other acute osteomyelitis, left ankle and foot (principal); L03.032 Cellulitis of left toe; B95.7 Other staphylococcus as the cause of diseases classified elsewhere; E11.42 Type 2 diabetes mellitus with diabetic polyneuropathy; Z79.4 Long term (current) use of insulin
CPT/HCPCS: 96365; 96366

== ENCOUNTER 2018-11-15 12:14 | Day surgery (SDC) | payer BC ==
[2018-11-15 12:54] VITALS: TEMP 98.7
[2018-11-15] MEDS ORDERED: VANCOMYCIN 1,000 MG in SODIUM CHLORIDE 250 ML IVPB ONE (13:00)
[2018-11-15 15:03] VITALS: BP 136/81; PULSE 75
== END 2018-11-15 14:35 | disposition home or self-care (01) ==
LOC: J7W 12:14 → JINFUSION 12:14
PROVIDERS: ATTEND Internal Medicine
DX: M86.172 Other acute osteomyelitis, left ankle and foot (principal); L03.032 Cellulitis of left toe; B95.7 Other staphylococcus as the cause of diseases classified elsewhere; E11.42 Type 2 diabetes mellitus with diabetic polyneuropathy; I10 Essential (primary) hypertension; Z79.4 Long term (current) use of insulin
CPT/HCPCS: 96365

== ENCOUNTER 2018-11-16 11:59 | Day surgery (SDC) | payer BC ==
[2018-11-16] MEDS ORDERED: VANCOMYCIN 1,000 MG in SODIUM CHLORIDE 250 ML IVPB ONE (12:45)
[2018-11-16 16:31] VITALS: BP 121/79; PULSE 94; TEMP 98.2
== END 2018-11-16 15:45 | disposition home or self-care (01) ==
LOC: JINFUSION 11:59 → J7W 11:59 → JINFUSION 15:45
PROVIDERS: ATTEND Internal Medicine
DX: M86.172 Other acute osteomyelitis, left ankle and foot (principal); L03.032 Cellulitis of left toe; B95.7 Other staphylococcus as the cause of diseases classified elsewhere; I10 Essential (primary) hypertension; Z79.4 Long term (current) use of insulin
CPT/HCPCS: 96365; 96366

== ENCOUNTER 2018-11-17 08:12 | Day surgery (SDC) | payer BC ==
[2018-11-17] MEDS ORDERED: VANCOMYCIN 1,000 MG in SODIUM CHLORIDE 250 ML IVPB ONE (08:45)
[2018-11-17 10:08] VITALS: TEMP 97.3
[2018-11-17 11:28] VITALS: BP 135/89; PULSE 86
== END 2018-11-17 11:25 | disposition home or self-care (01) ==
LOC: JINFUSION 08:12
PROVIDERS: ATTEND Internal Medicine
DX: M86.172 Other acute osteomyelitis, left ankle and foot (principal); L03.032 Cellulitis of left toe; B95.7 Other staphylococcus as the cause of diseases classified elsewhere; I10 Essential (primary) hypertension; Z79.4 Long term (current) use of insulin
CPT/HCPCS: 96365; 96366

== ENCOUNTER 2018-11-18 07:43 | Day surgery (SDC) | payer BC ==
[2018-11-18] MEDS ORDERED: diphenhydrAMINE HCL 25 MG CAPSULE (FP) PO ONE ×2 (08:12→08:30)
[2018-11-18] MEDS ORDERED: VANCOMYCIN 1,000 MG in SODIUM CHLORIDE 250 ML IVPB ONE (08:30)
[2018-11-18 08:58] VITALS: TEMP 98.5
[2018-11-18 10:43] VITALS: BP 134/74; PULSE 82
--- NOTE | 2018-11-18 10:48 | CONS ---
DATE OF CONSULTATION: DATE OF DICTATION: 11/18/2018 The patient is a 48-year-old female, past medical history of diabetes, evaluated for osteomyelitis of the left great toe. She was recently hospitalized at [facility] from November 07 through the . She had been hospitalized earlier in October for cellulitis of the left great toe. She had undergone incision and drainage by podiatry. Cultures were positive for Staphylococcus lugdunensis. She was initially treated with vancomycin and Zosyn and was ultimately discharged with a PICC line to complete a 6-week course of IV antibiotic therapy with vancomycin. She is continuing to receive the vancomycin. Yesterday she noted a pruritic rash which was limited to the back. She denies any generalized rash. No fever or chills. She has no complaints of foot pain as she suffers from peripheral neuropathy. Her PICC line has been working well. PAST MEDICAL HISTORY: Positive for diabetes, hypertension, coronary artery disease, peripheral vascular disease, hyperlipidemia, history of paratracheal abscess. ALLERGIES: No known drug allergies. PHYSICAL EXAMINATION: General: She is awake and alert. She is in no acute distress. Vital Signs: Stable, afebrile. HEENT: Sclerae are anicteric. Oropharynx: No oral lesions. Cardiovascular: Heart sounds S1, S2. Lungs: Clear. No rhonchi, rales, or wheezing. No stridor. Abdomen: Soft, nontender. PICC line site: No erythema or tenderness. Examination of the Left Great Toe: There is decreased swelling as compared to her last exam and hospital admission. Erythema has resolved. Dry ulceration present at the distal aspect of the toe. No purulent drainage. IMPRESSION: 1. Acute osteomyelitis of the left great toe. 2. Probable red man syndrome secondary to vancomycin, doubt true allergy. 3. Diabetes mellitus. 4. Peripheral neuropathy. Patient will continue on vancomycin 1 g IV piggyback daily. Will premedicate with Benadryl 25 mg p.o. before the infusion. Follow up ESR and C-reactive protein. Monitor vancomycin level. Last level from November 13.5. Patient is to complete a 6-week course of IV vancomycin therapy, presently day number 20. Will follow. Thank you for the kind referral. BLANCA ABREU M.D. [id number]
== END 2018-11-18 10:45 | disposition home or self-care (01) ==
LOC: JINFUSION 07:43
PROVIDERS: ATTEND Internal Medicine
DX: M86.172 Other acute osteomyelitis, left ankle and foot (principal); L03.032 Cellulitis of left toe; B95.7 Other staphylococcus as the cause of diseases classified elsewhere; I10 Essential (primary) hypertension; Z79.4 Long term (current) use of insulin
CPT/HCPCS: 96365; 96366

== ENCOUNTER 2018-11-19 08:23 | Day surgery (SDC) | payer BC ==
[2018-11-19] MEDS ORDERED: diphenhydrAMINE HCL 25 MG CAPSULE (FP) PO ONE ×2 (08:50→08:52)
[2018-11-19] MEDS ORDERED: VANCOMYCIN 1,000 MG in SODIUM CHLORIDE 250 ML IVPB ONE (09:20)
[2018-11-19 09:53] VITALS: TEMP 98.5
[2018-11-19 12:52] VITALS: BP 132/72; PULSE 74
== END 2018-11-19 11:15 | disposition home or self-care (01) ==
LOC: JINFUSION 08:23
PROVIDERS: ATTEND Internal Medicine
DX: M86.172 Other acute osteomyelitis, left ankle and foot (principal); L03.032 Cellulitis of left toe; B95.7 Other staphylococcus as the cause of diseases classified elsewhere; I10 Essential (primary) hypertension; Z79.4 Long term (current) use of insulin
CPT/HCPCS: 96365; 96366

== ENCOUNTER 2018-11-20 08:17 | Day surgery (SDC) | payer BC ==
[2018-11-20] MEDS ORDERED: diphenhydrAMINE HCL 25 MG CAPSULE (FP) PO ONE ×2 (08:33→09:30)
[2018-11-20 09:52] VITALS: TEMP 98.7
[2018-11-20] MEDS ORDERED: VANCOMYCIN 1,000 MG in SODIUM CHLORIDE 250 ML IVPB ONE (10:00)
[2018-11-20 12:25] VITALS: BP 121/64; PULSE 74
== END 2018-11-20 11:30 | disposition home or self-care (01) ==
LOC: JINFUSION 08:17
PROVIDERS: ATTEND Internal Medicine
DX: M86.172 Other acute osteomyelitis, left ankle and foot (principal); L03.032 Cellulitis of left toe; B95.7 Other staphylococcus as the cause of diseases classified elsewhere; I10 Essential (primary) hypertension; Z79.4 Long term (current) use of insulin; E11.42 Type 2 diabetes mellitus with diabetic polyneuropathy
CPT/HCPCS: 96365; 96366; G0480

== ENCOUNTER 2018-11-21 09:11 | Day surgery (SDC) | payer BC ==
[~2018-11-21 09:11] MED LIST changes: +DEXTROSE 5% IVPB ONE; +VANCOMYCIN IVPB ONE; +WATER IVPB ONE; +diphenhydrAMINE HCL 25 MG CAPSULE (FP) PO ONE
[2018-11-21] MEDS ORDERED: diphenhydrAMINE HCL 25 MG CAPSULE (FP) PO ONE (09:38)
[2018-11-21 10:30] VITALS: TEMP 98.1
[2018-11-21 12:17] VITALS: BP 127/70; PULSE 76
== END 2018-11-21 12:00 | disposition home or self-care (01) ==
LOC: JINFUSION 09:11
PROVIDERS: ATTEND Internal Medicine
DX: M86.172 Other acute osteomyelitis, left ankle and foot (principal); L03.032 Cellulitis of left toe; E11.42 Type 2 diabetes mellitus with diabetic polyneuropathy; B95.7 Other staphylococcus as the cause of diseases classified elsewhere; I10 Essential (primary) hypertension; Z79.4 Long term (current) use of insulin
CPT/HCPCS: 96365; 96366

== ENCOUNTER 2018-11-22 11:45 | Day surgery (SDC) | payer BC ==
[2018-11-22] MEDS ORDERED: VANCOMYCIN 1,000 MG in SODIUM CHLORIDE 250 ML IVPB ONE (12:15)
[2018-11-22 12:32] VITALS: PULSE 78; TEMP 98
[2018-11-22 14:26] VITALS: BP 121/80
== END 2018-11-22 13:52 | disposition home or self-care (01) ==
LOC: JINFUSION 11:45 → J7W 11:46 → JINFUSION 13:52
PROVIDERS: ATTEND Internal Medicine
DX: M86.172 Other acute osteomyelitis, left ankle and foot (principal); L03.032 Cellulitis of left toe; B95.7 Other staphylococcus as the cause of diseases classified elsewhere; E11.42 Type 2 diabetes mellitus with diabetic polyneuropathy; I10 Essential (primary) hypertension; Z79.4 Long term (current) use of insulin
CPT/HCPCS: 96365

== ENCOUNTER 2018-11-23 10:13 | Day surgery (SDC) | payer BC ==
[2018-11-23] MEDS ORDERED: diphenhydrAMINE HCL 25 MG CAPSULE (FP) PO ONE (10:26)
[2018-11-23] MEDS ORDERED: VANCOMYCIN 1,000 MG in SODIUM CHLORIDE 250 ML IVPB ONE (10:50)
[2018-11-23 11:48] VITALS: BP 127/80; PULSE 70; TEMP 98.4
== END 2018-11-23 13:00 | disposition home or self-care (01) ==
LOC: JINFUSION 10:13 → J7W 10:13 → JINFUSION 13:00
PROVIDERS: ATTEND Internal Medicine
DX: M86.172 Other acute osteomyelitis, left ankle and foot (principal); L03.032 Cellulitis of left toe; E11.42 Type 2 diabetes mellitus with diabetic polyneuropathy; B95.7 Other staphylococcus as the cause of diseases classified elsewhere; I10 Essential (primary) hypertension; Z79.4 Long term (current) use of insulin
CPT/HCPCS: 96365

== ENCOUNTER 2018-11-24 10:20 | Day surgery (SDC) | payer BC | END 2018-11-24 12:54 | disposition home or self-care (01) | LOC: JINFUSION 10:20 ==

== ENCOUNTER 2018-11-25 11:03 | Day surgery (SDC) | payer BC ==
[2018-11-25] MEDS ORDERED: VANCOMYCIN 1 GM in NS (PRE-DOCKED) 1,000 MG/250 ML IVPB ONE (11:15)
[2018-11-25] MEDS ORDERED: diphenhydrAMINE HCL 25 MG CAPSULE (FP) PO ONE ×2 (11:15→11:34)
[2018-11-25 13:35] VITALS: TEMP 99.2
[2018-11-25 15:19] VITALS: BP 127/76; PULSE 73
== END 2018-11-25 14:45 | disposition home or self-care (01) ==
LOC: JINFUSION 11:03
PROVIDERS: ATTEND Internal Medicine
DX: M86.172 Other acute osteomyelitis, left ankle and foot (principal); L03.032 Cellulitis of left toe; E11.42 Type 2 diabetes mellitus with diabetic polyneuropathy; B95.7 Other staphylococcus as the cause of diseases classified elsewhere; I10 Essential (primary) hypertension; Z79.4 Long term (current) use of insulin
CPT/HCPCS: 96365; 96366

== ENCOUNTER 2018-11-26 10:25 | Day surgery (SDC) | payer BC ==
[~2018-11-26 10:25] MED LIST changes: -DEXTROSE 5% IVPB ONE; +VANCOMYCIN 1 GRAM (PRE-DOCKED) 1,000 MG/250 ML BAG IVPB ONE; -VANCOMYCIN 1,000 MG in SODIUM CHLORIDE 250 ML IVPB ONE; -VANCOMYCIN IVPB ONE; -WATER IVPB ONE
[2018-11-26 11:17] VITALS: TEMP 98.8
[2018-11-26 12:58] VITALS: BP 131/80; PULSE 72
== END 2018-11-26 13:00 | disposition home or self-care (01) ==
LOC: JINFUSION 10:25
PROVIDERS: ATTEND Internal Medicine
DX: M86.172 Other acute osteomyelitis, left ankle and foot (principal); L03.032 Cellulitis of left toe; E11.42 Type 2 diabetes mellitus with diabetic polyneuropathy; B95.7 Other staphylococcus as the cause of diseases classified elsewhere; I10 Essential (primary) hypertension; Z79.4 Long term (current) use of insulin
CPT/HCPCS: 96365; 96366

== ENCOUNTER 2018-11-27 10:57 | Day surgery (SDC) | payer BC ==
[2018-11-27] MEDS ORDERED: VANCOMYCIN 1 GRAM (PRE-DOCKED) 1,000 MG/250 ML BAG IVPB ONE (13:11)
[2018-11-27] MEDS ORDERED: diphenhydrAMINE HCL 25 MG CAPSULE (FP) PO ONE ×2 (13:12→13:15)
[2018-11-27] MEDS ORDERED: VANCOMYCIN 1 GM in NS (PRE-DOCKED) 1,000 MG/250 ML IVPB ONE (13:45)
[2018-11-27 13:48] VITALS: TEMP 98.7
[2018-11-27 15:49] VITALS: BP 133/74; PULSE 77
== END 2018-11-27 15:35 | disposition home or self-care (01) ==
LOC: JINFUSION 10:57
PROVIDERS: ATTEND Internal Medicine
DX: M86.172 Other acute osteomyelitis, left ankle and foot (principal); L03.032 Cellulitis of left toe; E11.42 Type 2 diabetes mellitus with diabetic polyneuropathy; B95.7 Other staphylococcus as the cause of diseases classified elsewhere; I10 Essential (primary) hypertension; Z79.4 Long term (current) use of insulin
CPT/HCPCS: 96365; 96366; G0480

== ENCOUNTER 2018-11-28 07:58 | Day surgery (SDC) | payer BC ==
[2018-11-28] MEDS ORDERED: VANCOMYCIN 1 GRAM (PRE-DOCKED) 1,000 MG/250 ML BAG IVPB ONE (08:07)
[2018-11-28] MEDS ORDERED: diphenhydrAMINE HCL 25 MG CAPSULE (FP) PO ONE ×2 (08:09→08:15)
[2018-11-28] MEDS ORDERED: VANCOMYCIN 1 GM in NS (PRE-DOCKED) 1,000 MG/250 ML IVPB ONE (08:15)
[2018-11-28 08:54] VITALS: TEMP 98.7
[2018-11-28 11:10] VITALS: BP 132/82; PULSE 82
== END 2018-11-28 10:40 | disposition home or self-care (01) ==
LOC: JINFUSION 07:58
PROVIDERS: ATTEND Internal Medicine
DX: M86.172 Other acute osteomyelitis, left ankle and foot (principal); L03.032 Cellulitis of left toe; E11.42 Type 2 diabetes mellitus with diabetic polyneuropathy; B95.7 Other staphylococcus as the cause of diseases classified elsewhere; I10 Essential (primary) hypertension; Z79.4 Long term (current) use of insulin
CPT/HCPCS: 96365; 96366

== ENCOUNTER 2018-11-29 09:40 | Day surgery (SDC) | payer BC ==
[2018-11-29] MEDS ORDERED: diphenhydrAMINE HCL 25 MG CAPSULE (FP) PO ONE (10:30)
[2018-11-29] MEDS ORDERED: VANCOMYCIN 1,000 MG in SODIUM CHLORIDE 250 ML IVPB ONE (10:45)
[2018-11-29] MEDS ORDERED: PT OWN MED DRAWER 7, Y5N ONE (10:59)
[2018-11-29 13:10] VITALS: TEMP 98
[2018-11-29 13:14] VITALS: BP 123/67; PULSE 86
== END 2018-11-29 13:14 | disposition home or self-care (01) ==
LOC: JINFUSION 09:40 → J7W 09:41 → JINFUSION 13:14
PROVIDERS: ATTEND Internal Medicine
DX: M86.172 Other acute osteomyelitis, left ankle and foot (principal); L03.032 Cellulitis of left toe; E11.42 Type 2 diabetes mellitus with diabetic polyneuropathy; B95.7 Other staphylococcus as the cause of diseases classified elsewhere; I10 Essential (primary) hypertension; Z79.4 Long term (current) use of insulin
CPT/HCPCS: 96365; 96366

== ENCOUNTER 2018-11-30 12:02 | Day surgery (SDC) | payer BC ==
[2018-11-30] MEDS ORDERED: diphenhydrAMINE HCL 25 MG CAPSULE (FP) PO ONE (12:45)
[2018-11-30] MEDS ORDERED: VANCOMYCIN 1,000 MG in SODIUM CHLORIDE 250 ML IVPB ONE (13:15)
[2018-11-30 15:35] VITALS: BP 127/78; PULSE 86; TEMP 97.8
== END 2018-11-30 15:00 | disposition home or self-care (01) ==
LOC: JINFUSION 12:02 → J7W 12:02 → JINFUSION 15:00
PROVIDERS: ATTEND Internal Medicine
DX: M86.172 Other acute osteomyelitis, left ankle and foot (principal); L03.032 Cellulitis of left toe; E11.42 Type 2 diabetes mellitus with diabetic polyneuropathy; B95.7 Other staphylococcus as the cause of diseases classified elsewhere; I10 Essential (primary) hypertension; Z79.4 Long term (current) use of insulin
CPT/HCPCS: 96365

== ENCOUNTER 2018-12-01 12:38 | Day surgery (SDC) | payer BC ==
[~2018-12-01 12:38] MED LIST changes: -VANCOMYCIN 1 GRAM (PRE-DOCKED) 1,000 MG/250 ML BAG IVPB ONE; +VANCOMYCIN 1 GRAM (PRE-DOCKED) 1,000 MG/250 ML BAG IVPB SCH; +VANCOMYCIN 1,000 MG in SODIUM CHLORIDE 250 ML IVPB ONE
[2018-12-01] MEDS ORDERED: VANCOMYCIN 1 GRAM (PRE-DOCKED) 1,000 MG/250 ML BAG IVPB ONE (12:49)
[2018-12-01] MEDS ORDERED: diphenhydrAMINE HCL 25 MG CAPSULE (FP) PO ONE (12:50)
[2018-12-01 13:11] VITALS: TEMP 98.4
[2018-12-01 15:09] VITALS: BP 127/74; PULSE 77
== END 2018-12-01 15:18 | disposition home or self-care (01) ==
LOC: JINFUSION 12:38
PROVIDERS: ATTEND Internal Medicine
DX: M86.172 Other acute osteomyelitis, left ankle and foot (principal); L03.032 Cellulitis of left toe; E11.42 Type 2 diabetes mellitus with diabetic polyneuropathy; B95.7 Other staphylococcus as the cause of diseases classified elsewhere; I10 Essential (primary) hypertension; Z79.4 Long term (current) use of insulin
CPT/HCPCS: 96365; 96366

== ENCOUNTER 2018-12-02 07:40 | Day surgery (SDC) | payer BC ==
[2018-12-02] MEDS ORDERED: diphenhydrAMINE HCL 25 MG CAPSULE (FP) PO ONE ×2 (07:45→07:49)
[2018-12-02] MEDS ORDERED: VANCOMYCIN 1 GRAM (PRE-DOCKED) 1,000 MG/250 ML BAG IVPB ONE (07:49)
[2018-12-02] MEDS ORDERED: VANCOMYCIN 1 GM in NS (PRE-DOCKED) 1,000 MG/250 ML IVPB ONE (08:15)
[2018-12-02 08:27] VITALS: TEMP 98.3
[2018-12-02 09:55] VITALS: BP 120/67; PULSE 70
== END 2018-12-02 09:58 | disposition home or self-care (01) ==
LOC: JINFUSION 07:40
PROVIDERS: ATTEND Internal Medicine
DX: M86.172 Other acute osteomyelitis, left ankle and foot (principal); L03.032 Cellulitis of left toe; E11.42 Type 2 diabetes mellitus with diabetic polyneuropathy; B95.7 Other staphylococcus as the cause of diseases classified elsewhere; Z79.4 Long term (current) use of insulin
CPT/HCPCS: 96365; 96366

== ENCOUNTER 2018-12-03 10:49 | Day surgery (SDC) | payer BC ==
[~2018-12-03 10:49] MED LIST changes: +VANCOMYCIN 1 GRAM (PRE-DOCKED) 1,000 MG/250 ML BAG IVPB ONE; -VANCOMYCIN 1 GRAM (PRE-DOCKED) 1,000 MG/250 ML BAG IVPB SCH; -VANCOMYCIN 1,000 MG in SODIUM CHLORIDE 250 ML IVPB ONE
[2018-12-03] MEDS ORDERED: VANCOMYCIN 1 GRAM (PRE-DOCKED) 0 MG/0 ML BAG IVPB ONE (11:08)
[2018-12-03] MEDS ORDERED: diphenhydrAMINE HCL 25 MG CAPSULE (FP) PO ONE (11:08)
[2018-12-03 12:25] LABS: HEMATOCRIT 31.5 % (32.4-45.2); HEMOGLOBIN 10.4 GM/dL (10.7-15.3); MCH 27.9 pg (25.7-33.7); MCHC 32.9 g/dl (32.0-36.0); MEAN CELL VOLUME 84.9 fl (80-96); MEAN PLT VOLUME 7.9 fl (7.5-11.1); PLATELET COUNT 190 K/MM3 (134-434); RBC 3.71 M/mm3 (3.60-5.2); RDW 13.3 % (11.6-15.6); WHITE BLOOD COUNT 4.3 K/mm3 (4.0-10.0)
[2018-12-03 12:46] LABS: ANION GAP 7 MMOL/L (8-16); BLOOD UREA NITROGEN 35 mg/dL (7-18); CALCIUM 9.1 mg/dL (8.5-10.1); CHLORIDE 103 mmol/L (98-107); CO2 26 mmol/L (21-32); CREATININE 1.2 mg/dL (0.55-1.3); GLUCOSE,RANDOM 257 mg/dL (74-106); POTASSIUM 4.7 mmol/L (3.5-5.1); SODIUM 136 mmol/L (136-145)
[2018-12-03 15:09] VITALS: BP 128/75; PULSE 68; TEMP 98
== END 2018-12-03 11:15 | disposition home or self-care (01) ==
LOC: JINFUSION 10:49
PROVIDERS: ATTEND Internal Medicine
DX: Z53.8 Procedure and treatment not carried out for other reasons (principal)
CPT/HCPCS: 36415; 80048; 85027

== ENCOUNTER 2018-12-20 17:21 | Emergency (ER) | payer BC ==
[2018-12-20 17:55] VITALS: BP 139/72; PULSE 90; TEMP 98.3; BMI 29.9
--- NOTE | 2018-12-20 19:30 | PDOC ---
History of Present Illness - General Chief Complaint: Itching Stated Complaint: ARM PAIN Time Seen by Provider: 12/20/18 19:20 - History of Present Illness Initial Comments: 12/20/18 19:27 48-year-old female presents for evaluation of a rash on her left arm. She states she received an IV for IV antibiotics for a toe infection a few days ago she noticed a rash yesterday. Past History - Past Medical History Allergies/Adverse Reactions: Allergies Allergy/AdvReac Type Severity Reaction Status Date / Time vancomycin AdvReac Rash Verified 12/20/18 17:50 Home Medications: Ambulatory Orders Atorvastatin Calcium [Lipitor] 10 mg PO HS 04/12/13 Clopidogrel Bisulfate [Plavix -] 75 mg PO DAILY 01/28/16 Aspirin [ASA -] 81 mg PO DAILY 10/30/18 Ferrous Sulfate [Iron] 325 mg PO DAILY 10/30/18 Insulin (Novolog) [Novolog -] 10 units SQ BID@0700,1630 #2 units 11/05/18 Insulin Glargine,Hum.rec.anlog [Lantus] 20 unit SQ HS #3 vial 11/05/18 Neomy Sulf/Bacitrac Zn/Poly [Neosporin Top Ointment -] 1 applic TP DAILY #1 applic 11/05/18 Vancomycin HCl in Dextrose 5 % [Vancomycin 1.25 Gram/250Ml-D5w] 1.25 gm IV Q24H 35 Days #35 plast..bag 11/05/18 Metoprolol Tartrate [Lopressor -] 50 mg PO DAILY 11/07/18 Losartan Potassium [Cozaar -] 50 mg PO DAILY #30 tablet 11/11/18 Asthma: Yes (BRONCHITIS) COPD: No Diabetes: Yes HTN: Yes Hypercholesterolemia: Yes - Immunization History TDAP Vaccination: Yes Immunization Up to Date: Yes - Suicide/Smoking/Psychosocial Hx Smoking Status: No Smoking History: Former smoker Have you smoked in the past 12 months: No Number of Cigarettes Smoked Daily: 5 If you are a former smoker, when did you quit?: 2018 Information on smoking cessation initiated: No 'Breaking Loose' booklet given: 10/25/16 Hx Alcohol Use: No Drug/Substance Use Hx: No Substance Use Type: None Hx Substance Use Treatment: No Review of Systems - Review of Systems Constitutional: No: Fever Integumentary: Yes: Pruritus, Rash *Physical Exam - Vital Signs Last Vital Signs Temp Pulse Resp BP Pulse Ox 98.3 F 90 18 139/72 96 12/20/18 17:51 12/20/18 17:51 12/20/18 17:51 12/20/18 17:51 12/20/18 17:51 - Physical Exam Comments: 12/20/18 19:28 Left arm skin color and temperature are normal. There is a very well demarcated area of maculopapular irritation on the medial aspect in the antecubital area where her IV was similar to the tape lines. Adhesive tape was removed today. Moderate Sedation - Procedure Monitoring Vital Signs: Procedure Monitoring Vital Signs Temperature 98.3 F 12/20/18 17:51 Pulse Rate 90 12/20/18 17:51 Respiratory Rate 18 12/20/18 17:51 Blood Pressure 139/72 12/20/18 17:51 O2 Sat by Pulse Oximetry (%) 96 12/20/18 17:51 Medical Decision Making - Medical Decision Making 12/20/18 19:28 This is a contact dermatitis from adhesive recommended hydrocortisone cream at home 1% is fine should soap and water and leave open to air dermatology follow- up given if needed. *DC/Admit/Observation/Transfer Diagnosis at time of Disposition: Contact dermatitis - Discharge Dispostion Disposition: HOME Condition at time of disposition: Stable Decision to Admit order: No - Referrals Referrals: Cordelia Kyle MD [Staff Physician] - - Patient Instructions Printed Discharge Instructions: Contact Dermatitis, DI for Contact Dermatitis Additional Instructions: He may use 1% hydrocortisone cream as directed twice a day in the area of the rash. Wash the area with soap and water then applied hydrocortisone cream. Leave it open to air. Follow-up with dermatology if needed. Return to the emergency room for worsening symptoms. - Post Discharge Activity
== END 2018-12-20 19:55 | disposition home or self-care (01) ==
LOC: JERFT 17:21
DX: L24.5 Irritant contact dermatitis due to other chemical products (principal); I10 Essential (primary) hypertension; E78.00 Pure hypercholesterolemia, unspecified; E11.9 Type 2 diabetes mellitus without complications; Z79.4 Long term (current) use of insulin
CPT/HCPCS: 99281-25

== ENCOUNTER 2019-07-28 15:08 | Emergency (ER) | payer BC ==
[2019-07-28 15:18] VITALS: BP 163/80; PULSE 83; TEMP 97.8; BMI 41.5
--- NOTE | 2019-07-28 15:19 | PDOC ---
Rapid Medical Evaluation Chief Complaint: Injury Time Seen by Provider: 07/28/19 15:14 Medical Evaluation: Allergies Allergy/AdvReac Type Severity Reaction Status Date / Time vancomycin AdvReac Rash Verified 12/20/18 17:50 07/28/19 15:15 I performed a brief in-person evaluation of this patient. 49-year-old female with IDDM, HTN, HLD, ? [id number] as per wound care center consultant with history of right ankle fracture in February of this year presenting with persistent swelling and pain for one month. Left ankle with edema, tenderness at medial malleolus. Bearing partial weight with cane. I have ordered the following: Left ankle xray. Patient will proceed to FT for further evaluation. 07/28/19 15:18 Discharge Disposition - Diagnosis Left ankle pain - Referrals - Patient Instructions - Post Discharge Activity
--- NOTE | 2019-07-28 16:56 | PDOC ---
History of Present Illness - General Chief Complaint: Injury Stated Complaint: RT ANKLE PAIN Time Seen by Provider: 07/28/19 15:14 History Source: Patient Exam Limitations: No Limitations - History of Present Illness Initial Comments: 07/28/19 16:52 Came for evaluation of persistent swelling and pain to right foot. 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 Has been treated by manager of tires sales with a cam boot for a few months. Was cleared to return to work without splinting in early June, however states at that time has had persistent pain and swelling to the foot. Saw manager of tires sales 1 week ago who has concerns about her left foot that may need some further diabetic treatments including amputation of toes from osteo- Occurred: reports: other Severity: reports: moderate Pain Location: reports: lower extremity (Right foot) Past History - Past Medical History Allergies/Adverse Reactions: Allergies Allergy/AdvReac Type Severity Reaction Status Date / Time vancomycin AdvReac Rash Verified 12/20/18 17:50 Home Medications: Ambulatory Orders Atorvastatin Calcium [Lipitor] 10 mg PO HS 04/12/13 Clopidogrel Bisulfate [Plavix -] 75 mg PO DAILY 01/28/16 Aspirin [ASA -] 81 mg PO DAILY 10/30/18 Ferrous Sulfate [Iron] 325 mg PO DAILY 10/30/18 Insulin (Novolog) [Novolog -] 10 units SQ BID@0700,1630 #2 units 11/05/18 Insulin Glargine,Hum.rec.anlog [Lantus] 20 unit SQ HS #3 vial 11/05/18 Neomy Sulf/Bacitrac Zn/Poly [Neosporin Top Ointment -] 1 applic TP DAILY #1 applic 11/05/18 Metoprolol Tartrate [Lopressor -] 50 mg PO DAILY 11/07/18 Losartan Potassium [Cozaar -] 50 mg PO DAILY #30 tablet 11/11/18 Sitagliptin Phosphate [Januvia] 50 mg PO DAILY 12/20/18 Asthma: Yes (BRONCHITIS) COPD: No Diabetes: Yes HTN: Yes Hypercholesterolemia: Yes - Immunization History TDAP Vaccination: Yes Immunization Up to Date: Yes - Psycho Social/Smoking Cessation Hx Smoking Status: No Smoking History: Former smoker Have you smoked in the past 12 months: No Number of Cigarettes Smoked Daily: 5 If you are a former smoker, when did you quit?: 2018 Information on smoking cessation initiated: No 'Breaking Loose' booklet given: 10/25/16 Hx Alcohol Use: No Drug/Substance Use Hx: No Substance Use Type: None Hx Substance Use Treatment: No *Physical Exam - Vital Signs Last Vital Signs Temp Pulse Resp BP Pulse Ox 97.8 F 83 16 163/80 98 07/28/19 15:15 07/28/19 15:15 07/28/19 15:15 07/28/19 15:15 07/28/19 15:15 - Physical Exam General Appearance: Yes: Nourished, Appropriately Dressed, Apparent Distress, Mild Distress HEENT: positive: JERI, Normal ENT Inspection, TMs Normal, Pharynx Normal Neck: negative: Tender Musculoskeletal: positive: Normal Inspection Extremity: positive: Normal Capillary Refill, Normal Inspection, Tender, Swelling (With tenderness to all of foot, worse midpoint. Able to wiggle toes, sensation is diminished but intact. 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 Yobany wrap applied, patient states will use her cam boot rather than cast shoe here and follow-up with podiatry. Discharge - Discharge Information Problems reviewed: Yes Clinical Impression/Diagnosis: Foot pain, right Left ankle pain Qualifiers: Chronicity: acute Qualified Code(s): M25.572 - Pain in left ankle and joints of left foot Condition: Stable Disposition: HOME - Admission No - Follow up/Referral Referrals: Carmen Chaudhari [Primary Care Provider] - - Patient Discharge Instructions Patient Printed Discharge Instructions: DI for Foot Pain Additional Instructions: Rest, ice to area on and off for 15 minutes 4-6 times a day Avoid heavy lifting or exercise until pain and swelling is resolved or until further directed Keep area highly elevated to reduce swelling Use splints/Yobany wrap as directed Followup with orthopedist in one to 2 days if not improving, if significantly improved may wait one week for followup with orthopedist May use Tylenol 2- 500 mg tablets every 4-6 hours as needed for pain - Post Discharge Activity Work/Back to School Note: Back to Work
[2019-07-28] MEDS ORDERED: ACETAMINOPHEN 500 MG TABLET (FP) ONE (17:07)
== END 2019-07-28 17:52 | disposition home or self-care (01) ==
LOC: JERFT 15:08
DX: M25.571 Pain in right ankle and joints of right foot (principal); G60.0 Hereditary motor and sensory neuropathy; I10 Essential (primary) hypertension; E11.9 Type 2 diabetes mellitus without complications; Z79.4 Long term (current) use of insulin; E78.00 Pure hypercholesterolemia, unspecified; Z87.09 Personal history of other diseases of the respiratory system; Z87.891 Personal history of nicotine dependence; Z88.1 Allergy status to other antibiotic agents
CPT/HCPCS: 73610-TC-RT-FY; 73630-TC-RT-FY; 99281-25

== ENCOUNTER 2019-12-10 15:05 | Emergency (ER) | payer BC ==
--- NOTE | 2019-12-10 15:15 | PDOC ---
Rapid Medical Evaluation Time Seen by Provider: 12/10/19 15:07 Medical Evaluation: Allergies Allergy/AdvReac Type Severity Reaction Status Date / Time vancomycin AdvReac Rash Verified 12/20/18 17:50 12/10/19 15:09 CC: right ankle pain; PMHx- R Charcot foot PE: firm palpable mass present over lateral malleolus of right foot Orders: xray Patient will proceed to ED for continued evaluation. Discharge Disposition - Diagnosis Foot pain, right - Referrals - Patient Instructions - Post Discharge Activity
[2019-12-10 15:16] VITALS: BP 154/73; PULSE 92; TEMP 97.9; BMI 29.9
--- NOTE | 2019-12-10 17:40 | PDOC ---
History of Present Illness - General History Source: Patient Exam Limitations: No Limitations <Sarah Yarbrough - Last Filed: 12/10/19 17:35> <Ilana Melendez - Last Filed: 12/10/19 17:56> - General Chief Complaint: Pain Stated Complaint: RT FOOT PAIN Time Seen by Provider: 12/10/19 15:07 Past History - Past Medical History Asthma: Yes (BRONCHITIS) COPD: No Diabetes: Yes HTN: Yes Hypercholesterolemia: Yes - Immunization History TDAP Vaccination: Yes Immunization Up to Date: Yes - Psycho Social/Smoking Cessation Hx Smoking Status: No Smoking History: Former smoker Have you smoked in the past 12 months: No Number of Cigarettes Smoked Daily: 5 If you are a former smoker, when did you quit?: 2018 Information on smoking cessation initiated: No 'Breaking Loose' booklet given: 10/25/16 Hx Alcohol Use: No Drug/Substance Use Hx: No Substance Use Type: None Hx Substance Use Treatment: No <Sarah Yarbrough - Last Filed: 12/10/19 17:35> <Ialna Melendez - Last Filed: 12/10/19 17:56> - Past Medical History Allergies/Adverse Reactions: Allergies Allergy/AdvReac Type Severity Reaction Status Date / Time Penicillins Allergy Hives Verified 12/10/19 15:10 vancomycin AdvReac Rash Verified 12/10/19 15:10 Home Medications: Ambulatory Orders Atorvastatin Calcium [Lipitor] 10 mg PO HS 04/12/13 Clopidogrel Bisulfate [Plavix -] 75 mg PO DAILY 01/28/16 Aspirin [ASA -] 81 mg PO DAILY 10/30/18 Ferrous Sulfate [Iron] 325 mg PO DAILY 10/30/18 Insulin (Novolog) [Novolog -] 10 units SQ BID@0700,1630 #2 units 11/05/18 Insulin Glargine,Hum.rec.anlog [Lantus] 20 unit SQ HS #3 vial 11/05/18 Neomy Sulf/Bacitrac Zn/Poly [Neosporin Top Ointment -] 1 applic TP DAILY #1 applic 11/05/18 Metoprolol Tartrate [Lopressor -] 50 mg PO DAILY 11/07/18 Losartan Potassium [Cozaar -] 50 mg PO DAILY #30 tablet 11/11/18 Sitagliptin Phosphate [Januvia] 50 mg PO DAILY 12/20/18 *Physical Exam - Vital Signs Last Vital Signs Temp Pulse Resp BP Pulse Ox 97.9 F 92 H 18 154/73 99 12/10/19 15:10 12/10/19 15:10 12/10/19 15:10 12/10/19 15:10 12/10/19 15:10 - Physical Exam General Appearance: No: Apparent Distress Extremity: positive: Other (no significant effusion of RLE noted, no deformity, no skin color changes, minimal TTP along R medial malleolus) Integumentary: positive: Normal Color. negative: Cyanotic, Erythema, Mottled, Ecchymosis, Bruising <Sarah Yarbrough - Last Filed: 12/10/19 17:35> - Vital Signs Last Vital Signs Temp Pulse Resp BP Pulse Ox 97.9 F 92 H 18 154/73 99 12/10/19 15:10 12/10/19 15:10 12/10/19 15:10 12/10/19 15:10 12/10/19 15:10 <Ilana Melendez - Last Filed: 12/10/19 17:56> Medical Decision Making - Medical Decision Making 79-year-old female with history of right Charcot foot, hypertension, hyperlipidemia, diabetes, peripheral arterial disease, left first toe partial amputation due to osteomyelitis in February 2019 presents with right ankle pain from today. States that she twisted her foot in the kitchen. Denies any falls or trauma. Denies fevers, shortness of breath, chest pain, skin color changes, numbness, tingling, other complaints. Patient follows with Dr. Don for her right Charcot's foot. X-ray negative for fracture Likely mild ankle sprain Placed in Yobany wrap Stable for discharge 12/10/19 17:43 <Sarah Yarbrough - Last Filed: 12/10/19 17:35> - Medical Decision Making Correction: 49 YOF with right charcot foot, HTN, HLD, diabetes, PAD, left first toe partial amputation 2/2 osteomyelitis in 2019 p/w right ankle pain today The patient was seen and evaluated in conjunction with midlevel provider under my direct supervision, ancillary studies were reviewed. I agree with the plan as outlined PA Linnea. HPI, workup/dispo as outlined. VS reviewed, wnl. imaging with degenerative changes, but no acute fx or dislocation. anticipate discharge, pcp followup, return precautions 12/10/19 17:55 <Ilana Melendez - Last Filed: 12/10/19 17:56> Discharge - Discharge Information Problems reviewed: Yes - Admission No - Additional Discharge Information Prescription Drug Monitoring Program (I-STOP) results: I-STOP not reviewed <Sarah Yarbrough - Last Filed: 12/10/19 17:35> <Ilana Melendez - Last Filed: 12/10/19 17:56> - Discharge Information Clinical Impression/Diagnosis: Right ankle sprain Qualifiers: Encounter type: initial encounter Involved ligament of ankle: unspecified ligament Qualified Code(s): S93.401A - Sprain of unspecified ligament of right ankle, initial encounter Condition: Stable Disposition: HOME - Follow up/Referral Referrals: Carmen Chaudhari [Primary Care Provider] - Pino Don MD [Staff Physician] - 2 Days - Patient Discharge Instructions Patient Printed Discharge Instructions: DI for Ankle Sprain Additional Instructions: Thank you for choosing [facility]. It was a pleasure taking care of you. There is no fracture noted on your x-ray Please continue follow-up with Dr. Don Return to the Emergency Department if your symptoms worsen or persist or have other concerning symptoms. - Post Discharge Activity
== END 2019-12-10 17:57 | disposition home or self-care (01) ==
LOC: JERFT 15:05 → JER 15:05
DX: S93.401A Sprain of unspecified ligament of right ankle, initial encounter (principal); X50.1XXA Overexertion from prolonged static or awkward postures, initial encounter; Y93.89 Activity, other specified; Y92.030 Kitchen in apartment as the place of occurrence of the external cause; Y99.8 Other external cause status; M14.671 Charcot's joint, right ankle and foot; I10 Essential (primary) hypertension; E78.5 Hyperlipidemia, unspecified; E11.9 Type 2 diabetes mellitus without complications; Z79.4 Long term (current) use of insulin; Z89.412 Acquired absence of left great toe; I73.89 Other specified peripheral vascular diseases; Z87.39 Personal history of other diseases of the musculoskeletal system and connective tissue; Z88.0 Allergy status to penicillin; Z88.1 Allergy status to other antibiotic agents
CPT/HCPCS: 73610-TC-RT-FY; 73630-TC-RT-FY; 99283-25

== ENCOUNTER 2020-08-15 04:35 | Day surgery (SDC) | payer BC ==
[2020-08-12 15:58] VITALS: BMI 29.9
[2020-08-15] MEDS ORDERED: LIDOCAINE HCL 1%, 10 MG/ML (20ML VIAL) ONE (12:37)
[2020-08-15] MEDS ORDERED: oxyCODONE HCL 5 MG TABLET PO PRN ×2 (14:02)
[2020-08-15] MEDS ORDERED: PROMETHAZINE HCL 25 MG/1 ML VIAL IVPUSH PRN (14:02)
[2020-08-15] MEDS ORDERED: LACTATED RINGERS SOLUTION 1,000 ML IV SCH (14:15)
[2020-08-15] MEDS ORDERED: ceFAZolin 2 GRAM PREMIX BAG IVPB ONE (15:30)
[2020-08-15] MEDS ORDERED: PATIENT'S OWN MEDICATION (NON-FORMULARY) (Dulaglutide [Trulicity] 1.5 MG) SQ SCH (15:45)
[2020-08-15 19:16] VITALS: BP 144/73; PULSE 71; TEMP 96.4
[2020-08-15] MEDS ORDERED: ATORVASTATIN CA 10 MG TABLET (FP) PO SCH (22:00)
[2020-08-15] MEDS ORDERED: INSULIN LISPRO SQ SCH (22:00)
[2020-08-16] MEDS ORDERED: INSULIN (LEVEMIR) 100 UNITS/ML UNITS SQ SCH (07:00)
[2020-08-16] MEDS ORDERED: FERROUS SO4 325 MG TABLET (FP) PO SCH (10:00)
[2020-08-16] MEDS ORDERED: NEOMYCIN/POLYMYXIN/BACITRACIN (TRIPLE ANTIBIOTIC) 28 GM OINTMENT TP SCH (10:00)
[2020-08-16] MEDS ORDERED: CLOPIDOGREL BISULFATE 75 MG TABLET (FP) PO SCH (10:00)
[2020-08-16] MEDS ORDERED: ASPIRIN 81 MG CHEWABLE TABLETS PO SCH (10:00)
[2020-08-16] MEDS ORDERED: LOSARTAN POTASSIUM 50 MG TABLET PO SCH (10:00)
[2020-08-16] MEDS ORDERED: METOPROLOL TARTRATE 50 MG TABLET (FP) PO SCH (10:00)
== END 2020-08-15 18:40 | disposition home or self-care (01) ==
LOC: JASU-SURG 04:35
PROVIDERS: ATTEND Orthopaedic Surgery Adult Reconstructive Orthopaedic Surgery
PROC: 0QBJ0ZX Excision of Right Fibula, Open Approach, Diagnostic (ICD-10-PCS; principal; 2020-08-15 11:00)
DX: D48.0 Neoplasm of uncertain behavior of bone and articular cartilage (principal); E11.610 Type 2 diabetes mellitus with diabetic neuropathic arthropathy
CPT/HCPCS: 82962; 87070; 87102; 87116; 87205; 87206; 87210; 88307-TC; 88311-TC; 94760

== ENCOUNTER 2020-12-11 20:27 | Emergency (ER) | payer BC, OTHER ==
[2020-12-11 21:15] VITALS: BP 144/81; PULSE 110; TEMP 97.6; BMI 20.7
== END 2020-12-11 22:24 | disposition home or self-care (01) ==
LOC: JER 20:27
DX: U07.1 COVID-19 (principal)
CPT/HCPCS: 99283-25; C9803; U0003

== ENCOUNTER 2020-12-14 14:32 | Emergency (ER) | payer OTHER ==
[2020-12-14 14:45] VITALS: BMI 28.7
[2020-12-14] MEDS ORDERED: BAMLANIVIMAB 700 MG in SODIUM CHLORIDE 250 ML IVPB ONE (15:09)
[2020-12-14 16:28] LABS: POTASSIUM 3.8 mmol/L (3.5-5.1)
[2020-12-14 16:30] LABS: ALBUMIN 3.7 g/dl (3.4-5.0); BLOOD UREA NITROGEN 24.6 mg/dL (7-18); CALCIUM 9.4 mg/dL (8.5-10.1)
[2020-12-14 16:34] LABS: CREATININE 1.6 mg/dL (0.55-1.3)
[2020-12-14 16:35] LABS: BILIRUBIN,TOTAL 0.2 mg/dL (0.2-1); TOT PROT 7.6 g/dl (6.4-8.2)
[2020-12-14 16:37] LABS: BASO % 0.7 % (0-2.0); HEMATOCRIT 32.7 % (32.4-45.2); HEMOGLOBIN 10.6 GM/dL (10.7-15.3); MCH 28.3 pg (25.7-33.7); MCHC 32.5 g/dl (32.0-36.0); MEAN CELL VOLUME 87.1 fl (80-96); MEAN PLT VOLUME 8.1 fl (7.5-11.1); MONO % 7.8 % (3.8-10.2); NEUT % 63.5 % (42.8-82.8); PLATELET COUNT 186 K/MM3 (134-434); RBC 3.76 M/mm3 (3.60-5.2); RDW 13.9 % (11.6-15.6); WHITE BLOOD COUNT 3.5 K/mm3 (4.0-10.0)
[2020-12-14 17:00] VITALS: BP 130/70; PULSE 82
[2020-12-14 17:01] VITALS: TEMP 99.1
== END 2020-12-14 17:52 | disposition home or self-care (01) ==
LOC: JCOVINFU 14:32
DX: U07.1 COVID-19 (principal)
CPT/HCPCS: 36415; 80053; 85025; 99284-25; M0239; Q0239

== ENCOUNTER 2021-07-20 13:24 | Emergency (ER) | payer OTHER ==
[2021-07-20 13:30] VITALS: BP 166/82; PULSE 109; TEMP 97.8; BMI 32.3
== END 2021-07-20 14:31 | disposition home or self-care (01) ==
LOC: JER 13:24
DX: R51.9 Headache, unspecified (principal); R05 Cough; R68.83 Chills (without fever)
CPT/HCPCS: 99281-25

== ENCOUNTER 2022-04-16 10:17 | Emergency (ER) | payer OTHER ==
[2022-04-16 11:26] VITALS: BMI 33.3
[2022-04-16] MEDS ORDERED: BEBTELOVIMAB (EUA) 175 MG/2 ML VIAL IVPUSH ONE (11:51)
[2022-04-16 16:03] VITALS: BP 122/68; PULSE 86; TEMP 98
== END 2022-04-16 16:04 | disposition home or self-care (01) ==
LOC: JER 10:17
PROC: 3E033GC Introduction of Other Therapeutic Substance into Peripheral Vein, Percutaneous Approach (ICD-10-PCS; principal; 2022-04-16)
DX: U07.1 COVID-19 (principal)
CPT/HCPCS: 99284-25; Q0222

== ENCOUNTER 2022-10-22 15:37 | Emergency (ER) | payer OTHER ==
[2022-10-22 17:06] VITALS: BP 140/69; PULSE 83; RESP 20; TEMP 98.1; BMI 31.6
[2022-10-22] MEDS ORDERED: ACETAMINOPHEN 500 MG TABLET (FP) PO ONE (17:53)
[2022-10-22] MEDS ORDERED: ACETAMINOPHEN 325 MG TABLET (FP) ONE (18:13)
== END 2022-10-22 19:02 | disposition home or self-care (01) ==
LOC: JER 15:37 → JERFT 15:37
DX: S80.12XA Contusion of left lower leg, initial encounter (principal); S80.01XA Contusion of right knee, initial encounter; W10.8XXA Fall (on) (from) other stairs and steps, initial encounter
CPT/HCPCS: 73070-TC-LT-FY; 73552-TC-RT-FY; 73562-TC-RT-FY; 73590-TC-RT-FY; 99284-25

== ENCOUNTER 2022-11-02 17:00 | Emergency (ER) | payer OTHER ==
[2022-11-02 17:06] VITALS: BP 177/84; PULSE 83; RESP 18; TEMP 99; BMI 46.5
[2022-11-02] MEDS ORDERED: IBUPROFEN 400 MG TABLET (FP) PO ONE ×2 (17:09→17:35)
[2022-11-02] MEDS ORDERED: ACETAMINOPHEN 500 MG TABLET (FP) PO ONE (17:09)
[2022-11-02] MEDS ORDERED: ACETAMINOPHEN 500 MG TABLET (FP) ONE (17:35)
[2022-11-02 18:06] LABS: BASO % 0.9 % (0-2.0); EOS % 2.4 % (0-4.5); HEMATOCRIT 26.9 % (32.4-45.2); HEMOGLOBIN 8.8 GM/dL (10.7-15.3); MCH 28.4 pg (25.7-33.7); MCHC 32.8 g/dl (32.0-36.0); MEAN CELL VOLUME 86.7 fl (80-96); MEAN PLT VOLUME 7.2 fl (7.5-11.1); MONO % 7.8 % (3.8-10.2); NEUT % 60.9 % (42.8-82.8); PLATELET COUNT 192 10^3/uL (134-434); RDW 14.7 % (11.6-15.6); WHITE BLOOD COUNT 4.6 K/mm3 (4.0-10.0)
[2022-11-02 18:16] LABS: ALBUMIN 3.7 g/dl (3.4-5.0); BLOOD UREA NITROGEN 25.5 mg/dL (7-18); CALCIUM 9.2 mg/dL (8.5-10.1)
[2022-11-02 18:20] LABS: CREATININE 1.4 mg/dL (0.55-1.3)
[2022-11-02 18:21] LABS: BILIRUBIN,TOTAL 0.3 mg/dL (0.2-1); TOT PROT 6.9 g/dl (6.4-8.2)
== END 2022-11-02 18:50 | disposition home or self-care (01) ==
LOC: JER 17:00
DX: S82.832A Other fracture of upper and lower end of left fibula, initial encounter for closed fracture (principal); W19.XXXA Unspecified fall, initial encounter
CPT/HCPCS: 36415; 73590-TC-LT-FY; 73610-TC-LT-FY; 80053; 85025; 99284-25

== ENCOUNTER 2023-02-28 14:03 | Inpatient (IN) | payer OTHER ==
[2023-02-28 14:10] VITALS: BMI 31.2
[2023-02-28 15:23] LABS: EOS % 1.3 % (0-4.5); HEMATOCRIT 21.7 % (32.4-45.2); HEMOGLOBIN 7.2 GM/dL (10.7-15.3); LYMPH % 22.7 % (8-40); MCH 27.9 pg (25.7-33.7); MCHC 33.1 g/dl (32.0-36.0); MEAN CELL VOLUME 84.4 fl (80-96); MEAN PLT VOLUME 7.7 fl (7.5-11.1); MONO % 5.8 % (3.8-10.2); NEUT % 69.2 % (42.8-82.8); PLATELET COUNT 225 10^3/uL (134-434); RBC 2.57 M/mm3 (3.60-5.2); WHITE BLOOD COUNT 4.2 K/mm3 (4.0-10.0)
[2023-02-28 15:30] LABS: INR 1.02 (0.83-1.09); PROTHROMBIN TIME (PATIENT) 11.8 SEC (9.7-13.0)
[2023-02-28 15:32] LABS: ACTIVATED PTT 36.6 SECONDS (25.2-36.5)
[2023-02-28 15:44] LABS: POTASSIUM 5.2 mmol/L (3.5-5.1)
[2023-02-28 15:46] LABS: CALCIUM 9.5 mg/dL (8.5-10.1)
[2023-02-28 15:47] LABS: ALBUMIN 3.6 g/dl (3.4-5.0); BLOOD UREA NITROGEN 31.5 mg/dL (7-18)
[2023-02-28 15:50] LABS: CREATININE 1.3 mg/dL (0.55-1.3)
[2023-02-28 15:51] LABS: BILIRUBIN,TOTAL 0.3 mg/dL (0.2-1)
[2023-02-28 18:15] LABS: RETICULOCYTES 3.08 % (0.5-1.5)
[2023-02-28] MEDS: INSULIN SLIDING SCALE (NOVOLOG) 1 VIAL SQ SCH (22:48)
[2023-03-01] MEDS: INSULIN SLIDING SCALE (NOVOLOG) 1 VIAL SQ SCH ×4 (06:18→21:22)
[2023-03-01 08:20] LABS: BASO % 0.9 % (0-2.0); EOS % 2.5 % (0-4.5); HEMATOCRIT 26.3 % (32.4-45.2); HEMOGLOBIN 8.6 GM/dL (10.7-15.3); LYMPH % 33.3 % (8-40); MCH 27.7 pg (25.7-33.7); MCHC 32.7 g/dl (32.0-36.0); MEAN CELL VOLUME 84.7 fl (80-96); NEUT % 56.3 % (42.8-82.8); PLATELET COUNT 230 10^3/uL (134-434); RDW 16.7 % (11.6-15.6)
[2023-03-01 08:37] LABS: POTASSIUM 5.1 mmol/L (3.5-5.1)
[2023-03-01 08:40] LABS: BLOOD UREA NITROGEN 32.8 mg/dL (7-18); CALCIUM 9.1 mg/dL (8.5-10.1); MAGNESIUM 1.9 mg/dL (1.8-2.4)
[2023-03-01 08:41] LABS: ALBUMIN 3.5 g/dl (3.4-5.0)
[2023-03-01 08:43] LABS: CREATININE 1.2 mg/dL (0.55-1.3); PHOSPHOROUS 4.2 mg/dL (2.5-4.9)
[2023-03-01 08:45] LABS: BILIRUBIN,TOTAL 0.6 mg/dL (0.2-1); TOT PROT 6.8 g/dl (6.4-8.2)
[2023-03-01] MEDS ORDERED: IRON SUCROSE INJECTION 200 MG in SODIUM CHLORIDE 90 ML IVPB ONE (09:30)
[2023-03-01] MEDS: PANTOPRAZOLE 40 MG TABLET PO SCH (10:51)
[2023-03-01] MEDS: POLYETHYLENE GLYCOL (HEALTHYLAX) 3350 17 GM PACKET PO SCH (10:52)
[2023-03-01] MEDS ORDERED: DEXTROSE 50%-WATER 25 GM/50 ML DISP.SYRIN IVPUSH PRN (16:35)
[2023-03-01] MEDS: metoPROLOL SUCCINATE 25 MG TAB.SR.24H (FP) PO SCH (17:47)
[2023-03-01] MEDS ORDERED: INSULIN (NOVOLOG) ASPART 100 UNITS/ML 10ML VIAL ONE (21:17)
[2023-03-01] MEDS: prednisoLONE ACETATE 1% OPHTH SUSP 5 ML BOTTLE OD SCH (21:19)
[2023-03-01] MEDS: ATORVASTATIN CA 80 MG TABLET (FP) PO SCH (21:19)
[2023-03-02] MEDS: prednisoLONE ACETATE 1% OPHTH SUSP 5 ML BOTTLE OD SCH ×3 (05:53→21:31)
[2023-03-02] MEDS: INSULIN SLIDING SCALE (NOVOLOG) 1 VIAL SQ SCH ×4 (06:04→21:32)
[2023-03-02] MEDS: metoPROLOL SUCCINATE 25 MG TAB.SR.24H (FP) PO SCH (09:55)
[2023-03-02] MEDS: PANTOPRAZOLE 40 MG TABLET PO SCH (09:55)
[2023-03-02] MEDS: ASPIRIN COATED 81 MG TABLET.EC PO SCH (09:56)
[2023-03-02] MEDS: POLYETHYLENE GLYCOL (HEALTHYLAX) 3350 17 GM PACKET PO SCH (09:57)
[2023-03-02 10:32] LABS: HEMATOCRIT 28.2 % (32.4-45.2); HEMOGLOBIN 9.1 GM/dL (10.7-15.3); MCH 27.7 pg (25.7-33.7); MCHC 32.2 g/dl (32.0-36.0); MEAN CELL VOLUME 85.9 fl (80-96); MEAN PLT VOLUME 7.6 fl (7.5-11.1); PLATELET COUNT 232 10^3/uL (134-434); RBC 3.29 M/mm3 (3.60-5.2); RDW 16.3 % (11.6-15.6); WHITE BLOOD COUNT 4.8 K/mm3 (4.0-10.0)
[2023-03-02] MEDS: ATORVASTATIN CA 80 MG TABLET (FP) PO SCH (21:31)
[2023-03-03] MEDS: prednisoLONE ACETATE 1% OPHTH SUSP 5 ML BOTTLE OD SCH ×3 (05:52→22:31)
[2023-03-03] MEDS: INSULIN SLIDING SCALE (NOVOLOG) 1 VIAL SQ SCH ×4 (06:12→22:35)
[2023-03-03] MEDS ORDERED: IRON SUCROSE INJECTION 200 MG in SODIUM CHLORIDE 90 ML IVPB ONE (08:29)
[2023-03-03] MEDS: PANTOPRAZOLE 40 MG TABLET PO SCH (10:48)
[2023-03-03] MEDS: ASPIRIN COATED 81 MG TABLET.EC PO SCH (10:48)
[2023-03-03] MEDS: metoPROLOL SUCCINATE 25 MG TAB.SR.24H (FP) PO SCH (10:48)
[2023-03-03] MEDS: POLYETHYLENE GLYCOL (HEALTHYLAX) 3350 17 GM PACKET PO SCH (10:48)
[2023-03-03] MEDS ORDERED: INSULIN (NOVOLOG) ASPART 100 UNITS/ML 10ML VIAL ONE (12:47)
[2023-03-03] MEDS ORDERED: BISACODYL 5 MG TABLET.DR (FP) PO ONE (16:00)
[2023-03-03] MEDS ORDERED: PEG 3350/NA SULF BICARB CL/KCL 4000 ML SOLN.RECON PO ONE (17:00)
[2023-03-03] MEDS: ATORVASTATIN CA 80 MG TABLET (FP) PO SCH (22:36)
[2023-03-04] MEDS: INSULIN SLIDING SCALE (NOVOLOG) 1 VIAL SQ SCH ×2 (06:43→11:30)
[2023-03-04] MEDS: prednisoLONE ACETATE 1% OPHTH SUSP 5 ML BOTTLE OD SCH ×2 (06:43→11:36)
[2023-03-04] MEDS: ASPIRIN COATED 81 MG TABLET.EC PO SCH (09:15)
[2023-03-04] MEDS: POLYETHYLENE GLYCOL (HEALTHYLAX) 3350 17 GM PACKET PO SCH (09:15)
[2023-03-04] MEDS: PANTOPRAZOLE 40 MG TABLET PO SCH (09:15)
[2023-03-04] MEDS: metoPROLOL SUCCINATE 25 MG TAB.SR.24H (FP) PO SCH (09:15)
[2023-03-04 10:12] LABS: HEMATOCRIT 26.4 % (32.4-45.2); HEMOGLOBIN 8.6 GM/dL (10.7-15.3); MCH 27.6 pg (25.7-33.7); MCHC 32.6 g/dl (32.0-36.0); MEAN CELL VOLUME 84.7 fl (80-96); MEAN PLT VOLUME 7.6 fl (7.5-11.1); PLATELET COUNT 208 10^3/uL (134-434); RBC 3.12 M/mm3 (3.60-5.2); RDW 16.4 % (11.6-15.6); WHITE BLOOD COUNT 4.6 K/mm3 (4.0-10.0)
[2023-03-04 10:42] LABS: POTASSIUM 4.3 mmol/L (3.5-5.1)
[2023-03-04 10:45] LABS: CALCIUM 9.6 mg/dL (8.5-10.1)
[2023-03-04 10:46] LABS: BLOOD UREA NITROGEN 28.2 mg/dL (7-18)
[2023-03-04 10:49] LABS: CREATININE 1.2 mg/dL (0.55-1.3)
[2023-03-04] MEDS ORDERED: FERROUS SO4 325 MG TABLET (FP) PO SCH (15:15)
[2023-03-04 16:19] VITALS: BP 145/68; PULSE 66; RESP 18; TEMP 98
[2023-03-05] MEDS ORDERED: DOCUSATE SODIUM 100 MG CAPSULE (FP) PO SCH (10:00)
[2023-03-05] MEDS ORDERED: ASCORBIC ACID 250 MG TABLET (FP) PO SCH (10:00)
== END 2023-03-04 17:23 | disposition home or self-care (01) | DRG 812 ==
LOC: JER 14:03 → JERBED 16:16 → J6S 20:32
PROVIDERS: ADMIT Internal Medicine; ATTEND Internal Medicine
PROC: 30233N1 Transfusion of Nonautologous Red Blood Cells into Peripheral Vein, Percutaneous Approach (ICD-10-PCS; 2023-02-28)
PROC: 0DB68ZX Excision of Stomach, Via Natural or Artificial Opening Endoscopic, Diagnostic (ICD-10-PCS; 2023-03-04)
PROC: 0DBK8ZX Excision of Ascending Colon, Via Natural or Artificial Opening Endoscopic, Diagnostic (ICD-10-PCS; 2023-03-04)
PROC: 0DBN8ZX Excision of Sigmoid Colon, Via Natural or Artificial Opening Endoscopic, Diagnostic (ICD-10-PCS; 2023-03-04)
PROC: 0DB98ZX Excision of Duodenum, Via Natural or Artificial Opening Endoscopic, Diagnostic (ICD-10-PCS; principal; 2023-03-04 11:15)
DX: D50.9 Iron deficiency anemia, unspecified (principal); E11.40 Type 2 diabetes mellitus with diabetic neuropathy, unspecified; I10 Essential (primary) hypertension; E78.5 Hyperlipidemia, unspecified; I12.9 Hypertensive chronic kidney disease with stage 1 through stage 4 chronic kidney disease, or unspecified chronic kidney disease; E11.22 Type 2 diabetes mellitus with diabetic chronic kidney disease; N18.9 Chronic kidney disease, unspecified; E11.51 Type 2 diabetes mellitus with diabetic peripheral angiopathy without gangrene; K31.7 Polyp of stomach and duodenum; K64.8 Other hemorrhoids; D12.7 Benign neoplasm of rectosigmoid junction
CPT/HCPCS: 36415; 36430; 80048; 80053; 82272; 82728; 82962; 83540; 83550; 83735; 84100; 84466; 85025; 85027; 85045; 85610; 85730; 86850; 86900; 86901; 86922; 88305-TC; 99285-25; C9803-CS; J1756; P9038; P9058; U0003; U0005

== ENCOUNTER 2023-03-12 20:19 | Emergency (ER) | payer OTHER ==
[2023-03-12 20:40] VITALS: RESP 18; BMI 31.2
[2023-03-12] MEDS ORDERED: SODIUM CHLORIDE 0.9% 500 ML INFUS.BAG IV ONE (21:25)
[2023-03-12] MEDS ORDERED: ACETAMINOPHEN 1000 MG/100 ML BAG IVPB ONE (21:25)
[2023-03-12 21:33] LABS: EPI CELLS 34 /uL (0-25.1); HYALINE CASTS 1 /uL (0-3.1); PH,URINE 5.5 (5.0-8.0); URINE APPEARANCE CLEAR; URINE BACTERIA 97 /uL (0-1359); URINE BILIRUBIN NEGATIVE (NEGATIVE); URINE COLOR YELLOW; URINE GLUCOSE (UA) NEGATIVE (NEGATIVE); URINE KETONE 1+ (NEGATIVE); URINE LEUK ESTERASE 1+ (NEGATIVE); URINE NITRITE NEGATIVE (NEGATIVE); URINE PROTEIN TRACE (NEGATIVE); URINE RBC 2 /uL (0-23.9); URINE UROBILINOGEN 0.2 mg/dL (0.2-1.0); URINE WBC 24 /uL (0-25.8)
[2023-03-12] MEDS ORDERED: ACETAMINOPHEN INJECTION 100 ML IVPB ONE (21:55)
[2023-03-12 22:35] LABS: INR 1.01 (0.83-1.09); PROTHROMBIN TIME (PATIENT) 11.7 SEC (9.7-13.0)
[2023-03-12 22:38] LABS: ACTIVATED PTT 20.4 SECONDS (25.2-36.5)
[2023-03-12 22:39] LABS: BASO % 0.6 % (0-2.0); EOS % 0.7 % (0-4.5); HEMATOCRIT 31.3 % (32.4-45.2); HEMOGLOBIN 10.1 GM/dL (10.7-15.3); LYMPH % 17.8 % (8-40); MCH 27.4 pg (25.7-33.7); MCHC 32.2 g/dl (32.0-36.0); MEAN CELL VOLUME 84.9 fl (80-96); MONO % 4.2 % (3.8-10.2); NEUT % 76.7 % (42.8-82.8); RBC 3.68 M/mm3 (3.60-5.2); RDW 16.8 % (11.6-15.6); WHITE BLOOD COUNT 9.6 K/mm3 (4.0-10.0)
[2023-03-12 22:48] LABS: POTASSIUM 5.7 mmol/L (3.5-5.1)
[2023-03-12 22:49] LABS: ALBUMIN 3.9 g/dl (3.4-5.0)
[2023-03-12 22:50] LABS: BLOOD UREA NITROGEN 34.2 mg/dL (7-18); MAGNESIUM 1.2 mg/dL (1.8-2.4)
[2023-03-12 22:54] LABS: BILIRUBIN,TOTAL 0.4 mg/dL (0.2-1); CREATININE 1.3 mg/dL (0.55-1.3); TOT PROT 7.5 g/dl (6.4-8.2)
[2023-03-12 23:10] LABS: CALCIUM 11.2 mg/dL (8.5-10.1)
[2023-03-12] MEDS ORDERED: METOCLOPRAMIDE HCL INJECTION 10 MG/2 ML VIAL IVPB ONE (23:22)
[2023-03-12 23:33] LABS: PLATELET ESTIMATE ADEQUATE
[2023-03-12] MEDS ORDERED: MAGNESIUM SULFATE IN WATER 2 GM/50 ML IVPB IVPB ONE (23:51)
[2023-03-12] MEDS ORDERED: METOCLOPRAMIDE HCL INJECTION 10 MG/2 ML VIAL ONE (23:51)
[2023-03-12 23:52] LABS: POTASSIUM 4.9 mmol/L (3.5-5.1)
[2023-03-12 23:53] LABS: CALCIUM 11.4 mg/dL (8.5-10.1)
[2023-03-12 23:54] LABS: BLOOD UREA NITROGEN 33.6 mg/dL (7-18)
[2023-03-12 23:57] LABS: CREATININE 1.3 mg/dL (0.55-1.3)
[2023-03-13 01:09] VITALS: BP 136/62; PULSE 86; TEMP 97.8
[2023-03-13] MEDS ORDERED: CEPHALEXIN MONOHYDRATE 500 MG CAPSULE (UD) PO ONE (02:12)
[2023-03-13] MEDS ORDERED: CEPHALEXIN MONOHYDRATE 500 MG CAPSULE (UD) ONE (02:20)
== END 2023-03-13 02:29 | disposition home or self-care (01) ==
LOC: JER 20:19
PROC: 3E033NZ Introduction of Analgesics, Hypnotics, Sedatives into Peripheral Vein, Percutaneous Approach (ICD-10-PCS; 2023-03-12)
PROC: 3E033GC Introduction of Other Therapeutic Substance into Peripheral Vein, Percutaneous Approach (ICD-10-PCS; 2023-03-12)
PROC: 3E033GC Introduction of Other Therapeutic Substance into Peripheral Vein, Percutaneous Approach (ICD-10-PCS; principal; 2023-03-13)
DX: R10.30 Lower abdominal pain, unspecified (principal); N39.0 Urinary tract infection, site not specified; R51.9 Headache, unspecified; R11.0 Nausea; Z20.822 Contact with and (suspected) exposure to COVID-19
CPT/HCPCS: 0241U-QW; 36415; 70450-TC; 74177-TC; 80048; 80053; 81003; 83605; 83690; 83735; 85025; 85610; 85730; 87086; 93005; 93010; 99285-25

== ENCOUNTER 2023-10-25 14:30 | Inpatient (IN) | payer OTHER ==
[2023-10-25 14:49] VITALS: BMI 29.1
[2023-10-25] MEDS ORDERED: MEROPENEM 1 GM in DEXTROSE 5%-WATER 100 ML IVPB ONE (15:48)
[2023-10-25] MEDS ORDERED: CLINDAMYCIN 600MG PREMIX IVPB 600 MG/50 ML BAG IVPB ONE ×2 (15:48→20:06)
[2023-10-25] MEDS ORDERED: CEFEPIME HCL 1 GM VIAL (RESTRICTED TO ID) IVPB ONE (16:22)
[2023-10-25 18:27] LABS: BASO % 0.6 % (0-2.0); EOS % 1.2 % (0-4.5); HEMATOCRIT 25.2 % (32.4-45.2); HEMOGLOBIN 7.9 GM/dL (10.7-15.3); LYMPH % 21.6 % (8-40); MCH 27.7 pg (25.7-33.7); MCHC 31.3 g/dl (32.0-36.0); MEAN CELL VOLUME 88.4 fl (80-96); MEAN PLT VOLUME 7.8 fl (7.5-11.1); MONO % 6.1 % (3.8-10.2); NEUT % 70.5 % (42.8-82.8); PLATELET COUNT 192 10^3/uL (134-434); RBC 2.86 M/mm3 (3.60-5.2); RDW 14.8 % (11.6-15.6); WHITE BLOOD COUNT 4.5 K/mm3 (4.0-10.0)
[2023-10-25 18:36] LABS: PROTHROMBIN TIME (PATIENT) 11.6 SEC (9.7-13.0)
[2023-10-25 18:44] LABS: POTASSIUM 3.8 mmol/L (3.5-5.1)
[2023-10-25 18:47] LABS: ALBUMIN 3.4 g/dl (3.4-5.0); CALCIUM 8.8 mg/dL (8.5-10.1)
[2023-10-25 18:51] LABS: CREATININE 1.3 mg/dL (0.55-1.3)
[2023-10-25 18:52] LABS: BILIRUBIN,TOTAL 0.2 mg/dL (0.2-1); TOT PROT 6.9 g/dl (6.4-8.2)
[2023-10-25] MEDS ORDERED: CEFEPIME 1 GM/100 ML BAG IVPB ONE (20:06)
[2023-10-25] MEDS ORDERED: ACETAMINOPHEN 325 MG TABLET (FP) PO PRN (20:59)
[2023-10-25] MEDS ORDERED: amLODIPine BESYLATE 5 MG TABLET (FP) PO ONE (21:55)
[2023-10-25] MEDS ORDERED: INSULIN ASPART SLIDING SCALE (NOVOLOG) 1 VIAL SQ SCH (22:00)
[2023-10-25] MEDS ORDERED: CEFEPIME HCL 2 GM VIAL (RESTRICTED TO ID) IVPB SCH (22:00)
[2023-10-25] MEDS ORDERED: amLODIPine BESYLATE 5 MG TABLET (FP) ONE (22:26)
[2023-10-25] MEDS ORDERED: ENOXAPARIN NA (PORCINE) 40 MG/0.4 ML DISP.SYRIN SQ ONE (22:26)
[2023-10-25] MEDS ORDERED: INSULIN (NOVOLOG) ASPART 100 UNITS/ML 10ML VIAL ONE (22:31)
[2023-10-25] MEDS: INSULIN ASPART SLIDING SCALE (NOVOLOG) 1 VIAL SQ SCH (22:36)
[2023-10-25] MEDS: ENOXAPARIN NA (PORCINE) 40 MG/0.4 ML DISP.SYRIN SQ SCH (22:36)
[2023-10-26] MEDS: LACTATED RINGERS SOLUTION 1,000 ML IV SCH ×3 (00:25→21:14)
[2023-10-26] MEDS: CLINDAMYCIN 900 MG PREMIX IVPB 900 MG/50 ML BAG IVPB SCH ×3 (02:30→17:22)
[2023-10-26] MEDS: prednisoLONE ACETATE 1% OPHTH SUSP 5 ML BOTTLE OD SCH ×4 (03:21→21:20)
[2023-10-26] MEDS: CEFEPIME 2 GM in DEXTROSE 5%-WATER 100 ML IVPB SCH ×2 (04:26→16:29)
[2023-10-26] MEDS: INSULIN ASPART SLIDING SCALE (NOVOLOG) 1 VIAL SQ SCH ×4 (06:44→21:19)
[2023-10-26] MEDS: ASPIRIN 81 MG CHEWABLE TABLETS PO SCH (10:03)
[2023-10-26] MEDS: metoPROLOL SUCCINATE 25 MG TAB.SR.24H (FP) PO SCH (10:03)
[2023-10-26] MEDS: CLOPIDOGREL BISULFATE 75 MG TABLET (FP) PO SCH (10:03)
[2023-10-26] MEDS: ENOXAPARIN NA (PORCINE) 40 MG/0.4 ML DISP.SYRIN SQ SCH (10:03)
[2023-10-26] MEDS: ATORVASTATIN CA 80 MG TABLET (FP) PO SCH (10:03)
[2023-10-26 10:13] LABS: BASO % 0.7 % (0-2.0); EOS % 2.3 % (0-4.5); HEMATOCRIT 25.3 % (32.4-45.2); HEMOGLOBIN 8.1 GM/dL (10.7-15.3); LYMPH % 29.2 % (8-40); MCH 28.2 pg (25.7-33.7); MEAN CELL VOLUME 88.3 fl (80-96); NEUT % 61.8 % (42.8-82.8); PLATELET COUNT 205 10^3/uL (134-434); RBC 2.86 M/mm3 (3.60-5.2); RDW 14.8 % (11.6-15.6); WHITE BLOOD COUNT 3.1 K/mm3 (4.0-10.0)
[2023-10-26 10:35] LABS: CALCIUM 9.5 mg/dL (8.5-10.1)
[2023-10-26 10:36] LABS: ALBUMIN 3.1 g/dl (3.4-5.0); BLOOD UREA NITROGEN 22.4 mg/dL (7-18)
[2023-10-26 10:39] LABS: CREATININE 0.9 mg/dL (0.55-1.3)
[2023-10-26 10:40] LABS: BILIRUBIN,TOTAL 0.2 mg/dL (0.2-1); TOT PROT 6.3 g/dl (6.4-8.2)
[2023-10-26 10:50] LABS: ERYTHROCYTE SEDIMENTATION RATE 68 mm/hr (0-30)
[2023-10-26] MEDS ORDERED: INSULIN (NOVOLOG) ASPART 100 UNITS/ML 10ML VIAL ONE ×4 (11:15→21:17)
[2023-10-27] MEDS: CLINDAMYCIN 900 MG PREMIX IVPB 900 MG/50 ML BAG IVPB SCH ×3 (02:08→17:25)
[2023-10-27] MEDS ORDERED: CEFEPIME 2 GM in DEXTROSE 5%-WATER 100 ML IVPB SCH (04:00)
[2023-10-27] MEDS: prednisoLONE ACETATE 1% OPHTH SUSP 5 ML BOTTLE OD SCH ×3 (06:21→21:51)
[2023-10-27] MEDS: INSULIN ASPART SLIDING SCALE (NOVOLOG) 1 VIAL SQ SCH ×4 (06:45→21:49)
[2023-10-27] MEDS ORDERED: INSULIN (LEVEMIR) 100 UNITS/ML UNITS SQ SCH ×2 (10:00→18:40)
[2023-10-27] MEDS: CLOPIDOGREL BISULFATE 75 MG TABLET (FP) PO SCH (10:21)
[2023-10-27] MEDS: metoPROLOL SUCCINATE 25 MG TAB.SR.24H (FP) PO SCH (10:21)
[2023-10-27] MEDS: ATORVASTATIN CA 80 MG TABLET (FP) PO SCH (10:21)
[2023-10-27] MEDS: ASPIRIN 81 MG CHEWABLE TABLETS PO SCH (10:21)
[2023-10-27] MEDS: ENOXAPARIN NA (PORCINE) 40 MG/0.4 ML DISP.SYRIN SQ SCH (10:22)
[2023-10-27] MEDS: CEFTRIAXONE 2 GM in DEXTROSE 5%-WATER 100 ML IVPB SCH (11:48)
[2023-10-27] MEDS: COLLAGENASE CLOSTRIDIUM HIST. 30 GRAMS TUBE TP SCH (17:25)
[2023-10-27] MEDS ORDERED: INSULIN (NOVOLOG) ASPART 100 UNITS/ML 10ML VIAL ONE ×2 (17:42→21:01)
[2023-10-27] MEDS: INSULIN (LEVEMIR) 100 UNITS/ML UNITS SQ SCH (21:50)
[2023-10-28] MEDS: CLINDAMYCIN 900 MG PREMIX IVPB 900 MG/50 ML BAG IVPB SCH ×3 (01:14→17:44)
[2023-10-28] MEDS: INSULIN (LEVEMIR) 100 UNITS/ML UNITS SQ SCH ×2 (06:41→21:36)
[2023-10-28] MEDS: prednisoLONE ACETATE 1% OPHTH SUSP 5 ML BOTTLE OD SCH ×3 (06:42→21:49)
[2023-10-28] MEDS: INSULIN ASPART SLIDING SCALE (NOVOLOG) 1 VIAL SQ SCH ×4 (06:44→21:38)
[2023-10-28 10:26] LABS: EOS % 2.5 % (0-4.5); HEMATOCRIT 24.7 % (32.4-45.2); LYMPH % 30.9 % (8-40); MCH 28.6 pg (25.7-33.7); MCHC 32.5 g/dl (32.0-36.0); MEAN CELL VOLUME 88.1 fl (80-96); MONO % 6.8 % (3.8-10.2); NEUT % 58.8 % (42.8-82.8); PLATELET COUNT 234 10^3/uL (134-434); RBC 2.81 M/mm3 (3.60-5.2); RDW 14.9 % (11.6-15.6); WHITE BLOOD COUNT 3.6 K/mm3 (4.0-10.0)
[2023-10-28] MEDS: metoPROLOL SUCCINATE 25 MG TAB.SR.24H (FP) PO SCH (10:59)
[2023-10-28] MEDS: ASPIRIN 81 MG CHEWABLE TABLETS PO SCH (10:59)
[2023-10-28] MEDS: ENOXAPARIN NA (PORCINE) 40 MG/0.4 ML DISP.SYRIN SQ SCH (11:00)
[2023-10-28] MEDS: ATORVASTATIN CA 80 MG TABLET (FP) PO SCH (11:00)
[2023-10-28] MEDS: CLOPIDOGREL BISULFATE 75 MG TABLET (FP) PO SCH (11:04)
[2023-10-28 11:25] LABS: POTASSIUM 4.5 mmol/L (3.5-5.1)
[2023-10-28 11:28] LABS: CALCIUM 9.7 mg/dL (8.5-10.1)
[2023-10-28 11:29] LABS: BLOOD UREA NITROGEN 17.6 mg/dL (7-18); MAGNESIUM 1.3 mg/dL (1.8-2.4)
[2023-10-28 11:30] LABS: ALBUMIN 3.2 g/dl (3.4-5.0)
[2023-10-28 11:34] LABS: BILIRUBIN,TOTAL 0.2 mg/dL (0.2-1); TOT PROT 6.5 g/dl (6.4-8.2)
[2023-10-28] MEDS: CEFTRIAXONE 2 GM in DEXTROSE 5%-WATER 100 ML IVPB SCH (11:53)
[2023-10-28] MEDS: COLLAGENASE CLOSTRIDIUM HIST. 30 GRAMS TUBE TP SCH (12:45)
[2023-10-28] MEDS ORDERED: INSULIN (LEVEMIR) 100 UNITS/ML UNITS SQ ONE ×2 (12:50→18:59)
[2023-10-28] MEDS: LOSARTAN POTASSIUM 50 MG TABLET PO SCH (15:02)
[2023-10-28] MEDS ORDERED: INSULIN (NOVOLOG) ASPART 100 UNITS/ML 10ML VIAL ONE ×2 (18:58→21:30)
[2023-10-29] MEDS: CLINDAMYCIN 900 MG PREMIX IVPB 900 MG/50 ML BAG IVPB SCH ×3 (01:22→18:33)
[2023-10-29] MEDS: prednisoLONE ACETATE 1% OPHTH SUSP 5 ML BOTTLE OD SCH ×3 (06:05→21:44)
[2023-10-29] MEDS: INSULIN (LEVEMIR) 100 UNITS/ML UNITS SQ SCH ×2 (06:26→21:46)
[2023-10-29] MEDS: INSULIN ASPART SLIDING SCALE (NOVOLOG) 1 VIAL SQ SCH ×4 (06:32→21:47)
[2023-10-29 09:28] LABS: BASO % 0.9 % (0-2.0); EOS % 2.3 % (0-4.5); HEMATOCRIT 26.7 % (32.4-45.2); HEMOGLOBIN 8.5 GM/dL (10.7-15.3); LYMPH % 32.2 % (8-40); MCH 28.3 pg (25.7-33.7); MCHC 31.8 g/dl (32.0-36.0); MEAN CELL VOLUME 88.8 fl (80-96); MEAN PLT VOLUME 7.8 fl (7.5-11.1); MONO % 6.4 % (3.8-10.2); NEUT % 58.2 % (42.8-82.8); PLATELET COUNT 242 10^3/uL (134-434); RBC 3.01 M/mm3 (3.60-5.2); RDW 14.7 % (11.6-15.6); WHITE BLOOD COUNT 3.5 K/mm3 (4.0-10.0)
[2023-10-29 09:50] LABS: POTASSIUM 4.4 mmol/L (3.5-5.1)
[2023-10-29 10:08] LABS: CALCIUM 8.9 mg/dL (8.5-10.1)
[2023-10-29 10:09] LABS: ALBUMIN 3.2 g/dl (3.4-5.0); BLOOD UREA NITROGEN 22.6 mg/dL (7-18); MAGNESIUM 1.5 mg/dL (1.8-2.4)
[2023-10-29 10:12] LABS: CREATININE 1.2 mg/dL (0.55-1.3)
[2023-10-29 10:13] LABS: BILIRUBIN,TOTAL 0.2 mg/dL (0.2-1); TOT PROT 6.6 g/dl (6.4-8.2)
[2023-10-29 10:13] LABS: CHOLESTEROL 152 mg/dL (50-200)
[2023-10-29 10:14] LABS: LDL CHOLESTEROL (ONLY SJRH) 68 mg/dL (5-100)
[2023-10-29 10:17] LABS: HDL CHOLESTEROL 78 mg/dL (40-60)
[2023-10-29] MEDS: LOSARTAN POTASSIUM 50 MG TABLET PO SCH (10:18)
[2023-10-29] MEDS: metoPROLOL SUCCINATE 25 MG TAB.SR.24H (FP) PO SCH (10:18)
[2023-10-29] MEDS: ATORVASTATIN CA 80 MG TABLET (FP) PO SCH (10:18)
[2023-10-29] MEDS: CLOPIDOGREL BISULFATE 75 MG TABLET (FP) PO SCH (10:18)
[2023-10-29] MEDS: ASPIRIN 81 MG CHEWABLE TABLETS PO SCH (10:18)
[2023-10-29] MEDS: ENOXAPARIN NA (PORCINE) 40 MG/0.4 ML DISP.SYRIN SQ SCH (10:18)
[2023-10-29] MEDS: COLLAGENASE CLOSTRIDIUM HIST. 30 GRAMS TUBE TP SCH (10:19)
[2023-10-29] MEDS: CEFTRIAXONE 2 GM in DEXTROSE 5%-WATER 100 ML IVPB SCH (10:45)
[2023-10-29] MEDS ORDERED: INSULIN (NOVOLOG) ASPART 100 UNITS/ML 10ML VIAL ONE (21:28)
[2023-10-30] MEDS: CLINDAMYCIN 900 MG PREMIX IVPB 900 MG/50 ML BAG IVPB SCH ×3 (01:45→17:28)
[2023-10-30] MEDS ORDERED: INSULIN (NOVOLOG) ASPART 100 UNITS/ML 10ML VIAL ONE ×3 (05:46→21:58)
[2023-10-30] MEDS: INSULIN ASPART SLIDING SCALE (NOVOLOG) 1 VIAL SQ SCH ×4 (06:29→22:40)
[2023-10-30] MEDS: INSULIN (LEVEMIR) 100 UNITS/ML UNITS SQ SCH ×2 (06:29→22:39)
[2023-10-30] MEDS: prednisoLONE ACETATE 1% OPHTH SUSP 5 ML BOTTLE OD SCH ×3 (06:32→22:42)
[2023-10-30 09:35] LABS: HEMATOCRIT 23.5 % (32.4-45.2); HEMOGLOBIN 7.5 GM/dL (10.7-15.3); MCH 28.2 pg (25.7-33.7); MCHC 31.8 g/dl (32.0-36.0); MEAN CELL VOLUME 88.5 fl (80-96); PLATELET COUNT 245 10^3/uL (134-434); RBC 2.65 M/mm3 (3.60-5.2)
[2023-10-30 09:36] LABS: WHITE BLOOD COUNT 5.7 K/mm3 (4.0-10.0)
[2023-10-30 09:51] LABS: CHLORIDE 109 mmol/L (98-107); POTASSIUM 4.4 mmol/L (3.5-5.1); SODIUM 141 mmol/L (136-145)
[2023-10-30 09:57] LABS: GLUCOSE,RANDOM 138 mg/dL (74-106)
[2023-10-30 09:58] LABS: ALBUMIN 3.2 g/dl (3.4-5.0); ANION GAP 6 mmol/L (4-13); BLOOD UREA NITROGEN 27.7 mg/dL (7-18); CO2 26 mmol/L (21-32)
[2023-10-30 09:59] LABS: MAGNESIUM 1.5 mg/dL (1.8-2.4)
[2023-10-30 10:00] LABS: CREATININE 1.1 mg/dL (0.55-1.3); SGPT/ALT 80 U/L (13-61)
[2023-10-30] MEDS: COLLAGENASE CLOSTRIDIUM HIST. 30 GRAMS TUBE TP SCH (10:00)
[2023-10-30 10:01] LABS: SGOT/AST 101 U/L (15-37)
[2023-10-30 10:02] LABS: BILIRUBIN,TOTAL < 0.1 mg/dL (0.2-1); TOT PROT 6.5 g/dl (6.4-8.2)
[2023-10-30 10:03] LABS: ALK PHOS 144 U/L (45-117)
[2023-10-30] MEDS ORDERED: MAGNESIUM 2GM/50ML STERILE WATER IVPB IVPB ONE ×2 (10:14→12:45)
[2023-10-30 10:31] LABS: ANISOCYTOSIS 0; MACROCYTOSIS 0
[2023-10-30] MEDS: CEFTRIAXONE 2 GM in DEXTROSE 5%-WATER 100 ML IVPB SCH (11:26)
[2023-10-30] MEDS: CLOPIDOGREL BISULFATE 75 MG TABLET (FP) PO SCH (11:27)
[2023-10-30] MEDS: ASPIRIN 81 MG CHEWABLE TABLETS PO SCH (11:27)
[2023-10-30] MEDS: ENOXAPARIN NA (PORCINE) 40 MG/0.4 ML DISP.SYRIN SQ SCH (11:27)
[2023-10-30] MEDS: LOSARTAN POTASSIUM 50 MG TABLET PO SCH (11:27)
[2023-10-30] MEDS: metoPROLOL SUCCINATE 25 MG TAB.SR.24H (FP) PO SCH (11:27)
[2023-10-30] MEDS: ATORVASTATIN CA 80 MG TABLET (FP) PO SCH (11:27)
[2023-10-30] MEDS: metroNIDAZOLE 0.75% TOPICAL GEL 45 GM TUBE TP SCH (22:43)
[2023-10-31] MEDS: CLINDAMYCIN 900 MG PREMIX IVPB 900 MG/50 ML BAG IVPB SCH ×3 (02:29→17:10)
[2023-10-31] MEDS ORDERED: INSULIN (NOVOLOG) ASPART 100 UNITS/ML 10ML VIAL ONE ×3 (05:24→16:34)
[2023-10-31] MEDS: prednisoLONE ACETATE 1% OPHTH SUSP 5 ML BOTTLE OD SCH ×2 (05:48→13:07)
[2023-10-31] MEDS: INSULIN (LEVEMIR) 100 UNITS/ML UNITS SQ SCH (06:39)
[2023-10-31] MEDS: INSULIN ASPART SLIDING SCALE (NOVOLOG) 1 VIAL SQ SCH ×3 (06:46→16:35)
[2023-10-31] MEDS: metoPROLOL SUCCINATE 25 MG TAB.SR.24H (FP) PO SCH (09:16)
[2023-10-31] MEDS: ATORVASTATIN CA 80 MG TABLET (FP) PO SCH (09:16)
[2023-10-31] MEDS: LOSARTAN POTASSIUM 50 MG TABLET PO SCH (09:16)
[2023-10-31] MEDS: COLLAGENASE CLOSTRIDIUM HIST. 30 GRAMS TUBE TP SCH (09:17)
[2023-10-31] MEDS: CEFTRIAXONE 2 GM in DEXTROSE 5%-WATER 100 ML IVPB SCH (09:58)
[2023-10-31 11:09] LABS: INR 0.97 (0.83-1.09); PROTHROMBIN TIME (PATIENT) 11.2 SEC (9.7-13.0)
[2023-10-31 11:18] LABS: BASO % 1.2 % (0-2.0); EOS % 1.9 % (0-4.5); HEMATOCRIT 25.8 % (32.4-45.2); HEMOGLOBIN 8.1 GM/dL (10.7-15.3); LYMPH % 24.2 % (8-40); MCH 27.9 pg (25.7-33.7); MCHC 31.4 g/dl (32.0-36.0); MEAN CELL VOLUME 88.7 fl (80-96); MEAN PLT VOLUME 7.9 fl (7.5-11.1); MONO % 6.1 % (3.8-10.2); NEUT % 66.6 % (42.8-82.8); PLATELET COUNT 252 10^3/uL (134-434); RBC 2.91 M/mm3 (3.60-5.2); RDW 15.6 % (11.6-15.6)
[2023-10-31 11:22] LABS: POTASSIUM 4.4 mmol/L (3.5-5.1)
[2023-10-31 11:38] LABS: CALCIUM 8.8 mg/dL (8.5-10.1)
[2023-10-31 11:39] LABS: ALBUMIN 3.1 g/dl (3.4-5.0); MAGNESIUM 1.8 mg/dL (1.8-2.4)
[2023-10-31 11:42] LABS: CREATININE 1.2 mg/dL (0.55-1.3)
[2023-10-31 11:43] LABS: BILIRUBIN,TOTAL 0.2 mg/dL (0.2-1); TOT PROT 6.8 g/dl (6.4-8.2)
[2023-10-31] MEDS: metroNIDAZOLE 0.75% TOPICAL GEL 45 GM TUBE TP SCH (12:26)
[2023-10-31] MEDS ORDERED: ASPIRIN 81 MG CHEWABLE TABLETS PO ONE ×2 (15:45→16:30)
[2023-10-31] MEDS ORDERED: CLOPIDOGREL BISULFATE 75 MG TABLET (FP) PO SCH ×2 (16:00→16:30)
[2023-10-31 16:06] VITALS: BP 142/68; PULSE 80; RESP 18; TEMP 98.5
[2023-10-31] MEDS ORDERED: CLOPIDOGREL BISULFATE 75 MG TABLET (FP) PO ONE (16:30)
[2023-11-01] MEDS ORDERED: AMINO ACIDS/PROTEIN HYDROLYS 30 ML LIQUID.PKT PO SCH (08:00)
[2023-11-01] MEDS ORDERED: MULTIVITAMINS THER W-MINERALS COMBO TABLET (FP) PO SCH (10:00)
== END 2023-10-31 18:55 | disposition short-term general hospital (02) | DRG 603 ==
LOC: JER 14:30 → JERBED 16:33 → OBSVTOIN 20:59 → J8W 23:08
PROVIDERS: ADMIT Family Medicine; ATTEND Nurse Practitioner Acute Care
DX: L03.115 Cellulitis of right lower limb (principal); D64.9 Anemia, unspecified; E11.40 Type 2 diabetes mellitus with diabetic neuropathy, unspecified; I12.9 Hypertensive chronic kidney disease with stage 1 through stage 4 chronic kidney disease, or unspecified chronic kidney disease; E11.22 Type 2 diabetes mellitus with diabetic chronic kidney disease; N18.9 Chronic kidney disease, unspecified; E11.51 Type 2 diabetes mellitus with diabetic peripheral angiopathy without gangrene; E78.5 Hyperlipidemia, unspecified; L84 Corns and callosities; E11.621 Type 2 diabetes mellitus with foot ulcer; L97.519 Non-pressure chronic ulcer of other part of right foot with unspecified severity; Z79.84 Long term (current) use of oral hypoglycemic drugs
CPT/HCPCS: 0241U-QW; 11042; 36415; 73610-TC-RT-FY; 73630-TC-RT-FY; 73660-TC-FY; 73719; 80053; 80061; 82962; 83036; 83735; 85025; 85610; 85651; 85730; 86140; 86850; 86900; 86901; 87040; 87070; 87186; 87205; 93005; 93010; 93926-TC; 93971-TC; 99285-25; G0378

== ENCOUNTER 2023-12-13 17:38 | Inpatient (IN) | payer OTHER ==
[2023-12-13 17:44] VITALS: BMI 29.7
[2023-12-13 22:36] LABS: BASO % 0.9 % (0-2.0); HEMATOCRIT 24.9 % (32.4-45.2); HEMOGLOBIN 7.8 GM/dL (10.7-15.3); LYMPH % 27.6 % (8-40); MCHC 31.4 g/dl (32.0-36.0); MEAN CELL VOLUME 86.1 fl (80-96); MEAN PLT VOLUME 7.5 fl (7.5-11.1); MONO % 7.5 % (3.8-10.2); PLATELET COUNT 215 10^3/uL (134-434); RBC 2.89 M/mm3 (3.60-5.2); RDW 18.5 % (11.6-15.6); WHITE BLOOD COUNT 4.3 K/mm3 (4.0-10.0)
[2023-12-13 22:41] LABS: INR 1.02 (0.83-1.09); PROTHROMBIN TIME (PATIENT) 11.8 SEC (9.7-13.0)
[2023-12-13 22:43] LABS: ACTIVATED PTT 24.8 SECONDS (25.2-36.5)
[2023-12-13 22:52] LABS: POTASSIUM 4.6 mmol/L (3.5-5.1)
[2023-12-13 22:53] LABS: ALBUMIN 3.7 g/dl (3.4-5.0); BLOOD UREA NITROGEN 18.7 mg/dL (7-18); CALCIUM 9.1 mg/dL (8.5-10.1); MAGNESIUM 1.5 mg/dL (1.8-2.4)
[2023-12-13 22:56] LABS: CREATININE 1.4 mg/dL (0.55-1.3)
[2023-12-13 22:58] LABS: BILIRUBIN,TOTAL 0.3 mg/dL (0.2-1); TOT PROT 7.4 g/dl (6.4-8.2)
[2023-12-13] MEDS: SODIUM CHLORIDE 0.9% 500 ML INFUS.BAG IV ONE (23:33)
[2023-12-14] MEDS ORDERED: MAGNESIUM 1GM/D5W - 1 GM/100 ML IVPB IVPB ONE (01:31)
[2023-12-14] MEDS: MAGNESIUM 1GM/D5W - 1 GM/100 ML IVPB IVPB ONE (01:37)
[2023-12-14] MEDS ORDERED: CEFEPIME 1 GM/100 ML BAG IVPB ONE (02:21)
[2023-12-14] MEDS: CEFEPIME HCL 1 GM VIAL (RESTRICTED TO ID) IVPB ONE (02:40)
[2023-12-14] MEDS ORDERED: prednisoLONE ACETATE 1% OPHTH SUSP 5 ML BOTTLE OD SCH (06:00)
[2023-12-14] MEDS: INSULIN ASPART SLIDING SCALE (NOVOLOG) 1 VIAL SQ SCH (06:13)
[2023-12-14] MEDS: HEPARIN NA (PORCINE) 5,000 UNITS/ML 1ML VIAL SQ SCH (06:13)
[2023-12-14] MEDS: prednisoLONE ACETATE 1% OPHTH SUSP 5 ML BOTTLE OD SCH (06:13)
[2023-12-14 09:12] LABS: HEMATOCRIT 22.5 % (32.4-45.2); MCHC 31.2 g/dl (32.0-36.0); MEAN CELL VOLUME 86.5 fl (80-96); MEAN PLT VOLUME 7.2 fl (7.5-11.1); PLATELET COUNT 193 10^3/uL (134-434); RDW 17.9 % (11.6-15.6); WHITE BLOOD COUNT 4.2 K/mm3 (4.0-10.0)
[2023-12-14 09:35] LABS: POTASSIUM 4.1 mmol/L (3.5-5.1)
[2023-12-14 09:38] LABS: CALCIUM 8.5 mg/dL (8.5-10.1)
[2023-12-14 09:39] LABS: BLOOD UREA NITROGEN 16.6 mg/dL (7-18); MAGNESIUM 1.6 mg/dL (1.8-2.4)
[2023-12-14 09:43] LABS: CREATININE 1.2 mg/dL (0.55-1.3)
[2023-12-14] MEDS: MEROPENEM 1 GM in DEXTROSE 5%-WATER 100 ML IVPB SCH (09:50)
[2023-12-14] MEDS: CLOPIDOGREL BISULFATE 75 MG TABLET (FP) PO SCH (09:51)
[2023-12-14] MEDS: VALSARTAN 160 MG TABLET PO SCH (09:51)
[2023-12-14] MEDS: metoPROLOL SUCCINATE 25 MG TAB.SR.24H (FP) PO SCH (09:51)
[2023-12-14] MEDS: ASPIRIN COATED 81 MG TABLET.EC PO SCH (09:51)
[2023-12-14] MEDS ORDERED: MEROPENEM 1 GM in DEXTROSE 5%-WATER 100 ML IVPB SCH (10:00)
[2023-12-14] MEDS: CLINDAMYCIN 600MG PREMIX IVPB 600 MG/50 ML BAG IVPB SCH (10:31)
[2023-12-14] MEDS: MAGNESIUM 1GM/D5W 100ML - 100 ML IVPB IVPB ONE (14:30)
[2023-12-14] MEDS: CLINDAMYCIN HCL 150 MG CAPSULE (FP) PO SCH (17:37)
[2023-12-14] MEDS: ATORVASTATIN CA 80 MG TABLET (FP) PO SCH (21:58)
[2023-12-15 08:52] LABS: HEMATOCRIT 24.3 % (32.4-45.2); HEMOGLOBIN 7.7 GM/dL (10.7-15.3); MCH 27.1 pg (25.7-33.7); MCHC 31.7 g/dl (32.0-36.0); MEAN CELL VOLUME 85.4 fl (80-96); MEAN PLT VOLUME 7.5 fl (7.5-11.1); PLATELET COUNT 228 10^3/uL (134-434); RBC 2.84 M/mm3 (3.60-5.2); RDW 18.3 % (11.6-15.6)
[2023-12-15 08:55] LABS: POTASSIUM 4.6 mmol/L (3.5-5.1)
[2023-12-15 09:04] LABS: CALCIUM 8.8 mg/dL (8.5-10.1)
[2023-12-15 09:07] LABS: CREATININE 1.2 mg/dL (0.55-1.3)
[2023-12-15] MEDS: ACETAMINOPHEN 325 MG TABLET (FP) PO PRN (14:45)
[2023-12-15] MEDS: IRON SUCROSE INJECTION 200 MG in SODIUM CHLORIDE 100 ML IVPB ONE (15:58)
[2023-12-16 08:53] LABS: BASO % 1.2 % (0-2.0); EOS % 3.1 % (0-4.5); HEMATOCRIT 24.9 % (32.4-45.2); HEMOGLOBIN 7.7 GM/dL (10.7-15.3); LYMPH % 34.8 % (8-40); MCH 26.9 pg (25.7-33.7); MCHC 31.1 g/dl (32.0-36.0); MEAN CELL VOLUME 86.5 fl (80-96); MEAN PLT VOLUME 7.7 fl (7.5-11.1); MONO % 5.8 % (3.8-10.2); NEUT % 55.1 % (42.8-82.8); PLATELET COUNT 232 10^3/uL (134-434); RBC 2.88 M/mm3 (3.60-5.2); RDW 18.1 % (11.6-15.6); WHITE BLOOD COUNT 3.3 K/mm3 (4.0-10.0)
[2023-12-16 09:17] LABS: POTASSIUM 4.5 mmol/L (3.5-5.1)
[2023-12-16 09:25] LABS: ALBUMIN 3.4 g/dl (3.4-5.0); BLOOD UREA NITROGEN 16.5 mg/dL (7-18)
[2023-12-16 09:28] LABS: BILIRUBIN,TOTAL 0.2 mg/dL (0.2-1); CREATININE 1.1 mg/dL (0.55-1.3); TOT PROT 6.7 g/dl (6.4-8.2)
[2023-12-16] MEDS: IRON SUCROSE INJECTION 100 MG in SODIUM CHLORIDE 95 ML IVPB ONE ×2 (09:54→15:35)
[2023-12-16 11:59] VITALS: RESP 18
[2023-12-17] MEDS: VALSARTAN 160 MG TABLET PO ONE (06:43)
[2023-12-17] MEDS: IRON SUCROSE INJECTION 100 MG in SODIUM CHLORIDE 95 ML IVPB ONE (09:26)
[2023-12-17 10:10] LABS: HEMATOCRIT 27.3 % (32.4-45.2); HEMOGLOBIN 8.9 GM/dL (10.7-15.3); MCHC 32.6 g/dl (32.0-36.0); MEAN CELL VOLUME 85.9 fl (80-96); MEAN PLT VOLUME 7.5 fl (7.5-11.1); PLATELET COUNT 219 10^3/uL (134-434); RBC 3.18 M/mm3 (3.60-5.2); RDW 17.4 % (11.6-15.6); WHITE BLOOD COUNT 4.4 K/mm3 (4.0-10.0)
[2023-12-17 10:26] LABS: POTASSIUM 4.8 mmol/L (3.5-5.1)
[2023-12-17 10:36] LABS: BLOOD UREA NITROGEN 17.6 mg/dL (7-18); CALCIUM 9.2 mg/dL (8.5-10.1)
[2023-12-17] MEDS: MAG HYDROX/AL HYDROX/SIMETH 30 ML UNIT-DOSE CUP PO PRN (17:08)
[2023-12-18] MEDS: IRON SUCROSE INJECTION 100 MG in SODIUM CHLORIDE 95 ML IVPB ONE (06:22)
[2023-12-18 09:39] VITALS: BP 149/73; PULSE 87; TEMP 98.9
[2023-12-19 17:07] LABS: GLIADIN ANTIBODY IGA 3 units (0-19); GLIADIN ANTIBODY IGG 2 units (0-19); IG A QN SERUM. 159 mg/dL (87-352); TRANSGLUTAMINASE IGG 7 U/mL (0-5)
[2023-12-20 17:07] LABS: FREE KAPPA,SERUM 31.2 mg/L (3.3-19.4)
== END 2023-12-18 09:32 | disposition home or self-care (01) | DRG 603 ==
LOC: JER 17:38 → JERBED 12-14 01:22 → J6S 12-14 02:48
PROVIDERS: ADMIT Internal Medicine; ATTEND Internal Medicine
DX: L03.031 Cellulitis of right toe (principal); N17.9 Acute kidney failure, unspecified; E11.40 Type 2 diabetes mellitus with diabetic neuropathy, unspecified; E11.51 Type 2 diabetes mellitus with diabetic peripheral angiopathy without gangrene; I12.9 Hypertensive chronic kidney disease with stage 1 through stage 4 chronic kidney disease, or unspecified chronic kidney disease; E11.22 Type 2 diabetes mellitus with diabetic chronic kidney disease; N18.9 Chronic kidney disease, unspecified; Z79.84 Long term (current) use of oral hypoglycemic drugs; Z86.16 Personal history of COVID-19; I25.10 Atherosclerotic heart disease of native coronary artery without angina pectoris; E83.42 Hypomagnesemia; D50.9 Iron deficiency anemia, unspecified; K52.9 Noninfective gastroenteritis and colitis, unspecified; D72.819 Decreased white blood cell count, unspecified; Z79.4 Long term (current) use of insulin
CPT/HCPCS: 0241U-QW; 36415; 36430; 73630-TC-RT-FY; 80048; 80053; 82272; 82607; 82728; 82746; 82784; 82962; 83010; 83036; 83516; 83540; 83550; 83615; 83735; 83883; 84155; 84165; 84443; 84466; 85025; 85027; 85045; 85610; 85651; 85730; 86140; 86255; 86671; 86850; 86900; 86901; 86922; 87040; 87798; 93005; 93010; 99285-25; J1644; J1756; P9058

== ENCOUNTER 2024-02-18 09:33 | Day surgery (SDC) | payer OTHER ==
[2024-02-18] MEDS: FERRIC CARBOXYMALTOSE 750 MG in SODIUM CHLORIDE 250 ML IVPB ONE (09:44)
[2024-02-18 10:14] VITALS: RESP 18; TEMP 98.4
[2024-02-18 14:40] VITALS: BP 144/71; PULSE 68
== END 2024-02-18 11:15 | disposition home or self-care (01) ==
LOC: JONCNONCHE 09:33 → J7W 09:33 → JONCNONCHE 11:15
PROVIDERS: ATTEND Student in an Organized Health Care Education/Training Program
PROC: 3E033GC Introduction of Other Therapeutic Substance into Peripheral Vein, Percutaneous Approach (ICD-10-PCS; principal; 2024-02-18)
DX: D50.9 Iron deficiency anemia, unspecified (principal)
CPT/HCPCS: 96365; J1439

== ENCOUNTER 2024-02-28 09:18 | Day surgery (SDC) | payer OTHER ==
[~2024-02-28 09:18] MED LIST changes: +FERRIC CARBOXYMALTOSE 750 MG in SODIUM CHLORIDE 250 ML IVPB ONE; -VANCOMYCIN 1 GRAM (PRE-DOCKED) 1,000 MG/250 ML BAG IVPB ONE; -diphenhydrAMINE HCL 25 MG CAPSULE (FP) PO ONE
[2024-02-28] MEDS: FERRIC CARBOXYMALTOSE 750 MG in SODIUM CHLORIDE 250 ML IVPB ONE (09:44)
[2024-02-28 13:15] VITALS: BP 150/63; PULSE 74; RESP 20; TEMP 98.3
== END 2024-02-28 10:40 | disposition home or self-care (01) ==
LOC: JONCNONCHE 09:18 → J7W 09:20 → JONCNONCHE 10:40
PROVIDERS: ATTEND Student in an Organized Health Care Education/Training Program
PROC: 3E033GC Introduction of Other Therapeutic Substance into Peripheral Vein, Percutaneous Approach (ICD-10-PCS; principal; 2024-02-28)
DX: D50.9 Iron deficiency anemia, unspecified (principal)
CPT/HCPCS: 96365; J1439

== ENCOUNTER 2024-03-08 14:08 | Emergency (ER) | payer OTHER ==
[2024-03-08 14:18] VITALS: BMI 28.1
[2024-03-08 17:58] VITALS: BP 172/70; PULSE 72; RESP 16; TEMP 98.4
== END 2024-03-08 18:01 | disposition short-term general hospital (02) ==
LOC: JER 14:08
DX: H57.11 Ocular pain, right eye (principal); H53.8 Other visual disturbances; Z20.822 Contact with and (suspected) exposure to COVID-19
CPT/HCPCS: 0241U-QW; 99285-25

== ENCOUNTER 2024-07-18 18:01 | Emergency (ER) | payer OTHER, MEDICARE ==
[2024-07-18 18:29] VITALS: BP 170/80; PULSE 66; RESP 17; TEMP 98.7; BMI 28.3
[2024-07-18 20:51] LABS: HEMATOCRIT 31.4 % (32.4-45.2); MCH 30.5 pg (25.7-33.7); MCHC 31.7 g/dl (32.0-36.0); MEAN CELL VOLUME 95.9 fl (80-96); MEAN PLT VOLUME 8.2 fl (7.5-11.1); PLATELET COUNT 173.4 10^3/uL (134-434); RBC 3.27 10^6/uL (3.60-5.2); RDW 14.9 % (11.6-15.6); WHITE BLOOD COUNT 3.7 10^3/uL (4.0-10.8)
[2024-07-18 21:17] LABS: ALBUMIN 4.1 g/dl (3.4-5.0); BILIRUBIN,TOTAL 0.3 mg/dl (0.2-1); CALCIUM 9.3 mg/dl (8.5-10.1); CREATININE 1.1 mg/dl (0.6-1.3); POTASSIUM 4.5 mmol/L (3.5-5.1); TOT PROT 6.6 g/dl (6.4-8.2)
[2024-07-18 21:59] LABS: PLATELET ESTIMATE ADEQUATE
== END 2024-07-18 21:54 | disposition home or self-care (01) ==
LOC: FER 18:01
DX: R07.9 Chest pain, unspecified (principal); R11.2 Nausea with vomiting, unspecified; R06.02 Shortness of breath; R42 Dizziness and giddiness; R61 Generalized hyperhidrosis
CPT/HCPCS: 36415; 80053; 84484; 85027; 93005; 99284-25

== ENCOUNTER 2024-08-18 12:26 | Inpatient (IN) | payer OTHER ==
[2024-08-18 14:00] VITALS: BMI 27.9
[2024-08-18] MEDS ORDERED: MAG HYDROX/AL HYDROX/SIMETH 30 ML UNIT-DOSE CUP ONE (14:05)
[2024-08-18] MEDS ORDERED: ONDANSETRON 4 MG/2 ML VIAL ONE (14:05)
[2024-08-18] MEDS ORDERED: ACETAMINOPHEN INJECTION 100 ML ONE (14:05)
[2024-08-18] MEDS ORDERED: FAMOTIDINE 20 MG/50 ML IVPB 20 MG/50 ML MG IVPB ONE (14:05)
[2024-08-18 14:08] LABS: EOS % 2.5 % (0-4.5); HEMATOCRIT 23.2 % (32.4-45.2); HEMOGLOBIN 7.7 GM/dL (10.7-15.3); LYMPH % 21.6 % (8-40); MCH 30.4 pg (25.7-33.7); MEAN CELL VOLUME 91.9 fl (80-96); MEAN PLT VOLUME 8.3 fl (7.5-11.1); MONO % 3.3 % (3.8-10.2); NEUT % 71.6 % (42.8-82.8); PLATELET COUNT 247 10^3/uL (134-434); RBC 2.53 M/mm3 (3.60-5.2); RDW 14.4 % (11.6-15.6); WHITE BLOOD COUNT 3.4 K/mm3 (4.0-10.0)
[2024-08-18] MEDS: SODIUM CHLORIDE 0.9% 1000 ML INFUS.BAG IV ONE (14:25)
[2024-08-18] MEDS: ACETAMINOPHEN 1000 MG/100 ML BAG IVPB ONE (14:25)
[2024-08-18] MEDS: FAMOTIDINE 20 MG/50 ML IVPB 20 MG/50 ML MG IVPB ONE (14:26)
[2024-08-18] MEDS: MAG HYDROX/AL HYDROX/SIMETH 30 ML UNIT-DOSE CUP PO ONE (14:26)
[2024-08-18] MEDS: ONDANSETRON 4 MG/2 ML VIAL IVPUSH ONE (14:26)
[2024-08-18 14:31] LABS: PH,URINE 5.5 (5.0-8.0); URINE APPEARANCE CLOUDY; URINE BILIRUBIN NEGATIVE (NEGATIVE); URINE COLOR YELLOW; URINE GLUCOSE (UA) TRACE (NEGATIVE); URINE KETONE NEGATIVE (NEGATIVE); URINE LEUK ESTERASE NEGATIVE (NEGATIVE); URINE NITRITE NEGATIVE (NEGATIVE); URINE PROTEIN TRACE (NEGATIVE); URINE UROBILINOGEN 0.2 mg/dL (0.2-1.0)
[2024-08-18 15:18] LABS: POTASSIUM 5.3 mmol/L (3.5-5.1)
[2024-08-18 15:20] LABS: CALCIUM 10.6 mg/dL (8.5-10.1)
[2024-08-18 15:21] LABS: ALBUMIN 4.4 g/dl (3.4-5.0); BLOOD UREA NITROGEN 63.9 mg/dL (7-18)
[2024-08-18 15:25] LABS: BILIRUBIN,TOTAL 0.4 mg/dL (0.2-1); TOT PROT 7.6 g/dl (6.4-8.2)
[2024-08-18] MEDS ORDERED: ASPIRIN COATED 81 MG TABLET.EC ONE (18:28)
[2024-08-18] MEDS ORDERED: ATORVASTATIN CA 40 MG TABLET (FP) ONE (18:29)
[2024-08-18] MEDS ORDERED: FERROUS SO4 325 MG TABLET (FP) ONE (18:29)
[2024-08-18] MEDS ORDERED: metoPROLOL SUCCINATE 25 MG TAB.SR.24H (FP) PO ONE (18:29)
[2024-08-18] MEDS ORDERED: VALSARTAN 80 MG TABLET ONE (18:29)
[2024-08-18] MEDS: PANTOPRAZOLE SODIUM 40 MG VIAL IVPUSH ONE (18:46)
[2024-08-18] MEDS: PATIENT'S OWN MEDICATION (NON-FORMULARY) (Ferrous Sulfate [Iron] 325 MG Tablet) PO SCH (18:46)
[2024-08-18] MEDS: FERROUS SO4 325 MG TABLET (FP) PO SCH (18:50)
[2024-08-18] MEDS: PANTOPRAZOLE SODIUM 40 MG VIAL IVPUSH SCH (23:13)
[2024-08-19] MEDS: INSULIN ASPART SLIDING SCALE (NOVOLOG) 1 VIAL SQ SCH (06:43)
[2024-08-19] MEDS: SODIUM CHLORIDE 0.9% 500 ML INFUS.BAG IV ONE (08:55)
[2024-08-19 10:15] LABS: BASO % 1.7 % (0-2.0); EOS % 3.4 % (0-4.5); HEMATOCRIT 30.1 % (32.4-45.2); HEMOGLOBIN 9.9 GM/dL (10.7-15.3); LYMPH % 30.8 % (8-40); MCH 28.8 pg (25.7-33.7); MEAN CELL VOLUME 87.2 fl (80-96); MEAN PLT VOLUME 8.3 fl (7.5-11.1); MONO % 4.1 % (3.8-10.2); PLATELET COUNT 242 10^3/uL (134-434); RBC 3.45 M/mm3 (3.60-5.2); RDW 18.3 % (11.6-15.6)
[2024-08-19 10:17] LABS: POTASSIUM 4.6 mmol/L (3.5-5.1)
[2024-08-19 10:20] LABS: BLOOD UREA NITROGEN 52.8 mg/dL (7-18)
[2024-08-19 10:23] LABS: CREATININE 1.9 mg/dL (0.55-1.3)
[2024-08-19] MEDS: ASPIRIN COATED 81 MG TABLET.EC PO SCH (11:12)
[2024-08-19] MEDS: VALSARTAN 160 MG TABLET PO SCH (11:13)
[2024-08-19] MEDS: metoPROLOL SUCCINATE 25 MG TAB.SR.24H (FP) PO SCH (11:13)
[2024-08-19] MEDS: SODIUM CHLORIDE 0.45% 1,000 ML IV SCH (17:55)
[2024-08-19] MEDS: ATORVASTATIN CA 40 MG TABLET (FP) PO SCH (21:28)
[2024-08-20] MEDS: FERROUS SO4 325 MG TABLET (FP) PO SCH (09:46)
[2024-08-20 09:47] LABS: BASO % 1.1 % (0-2.0); EOS % 2.9 % (0-4.5); HEMATOCRIT 31.4 % (32.4-45.2); HEMOGLOBIN 10.4 GM/dL (10.7-15.3); LYMPH % 35.5 % (8-40); MCH 28.8 pg (25.7-33.7); MEAN CELL VOLUME 87.3 fl (80-96); MEAN PLT VOLUME 8.1 fl (7.5-11.1); NEUT % 55.5 % (42.8-82.8); PLATELET COUNT 256 10^3/uL (134-434); RDW 18.1 % (11.6-15.6); WHITE BLOOD COUNT 3.6 K/mm3 (4.0-10.0)
[2024-08-20 09:56] LABS: INR 0.95 (0.83-1.09); PROTHROMBIN TIME (PATIENT) 10.9 SEC (9.7-13.0)
[2024-08-20 10:07] LABS: POTASSIUM 4.2 mmol/L (3.5-5.1)
[2024-08-20 10:16] LABS: ALBUMIN 4.2 g/dl (3.4-5.0)
[2024-08-20 10:19] LABS: BLOOD UREA NITROGEN 34.6 mg/dL (7-18); CALCIUM 9.4 mg/dL (8.5-10.1)
[2024-08-20 10:20] LABS: MAGNESIUM 1.7 mg/dL (1.8-2.4)
[2024-08-20 10:22] LABS: CREATININE 1.4 mg/dL (0.55-1.3)
[2024-08-20 10:23] LABS: BILIRUBIN,TOTAL 0.5 mg/dL (0.2-1); TOT PROT 6.8 g/dl (6.4-8.2)
[2024-08-20] MEDS: SODIUM CHLORIDE 0.45% 1,000 ML IV SCH (14:50)
[2024-08-20] MEDS: PEG 3350/NA SULF BICARB CL/KCL 4000 ML SOLN.RECON PO ONE (16:46)
[2024-08-20] MEDS: BISACODYL 5 MG TABLET.DR (FP) PO ONE (16:46)
[2024-08-21 11:04] LABS: EOS % 3.2 % (0-4.5); HEMATOCRIT 31.6 % (32.4-45.2); HEMOGLOBIN 10.3 GM/dL (10.7-15.3); LYMPH % 34.9 % (8-40); MCH 28.8 pg (25.7-33.7); MCHC 32.6 g/dl (32.0-36.0); MEAN CELL VOLUME 88.2 fl (80-96); MEAN PLT VOLUME 8.1 fl (7.5-11.1); MONO % 4.9 % (3.8-10.2); PLATELET COUNT 252 10^3/uL (134-434); RBC 3.58 M/mm3 (3.60-5.2); RDW 17.3 % (11.6-15.6); WHITE BLOOD COUNT 3.7 K/mm3 (4.0-10.0)
[2024-08-21 11:24] LABS: POTASSIUM 3.8 mmol/L (3.5-5.1)
[2024-08-21 11:27] LABS: ALBUMIN 3.8 g/dl (3.4-5.0); CALCIUM 9.5 mg/dL (8.5-10.1)
[2024-08-21 11:29] LABS: BLOOD UREA NITROGEN 20.8 mg/dL (7-18)
[2024-08-21 11:30] LABS: MAGNESIUM 1.6 mg/dL (1.8-2.4)
[2024-08-21 11:31] LABS: CREATININE 1.2 mg/dL (0.55-1.3)
[2024-08-21 11:32] LABS: BILIRUBIN,TOTAL 0.4 mg/dL (0.2-1); TOT PROT 6.6 g/dl (6.4-8.2)
[2024-08-21 15:18] VITALS: TEMP 97.4
[2024-08-21 15:37] VITALS: BP 125/87; PULSE 65; RESP 17
== END 2024-08-21 17:03 | disposition home or self-care (01) | DRG 812 ==
LOC: JER 12:26 → JERBED 16:53 → J8W 19:21
PROVIDERS: ADMIT Internal Medicine; ATTEND Nurse Practitioner Acute Care
PROC: 30233N1 Transfusion of Nonautologous Red Blood Cells into Peripheral Vein, Percutaneous Approach (ICD-10-PCS; principal; 2024-08-18)
PROC: 0DJ08ZZ Inspection of Upper Intestinal Tract, Via Natural or Artificial Opening Endoscopic (ICD-10-PCS; 2024-08-20)
PROC: 0DJD8ZZ Inspection of Lower Intestinal Tract, Via Natural or Artificial Opening Endoscopic (ICD-10-PCS; 2024-08-21)
DX: D64.9 Anemia, unspecified (principal); N17.9 Acute kidney failure, unspecified; N18.4 Chronic kidney disease, stage 4 (severe); I12.9 Hypertensive chronic kidney disease with stage 1 through stage 4 chronic kidney disease, or unspecified chronic kidney disease; E78.5 Hyperlipidemia, unspecified; E11.40 Type 2 diabetes mellitus with diabetic neuropathy, unspecified; K57.30 Diverticulosis of large intestine without perforation or abscess without bleeding; K64.8 Other hemorrhoids
CPT/HCPCS: 0241U-QW; 36415; 36430; 71045-TC-FY; 74018-TC-FY; 74176-TC; 80048; 80053; 81003; 82570; 82728; 82962; 83540; 83690; 83735; 84484; 85025; 85610; 86850; 86900; 86901; 86922; 87086; 93005; 93010; 99285-25; J0131; P9038; P9058

== ENCOUNTER 2025-02-24 21:31 | Emergency (ER) | payer OTHER ==
[2025-02-24 22:35] VITALS: BMI 25.9
[2025-02-24 22:55] LABS: ABSOLUTE IMMATURE GRANULOCYTES 0.03 x10^3/uL (0.0-0.031); BASOPHILS # 0.02 x10^3/uL (0.01-0.08); EOSINOPHIL % 1.5 % (0.7-5.8); EOSINOPHILS # 0.07 x10^3/uL (0.04-0.36); HEMATOCRIT 19.5 % (34.1-44.9); MCHC 30.8 g/dl (32.2-35.5); MEAN PLT VOLUME 9.5 fl (9.4-12.3); MONOCYTE # 0.26 x10^3/uL (0.24-0.86); MONOCYTE % 5.5 % (4.7-12.5); PLATELET COUNT 157 x10^3/uL (182-369); RDW 13.3 % (12.3-16.6)
[2025-02-24 23:05] LABS: INR 0.93 (0.83-1.09); PROTHROMBIN TIME (PATIENT) 10.1 SEC (9.7-13.0)
[2025-02-24] MEDS ORDERED: MIDAZOLAM HCL 2 MG/2 ML SINGLE DOSE VIAL ONE (23:08)
[2025-02-24 23:09] LABS: ACTIVATED PTT 34.4 SECONDS (25.2-36.5)
[2025-02-24 23:15] LABS: POTASSIUM 4.8 mmol/L (3.5-5.1)
[2025-02-24 23:16] LABS: CALCIUM 9.9 mg/dL (8.5-10.1)
[2025-02-24 23:17] LABS: ALBUMIN 3.6 g/dl (3.4-5.0)
[2025-02-24 23:18] LABS: BLOOD UREA NITROGEN 20.9 mg/dL (7-18)
[2025-02-24 23:20] LABS: CREATININE 1.2 mg/dL (0.55-1.3)
[2025-02-24] MEDS: NICARDIPINE 25 MG in DEXTROSE 5%-WATER - 240 ML IVPB STA (23:21)
[2025-02-24 23:22] LABS: TOT PROT 7.2 g/dl (6.4-8.2)
[2025-02-24 23:23] LABS: BILIRUBIN,TOTAL 0.5 mg/dL (0.2-1)
[2025-02-25] MEDS: SODIUM CHLORIDE 1,000 ML IV SCH (00:17)
[2025-02-25] MEDS ORDERED: ACETAMINOPHEN INJECTION 100 ML ONE (00:31)
[2025-02-25] MEDS: ACETAMINOPHEN 1000 MG/100 ML BAG IVPB ONE (00:37)
[2025-02-25] MEDS ORDERED: levETIRAcetam 500 MG/5 ML INJECTION VIAL IVPB ONE (01:30)
[2025-02-25] MEDS: levETIRAcetam 500 MG/5 ML INJECTION VIAL IVPB ONE (01:34)
[2025-02-25 01:35] VITALS: PULSE 84
[2025-02-25 03:00] VITALS: BP 148/66; RESP 18; TEMP 98.3
== END 2025-02-25 02:00 | disposition short-term general hospital (02) ==
LOC: JER 21:31
DX: I60.9 Nontraumatic subarachnoid hemorrhage, unspecified (principal); R29.898 Other symptoms and signs involving the musculoskeletal system
CPT/HCPCS: 36415; 70450-TC; 70553-TC; 80053; 80061; 82550; 82553; 83036; 84484; 85025; 85610; 85730; 86850; 86900; 86901; 86922; 93005; 93010; 99291; J0131

== ENCOUNTER 2025-08-12 13:32 | Observation (INO) | payer OTHER ==
[2025-08-12 14:55] LABS: ABSOLUTE IMMATURE GRANULOCYTES 0.02 x10^3/uL (0.0-0.031); BASOPHILS # 0.02 x10^3/uL (0.01-0.08); EOSINOPHIL % 0.7 % (0.7-5.8); EOSINOPHILS # 0.03 x10^3/uL (0.04-0.36); MCHC 29.4 g/dl (32.2-35.5); MEAN CELL VOLUME 87.4 fl (79.4-94.8); MEAN PLT VOLUME 9.7 fl (9.4-12.3); MONOCYTE # 0.17 x10^3/uL (0.24-0.86); MONOCYTE % 4.0 % (4.7-12.5); RDW 13.0 % (12.3-16.6)
[2025-08-12 15:06] LABS: INR 0.94 (0.83-1.09); PROTHROMBIN TIME (PATIENT) 10.2 SEC (9.7-13.0)
[2025-08-12 15:08] LABS: ACTIVATED PTT 32.7 SECONDS (25.2-36.5)
[2025-08-12] MEDS: SODIUM CHLORIDE 0.9% 500 ML INFUS.BAG IV ONE ×2 (15:09→16:28)
[2025-08-12 15:15] LABS: GLUCOSE,RANDOM 310 mg/dL (74-106); TOT PROT 6.4 g/dl (6.4-8.2)
[2025-08-12 15:16] LABS: CO2 25 mmol/L (21-32)
[2025-08-12 15:18] LABS: ALK PHOS 176 U/L (40-150)
[2025-08-12 15:21] LABS: CREATININE 1.31 mg/dL (0.55-1.3); LDL CHOLESTEROL (ONLY SJRH) 78 mg/dL (5-100); SGOT/AST 25 U/L (5-34); SGPT/ALT 22 U/L (0-55)
[2025-08-12] MEDS ORDERED: METOCLOPRAMIDE HCL INJECTION 10 MG/2 ML VIAL ONE (16:07)
[2025-08-12] MEDS ORDERED: CALCIUM GLUCONATE 10% - 1,000 MG/10 ML VIAL ONE (16:07)
[2025-08-12] MEDS ORDERED: SODIUM ZIRCONIUM CYCLOSILICATE (LOKELMA) 10 GM PACKET ONE (16:07)
[2025-08-12 16:24] LABS: EPI CELLS 1 /uL (0-25.1); HYALINE CASTS 0 /uL (0-3.1); URINE APPEARANCE CLEAR; URINE BACTERIA 31 /uL (0-1359); URINE BILIRUBIN NEGATIVE (NEGATIVE); URINE COLOR YELLOW; URINE GLUCOSE (UA) 2+ (NEGATIVE); URINE KETONE NEGATIVE (NEGATIVE); URINE LEUK ESTERASE NEGATIVE (NEGATIVE); URINE NITRITE NEGATIVE (NEGATIVE); URINE PROTEIN 2+ (NEGATIVE); URINE RBC 6 /uL (0-23.9); URINE UROBILINOGEN 0.2 mg/dL (0.2-1.0); URINE WBC 2 /uL (0-25.8)
[2025-08-12] MEDS: METOCLOPRAMIDE HCL INJECTION 10 MG/2 ML VIAL IVPB ONE (16:28)
[2025-08-12] MEDS: CALCIUM GLUCONATE 10% - 1,000 MG/10 ML VIAL IVPB ONE (16:28)
[2025-08-12] MEDS: SODIUM ZIRCONIUM CYCLOSILICATE (LOKELMA) 5 GM PACKET PO ONE (16:28)
[2025-08-12] MEDS: ACETAMINOPHEN 1000 MG/100 ML BAG IVPB ONE ×2 (17:00→21:55)
[2025-08-12] MEDS ORDERED: ACETAMINOPHEN INJECTION 100 ML ONE ×2 (17:14→21:54)
[2025-08-12 19:51] LABS: GLUCOSE,RANDOM 396.0 mg/dL (74-106)
[2025-08-12 19:53] LABS: CO2 22.0 mmol/L (21-32)
[2025-08-12 19:57] LABS: CREATININE 1.21 mg/dL (0.55-1.3)
[2025-08-12] MEDS: SODIUM CHLORIDE 1,000 ML IV SCH (20:36)
[2025-08-12 20:47] LABS: IRON SERUM 47.0 ug/dL (50-175)
[2025-08-12] MEDS: INSULIN GLARGINE (LANTUS) 100 UNITS/ML UNITS SQ SCH (23:23)
[2025-08-12] MEDS: HEPARIN NA (PORCINE) 5,000 UNITS/ML 1ML VIAL SQ SCH (23:24)
[2025-08-12] MEDS: INSULIN (NOVOLOG) ASPART 100 UNITS/ML 10ML VIAL SQ SCH (23:24)
[2025-08-13] MEDS: EMPAGLIFLOZIN (JARDIANCE) 10 MG TABLET PO SCH (06:21)
[2025-08-13 08:07] LABS: ABSOLUTE IMMATURE GRANULOCYTES 0.00 x10^3/uL (0.0-0.031); BASOPHILS # 0.03 x10^3/uL (0.01-0.08); EOSINOPHIL % 2.7 % (0.7-5.8); EOSINOPHILS # 0.09 x10^3/uL (0.04-0.36); MCHC 30.0 g/dl (32.2-35.5); MEAN CELL VOLUME 87.1 fl (79.4-94.8); MEAN PLT VOLUME 10.3 fl (9.4-12.3); MONOCYTE # 0.25 x10^3/uL (0.24-0.86); MONOCYTE % 7.6 % (4.7-12.5); RDW 13.2 % (12.3-16.6)
[2025-08-13 08:38] LABS: GLUCOSE,RANDOM 205.0 mg/dL (74-106)
[2025-08-13 08:39] LABS: TOT PROT 5.8 g/dl (6.4-8.2)
[2025-08-13 08:40] LABS: CO2 24.0 mmol/L (21-32)
[2025-08-13 08:41] LABS: ALK PHOS 154.0 U/L (40-150)
[2025-08-13 08:44] LABS: CREATININE 1.17 mg/dL (0.55-1.3); SGOT/AST 20.0 U/L (5-34); SGPT/ALT 16.0 U/L (0-55)
[2025-08-13] MEDS ORDERED: amLODIPine BESYLATE 5 MG TABLET (FP) PO SCH (10:00)
[2025-08-13] MEDS: amLODIPine BESYLATE 5 MG TABLET (FP) PO SCH (10:59)
[2025-08-13] MEDS: FOLIC ACID 1 MG TABLET (FP) PO SCH (10:59)
[2025-08-13] MEDS: SODIUM ZIRCONIUM CYCLOSILICATE (LOKELMA) 5 GM PACKET PO SCH (10:59)
[2025-08-13] MEDS: PANTOPRAZOLE 40 MG TABLET PO SCH (10:59)
[2025-08-13] MEDS: ASPIRIN COATED 81 MG TABLET.EC PO SCH (10:59)
[2025-08-13 11:24] VITALS: BMI 29.7
[2025-08-13] MEDS: MAGNESIUM OXIDE 400 MG TABLET (FP) PO ONE (17:18)
[2025-08-13] MEDS: ATORVASTATIN CA 80 MG TABLET (FP) PO SCH (21:46)
[2025-08-14 07:59] LABS: ABSOLUTE IMMATURE GRANULOCYTES 0.01 x10^3/uL (0.0-0.031); BASOPHILS # 0.03 x10^3/uL (0.01-0.08); EOSINOPHIL % 3.2 % (0.7-5.8); EOSINOPHILS # 0.10 x10^3/uL (0.04-0.36); MCHC 29.9 g/dl (32.2-35.5); MEAN CELL VOLUME 87.0 fl (79.4-94.8); MEAN PLT VOLUME 10.5 fl (9.4-12.3); MONOCYTE # 0.24 x10^3/uL (0.24-0.86); MONOCYTE % 7.7 % (4.7-12.5); RDW 13.2 % (12.3-16.6)
[2025-08-14 08:26] LABS: GLUCOSE,RANDOM 171.0 mg/dL (74-106); TOT PROT 6.1 g/dl (6.4-8.2)
[2025-08-14 08:27] LABS: CO2 25.0 mmol/L (21-32)
[2025-08-14 08:29] LABS: ALK PHOS 155.0 U/L (40-150)
[2025-08-14 08:32] LABS: CREATININE 1.24 mg/dL (0.55-1.3); SGOT/AST 30.0 U/L (5-34); SGPT/ALT 18.0 U/L (0-55)
[2025-08-14 15:09] VITALS: BP 159/69; PULSE 61; RESP 18; TEMP 98.1
== END 2025-08-14 16:10 | disposition home or self-care (01) ==
LOC: JER 13:32 → JERBED 15:33 → J4S 22:24
PROVIDERS: ADMIT Student in an Organized Health Care Education/Training Program; ATTEND Nurse Practitioner
PROC: 3E033NZ Introduction of Analgesics, Hypnotics, Sedatives into Peripheral Vein, Percutaneous Approach (ICD-10-PCS; principal; 2025-08-12)
PROC: 3E033GC Introduction of Other Therapeutic Substance into Peripheral Vein, Percutaneous Approach (ICD-10-PCS; 2025-08-12)
PROC: 3E013VG Introduction of Insulin into Subcutaneous Tissue, Percutaneous Approach (ICD-10-PCS; 2025-08-12)
PROC: 3E023GC Introduction of Other Therapeutic Substance into Muscle, Percutaneous Approach (ICD-10-PCS; 2025-08-12)
PROC: 3E0337Z Introduction of Electrolytic and Water Balance Substance into Peripheral Vein, Percutaneous Approach (ICD-10-PCS; 2025-08-12)
PROC: 3E033NZ Introduction of Analgesics, Hypnotics, Sedatives into Peripheral Vein, Percutaneous Approach (ICD-10-PCS; 2025-08-12)
PROC: 3E033GC Introduction of Other Therapeutic Substance into Peripheral Vein, Percutaneous Approach (ICD-10-PCS; 2025-08-12)
PROC: 3E013VG Introduction of Insulin into Subcutaneous Tissue, Percutaneous Approach (ICD-10-PCS; 2025-08-12)
PROC: 3E023GC Introduction of Other Therapeutic Substance into Muscle, Percutaneous Approach (ICD-10-PCS; 2025-08-12)
PROC: 3E0337Z Introduction of Electrolytic and Water Balance Substance into Peripheral Vein, Percutaneous Approach (ICD-10-PCS; 2025-08-12)
DX: R55 Syncope and collapse (principal); E87.5 Hyperkalemia; D64.9 Anemia, unspecified; E11.9 Type 2 diabetes mellitus without complications; I25.10 Atherosclerotic heart disease of native coronary artery without angina pectoris; I13.10 Hypertensive heart and chronic kidney disease without heart failure, with stage 1 through stage 4 chronic kidney disease, or unspecified chronic kidney disease; Z86.73 Personal history of transient ischemic attack (TIA), and cerebral infarction without residual deficits; E11.22 Type 2 diabetes mellitus with diabetic chronic kidney disease; N18.9 Chronic kidney disease, unspecified; I73.9 Peripheral vascular disease, unspecified; E78.5 Hyperlipidemia, unspecified; Z88.0 Allergy status to penicillin; Z88.8 Allergy status to other drugs, medicaments and biological substances
CPT/HCPCS: 36415; 70450-TC; 70496-TC; 70498-TC; 71045-TC-FY; 80048; 80053; 80061; 81003; 82550; 82728; 82962; 83036; 83540; 83550; 83735; 83880; 84100; 84484; 85025; 85610; 85730; 86850; 86900; 86901; 93005; 93010; 93306-TC; 93880-TC; 96361; 96372; 96374; 96375; 97116-GP; 97161-GP; 99285-25; G0378; Q9967